=== PATIENT | male | born 1940 | race Caucasian/White ===

== ENCOUNTER → 2024-02-13 09:42 | Outpatient (REF) | payer OTHER, SELFPAY | LOC: DHVS 09:42 | PROVIDERS: ATTENDING PHYSICIAN Surgery Vascular Surgery; FAMILY PHYSICIAN Internal Medicine Geriatric Medicine | DX: I73.9 Peripheral vascular disease, unspecified (principal) | CPT/HCPCS: 93922; 93925 ==

== ENCOUNTER 2024-09-07 12:09 | Emergency (ER) | payer OTHER, SELFPAY ==
[2024-09-07 12:19] VITALS: BP 146/64
--- NOTE | 2024-09-07 15:07 | ED.GENMED ---
History of Present Illness
General
Chief Complaint: Back Pain
Source: patient
Exam Limitations: none
Time Seen by Provider: 09/07/24 15:04
Nursing documentation reviewed up to this point in time: agreed with
History of Present Illness
History of Present Illness:
83-year-old male with history of back pain, BPH, right hip surgery presents for back spasms. States 'spasmotic' low back pains that started 4 days ago. Went to bed 5 nights ago, fell asleep on his back (he never sleeps on his back, sleeps on his
side), woke with 'tremendous pain in my lower back' right side worse than left. Pain was worse next day with spasms with certain movements, jose a. twisting to right side. Spasms were so bad 'they went into my chest and my sternum popped.'
States he laid on the floor for 6 hours on Saturday due to spasms, unable to help him up.
Called PCP Dr. Saenz's office Sun and spoke with Dr. Jaramillo who called in Flexeril and they talked about a steroid taper but when pt picked up the rx, no steroid ordered. He couldn't get through to the office today
Pt denies saddle numbness or weakness in legs, he is urinating frequently since stopping his Flomax few months ago, no incontinence.
Past History
Past History
ED Past Medical History: Other (DVT on warfarin ); Negative Asthma
ED Past Surgical History: None
Social History
Personal:
Living: with family
Family History
Family History: Hypertension
Review of Systems
Review of Systems
Allergies reviewed?: Yes
All Other Systems: ROS reviewed and negative except as documented in HPI and ROS
Constitutional: Denies fever or chills
Respiratory: Denies trouble breathing
Cardiac: Denies chest pain
ABD/GI: Denies abdominal pain, nausea, vomiting or diarrhea
: Reports frequency; Denies dysuria, incontinence, difficulty voiding or urgency
Musculoskeletal: Reports back pain; Denies neck pain
Skin: Reports no symptoms
Neurological: Reports no symptoms
Phy Exam
Physical Exam
Physical Exam:
GENERAL: Mild distress due to low back pain. A&Ox3.
CONSTITUTIONAL: Afebrile.
EYES: clear, conjunctivae normal
ENMT: moist mucus membranes
RESPIRATORY: Regular respirations, nonlabored, lungs clear.
CARDIOVASCULAR: Regular rate and rhythm, no murmurs, no rubs.
GI: Soft, nontender, normal BS
MUSCULOSKELETAL: Tender right lower back soft tissues, no spinal bony tenderness, rest of back is nontender. Movement causes R lower back spasms Well perfused.
SKIN: Warm, dry, pink
PSYCH: Normal mood and affect. Well kept, interactive and appropriate
NEUROLOGIC: Awake, alert and oriented. No focal neurological deficits, strength equal throughout.
Course
Orders/Labs/Results
Orders:
Orders
09/07/24 15:37
Dexamethasone Sod Phosphate [Decadron] 10 mg IV NOW STA
diazePAM [Valium Injection] 2 mg IV NOW STA
09/07/24 15:43
Complete Blood Count/With Diff Urgent
Comprehensive Metabolic Panel Urgent
Creatine Phosphokinase Urgent
Comment: ADD ON
09/07/24 16:19
Add On- LAB Urgent
Tests Added?: CPK
09/07/24 16:29
Urinalysis Reflex To Culture Urgent
Date Specimen was Collected: 09/07/24
Time Specimen was Collected: 16:13
Urine Microscopic Reflex Cult Urgent
Urine Culture Urgent
PAUL Source: U
Specimen Description:
Date Specimen was Collected: 09/07/24
Time Specimen was Collected: 16:13
Abnormal Lab Results
09/07/24 09/07/24
15:43 16:29
RBC 3.77 L 10^6/uL
(4.70-6.10)
Hgb 11.3 L g/dL
(13.0-18.0)
Hct 32.9 L %
(39.0-52.0)
Absolute Neuts (auto) 7.3 H 10^3/uL
(1.4-6.5)
Absolute Monos (auto) 1.2 H 10^3/uL
(0.1-0.6)
Lymphocytes % 12.2 L %
(20.5-51.1)
Monocytes % 12.6 H %
(1.7-9.3)
Sodium 134 L mmol/L
(135-145)
Creatinine 0.6 L mg/dL
(0.7-1.3)
Glucose 112 H mg/dl
(70-99)
Urine Ketones 1+ A
(Negative)
Leukocyte Esterase Rfl 1+ A
(Negative)
09/07/24 15:43
09/07/24 15:43
Vital Signs
Initial and Last Documented VS:
Initial Vital Signs
Temp Pulse Resp BP Pulse Ox
98.1 F 73 16 146/64 97
09/07/24 12:19 09/07/24 12:19 09/07/24 12:19 09/07/24 12:19 09/07/24 12:19
Last Documented Vital Signs
Temp Pulse Resp BP Pulse Ox
98.1 F 73 16 146/64 97
09/07/24 12:19 09/07/24 12:19 09/07/24 12:19 09/07/24 12:19 09/07/24 12:19
MDM/Problems Addressed
Differential Diagnosis Includes:
Low back strain, sciatica
MDM/Problems Addressed:
83-year-old male with history of back pain, BPH, right hip surgery presents for back spasms. States 'spasmotic' low back pains that started 4 days ago. Went to bed 5 nights ago, fell asleep on his back (he never sleeps on his back, sleeps on his
side), woke with 'tremendous pain in my lower back' right side worse than left. Pain was worse next day with spasms with certain movements, jose a. twisting to right side. Spasms were so bad 'they went into my chest and my sternum popped.'
States he laid on the floor for 6 hours on Saturday due to spasms, unable to help him up.
Called PCP Dr. Saenz's office Sun and spoke with Dr. Jaramillo who called in Flexeril and they talked about a steroid taper but when pt picked up the rx, no steroid ordered. He couldn't get through to the office today
Pt denies saddle numbness or weakness in legs, he is urinating frequently since stopping his Flomax few months ago, no incontinence.
No infectious symptoms, not anticoagulated no recent trauma,
4:00 PM:
CBC with no clinically significant abnormality
CMP normal
4:40 p.m.
Sleeping soundly after Valium and Decadron
Plan: ambulate, rx for prednisone taper sent to his pharmacy
5:00 p.m.
Pt awake, OOB and ambulating slowly with mild assistance with improved but still there right lower back pain.
Left message on 's phone to picking tech patient, informed her he will need a walker. Suggested she get one at pharmacy.
Pt comfortable going home. Informed he needs walker.
He says can get him one.
*Critical Care Note
Total Time (30-74mins, 75-104mins- exclusive of procedures): Not Applicable
ED Attending Note
-
Portions of this chart may have been created with voice recognition software.� Occasional wrong word or��sound alike� substitutions may have occurred due to the inherent limitations of voice recognition software.
Discharge Plan
Departure
Patient Disposition: Home (Routine Discharge)
Date of Disposition: 09/07/24
Time of Disposition: 17:19
Patient with high blood pressure during this ER visit?: No
Condition: Fair
Discharge Problem:
Low back pain, Back muscle spasm
Instructions: Low Back Pain (DC)
Prescriptions:
New
prednisone 10 mg tablet
10 mg PO DIRECTED Qty: 20 0RF
Rx Instructions:
40 mg x 2 days, 30 mg x 2 days, 20 mg x 2 days, 10 mg x 2 days.
No Action
calcium carbonate [Calcium 500] 500 MG tablet
1,000 - 1,200 mg PO DAILY
vitamin E 400 UNIT capsule
400 - 800 unit PO DAILY
Fish Oil
1.5 gm PO BID
MAGNESIUM
500 - 700 mg PO DAILY
Coumadin
10 mg PO DAILY
Patient Comments:
Was ordered 10mg daily but Pt. had been taken 20mg daily since 09/29
Referrals:
Denton Saenz MD [Family Provider] - Call in 1-3 days for appt
NONE,* [Active] -
Activity Restrictions/Additional Instructions:
As we discussed, continue your Cyclobenzaprine muscle relaxant as prescribed
I sent a prescription to your pharmacy for Prednisone taper. Start it tomorrow as you were given a dose of steroid here today.
Call Dr. Saenz's office tomorrow and make a follow up appointment for Saturday.
Get a walker at the pharmacy tonight and use it until your back feels better.
Interventions
Interventions:
*Risk Screen - Suicide Last Done: 09/07/24 12:21
*Neglect/Abuse Screening Last Done: 09/07/24 12:21
*Nursing Disposition Last Done: 09/07/24 18:38
ED-Musculoskeletal Assessment Last Done: 09/07/24 15:59
Discharge Date and Time
Discharge Date/Time: 09/07/24 18:38
Print Language: VIETNAMESE
[2024-09-07 15:43] VITALS: BMI 20.6
[2024-09-07] MEDS: DECADRON 10 MG IV (15:44)
[2024-09-07] MEDS: VALIUM INJECTION 2 MG IV (15:44)
[2024-09-07 16:18] LABS: % Basophils 0.1 % (0-2); % Eosinophils 0.1 % (0-6); % Immature Granulocytes 0.4 % (0-0.5); % Lymphocytes 12.2 % (20.5-51.1); % Monocytes 12.6 % (1.7-9.3); % Neutrophils 74.6 % (42.2-75.2); Absolute Lymphocytes 1.2 10^3/uL (1.2-3.4); Absolute Monocytes 1.2 10^3/uL (0.1-0.6); Absolute Neutrophils 7.3 10^3/uL (1.4-6.5); Hematocrit 32.9 % (39.0-52.0); Hemoglobin 11.3 g/dL (13.0-18.0); Mean Corp Hgb Conc. 34.3 g/dL (33.0-37.0); Mean Corpuscular Volume 87.3 fL (80.0-94.0); Mean Platelet Volume 10.3 fL (7.4-10.4); Nucleated Red Blood Cells % 0 % (-); Platelet Count 253 10^3/uL (130-400); Red Blood Cell Count 3.77 10^6/uL (4.70-6.10); White Blood Cell Count 9.7 10^3/uL (4.8-10.8)
[2024-09-07 16:20] LABS: ALT (SGPT) 16 U/L (0-50); AST (SGOT) 23 U/L (17-59); Albumin 3.7 g/dl (3.5-5.0); Alkaline Phosphatase 63 U/L (38-126); Blood Urea Nitrogen 13 mg/dl (9-20); Calcium 8.9 mg/dl (8.4-10.2); Carbon Dioxide 25 mmol/L (22-30); Chloride 101 mmol/L (98-107); Estimated Creatinine Clearance 87 ml/min; Glucose 112 mg/dl (70-99); Potassium 4.2 mmol/L (3.5-5.1); Sodium 134 mmol/L (135-145); Total Bilirubin 0.6 mg/dl (0.2-1.3); Total Protein 6.5 g/dl (6.3-8.2); eGFR > 60.00
[2024-09-07 17:07] LABS: Creatine Phosphokinase 68 U/L (55-170)
[2024-09-07 17:16] LABS: Urine Albumin Negative (Neg - Trace); Urine Bilirubin Negative (Negative); Urine Character Clear (Clear); Urine Color Yellow; Urine Glucose Negative (Negative); Urine Ketone 1+ (Negative); Urine Leukocyte 1+ (Negative); Urine Nitrite Negative (Negative); Urine Occult Blood Negative (Negative); Urine Specific Gravity 1.005 (<1.030); Urine Urobilinogen Negative (Neg - 1+)
[2024-09-07 17:52] LABS: Urine Red Blood Cell 0-2 /HPF (0-2); Urine Squamous Cell 0-2 /LPF (Few)
== END 2024-09-07 18:38 | disposition home or self-care (01) ==
LOC: EMR 12:09
PROVIDERS: Registered Nurse; EMERGENCY PHYSICIAN Emergency Medicine; FAMILY PHYSICIAN Internal Medicine Geriatric Medicine
DX: M54.50 Low back pain, unspecified (principal); M62.830 Muscle spasm of back; N40.0 Benign prostatic hyperplasia without lower urinary tract symptoms; Z86.718 Personal history of other venous thrombosis and embolism; Z79.01 Long term (current) use of anticoagulants
CPT/HCPCS: 99284; 96374; 96375; 80053; 81003; 81015; 82550; 85025; 87086

== ENCOUNTER 2024-09-15 17:29 | Observation (INO) | payer OTHER, SELFPAY ==
[2024-09-15 11:15] VITALS: BP 134/68
--- NOTE | 2024-09-15 11:16 | ED.GENMED ---
History of Present Illness
General
Chief Complaint: Back Pain
Time Seen by Provider: 09/15/24 11:15
History of Present Illness
History of Present Illness:
TIME OF INITIAL ENCOUNTER: 11:30 AM
HPI: The patient has been having nontraumatic low back pain/upper buttock pain for the past 2 weeks or so. His doctor initially called in Flexeril however this did not help. When he saw him in person they switched him to Zanaflex and was going to
start a steroid but never did. He came to the hospital on 09/07/2024 and was given Valium and a Medrol Dosepak. He was feeling somewhat improved but the pain was persisting. The pain got worse today so he came in here by ambulance.
EXAM:
GENERAL: Well appearing but appears somewhat uncomfortable with any attempted change in position
HEENT: Moist oral mucosa
CARDIOVASCULAR: No murmurs, normal heart rate, regular rhythm, No chest wall tenderness
PULMONARY: No respiratory distress, breath sounds are clear and equal
ABDOMEN: Soft with no peritoneal signs, no tenderness
NEUROLOGIC: Excellent strength all extremities, no coordination deficits
BACK: There is midline L-spine tenderness along with other diffuse paraspinal tenderness in the lumbar region, there is some pain to palpation of the upper gluteus musculature
PSYCHIATRIC: Appropriate mental status, normal insight and judgement
EXTREMITIES: Nontender, no edema, moves all extremities equally
SKIN: No rash, no lesions
NUMBER AND COMPLEXITY OF PROBLEMS ADDRESSED AT THE ENCOUNTER
� Chronic conditions affecting care: BPH
� Acute Exacerbation and/or Progression of Chronic Illness: This is an acute problem
� Differential Diagnosis includes: Lumbar compression, spinal stenosis, musculoskeletal etiology, metastatic disease
AMOUNT AND/OR COMPLEXITY OF DATA TO BE REVIEWED AND ANALYZED
� I performed an independent evaluation of and my interpretation is:
EKG:
CT:
X-rays: X-ray showed degenerative changes with no acute fracture
Laboratory Studies:
Other:
� Review of other/old records: I reviewed records from 09/07/2024. At that time the patient CBC was unremarkable with exception of mild anemia. No imaging studies were obtained at that time.
� Clinical information was obtained by an independent historian: Spoke to
� Prescriptions/Medications Considered but not given:
� Further testing considered but not performed:
RISK OF COMPLICATIONS AND/OR MORBIDITY OR MORTALITY OF PATIENT MANAGEMENT
� Social determinants of health affecting care: Lives at home with
� Discussion with other providers: Physical therapy to evaluate at bedside
� Escalation of care including admission/observation vs risk of discharge considered: The patient appears uncomfortable with any attempted movement. Will try dose of Percocet. He has not had recent lumbar imaging�will obtain
x-ray. We also tried lidocaine patch.
ANY OTHER UPDATES:
1:50 PM: I spoke to the at bedside who tells me that she cannot care for him like this. The patient however states he does feel improved. PT evaluated patient and recommends rehab placement.
4 PM: I spoke to case management who states that they likely will not have any answer from [employer] today. However they did locate a bed. It does not appear that he will likely be able to be transferred to a rehab facility today. Therefore I have
asked Dr. Wylie to keep the patient in the hospital. He states that the Percocet has not really helped much. Will give IV Toradol and Dilaudid. Renal function from last week normal.
Past History
Past History
ED Past Medical History: Other (DVT on warfarin ); Negative Asthma
ED Past Surgical History: None
Social History
Personal:
Living: with family
Family History
Family History: Hypertension
Phy Exam
Physical Exam
Physical Exam:
See HPI
Course
Orders/Labs/Results
Orders:
Orders
09/15/24 11:29
CR Lumbar Spine Comp Min 4 Vw* Urgent
Comment:
Reason For Exam: pain
CR Pelvis - 1 Or 2 Views Urgent
Comment:
Reason For Exam: pain
09/15/24 11:30
Oxycodone/Acetaminophen [Percocet 5/325] 1 tablet PO NOW STA
09/15/24 11:42
Lidocaine [Lidocaine 4% Patch] 1 patch TOPICAL NOW STA
Apply Lidocaine patch(s) to:: low back
09/15/24 13:52
Physical Therapy Consult [Pt Eval And Treat] Urgent
Activity Level: Ambulate
09/15/24 14:22
Case Management Consult ONCE
Case Management Consult: Discharge Planning
09/15/24 16:02
Basic Metabolic Panel Urgent
Complete Blood Count/With Diff Urgent
HYDROmorphone [Dilaudid] 0.5 mg IV NOW STA
Ketorolac [Toradol] 15 mg IV NOW STA
Ondansetron Injectable [Zofran] 4 mg IV NOW STA
Vital Signs
Initial and Last Documented VS:
Initial Vital Signs
Temp Pulse Resp BP Pulse Ox
37.2 C 85 16 134/68 96
09/15/24 11:15 09/15/24 11:15 09/15/24 11:15 09/15/24 11:15 09/15/24 11:15
Last Documented Vital Signs
Temp Pulse Resp BP Pulse Ox
37.2 C 82 18 115/53 96
09/15/24 11:15 09/15/24 14:50 09/15/24 14:50 09/15/24 14:50 09/15/24 14:50
*Critical Care Note
Total Time (30-74mins, 75-104mins- exclusive of procedures): Not Applicable
ED Attending Note
-
Portions of this chart may have been created with voice recognition software.� Occasional wrong word or��sound alike� substitutions may have occurred due to the inherent limitations of voice recognition software.
Discharge Plan
Departure
Patient Disposition: Admit
Date of Disposition: 09/15/24
Time of Disposition: 15:10
Presentation/result/management discussed w/ accepting MD/DO: Hospitalist
Discharge Problem:
Low back pain
Prescriptions:
No Action
calcium carbonate [Calcium 500] 500 MG tablet
1,000 - 1,200 mg PO DAILY
vitamin E 400 UNIT capsule
400 - 800 unit PO DAILY
Fish Oil
1.5 gm PO BID
MAGNESIUM
500 - 700 mg PO DAILY
Coumadin
10 mg PO DAILY
Patient Comments:
Was ordered 10mg daily but Pt. had been taken 20mg daily since 09/29
prednisone 10 mg tablet
10 mg PO DIRECTED Qty: 20 0RF
Rx Instructions:
40 mg x 2 days, 30 mg x 2 days, 20 mg x 2 days, 10 mg x 2 days.
Referrals:
Denton Saenz MD [Family Provider] -
Interventions
Interventions:
*Risk Screen - Suicide Last Done: 09/15/24 11:15
*General Assessment Last Done: 09/15/24 11:15
*Neglect/Abuse Screening Last Done: 09/15/24 11:15
*ED- Fall Risk Assessment Last Done: 09/15/24 11:15
*ED COVID-19 Vaccine History Last Done: 09/15/24 11:15
ED-Musculoskeletal Assessment Last Done: 09/15/24 11:15
Discharge Date and Time
Print Language: SOMALI
[2024-09-15] MEDS: PERCOCET 5/325 1 TABLET PO (11:49)
[2024-09-15] MEDS: LIDOCAINE 4% PATCH 1 PATCH TOPICAL (11:49)
[2024-09-15 14:50] VITALS: BP 115/53
--- NOTE | 2024-09-15 15:20 | CM ---
Addendum entered by Mario Gilmore 09/15/24 16:02:
[facility] accepted patient
Auth initiated in [employer], pending review at this time. CM faxed clinicals to [phone]
Updated ER physician and spouse
Original Note:
CM consulted for d/c planning.
Patient seen bedside w/ spouse in the ED. Admitted for back pain. Recent ED visit on 09/07 for back pain.
Patient resides w/ spouse in a 2ST[facility]- 1 step to enter. Patient was prev independent w/ ambulating, however, per spouse, patient has been utilizing a RW for last couple of weeks. Denies SNF/HC hx.
Address, point of contact and insurance verified
PCP: Denton Saenz
Pharmacy: [facility]
Physical therapy assessed, rec skilled rehab, spouse and patient agreeable. Spouse stated that patient is unable to come home in this condition
Spouse prefers facilities in [place] but understands that search may need to expand for bed availability
Referrals placed in [facility] for review
Spoke w/ [facility] admissions, may have a bed today, will review referral and let CM know if patient can be accepted
Auth is required prior to d/c
Plan: SNF
[2024-09-15] MEDS: ZOFRAN 4 MG IV (16:20)
[2024-09-15] MEDS: TORADOL 15 MG IV (16:21)
[2024-09-15] MEDS: DILAUDID 0.5 MG IV (16:22)
[2024-09-15 16:34] LABS: % Basophils 0.2 % (0-2); % Immature Granulocytes 0.4 % (0-0.5); % Lymphocytes 12.6 % (20.5-51.1); % Neutrophils 75.8 % (42.2-75.2); Absolute Lymphocytes 1.2 10^3/uL (1.2-3.4); Absolute Monocytes 1.1 10^3/uL (0.1-0.6); Absolute Neutrophils 7.4 10^3/uL (1.4-6.5); Hematocrit 32.2 % (39.0-52.0); Hemoglobin 10.8 g/dL (13.0-18.0); Mean Corp Hgb Conc. 33.5 g/dL (33.0-37.0); Mean Corpuscular Hgb 29.7 pg (27.0-31.0); Mean Corpuscular Volume 88.5 fL (80.0-94.0); Mean Platelet Volume 9.6 fL (7.4-10.4); Nucleated Red Blood Cells % 0 % (-); Platelet Count 289 10^3/uL (130-400); Red Blood Cell Count 3.64 10^6/uL (4.70-6.10); Red Cell Dist. Width 13.3 % (11.5-14.5); White Blood Cell Count 9.7 10^3/uL (4.8-10.8)
[2024-09-15 16:48] LABS: Blood Urea Nitrogen 17 mg/dl (9-20); Calcium 8.9 mg/dl (8.4-10.2); Carbon Dioxide 29 mmol/L (22-30); Chloride 103 mmol/L (98-107); Estimated Creatinine Clearance 82 ml/min; Glucose 97 mg/dl (70-99); Potassium 3.9 mmol/L (3.5-5.1); Sodium 135 mmol/L (135-145); eGFR > 60.00
--- NOTE | 2024-09-15 17:09 | HPS.HSE ---
Family Physician
-
Family Physician: Denton Saenz
Chief Complaint
-
LBP
cannot cares for him as of now
History of Present Illness
HPI
83M lives with family HX DVT on warfarin pw Low back pain sen at ER:
- 2nd visit to ED
- pw nontraumatic low back pain/upper buttock pain for the past 2 weeks or so.
- PCP initially called in Flexeril however this did not help. When he saw him in person they switched him to Zanaflex and was going to start a steroid but never did.
- had ER visit 09/07/2024 and was given Valium and a Medrol Dosepak. He was feeling somewhat improved but the pain was persisting.
- The pain got worse today so he came in here by ambulance.
@ ER
IV Dilaudid 0.5mg
IV Toradol 15 mg
Percocet x1
Lidoderm patch
IV Zofram
Medical History
Past Medical History
Past Medical History: Reports Other (DVT on Warfarin )
Additional Past Medical History:
LBP
Past Surgical History: Reports None
Social History
Tobacco: Non-smoker
Alcohol: Occasional
Personal:
Living: With Family
Family History
Family History: Not pertinent
Allergies / Home Medications
Allergies reflects when Allergies were last updated in [employer].
Home Medications with original date entered in [employer]
Allergy/Medication List:
Allergies
Allergy/AdvReac Type Severity Reaction Status Date / Time
Cephalosporins Allergy Unknown Verified 10/04/09 08:18
penicillin G Allergy Unknown Verified 10/04/09 08:18
Penicillins Allergy BAD Verified 10/04/09 08:18
HEADACHE
CHOCOLATE Allergy COLD SORE Uncoded 10/04/09 08:18
OUTBREAK
IF HAVE
TOO MANY
DAYS IN A
ROW
EGGS Allergy BAD DREAMS Uncoded 10/04/09 08:18
SOY/MSG Allergy SLEEP Uncoded 10/04/09 08:18
DISTURBANCE,BAD
DREAMS
Home Medications
magnesium oxide 200 mg PO BID 09/07/09
prednisone 10 mg tablet 10 mg PO DIRECTED #20 tabs 09/07/24
cholecalciferol (vitamin D3) 50 mcg (2,000 unit) tablet (Vitamin D3) 50 mcg PO DAILY 09/15/24
tizanidine 2 mg capsule 2 mg PO Q8HPRN PRN spasms 09/15/24
Review of Systems
-
Constitutional: Reports No Symptoms
EENT: Reports No Symptoms
Respiratory: Reports No Symptoms
Cardiac: Reports No Symptoms
Abdomen/GI: Reports No Symptoms
: Reports No Symptoms
Musculoskeletal: Reports See HPI
Skin: Reports No Symptoms
Neurological: Reports No Symptoms
Endocrine: Reports No Symptoms
Hematologic/Lymphatic: Reports No Symptoms
Psych: Reports No Symptoms
Physical Exam
Vital Signs
Vital Signs
Temp Pulse Resp BP Pulse Ox
98.9 F 82 18 115/53 96
09/15/24 11:15 09/15/24 14:50 09/15/24 14:50 09/15/24 14:50 09/15/24 14:50
Physical Exam
General: Well Developed, Well Nourished and No Apparent Distress
HEENT: NormoCephalic, Moist mucous membranes and Atraumatic
Respiratory: Clear
Cardiac: S1/S2 and Regular Rhythm; No Murmur or Rub
GI: Soft, Non Tender, Non Distended and Normal Bowel Sounds; No Organomegaly
Rectal: Deferred by Provider
Musculoskeletal: No Clubbing, No Cyanosis and No Edema
Skin: No Rash
Neuro: Nonfocal/grossly intact
Laboratory Results
-
05/27/25 16:26
09/15/24 16:26
Data Reviewed
-
Diagnostic Radiology: Report Reviewed by me
Lab Data: Discussed with Physician
Impression/Plan
-
Vital Signs
Temp Pulse Resp BP Pulse Ox
98.9 F 82 18 115/53 96
09/15/24 11:15 09/15/24 14:50 09/15/24 14:50 09/15/24 14:50 09/15/24 14:50
Laboratory Tests
09/07/24 09/15/24
15:43 16:26
WBC 9.7 9.7
Hgb 11.3 L 10.8 L
Plt Count 253 289
Creatinine 0.7
eGFR > 60.00
Lx spine XR
No acute fracture or malalignment. Multilevel moderate to advanced degenerative changes as above.
XR Pelvis
No acute fracture or malalignment identified.
NO PRIOR hospitalist admission:
ASSESSMENT & PLAN
Intractable LBP with acute gait dysfunction
- feels he cannot be cared for safely at home.
- No signs of radiculopathy
- XR with no acute fracture or malalignment.
- cont. Medrol dose pack
- MS relaxant PRN
- Oxycodone PRN , IV Dilaudid PRN for break thru pain
- BW Regime
- PT/OT suggest SNF
HX DVT on warfarin
- check INR
- fall precaution
DVT Px: chr warfarin
Full code
Obs MS
[2024-09-15 18:38] VITALS: BP 119/63
[2024-09-15] MEDS: MEDROL 24 MG PO (19:56)
[2024-09-15] MEDS: SENOKOT 8.6 MG PO (19:56)
[2024-09-15 23:54] VITALS: BP 123/62
[2024-09-16 06:37] LABS: INR 1.13; PT 14.8 Sec (11.4-14.6)
[2024-09-16 06:45] LABS: Hematocrit 31.9 % (39.0-52.0); Hemoglobin 10.7 g/dL (13.0-18.0); Mean Corp Hgb Conc. 33.5 g/dL (33.0-37.0); Mean Corpuscular Hgb 29.5 pg (27.0-31.0); Mean Corpuscular Volume 87.9 fL (80.0-94.0); Mean Platelet Volume 10.1 fL (7.4-10.4); Platelet Count 285 10^3/uL (130-400); Red Blood Cell Count 3.63 10^6/uL (4.70-6.10); Red Cell Dist. Width 13.3 % (11.5-14.5); White Blood Cell Count 9.8 10^3/uL (4.8-10.8)
[2024-09-16 07:00] LABS: Blood Urea Nitrogen 19 mg/dl (9-20); Calcium 8.9 mg/dl (8.4-10.2); Carbon Dioxide 27 mmol/L (22-30); Chloride 104 mmol/L (98-107); Estimated Creatinine Clearance 72 ml/min; Glucose 88 mg/dl (70-99); Potassium 4.7 mmol/L (3.5-5.1); Sodium 136 mmol/L (135-145); eGFR > 60.00
--- NOTE | 2024-09-16 07:04 | W.PN.HOSP.TC ---
Today's Communication/Plan
-
pain control
PT/OT
discharge planning snf rehab
Assessment / Plan
Assessment / Plan
Physical Exam
General: Well Developed, Well Nourished and No Apparent Distress
HEENT: NormoCephalic, Moist mucous membranes and Atraumatic
Respiratory: Clear
Cardiac: S1/S2 and Regular Rhythm; No Murmur or Rub
GI: Soft, Non Tender, Non Distended and Normal Bowel Sounds; No Organomegaly
Musculoskeletal: No Clubbing, No Cyanosis and No Edema
Skin: No Rash
Neuro: AOx3 conversant coherent
83M HX DVT treated with warfarin several years ago, since completed anticoagulation treatment, pw acute intractable Low back pain w/ associate severe ambulatory dysfunction.
Lx spine XR
No acute fracture or malalignment. Multilevel moderate to advanced degenerative changes as above.
XR Pelvis
No acute fracture or malalignment identified.
Intractable LBP with acute gait dysfunction
- feels he cannot be cared for safely at home.
- No signs of radiculopathy
- XR with no acute fracture or malalignment.
- cont. Medrol dose pack
- MS relaxant PRN
- Oxycodone PRN , IV Dilaudid PRN for break thru pain
- BW Regime
- PT/OT appreciated SNF rehab
HX DVT completed treatment with warfarin several years ago
- Venous duplex appreciated chronic dvt RLE
- fall precaution
DVT Px: Lovenox
Full code
Obs MS
discussed with patient and his Nancy
I spent a total of 50 minutes with the patient or on the floor. More than 50% of this time involved counseling and coordination of care.
Anticipated Discharge: Within 24 hours
Subjective/Interval History
-
Date of Service: September 16, 2024
Reports improvement in pain with current pain regimen.
Objective Data
-
Labs:
Laboratory Results
09/16/24
05:53
WBC 9.8
Hgb 10.7 L
Hct 31.9 L
Plt Count 285
PT 14.8 H
INR 1.13
Sodium 136
Potassium 4.7
Chloride 104
Carbon Dioxide 27
BUN 19
Creatinine 0.8
Glucose 88
Calcium 8.9
Vital Signs:
Vital Signs
Temp Pulse Resp BP Pulse Ox
97.8 F 81 16 123/62 96
09/15/24 23:54 09/15/24 23:54 09/15/24 23:54 09/15/24 23:54 09/15/24 23:54
I&O
09/15/24 09/16/24 09/17/24
06:59 06:59 06:59
Intake Total 480 / 480
Output Total 775 / 775
Balance -295 / -295
[2024-09-16 07:30] VITALS: BP 121/54
[2024-09-16] MEDS: LOVENOX 70 MG SC (07:57)
[2024-09-16] MEDS: SENOKOT 8.6 MG PO ×2 (07:58→20:10)
[2024-09-16] MEDS: MAG-TAB SR 84 MG PO (07:58)
[2024-09-16] MEDS: VITAMIN D3 (cholecalciferol) 50 MCG PO (07:58)
--- NOTE | 2024-09-16 10:04 | CM ---
As per [employer] patient approved for [facility].Authorization # [id number] from 09/15/24 to 09/21/24 .Merlene Olivas aware of auth information.
notified of auth .
LM with Nancy.
Medical nec form completed.
Pt remains under observation.
[facility]
report [phone]
fax [phone]
PLAN To John Olivas when medically ready
[2024-09-16] MEDS: MEDROL 20 MG PO (10:13)
[2024-09-16] MEDS: ROXICODONE 5 MG PO ×3 (10:25→21:25)
[2024-09-16] MEDS: LIDOCAINE 4% PATCH 2 PATCH TOPICAL (12:23)
[2024-09-16] MEDS: BenGay-Like 1 APPLIC TOPICAL (12:23)
[2024-09-16 15:56] VITALS: BP 134/67
--- NOTE | 2024-09-16 16:11 | DOWNTIME ---
There was a [employer] Downtime on 09/16/2024 from 1230 to 09/16/2024 at 1550. Downtime documentation of patient's care, including medication administrations, has been reconciled in the electronic record per guidelines. Refer to the
patient's paper chart under the miscellaneous tab to see printed paper medication records and downtime forms.
--- NOTE | 2024-09-16 16:12 | PTCARENOTE ---
Pt AAO x3, PEREZ ; able to positon self in bed; c/o low back pain with activity- good effect with PO Roxicodone. VSS. On room air- pulse ox 98%, no SOB noted. Abd soft, rounded, christopher PO well. Voids small amts clear yellow urine in urinal. Resting
in bed at present. Will continue to monitor.
[2024-09-16] MEDS: BenGay-Like TOPICAL ×2 (17:22→21:24)
[2024-09-16] MEDS: NEURONTIN 100 MG PO (21:24)
[2024-09-16 23:57] VITALS: BP 134/76
[2024-09-17] MEDS: ROXICODONE 5 MG PO ×3 (04:35→13:55)
[2024-09-17] MEDS: NEURONTIN 100 MG PO ×2 (06:00→13:53)
[2024-09-17] MEDS: SENOKOT-S 1 TABLET PO (06:06)
[2024-09-17 07:08] VITALS: BP 119/56
--- NOTE | 2024-09-17 07:13 | W.PN.HOSP.TC ---
Today's Communication/Plan
-
discharge
Assessment / Plan
Assessment / Plan
Physical Exam
General: Well Developed, Well Nourished and No Apparent Distress
HEENT: NormoCephalic, Moist mucous membranes and Atraumatic
Respiratory: Clear
Cardiac: S1/S2 and Regular Rhythm; No Murmur or Rub
GI: Soft, Non Tender, Non Distended and Normal Bowel Sounds; No Organomegaly
Musculoskeletal: No Clubbing, No Cyanosis and No Edema
Skin: No Rash
Neuro: AOx3 conversant coherent
83M HX DVT treated with warfarin several years ago, since completed anticoagulation treatment, pw acute intractable Low back pain w/ associate severe ambulatory dysfunction.
Lx spine XR
No acute fracture or malalignment. Multilevel moderate to advanced degenerative changes as above.
XR Pelvis
No acute fracture or malalignment identified.
Intractable LBP with acute gait dysfunction
- feels he cannot be cared for safely at home.
- No signs of radiculopathy
- XR with no acute fracture or malalignment.
- cont. Medrol dose pack
- MS relaxant PRN
- Oxycodone PRN , IV Dilaudid PRN for break thru pain
- BW Regime
- PT/OT appreciated SNF rehab
HX DVT completed treatment with warfarin several years ago
- Venous duplex appreciated chronic dvt RLE, no need for therapeutic anticoagulation at this time
- fall precaution
DVT Px: Lovenox
Full code
Obs MS
Medically stable for discharge SNF rehab with outpatient follow up recommendations.
discussed with patient and his Nancy
I spent a total of 40 minutes with the patient or on the floor. More than 50% of this time involved counseling and coordination of care.
Anticipated Discharge: Today
Subjective/Interval History
-
Date of Service: September 17, 2024
Seen and examined at bedside in no acute distress. Reports overall feeling well. Pain well controlled with current regimen. Looking forward to rehab.
Objective Data
-
Vital Signs:
Vital Signs
Temp Pulse Resp BP Pulse Ox
98.2 F 82 16 134/76 96
09/16/24 23:57 09/16/24 23:57 09/16/24 23:57 09/16/24 23:57 09/16/24 23:57
I&O
09/16/24 09/17/24 09/18/24
06:59 06:59 06:59
Intake Total 480 / 480 1220 / 1220
Output Total 775 / 775 1999
Balance -295 / -295 -780 / -780
[2024-09-17] MEDS: BenGay-Like TOPICAL (08:40)
[2024-09-17] MEDS: LIDOCAINE 4% PATCH TOPICAL (08:42)
[2024-09-17] MEDS: SENOKOT 8.6 MG PO (08:43)
[2024-09-17] MEDS: VITAMIN D3 (cholecalciferol) 50 MCG PO (08:43)
[2024-09-17] MEDS: MAG-TAB SR 84 MG PO (08:44)
[2024-09-17] MEDS: MEDROL 16 MG PO (08:45)
--- NOTE | 2024-09-17 10:34 | CM ---
indicated pt ready for dc to SNF today.
As per [employer] patient approved for [facility].Authorization # [id number] from 09/15/24 to 09/21/24 .Merlene Olivas aware of auth information. Spoke with Nancy she agrees with dc to [facility] via ambulance.
Medical nec form completed.
Pt remains under observation.
[facility]
report [phone]
fax [phone]
PLAN To [facility]
[2024-09-17 11:25] VITALS: BP 127/62; BP 137/79; PULSE 75; O2SAT 96
--- NOTE | 2024-09-17 15:25 | W.DCSUMMARY ---
Discharge Summary
Discharge Data
Date of Admission: 09/15/24
Date of Discharge: 09/17/24
-
Pending Results: No
Discharge Plan
-
Patient Disposition: Shelter/SNF
Discharge Diagnosis/Procedures: Intractable lower back pain with associate ambulatory dysfunction
Condition: Fair
Diet: Regular
Activity: With assistance, As tolerated and With Walker
Driving Restrictions: Not until seen by your Dr
Bathing Restrictions: None
Activity Restrictions/Additional Instructions:
Follow up with primary care provider in 1 week of discharge. Follow up with orthopedic customer acquisition specialist in 2-4 weeks of discharge.
Steroid taper, gabapentin, lidocaine patches, and as needed oxycodone prescribed for back pain.
sennoside prescribed for opiate induced constipation prophylaxis.
Please take medications as prescribed/recommended and follow up with primary care provider and/or other healthcare provider involved in your care for refills and/or further adjustment to your medication regimen as necessary.
Referrals:
Zaire Bauman MD [Active, Orthopedics] - in two to four weeks
Denton Saenz MD [Family Provider, Internal Medicine] - in one week
Prescriptions:
New
lidocaine 4 % Adhesive Patch,Medicated
2 patch topical DAILY Qty: 14 0RF
methylprednisolone [Medrol] 4 mg tablet
4 mg PO DIRECTED Qty: 6 0RF
Rx Instructions:
12 mg day1, 8 mg day2, 4 mg day3, then stop
sennosides [Gracia-opal] 8.6 mg Tablet
8.6 mg PO BID Qty: 14 0RF
Rx Instructions:
hold if Diarrhea
gabapentin 100 mg Capsule
100 mg PO Q8H Qty: 21 0RF
oxycodone 5 mg Tablet
5 mg PO Q6HPRN PRN (Reason: moderate severe pain) Qty: 12 0RF
Continued
magnesium oxide 200 mg magnesium Tablet
200 mg PO BID
tizanidine 2 mg Capsule
2 mg PO Q8HPRN PRN (Reason: spasms)
cholecalciferol (vitamin D3) [Vitamin D3] 50 mcg (2,000 unit) Tablet
50 mcg PO DAILY
Discontinued
prednisone 10 mg tablet
10 mg PO DIRECTED Qty: 20 0RF
Rx Instructions:
start 09/07/24-40 mg x 2 days, 30 mg x 2 days, 20 mg x 2 days, 10 mg x 2 days.
Discharge Orders:
Discharge Patient (As Directed); Ordered 09/17/24
Ordered By: Amita Damon
Discharge Date and Time
Print Language: TONGAN
[2024-09-17 15:26] VITALS: BP 127/64
== END 2024-09-17 16:52 ==
LOC: 4 EAST ACU 17:29
PROVIDERS: ADMITTING PHYSICIAN Internal Medicine; ATTENDING PHYSICIAN Internal Medicine; EMERGENCY PHYSICIAN Emergency Medicine; FAMILY PHYSICIAN Internal Medicine Geriatric Medicine
DX: M54.9 Dorsalgia, unspecified (principal); R26.9 Unspecified abnormalities of gait and mobility; M47.816 Spondylosis without myelopathy or radiculopathy, lumbar region; I82.511 Chronic embolism and thrombosis of right femoral vein; I82.531 Chronic embolism and thrombosis of right popliteal vein; I82.551 Chronic embolism and thrombosis of right peroneal vein; Z79.01 Long term (current) use of anticoagulants; Z82.49 Family history of ischemic heart disease and other diseases of the circulatory system; Z88.1 Allergy status to other antibiotic agents; Z91.012 Allergy to eggs; Z91.02 Food additives allergy status; Z88.0 Allergy status to penicillin; Z91.018 Allergy to other foods
CPT/HCPCS: 72110; 72170; 80048; 85025; 85027; 85610; 93970; 96374; 96375; 97167; 97530; 99285; G0378

== ENCOUNTER → 2024-09-21 11:37 | Outpatient (REF) | payer OTHER, SELFPAY ==
[2024-09-21 12:02] LABS: % Basophils 0.3 % (0-2); % Eosinophils 0.1 % (0-6); % Immature Granulocytes 0.3 % (0-0.5); % Lymphocytes 12.8 % (20.5-51.1); % Monocytes 10.4 % (1.7-9.3); % Neutrophils 76.1 % (42.2-75.2); Absolute Lymphocytes 1.5 10^3/uL (1.2-3.4); Absolute Monocytes 1.2 10^3/uL (0.1-0.6); Absolute Neutrophils 8.9 10^3/uL (1.4-6.5); Hematocrit 32.8 % (39.0-52.0); Hemoglobin 10.8 g/dL (13.0-18.0); Mean Corp Hgb Conc. 32.9 g/dL (33.0-37.0); Mean Corpuscular Volume 88.2 fL (80.0-94.0); Mean Platelet Volume 10.7 fL (7.4-10.4); Nucleated Red Blood Cells % 0 % (-); Platelet Count 271 10^3/uL (130-400); Red Blood Cell Count 3.72 10^6/uL (4.70-6.10); Red Cell Dist. Width 13.6 % (11.5-14.5); White Blood Cell Count 11.7 10^3/uL (4.8-10.8)
[2024-09-21 12:51] LABS: Blood Urea Nitrogen 16 mg/dl (9-20); Calcium 8.6 mg/dl (8.4-10.2); Carbon Dioxide 27 mmol/L (22-30); Chloride 100 mmol/L (98-107); Glucose 106 mg/dl (70-99); Potassium 4.9 mmol/L (3.5-5.1); Sodium 134 mmol/L (135-145); eGFR > 60.00
== END ==
LOC: OLABP 11:37
PROVIDERS: ATTENDING PHYSICIAN Family Medicine
DX: M53.9 Dorsopathy, unspecified (principal); I82.501 Chronic embolism and thrombosis of unspecified deep veins of right lower extremity
CPT/HCPCS: 36415; 80048; 85025

== ENCOUNTER → 2024-09-24 21:00 | Outpatient (REF) | payer OTHER, SELFPAY ==
[2024-09-25 12:52] LABS: Urine Albumin Negative (Neg - Trace); Urine Bilirubin Negative (Negative); Urine Character Clear (Clear); Urine Color Yellow; Urine Glucose Negative (Negative); Urine Ketone Negative (Negative); Urine Leukocyte Negative (Negative); Urine Nitrite Negative (Negative); Urine Occult Blood 4+ (Negative); Urine Specific Gravity 1.005 (<1.030); Urine Urobilinogen Negative (Neg - 1+)
[2024-09-25 14:01] LABS: Urine Mucus Few
[2024-09-25 14:02] LABS: Urine Bacteria Few (Negative)
== END ==
LOC: OLABP 21:00
PROVIDERS: ATTENDING PHYSICIAN Family Medicine
DX: N39.9 Disorder of urinary system, unspecified (principal); M53.9 Dorsopathy, unspecified; I82.501 Chronic embolism and thrombosis of unspecified deep veins of right lower extremity
CPT/HCPCS: 81003; 81015; 87086

== ENCOUNTER → 2024-09-25 11:42 | Outpatient (REF) | payer OTHER, SELFPAY ==
[2024-09-25 12:29] LABS: % Basophils 0.2 % (0-2); % Eosinophils 0.1 % (0-6); % Immature Granulocytes 0.3 % (0-0.5); % Lymphocytes 7.5 % (20.5-51.1); % Monocytes 9.1 % (1.7-9.3); % Neutrophils 82.8 % (42.2-75.2); Absolute Lymphocytes 0.8 10^3/uL (1.2-3.4); Absolute Monocytes 0.9 10^3/uL (0.1-0.6); Absolute Neutrophils 8.6 10^3/uL (1.4-6.5); Hematocrit 27.9 % (39.0-52.0); Hemoglobin 9.5 g/dL (13.0-18.0); Mean Corp Hgb Conc. 34.1 g/dL (33.0-37.0); Mean Corpuscular Hgb 29.1 pg (27.0-31.0); Mean Corpuscular Volume 85.6 fL (80.0-94.0); Mean Platelet Volume 10.9 fL (7.4-10.4); Nucleated Red Blood Cells % 0.2 % (-); Platelet Count 211 10^3/uL (130-400); Red Blood Cell Count 3.26 10^6/uL (4.70-6.10); Red Cell Dist. Width 13.5 % (11.5-14.5); White Blood Cell Count 10.4 10^3/uL (4.8-10.8)
[2024-09-25 13:18] LABS: Blood Urea Nitrogen 24 mg/dl (9-20); Calcium 8.8 mg/dl (8.4-10.2); Carbon Dioxide 27 mmol/L (22-30); Chloride 92 mmol/L (98-107); Glucose 109 mg/dl (70-99); Potassium 5.4 mmol/L (3.5-5.1); Sodium 125 mmol/L (135-145); eGFR 45.62
== END ==
LOC: OLABP 11:42
PROVIDERS: ATTENDING PHYSICIAN Family Medicine
DX: M53.9 Dorsopathy, unspecified (principal); I82.501 Chronic embolism and thrombosis of unspecified deep veins of right lower extremity
CPT/HCPCS: 36415; 80048; 85025

== ENCOUNTER → 2024-09-28 11:03 | Outpatient (REF) | payer OTHER, SELFPAY ==
[2024-09-28 11:37] LABS: Blood Urea Nitrogen 12 mg/dl (9-20); Calcium 8.6 mg/dl (8.4-10.2); Carbon Dioxide 30 mmol/L (22-30); Chloride 100 mmol/L (98-107); Glucose 97 mg/dl (70-99); Potassium 4.9 mmol/L (3.5-5.1); Sodium 130 mmol/L (135-145); eGFR > 60.00
== END ==
LOC: OLABP 11:03
PROVIDERS: ATTENDING PHYSICIAN Family Medicine
DX: M53.9 Dorsopathy, unspecified (principal); I82.501 Chronic embolism and thrombosis of unspecified deep veins of right lower extremity
CPT/HCPCS: 36415; 80048

== ENCOUNTER → 2024-09-29 09:43 | Outpatient (REF) | payer OTHER, SELFPAY ==
[2024-09-29 11:21] LABS: Blood Urea Nitrogen 9 mg/dl (9-20); Calcium 8.9 mg/dl (8.4-10.2); Carbon Dioxide 29 mmol/L (22-30); Chloride 98 mmol/L (98-107); Glucose 107 mg/dl (70-99); Magnesium 1.9 mg/dl (1.6-2.3); Potassium 4.8 mmol/L (3.5-5.1); Sodium 130 mmol/L (135-145); eGFR > 60.00
[2024-09-29 12:07] LABS: Vitamin B12 > 1000 pg/ml (239-931)
== END ==
LOC: OLABP 09:43
PROVIDERS: ATTENDING PHYSICIAN Family Medicine
DX: M53.9 Dorsopathy, unspecified (principal); I82.501 Chronic embolism and thrombosis of unspecified deep veins of right lower extremity; N32.81 Overactive bladder; E44.0 Moderate protein-calorie malnutrition; K59.00 Constipation, unspecified; M62.59 Muscle wasting and atrophy, not elsewhere classified, multiple sites; Z73.9 Problem related to life management difficulty, unspecified; R34 Anuria and oliguria; R26.2 Difficulty in walking, not elsewhere classified; Z79.899 Other long term (current) drug therapy
CPT/HCPCS: 36415; 80048; 82607; 83735

== ENCOUNTER → 2024-10-01 11:31 | Outpatient (REF) | payer OTHER, SELFPAY ==
[2024-10-01 13:33] LABS: % Basophils 0.2 % (0-2); % Eosinophils 0.1 % (0-6); % Immature Granulocytes 0.5 % (0-0.5); % Lymphocytes 6.8 % (20.5-51.1); % Monocytes 9.7 % (1.7-9.3); % Neutrophils 82.7 % (42.2-75.2); Absolute Immature Granulocytes 0.1 10^3/uL (0-0.05); Absolute Lymphocytes 0.9 10^3/uL (1.2-3.4); Absolute Monocytes 1.3 10^3/uL (0.1-0.6); Absolute Neutrophils 10.6 10^3/uL (1.4-6.5); Hematocrit 30.7 % (39.0-52.0); Hemoglobin 10.4 g/dL (13.0-18.0); Mean Corp Hgb Conc. 33.9 g/dL (33.0-37.0); Mean Corpuscular Hgb 28.8 pg (27.0-31.0); Mean Platelet Volume 10.2 fL (7.4-10.4); Nucleated Red Blood Cells % 0 % (-); Platelet Count 333 10^3/uL (130-400); Red Blood Cell Count 3.61 10^6/uL (4.70-6.10); Red Cell Dist. Width 13.8 % (11.5-14.5); White Blood Cell Count 12.8 10^3/uL (4.8-10.8)
== END ==
LOC: OLABP 11:31
PROVIDERS: ATTENDING PHYSICIAN Family Medicine
DX: M53.9 Dorsopathy, unspecified (principal); I82.501 Chronic embolism and thrombosis of unspecified deep veins of right lower extremity; N32.81 Overactive bladder; E44.0 Moderate protein-calorie malnutrition; K59.00 Constipation, unspecified; M62.59 Muscle wasting and atrophy, not elsewhere classified, multiple sites; Z73.9 Problem related to life management difficulty, unspecified; R34 Anuria and oliguria; R26.2 Difficulty in walking, not elsewhere classified
CPT/HCPCS: 36415; 85025

== ENCOUNTER → 2024-10-02 11:52 | Outpatient (REF) | payer OTHER, SELFPAY ==
[2024-10-02 13:15] LABS: Blood Urea Nitrogen 11 mg/dl (9-20); Calcium 8.6 mg/dl (8.4-10.2); Carbon Dioxide 29 mmol/L (22-30); Chloride 96 mmol/L (98-107); Glucose 99 mg/dl (70-99); Potassium 4.6 mmol/L (3.5-5.1); Sodium 126 mmol/L (135-145); eGFR > 60.00
== END ==
LOC: OLABP 11:52
PROVIDERS: ATTENDING PHYSICIAN Family Medicine
DX: M53.9 Dorsopathy, unspecified (principal); I82.501 Chronic embolism and thrombosis of unspecified deep veins of right lower extremity; N32.81 Overactive bladder; E44.0 Moderate protein-calorie malnutrition; K59.00 Constipation, unspecified; M62.59 Muscle wasting and atrophy, not elsewhere classified, multiple sites; Z73.9 Problem related to life management difficulty, unspecified; R34 Anuria and oliguria; R26.2 Difficulty in walking, not elsewhere classified
CPT/HCPCS: 36415; 80048

== ENCOUNTER → 2024-10-10 07:06 | Outpatient (REF) | payer OTHER, SELFPAY | LOC: MRI 07:06 | PROVIDERS: ATTENDING PHYSICIAN Physician Assistant Surgical; FAMILY PHYSICIAN Internal Medicine Geriatric Medicine | DX: M54.16 Radiculopathy, lumbar region (principal); M54.50 Low back pain, unspecified; M47.816 Spondylosis without myelopathy or radiculopathy, lumbar region | CPT/HCPCS: 72148 ==

== ENCOUNTER 2024-10-12 18:33 | Inpatient (IN) | payer OTHER, SELFPAY ==
[2024-10-12] VITALS (7 sets, daily range): BP systolic 93–125; BP diastolic 48–96; BMI 18.1; BMI 17.9
[2024-10-12 12:15] LABS: Hematocrit 27.8 % (39.0-52.0); Hemoglobin 9.3 g/dL (13.0-18.0); Mean Corp Hgb Conc. 33.5 g/dL (33.0-37.0); Mean Corpuscular Volume 83.0 fL (80.0-94.0); Nucleated Red Blood Cells % 0 % (-); Platelet Count 298 10^3/uL (130-400); Red Cell Dist. Width 14.5 % (11.5-14.5)
[2024-10-12 12:33] LABS: ALT (SGPT) 22 U/L (0-50); AST (SGOT) 23 U/L (17-59); Albumin 2.7 g/dl (3.5-5.0); Alkaline Phosphatase 77 U/L (38-126); Blood Urea Nitrogen 17 mg/dl (9-20); Calcium 8.8 mg/dl (8.4-10.2); Carbon Dioxide 29 mmol/L (22-30); Chloride 100 mmol/L (98-107); Glucose 102 mg/dl (70-99); Potassium 4.2 mmol/L (3.5-5.1); Sodium 131 mmol/L (135-145); Total Protein 5.5 g/dl (6.3-8.2); eGFR > 60.00
--- NOTE | 2024-10-12 17:29 | ED.GENMED ---
History of Present Illness
General
Chief Complaint: Back Pain
Source: patient
Exam Limitations: none
Time Seen by Provider: 10/12/24 16:08
Nursing documentation reviewed up to this point in time: agreed with
History of Present Illness
History of Present Illness:
Patient presents to ED secondary to worsening right lower back pain over the past 1 month. Patient had an outpatient MRI spine which revealed possible discitis versus osteomyelitis. Patient denies fever or chills. Denies nausea or vomiting.
Denies weakness. Denies urinary or bowel incontinence. Denies direct trauma. Denies previous history of similar symptoms.
Past History
Past History
ED Past Medical History: Other (DVT on warfarin ); Negative Asthma
ED Past Surgical History: None
Social History
Personal:
Living: with family
Family History
Family History: Hypertension
Review of Systems
Review of Systems
Allergies reviewed?: Yes
All Other Systems: ROS reviewed and negative except as documented in HPI and ROS
Constitutional: Reports no symptoms; Denies fever
ABD/GI: Reports no symptoms; Denies abdominal pain, vomiting or diarrhea
: Reports no symptoms; Denies incontinence
Musculoskeletal: Reports back pain
Skin: Reports no symptoms
Neurological: Reports no symptoms; Denies weakness or numbness
Phy Exam
Physical Exam
Physical Exam:
Physical Exam
General: mild distress, not acutely ill. afebrile
Head: nc/at. eomi
Neck: supple. no meningeal signs.
Abdomen: normal bowel sounds. not tender.
Back: no midline tenderness/deformity
Neuro: alert and oriented x 3. no focal neurological deficits
Skin: no rash
Psychiatric: well kept. interactive and cooperative
Extremities: no edema. no calf tenderness.
Course
Orders/Labs/Results
Orders:
Orders
10/12/24 12:05
C-Reactive Protein Urgent
Comment: ADD ON
Complete Blood Count/With Diff Urgent
Comprehensive Metabolic Panel Urgent
Erythrocyte Sed Rate Urgent
Comment: ADD ON
Lactic Acid Q4H
Comment: ON ICE, CANCEL 2ND ORDER IF FIRST LACTIC ACID LEVEL <2
Blood Culture Q20M
PAUL Source: Blood/Venous
Specimen Description:
Comment: Urgent from separate sites. If patient screens positive for possible sepsis
10/12/24 16:18
Blood Culture Q20M
PAUL Source: Blood/Venous
Specimen Description:
Comment: Urgent from separate sites. If patient screens positive for possible sepsis
10/12/24 17:29
Add On- LAB Urgent
Tests Added?: ESR, CRP
Ketorolac [Toradol] 15 mg IV NOW STA
10/12/24 18:03
Morphine Sulfate 2 mg IV NOW STA
10/12/24 18:09
Admit/Transfer Patient As Directed
Co-Sign Provider:
Level of Care: Inpatient admission
Assign to:: Medical/Surgical
Physician / Group: Breanna Cherry
Diagnosis: Discitis
Reason for Hospitalization: Discitis
Expected length of stay greater than two midnights?: Yes
ELOS- Estimated Length of Stay in days: 2
I certify the patient meets the requirements for IP care: Yes
PRN Pain Medication Management As Directed
May give lesser potent ordered pain med per pt: Yes
preference::
Protocol:: Medication orders for pain may be administered in a
manner that supports deferring to patient preference
when the pt is:
- Requesting an ordered lesser potent pain medication.
Least to most potent pain medications are defined
as: acetaminophen < NSAID < tramadol < opioids
(morphine, oxycodone, hydromorphone).
- Requesting a lesser dose of the same medication IF
ORDERED.
- Requesting a less intrusive route of administration
if both routes are prescribed by the provider (PO <
IV).
10/12/24 18:11
Code Status As Directed
Resuscitation Status: Full Code
Abnormal Lab Results
10/12/24
12:05
RBC 3.35 L 10^6/uL
(4.70-6.10)
Hgb 9.3 L g/dL
(13.0-18.0)
Hct 27.8 L %
(39.0-52.0)
Abs Immat Gran (auto) 0.1 H 10^3/uL
(0-0.05)
Absolute Neuts (auto) 7.2 H 10^3/uL
(1.4-6.5)
Absolute Lymphs (auto) 1.1 L 10^3/uL
(1.2-3.4)
Absolute Monos (auto) 0.9 H 10^3/uL
(0.1-0.6)
Neutrophils % 78.0 H %
(42.2-75.2)
Lymphocytes % 11.4 L %
(20.5-51.1)
Monocytes % 9.8 H %
(1.7-9.3)
ESR 74 H mm/hour
(0-20)
Sodium 131 L mmol/L
(135-145)
Glucose 102 H mg/dl
(70-99)
C-Reactive Protein 143.60 H mg/L
(0.0-10.00)
Total Protein 5.5 L g/dl
(6.3-8.2)
Albumin 2.7 L g/dl
(3.5-5.0)
10/12/24 12:05
10/12/24 12:05
Vital Signs
Initial and Last Documented VS:
Initial Vital Signs
Temp Pulse Resp Pulse Ox
98.1 F 63 16 96
10/12/24 11:57 10/12/24 11:57 10/12/24 11:57 10/12/24 11:57
Last Documented Vital Signs
Temp Pulse Resp BP Pulse Ox
98.1 F 84 15 123/96 97
10/12/24 11:57 10/12/24 18:45 10/12/24 18:45 10/12/24 18:00 10/12/24 18:45
MDM/Problems Addressed
MDM/Problems Addressed:
MRI report reviewed. Discussed with on-call ID physician, , who recommends biopsy of spine prior to initiating antibiotics.
Blood culture pending.
*Pulse Oximetry
SaO2: 98
Oxygen Mode of Delivery: Room air
Patient hypoxic: no
*Critical Care Note
Total Time (30-74mins, 75-104mins- exclusive of procedures): Not Applicable
ED Attending Note
-
Portions of this chart may have been created with voice recognition software.� Occasional wrong word or��sound alike� substitutions may have occurred due to the inherent limitations of voice recognition software.
Discharge Plan
Departure
Patient Disposition: Admit
Date of Disposition: 10/12/24
Time of Disposition: 17:34
Admit to: Med/Surg
Presentation/result/management discussed w/ accepting MD/DO: Hospitalist
Discharge Problem:
Discitis
Interventions
Interventions:
*Risk Screen - Suicide Last Done: 10/12/24 16:21
*General Assessment Last Done: 10/12/24 16:21
*Neglect/Abuse Screening Last Done: 10/12/24 16:21
*ED COVID-19 Vaccine History Last Done: 10/12/24 16:21
ED-Musculoskeletal Assessment Last Done: 10/12/24 16:20
--- NOTE | 2024-10-12 17:35 | HPS.HSE ---
Family Physician
-
Family Physician: Denton Saenz
Chief Complaint
-
abnormal out patient MRI
History of Present Illness
Patient is a 83-year-old male with past medical history significant for intractable lower back pain with acute gait dysfunction who presented to [facility] ED for evaluation after abnormal out patient MRI. Patient seen in hospital approximately 1 month
ago for similar symptoms. Was sent to rehab and patient reports pain has gone from intermittent to more persistent. He states he went home from rehab around the or and has continued with discomfort and now using wheelchair nearly all the
time related to discomfort in trying to ambulate. he reports pain is mainly in lower right back and currently is a 7 out of 10. Patient denies any recent illness, fever, chills, cough, shortness of breath, chest pain, nausea, vomiting, constipation,
diarrhea or urinary symptoms.
Medical History
Past Medical History
Past Medical History: Reports Other
Additional Past Medical History:
Intractable lower back pain with acute gait dysfunction
Hx DVT
Past Surgical History: Reports None
Social History
Tobacco: Non-smoker
Alcohol: Occasional
Personal:
Living: With Family
Family History
Family History: Not pertinent
Allergies / Home Medications
Allergies reflects when Allergies were last updated in [facility].
Home Medications with original date entered in [facility]
Allergy/Medication List:
Allergies
Allergy/AdvReac Type Severity Reaction Status Date / Time
Cephalosporins Allergy Unknown Verified 10/04/09 08:18
chocolate Allergy COLD SORE Verified 10/12/24 18:08
OUTBREAK
IF HAVE
TOO MANY
DAYS IN A
ROW
egg Allergy BAD Verified 10/12/24 18:08
DREAMS-CAN
HAVE THE
FLU SHOT
monosodium glutamate Allergy SLEEP Verified 10/12/24 18:08
DISTURBANCE,BAD
DREAMS
penicillin G Allergy Unknown Verified 10/04/09 08:18
Penicillins Allergy BAD Verified 10/04/09 08:18
HEADACHE
soy Allergy SLEEP Verified 10/12/24 18:08
DISTURBANCE,BAD
DREAMS
Home Medications
magnesium oxide 200 mg PO BID Supplement 09/07/09
cholecalciferol (vitamin D3) 50 mcg (2,000 unit) tablet (Vitamin D3) 50 mcg PO DAILY Supplement 09/15/24
tizanidine 2 mg capsule 2 mg PO Q8HPRN PRN spasms 09/15/24
gabapentin 100 mg capsule 100 mg PO Q8H #21 caps 09/17/24
lidocaine 4 % topical patch 2 patch topical DAILY #14 ea 09/17/24
methylprednisolone 4 mg tablet (Medrol) 4 mg PO DIRECTED #6 tabs 09/17/24
oxycodone 5 mg tablet 5 mg PO Q6HPRN PRN moderate severe pain #12 tabs 09/17/24
sennosides 8.6 mg tablet (Gracia-opal) 8.6 mg PO BID #14 tabs 09/17/24
Review of Systems
-
History Source: Patient
Musculoskeletal: Reports Other (lower right back pain )
Physical Exam
Vital Signs
Vital Signs
Temp Pulse Resp BP Pulse Ox
98.1 F 84 12 125/70 98
10/12/24 11:57 10/12/24 16:15 10/12/24 16:15 10/12/24 15:57 10/12/24 17:30
Physical Exam
General: Well Developed, Well Nourished and No Apparent Distress
HEENT: NormoCephalic, Moist mucous membranes and Atraumatic
Respiratory: Clear
Cardiac: S1/S2 and Regular Rhythm; No Murmur or Rub
GI: Soft, Non Tender, Non Distended and Normal Bowel Sounds; No Organomegaly
Rectal: Deferred by Provider
Genito-urinary: Deferred by me
Musculoskeletal: No Clubbing, No Cyanosis and No Edema
Skin: No Rash
Neuro: Awake, Alert, AO x 3 and Nonfocal/grossly intact
Psych: Calm and Intact Judgment/Insight
Laboratory Results
-
10/12/24 12:05
10/12/24 12:05
Laboratory Results
Lactic Acid Cancelled 10/12/24 16:00
Total Bilirubin 0.7 mg/dl (0.2-1.3) 10/12/24 12:05
AST 23 U/L (17-59) 10/12/24 12:05
ALT 22 U/L (0-50) 10/12/24 12:05
Alkaline Phosphatase 77 U/L (38-126) 10/12/24 12:05
Data Reviewed
-
MRI: Report Reviewed by me (Lumbar: Abnormal marrow signal in L3 and L4 vertebral bodies. Bright inversion recovery signal within intervening L3/4 disc. Edema in the paraspinal soft tissues bilaterally at L3/4. Findings worrisome for infection
(discitis/osteomyelitis). Please correlate with clinical findings. Repeat scan with )
Lab Data: Labs Reviewed by me (Na+ 131)
Impression/Plan
-
IMPRESSION/PLAN:
#Intractable lower back pain with acute gait dysfunction
Lumbar Spine MRI (10/10/2024): Abnormal marrow signal in L3 and L4 vertebral bodies. Bright inversion recovery signal within intervening L3/4 disc. Edema in the paraspinal soft tissues bilaterally at L3/4. Findings worrisome
for infection (discitis/osteomyelitis). Please correlate with clinical findings. Repeat scan with IV gadolinium may be helpful for further evaluation.
Degenerative findings at L3/4 result in moderate spinal canal stenosis, severe right foraminal stenosis, moderate left foraminal stenosis
Degenerative findings at L4/5 result in moderate spinal canal stenosis
No focal disc protrusion at any level
Horseshoe kidney. 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 This has a mildly thickened wall posteriorly. This could represent a benign complicated cyst or
a cystic malignancy. Correlation with renal ultrasound recommended
- Admit to med/surg
- Consult ID
- Consult IR for biopsy
- NPO at midnight
- pain regimen
#hyponatremia
Na+ 131
- monitor BMP
Code status: full code
DVT prophylaxis: SCDs
[2024-10-12] MEDS: TORADOL 15 MG IV (17:59)
--- NOTE | 2024-10-12 18:35 | W.PN.UPDATE ---
Update Note
Progress Note Update
83-year-old male with past medical history significant for intractable lower back pain with acute gait dysfunction who presented to ED for evaluation after abnormal outpatient MRI.
Patient was seen in the hospital approximately 1 month ago for similar symptoms. He was sent to rehab and patient reported pain has gone from intermittent to more persistent.
He states he went home from rehab with continued discomfort and now needing to use a wheelchair nearly all the time.
Patient denies any recent illness, fever, chills, cough, shortness of breath, chest pain, nausea, vomiting, constipation, diarrhea or urinary symptoms.
MRI Lumbar spine:
Abnormal marrow signal in L3 and L4 vertebral bodies. Bright inversion recovery signal within intervening L3/4 disc. Edema in the paraspinal soft tissues bilaterally at L3/4. Findings worrisome for infection (discitis/osteomyelitis). Please
correlate with clinical findings. Repeat scan with IV gadolinium may be helpful for further evaluation.
Degenerative findings at L3/4 result in moderate spinal canal stenosis, severe right foraminal stenosis, moderate left foraminal stenosis
Degenerative findings at L4/5 result in moderate spinal canal stenosis
No focal disc protrusion at any level
Horseshoe kidney. 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 This has a mildly thickened wall posteriorly. This could represent a benign complicated cyst or a cystic malignancy. Correlation with renal
ultrasound recommended
A/P:
# Intractable lower back pain with acute gait dysfunction, due to L3/L4 discitis/osteomyelitis
Consult ID
Consult IR for biopsy prior to initiating abx, NPO at midnight
Spine Dr Bauman was contacted by ED on admission, but no surgical need per Dr Bauman
pain control with IV morphine, add bowel regimen while on opiate
# hyponatremia
monitor BMP
# Distant h/o DVT, completed AC course
Code status: full code
DVT prophylaxis: SCDs
[2024-10-12] MEDS: MORPHINE SULFATE 2 MG IV (19:01)
--- NOTE | 2024-10-12 19:04 | PHANOTE ---
10/12/2024, pt. is taking 200 mg of Gabapentin Q8H per spouse and pt.; could not confirm with another source as ecw and pharmacy records do not include this med.; pt. got this med[facility] from [facility] per spouse.
[2024-10-12 19:56] LABS: C-Reactive Protein 143.60 mg/L (0.0-10.00)
[2024-10-12] MEDS: SENOKOT-S 1 TABLET PO (21:10)
[2024-10-12] MEDS: ROXICODONE 5 MG PO (21:10)
[2024-10-12] MEDS: NSS 250 IV (23:18)
[2024-10-13 02:00] VITALS: BP 99/50
[2024-10-13 05:42] VITALS: BP 117/48
[2024-10-13] MEDS: ROXICODONE 5 MG PO ×2 (05:43→19:54)
--- NOTE | 2024-10-13 05:59 | PTCARENOTE ---
Pt did not want to turn in the bed overnight but was agreeable to turn on his side at around 06:00. Educated pt on the importance of Q2 turns to promote wound healing. Upon placing pillow under his side, pt promptly scooted off it. Pt re-educated
about the goal of offloading pressure from his sacrum. Pt has a sacral wound with a foam dressing in place. WC consulted.
[2024-10-13 07:03] LABS: Hematocrit 26.0 % (39.0-52.0); Hemoglobin 8.7 g/dL (13.0-18.0); Mean Corp Hgb Conc. 33.5 g/dL (33.0-37.0); Mean Corpuscular Volume 82.3 fL (80.0-94.0); Platelet Count 280 10^3/uL (130-400); Red Cell Dist. Width 14.5 % (11.5-14.5)
[2024-10-13 07:57] LABS: Blood Urea Nitrogen 19 mg/dl (9-20); Calcium 8.9 mg/dl (8.4-10.2); Carbon Dioxide 28 mmol/L (22-30); Chloride 100 mmol/L (98-107); Estimated Creatinine Clearance 65 ml/min; Glucose 80 mg/dl (70-99); Potassium 4.2 mmol/L (3.5-5.1); Sodium 132 mmol/L (135-145); eGFR > 60.00
[2024-10-13 08:01] VITALS: BP 92/50
--- NOTE | 2024-10-13 09:21 | VNURNOTE ---
Chart reviewed. Patient is current with [facility] nursing, PT, OT. Will continue to follow hospital course and DC plans.
[2024-10-13] MEDS: MORPHINE SULFATE 2 MG IV ×2 (09:26→14:25)
[2024-10-13] MEDS: SENOKOT-S PO ×2 (09:29→19:55)
[2024-10-13] MEDS: MIRALAX PO (09:29)
--- NOTE | 2024-10-13 09:49 | W.PN.HOSP.TC ---
Today's Communication/Plan
-
see A/P
Assessment / Plan
Assessment / Plan
HPI: 83-year-old male with past medical history significant for intractable lower back pain with acute gait dysfunction who presented to ED for evaluation after abnormal outpatient MRI.
Patient was seen in the hospital approximately 1 month ago for similar symptoms. He was sent to rehab and patient reported pain has gone from intermittent to more persistent.
He states he went home from rehab with continued discomfort and now needing to use a wheelchair nearly all the time.
Patient denies any recent illness, fever, chills, cough, shortness of breath, chest pain, nausea, vomiting, constipation, diarrhea or urinary symptoms.
MRI Lumbar spine:
Abnormal marrow signal in L3 and L4 vertebral bodies. Bright inversion recovery signal within intervening L3/4 disc. Edema in the paraspinal soft tissues bilaterally at L3/4. Findings worrisome for infection (discitis/osteomyelitis). Please
correlate with clinical findings. Repeat scan with IV gadolinium may be helpful for further evaluation.
Degenerative findings at L3/4 result in moderate spinal canal stenosis, severe right foraminal stenosis, moderate left foraminal stenosis
Degenerative findings at L4/5 result in moderate spinal canal stenosis
No focal disc protrusion at any level
Horseshoe kidney. 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 This has a mildly thickened wall posteriorly. This could represent a benign complicated cyst or a cystic malignancy. Correlation with renal
ultrasound recommended
A/P:
# Intractable lower back pain with acute gait dysfunction, due to L3/L4 discitis/osteomyelitis
ID on board
Consult IR for discitis biopsy prior to initiating abx
Spine Dr Bauman was contacted by ED on admission, indicated no surgical need
pain control with IV morphine, added bowel regimen while on opiate
# bacteremia, infectious vs contaminant
Follow admission blood cultures S/S, check repeat blood cultures x2 today 10/13
Abx per ID
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
Per , flaherty was placed on 10/02/2024 due to urinary retention
recc outpt Uro follow up
# hyponatremia
Mild, sodium level 132 today
monitor BMP
# Distant h/o DVT, completed AC course
Code status: full code
DVT prophylaxis: SCDs
DW RN
DW at bedside
total time 51 min
Anticipated Discharge: > 48 hours
Subjective/Interval History
-
Date of Service: October 13, 2024
Objective Data
-
Labs:
Laboratory Results
10/13/24
06:02
WBC 9.1
Hgb 8.7 L
Hct 26.0 L
Plt Count 280
Sodium 132 L
Potassium 4.2
Chloride 100
Carbon Dioxide 28
BUN 19
Creatinine 0.7
Glucose 80
Calcium 8.9
Vital Signs:
Vital Signs
Temp Pulse Resp BP Pulse Ox
36.8 C 69 18 92/50 97
10/13/24 08:01 10/13/24 08:01 10/13/24 08:01 10/13/24 08:01 10/13/24 08:01
I&O
10/12/24 10/13/24 10/14/24
06:59 06:59 06:59
Intake Total 730 / 730
Output Total 425 / 425
Balance 305 / 305
Review of Systems
-
History Source: Patient
All other systems: Reviewed and negative
Physical Exam
-
General: Well Developed, No Apparent Distress, Comfortable, Conversant and Appears Chronically Ill; Negative Respiratory Distress
HEENT: Normocephalic, Atraumatic, Nose Appears Normal and Ears Appear Normal; Negative Oxygen
Respiratory: Clear to Auscultation and Non Labored Respirations; Negative Accessory Resp Muscle Use
Cardiac: Regular Rhythm and S1/S2
GI: Soft, Nontender, Nondistended and Normal Bowel Sounds
Genito-urinary: Flaherty
Skin: Warm and Dry
Neuro: Awake, Alert and Oriented
Psych: Calm and Intact Judgement/Insight
Data Reviewed
-
MRI: Report Reviewed by me
Labs: Labs Reviewed by me
[2024-10-13 10:05] VITALS: BP 112/48
--- NOTE | 2024-10-13 10:37 | CON.ID ---
Consultation
-
Date/Time Consultation Requested: October 12, 20242037
Date/Time Consultation Performed: October 13, 2024 1040
Requesting Provider: Dr. Demetrice Cherry
Performing Provider: Dr. Aisha Martines
Reason for Consultation: Discitis on MRI
Chief Complaint / Past History
Chief Complaint
Severe back pain
History of Present Illness
History obtained from the patient as well as from his at bedside. He is an 83-year-old male with history of BPH, DVT who was sent to the hospital October 12 due to discitis seen in MRI. His back pain started September 01, 2024 when he woke up with
severe back pain/spasms. He presented to the ER September 07 and was discharged on steroid. He returned to the hospital September 15 for severe back pain and ambulatory dysfunction. Lumbar spine x-ray no acute fracture, positive DJD. He was treated with
Medrol taper and muscle relaxant. He was then discharged to SNF rehab. While at rehab he was in urinary retention requiring Flaherty placement. He failed a voiding trial. Patient without significant improvement at rehab. He was discharged to home
mid September and was referred to [facility]. October 10 MRI without contrast showed L3/L4 discitis with paraspinal soft tissue edema. Patient continues to have significant back pain and now wheelchair-bound. He denies fevers or chills. No
history of surgery to the spine. Denies trauma. He had dental work done prior to September 01.. He states he had several procedures called LANAPP laser beam therapy under the gum to treat dental roots. He had 2 sessions treating the whole mouth. He
was prescribed clindamycin for 10 days for the dental procedure.
Past History
Additional Past Medical History:
DVT
BPH
Urinary retention with flahetry since 10/14
Right THR
Allergy History:
Cephalosporins Allergy (Verified 10/04/09 08:18)
Unknown
chocolate Allergy (Verified 10/12/24 18:08)
COLD SORE OUTBREAK IF HAVE TOO MANY DAYS IN A ROW
egg Allergy (Verified 10/12/24 18:08)
BAD DREAMS-CAN HAVE THE FLU SHOT
monosodium glutamate Allergy (Verified 10/12/24 18:08)
SLEEP DISTURBANCE,BAD DREAMS
penicillin G Allergy (Verified 10/04/09 08:18)
Unknown
Penicillins Allergy (Verified 10/04/09 08:18)
BAD HEADACHE
soy Allergy (Verified 10/12/24 18:08)
SLEEP DISTURBANCE,BAD DREAMS
Medications Reviewed: Yes
Current Antibiotics:
None
Social History
Tobacco: Non-Smoker
Alcohol: None
Drug: None
Personal:
Family History
Family History: Not Pertinent
Review of Systems
Review of Systems
General: Change in Appetite; Negative Fever or Chills
HEENT: Negative Sinus Problems or Headache
Cardiovascular: Negative Chest Pain or Edema
Respiratory: Negative Dyspnea
Gasteroenterology: Negative Nausea, Vomiting or Diarrhea
Genital / Urological: Negative Dysuria
Endocrine: Weakness
Neurological: Negative Dizziness
All systems: All other systems were reviewed and were negative
Vital Signs
Temp Pulse Resp BP Pulse Ox
98.3 F 69 18 112/48 97
10/13/24 08:01 10/13/24 08:01 10/13/24 08:01 10/13/24 10:05 10/13/24 08:01
Physical Exam
Physical Exam
Constitutional: Acutely Ill and Cachetic
Eyes: Sclera Anicteric
Cardiovascular: Regular Rate and S1/S2
Pulmonary: Clear
Gastrointestinal: Soft, Tender, Non Distended and Normal Bowel Sounds
Extremities: Negative Edema
Musculoskeletal: Spinal Tenderness (lumbar)
Neurological: AO x 3
Lab / Diagnostic Study Results
10/13/24 06:02
10/13/24 06:02
Abs Immat Gran (auto) 0.1 10^3/uL (0-0.05) H 10/12/24 12:05
Absolute Neuts (auto) 7.2 10^3/uL (1.4-6.5) H 10/12/24 12:05
Absolute Lymphs (auto) 1.1 10^3/uL (1.2-3.4) L 10/12/24 12:05
Absolute Monos (auto) 0.9 10^3/uL (0.1-0.6) H 10/12/24 12:05
Absolute Basos (auto) 0.0 10^3/uL (0-0.2) 10/12/24 12:05
Immature Gran % 0.5 % (0-0.5) 10/12/24 12:05
Neutrophils % 78.0 % (42.2-75.2) H 10/12/24 12:05
Lymphocytes % 11.4 % (20.5-51.1) L 10/12/24 12:05
Monocytes % 9.8 % (1.7-9.3) H 10/12/24 12:05
Eosinophils % 0.1 % (0-6) 10/12/24 12:05
Basophils % 0.2 % (0-2) 10/12/24 12:05
ESR 74 mm/hour (0-20) H 10/12/24 12:05
Lactic Acid Cancelled 10/12/24 16:00
C-Reactive Protein 143.60 mg/L (0.0-10.00) H 10/12/24 12:05
Microbiology Results
Micro:
10/12/24 12:05 Blood Culture - Preliminary
Blood/Venous Staphylococcus species
Streptococcus species
Gram Stain - Preliminary
10/13/24 09:24 Blood Culture - Pending
Blood/Venous
10/13/24 09:08 Blood Culture - Pending
Blood/Venous
10/12/24 16:18 Blood Culture - Pending
Blood/Venous
10/10/24 MRI Lumbar wo contrast: Abnormal marrow signal in L3 and L4 vertebral bodies. Bright inversion recovery signal within intervening L3/4 disc. Edema in the paraspinal soft tissues bilaterally at L3/4. Findings worrisome for infection
(discitis/osteomyelitis). Please correlate with clinical findings. Repeat scan with IV gadolinium may be helpful for further evaluation.
Assessment / Plan
# Acute intractable back pain
# L3/L4 discitis with paraspinal edema (MRI)
# Elevated ESR/CRP
# Urinary retention with flaherty
- ER bcx 1 of 2 Bcx's Staph species and Strep species
- Need multiple positive blood cx's (off abx) to establish infectious discitis diagnosis
- Agree with repeat blood cx's x 2 today
- Hold abx for now.
- If subsequent bcx's neg, need IR biopsy.
--- NOTE | 2024-10-13 12:08 | WOUNDNOTE ---
[facility] RN note: Patient admitted with Discitis.
See H&P for complete history.
PMH: DVT, R hip repair, back pain discitis vs osteo, gout, skin cancer-basal cell.
Wound Location and type/assessment: Patient admitted with: DTI on Sacrum, dark maroon with slit like opening in center, base red, scant drainage. Heels are boggy but intact and blanchable. Nancy at bedside reports he has become increasingly
weaker, poor appetite and sits in wheelchair or bed, unable to ambulate due to back pain.
Appetite: NPO, encouraged protein in diet when able to eat, patient is Vegan.
Pressure redistribution devices in place: On Accumax, called bed tech Jarek for [facility] care air bed. Nurse Amy aware and will switch out bed when patient sent to IR. Pressure ulcer prevention measures reviewed with patient and . Made aware
that due to comorbidities, poor nutrition and weakness, wound can become worse, both state they understand. Air cushion on pillow placed under calves to offload heels.
Plan: Silicone foam applied to sacrum and foams to heels. Will confirm orders with hospitalist and updated nurse.
Updated care plan and will follow as needed.
Note to case management of equipment requested for discharge: Air mattress and VN if home.
Recommend follow up at wound care center upon discharge.
[2024-10-13 14:14] VITALS: BMI 17.9
[2024-10-13 15:57] VITALS: BP 112/49
--- NOTE | 2024-10-13 16:40 | CM ---
Alert awake oriented patient who lives with his Nancy who lives in a 2 story home with 2 step to enter and 13steps to bed and bathroom. He is independent in driving and in all activities of daily living.He was offered VN he is unsure. Requested
Pt OT order.
[facility] hx / [facility] history
Pharmacy [facility]
PCP DR Saenz
PLAN PT OT needed for dc planning
[2024-10-13 23:31] VITALS: BP 122/56
[2024-10-14] MEDS: ROXICODONE 5 MG PO (05:53)
--- NOTE | 2024-10-14 06:10 | PTCARENOTE ---
Pt confused throughout the night-AAOx1 (self) wants to come. Pt unable to sleep. Pt also called 911 multiple times- unable to reorient.
[2024-10-14 07:00] VITALS: BP 108/54
[2024-10-14 07:38] LABS: Hematocrit 27.9 % (39.0-52.0); Hemoglobin 9.3 g/dL (13.0-18.0); Mean Corp Hgb Conc. 33.3 g/dL (33.0-37.0); Mean Corpuscular Volume 82.1 fL (80.0-94.0); Nucleated Red Blood Cells % 0 % (-); Platelet Count 319 10^3/uL (130-400); Red Cell Dist. Width 14.5 % (11.5-14.5)
[2024-10-14 08:16] LABS: Blood Urea Nitrogen 20 mg/dl (9-20); Calcium 8.6 mg/dl (8.4-10.2); Carbon Dioxide 28 mmol/L (22-30); Chloride 103 mmol/L (98-107); Estimated Creatinine Clearance 75 ml/min; Glucose 112 mg/dl (70-99); Potassium 4.1 mmol/L (3.5-5.1); Sodium 135 mmol/L (135-145); eGFR > 60.00
[2024-10-14 08:32] LABS: C-Reactive Protein 133.90 mg/L (0.0-10.00)
[2024-10-14] MEDS: TYLENOL PO (09:24)
[2024-10-14] MEDS: MIRALAX 17 GRAMS PO (09:25)
[2024-10-14] MEDS: SENOKOT-S PO (09:25)
--- NOTE | 2024-10-14 10:00 | W.PN.HOSP.TC ---
Today's Communication/Plan
-
see A/P
Assessment / Plan
Assessment / Plan
HPI: 83-year-old male with past medical history significant for intractable lower back pain with acute gait dysfunction who presented to ED for evaluation after abnormal outpatient MRI.
Patient was seen in the hospital approximately 1 month ago for similar symptoms. He was sent to rehab and patient reported pain has gone from intermittent to more persistent.
He states he went home from rehab with continued discomfort and now needing to use a wheelchair nearly all the time.
Patient denies any recent illness, fever, chills, cough, shortness of breath, chest pain, nausea, vomiting, constipation, diarrhea or urinary symptoms.
MRI Lumbar spine:
Abnormal marrow signal in L3 and L4 vertebral bodies. Bright inversion recovery signal within intervening L3/4 disc. Edema in the paraspinal soft tissues bilaterally at L3/4. Findings worrisome for infection (discitis/osteomyelitis). Please
correlate with clinical findings. Repeat scan with IV gadolinium may be helpful for further evaluation.
Degenerative findings at L3/4 result in moderate spinal canal stenosis, severe right foraminal stenosis, moderate left foraminal stenosis
Degenerative findings at L4/5 result in moderate spinal canal stenosis
No focal disc protrusion at any level
Horseshoe kidney. 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 This has a mildly thickened wall posteriorly. This could represent a benign complicated cyst or a cystic malignancy. Correlation with renal
ultrasound recommended
A/P:
# sepsis POA 2/2 L3/L4 discitis/osteomyelitis with bacteremia
# Intractable lower back pain with acute gait dysfunction, due to L3/L4 discitis/osteomyelitis
Blood cultures growing Staph and Strep, follow S/S
Follow blood cultures until clearance
Started Ceftriaxone
Per ID, no need for IR discitis biopsy anymore with several positive blood cultures
Of note, spine Dr Bauman was contacted by ED on admission, indicated no surgical need
pain control with PO oxycodone, added bowel regimen while on opiate
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
Per , flaherty was placed on 10/02/2024 due to urinary retention
recc outpt Uro follow up
# Hyponatremia, resolved
# Distant h/o DVT, completed AC course
Code status: full code
DVT prophylaxis: SCDs
DW ID
DW at bedside
total time 51 min
Anticipated Discharge: > 48 hours
Subjective/Interval History
-
Date of Service: October 14, 2024
Objective Data
-
Labs:
Laboratory Results
10/14/24
06:13
WBC 10.0
Hgb 9.3 L
Hct 27.9 L
Plt Count 319
Sodium 135
Potassium 4.1
Chloride 103
Carbon Dioxide 28
BUN 20
Creatinine 0.6 L
Glucose 112 H
Calcium 8.6
Vital Signs:
Vital Signs
Temp Pulse Resp BP Pulse Ox
36.8 C 83 18 108/54 98
10/14/24 07:00 10/14/24 07:00 10/14/24 07:00 10/14/24 07:00 10/14/24 07:00
I&O
10/13/24 10/14/24 10/15/24
06:59 06:59 06:59
Intake Total 730 / 730
Output Total 425 / 425 1100 / 1100
Balance 305 / 305 -1100 / -1100
Review of Systems
-
History Source: Patient
All other systems: Reviewed and negative
Physical Exam
-
General: Well Developed, No Apparent Distress, Comfortable, Conversant and Appears Chronically Ill; Negative Respiratory Distress
HEENT: Normocephalic, Atraumatic, Nose Appears Normal and Ears Appear Normal; Negative Oxygen
Respiratory: Clear to Auscultation and Non Labored Respirations; Negative Accessory Resp Muscle Use
Cardiac: Regular Rhythm and S1/S2
GI: Soft, Nontender, Nondistended and Normal Bowel Sounds
Genito-urinary: Flaherty
Skin: Warm and Dry
Neuro: Awake, Alert and Oriented
Psych: Calm and Intact Judgement/Insight
Data Reviewed
-
MRI: Report Reviewed by me
Labs: Labs Reviewed by me
--- NOTE | 2024-10-14 10:28 | W.PN.ID1 ---
Date of Service
Date of Service: October 14, 2024
Today's Communication
See below
Assessment / Plan
# Acute L3/L4 discitis with paraspinal edema (MRI)
# Streptococcal bacteremia, multiple sets of blood cx's
# Elevated ESR/CRP
# Urinary retention with flaherty
- Multiple blood cx's (off abx) + strep species.
1 bottle + Staph species, probable contaminant
- Cancel IR biopsy.
- Start ceftriaxone 2g IV q24 pending final cx data.
- Ordered TTE
- Follow blood cx's until clear.
- Trend ESR/CRP
# Suspect pill esophagitis
- Consult Speech.
Chief Complaint
-: Bacteremia and Other (Discitis)
Subjective / Review of Systems
c/o back pain.
Also spitting up phlegm with blood streak.
Per , pt has difficulty swallowing pills if not in upright position; this is not a new problem.
Vital Signs / Physical Exam
Vital Signs
Vital Signs
Temp Pulse Resp BP Pulse Ox
98.3 F 83 18 108/54 98
10/14/24 07:00 10/14/24 07:00 10/14/24 07:00 10/14/24 07:00 10/14/24 07:00
Physical Exam
Constitutional: Acutely Ill and Cachetic
Cardiovascular: Regular Rate and S1/S2
Pulmonary: Clear
Gastrointestinal: Soft, Non Tender, Non Distended and Normal Bowel Sounds
Extremities: Negative Edema
Musculoskeletal: Spinal Tenderness
Neurological: AO x 3
Objective Data
Lab Data
Lab Results
10/14/24 06:13
10/14/24 06:13
ESR 74 mm/hour (0-20) H 10/12/24 12:05
Estimated Creat Clear 75 ml/min 10/14/24 06:13
Lactic Acid Cancelled 10/12/24 16:00
Total Bilirubin 0.7 mg/dl (0.2-1.3) 10/12/24 12:05
AST 23 U/L (17-59) 10/12/24 12:05
ALT 22 U/L (0-50) 10/12/24 12:05
Alkaline Phosphatase 77 U/L (38-126) 10/12/24 12:05
C-Reactive Protein 133.90 mg/L (0.0-10.00) H 10/14/24 06:13
Most recent labs reviewed.
Micro Results:
10/12/24 16:18 Blood Culture - Preliminary
Blood/Venous Streptococcus species
Gram Stain - Preliminary
10/12/24 12:05 Blood Culture - Preliminary
Blood/Venous Staphylococcus species
Streptococcus species
Gram Stain - Final
10/13/24 09:08 Blood Culture - Preliminary
Blood/Venous Positive culture in progress
Gram Stain - Preliminary
10/13/24 09:24 Blood Culture - Preliminary
Blood/Venous Positive culture in progress
Gram Stain - Preliminary
10/10/24 MRI Lumbar wo contrast: Abnormal marrow signal in L3 and L4 vertebral bodies. Bright inversion recovery signal within intervening L3/4 disc. Edema in the paraspinal soft tissues bilaterally at L3/4. Findings worrisome for infection
(discitis/osteomyelitis). Please correlate with clinical findings. Repeat scan with IV gadolinium may be helpful for further evaluation.
Care Review
Plan reviewed with: Physician (Dr. Cherry)
[2024-10-14] MEDS: STERILE WATER FOR INJECTION 20 ML IV (11:09)
[2024-10-14] MEDS: ROCEPHIN 2000 MG IV (11:09)
--- NOTE | 2024-10-14 12:46 | PTOTSP ---
Speech Therapy Evaluation:
Pt with no predisposing or precipitating risk factors of dysphagia. Oropharyngeal swallow appeared functional at bedside. Pt reported globus sensation with pills, which is alleviated with applesauce, or solid/liquid wash. Suspect difficulty related
to positional limitations with significant back pain. Risk of aspiration related pulmonary complications elevated given pt acutely wheelchair bound with back pain, however WBC WNL, pt afebrile, on room air, and has no hx of WINDOWS VMWARE ENGINEER services, swallow
dysfunction, or pneumonia.
Recommend:
1. Cont. regular solids and thin liquids
2. Medications whole versus crushed in puree with dry swallows or liquid chaser
3. Upright as possible for all oral intake
4. W[employer]OWS [employer] ENGINEER to s/o - please consult if concerned for aspiration or worsening in respiratory status/chest imaging
[2024-10-14 14:27] VITALS: BP 111/58; PULSE 86
[2024-10-14 15:57] VITALS: BP 121/55
--- NOTE | 2024-10-14 16:56 | CM ---
Requested order for PT OT .
PT saw pt and recommended SNF . Needs OT eval .
Speech eval done .
Will reviewed evals with couple and form dc planning.
PLAN Possible SNF after auth pt pt agrees
[2024-10-14] MEDS: TYLENOL 650 MG PO ×2 (17:48→22:14)
[2024-10-14] MEDS: SENOKOT-S 1 TABLET PO (20:14)
[2024-10-14 23:32] VITALS: BP 102/55
[2024-10-15 06:50] LABS: Hematocrit 29.1 % (39.0-52.0); Hemoglobin 9.5 g/dL (13.0-18.0); Mean Corp Hgb Conc. 32.6 g/dL (33.0-37.0); Mean Corpuscular Volume 82.7 fL (80.0-94.0); Nucleated Red Blood Cells % 0 % (-); Platelet Count 325 10^3/uL (130-400); Red Cell Dist. Width 14.6 % (11.5-14.5)
[2024-10-15 07:00] VITALS: BP 129/64
[2024-10-15 07:12] LABS: Blood Urea Nitrogen 17 mg/dl (9-20); Calcium 8.9 mg/dl (8.4-10.2); Carbon Dioxide 30 mmol/L (22-30); Chloride 105 mmol/L (98-107); Estimated Creatinine Clearance 75 ml/min; Glucose 108 mg/dl (70-99); Potassium 4.3 mmol/L (3.5-5.1); Sodium 136 mmol/L (135-145); eGFR > 60.00
[2024-10-15 07:31] LABS: C-Reactive Protein 107.80 mg/L (0.0-10.00)
--- NOTE | 2024-10-15 09:22 | PN.CDI ---
CDI
- -
CDI:
Physician Documentation Request
Admit Date: 10/12/24 18:33
Dear Doctor Dilip,
Patient admitted for sepsis
10/13 Sales And Events Coordinator Assessment: '128 lbs 6.4 oz BMI 17.9 underweight range, pts weight previous hospital visit listed as 147 lbs 09/07, reflective of a 19 lb (13%) weight loss in 1 month significant.
During visit RD able to visulize temporal wasting, protrusion of clavical, quad and calf muscle wasting, orbital area sunken in.
With weight loss of > 5% in 1 month and observed muscle and fat wasting pt meets AND/ASPEN criteria for severe protein calorie malnutrition of chronic illness.'
Based on the above information and your assessment, which of the following most accurately represents the patient's nutritional status?
Severe protein calorie malnutrition
Other
[employer] Criteria (ACP Hospitalist 2017)
2 or more criteria must be present for either
non severe or severe malnutrition
Note that the criteria differs related to the
presence of an acute or chronic illness
Acute Illness Chronic Illness
Energy Intake Non Severe: <75% for >7 days Non Severe: <75% for >1 month
Severe: <50% for >5 days Severe: <75% for >1 month
Weight Loss Non Severe: 1-2% over 1 week Non Severe: 5% over 1 month
5% over 1 month 7.5% over 3 months
7.5% over 3 months 10% over 6 months
1 year N/A 20% over 1 year
Severe: >2% over 1 week Severe: >5% over 1 month
>5% over 1 month >7.5% over 3 months
>7.5% over 3 months >10% over 6 months
1 year N/A >20% over 1 year
Body Fat Non Severe: Mild Decrease Non Severe: Mild Loss
Severe: Moderate Decrease Severe: Severe Loss
Muscle Mass Non Severe: Mild Decrease Non Severe: Mild Loss
Severe: Moderate Decrease Severe: Severe Loss
Fluid Accumulation Non Severe: Mild Accumulation Non Severe: Mild Accumulation
Severe: Moderate to severe Severe: Moderate to severe
accumulation accumulation
Reduced Cargo Service Supervisor Strength Non Severe: N/A Non Severe: N/A
Severe: Measurably reduced Severe: Measurably reduced
Additional criteria that can be used to Determine if Mild or Moderate Malnutrition (Merck Manual 2018)
Mild Moderate Severe
Albumin gm/dl <3.0 gm/dl <2.5 gm/dl <2.0 gm/dl
Pre Albumin mg/dl <15 gm/dl <10 mg/dl <5.0 mg/dl
BMI <18.5 <17 <16
Use of terms such as suspected, likely, concern for, or probable (associated with a specific diagnosis that is being evaluated, monitored, or treated as if it exists) are acceptable and can be coded in the inpatient setting, when documented at the
time of discharge.
Thank you,
Perri Ward RN, BSN
CDI Specialist
Available via [place] text
Please use your independent medical judgment in providing your response.
--- NOTE | 2024-10-15 09:28 | PN.CDI ---
CDI
- -
CDI:
Physician Documentation Request
Admit Date: 10/12/24 18:33
Dear Doctor Dilip,
10/14 Hospitalist PN: 'sepsis POA 2/ L3/L4 discitis/osteomyelitis with bacteremia
# Intractable lower back pain with acute gait dysfunction, due to L3/L4 discitis/osteomyelitis'
The purpose of this query is not to question medical judgement, but to ensure the accuracy of the conditions reported for your patient.
There is either a lack of clinical support for this condition in the current medical record, or there is a lack of recognized standard criteria to support the condition.
Sepsis
- Systemic manifestations of infection, with 2 or more SIRS criteria which include:
- Fever >100.9 degrees F or hypothermia < 96.8 degrees F
- Leukocytosis - WBC > 12,000 or leukopenia - WBC < 4,000 or > 10% bands
- Tachycardia > 90 beats per minute
- Tachypnea - RR > 20 breaths per minute or PaCO2 , 32mmHg
Source: Merck Manual 2013
The request is for one of the following:
- Additional documentation to support the condition. Indicate if this is in lieu of what may be considered standard criteria, and/or support why the standard criteria may not be present for this patient.
- A more appropriate diagnosis, reflecting the patient's condition
- Sepsis remains a known or suspected condition for this patient and is further supported by (include additional documentation in the medical record)
- Sepsis has been ruled out and a more appropriate diagnosis for this patient's condition is .
- Other (please specify)
Use of terms such as suspected, likely, concern for, or probable (associated with a specific diagnosis that is being evaluated, monitored, or treated as if it exists) are acceptable and can be coded in the inpatient setting, when documented at the
time of discharge.
Thank you,
Perri Ward RN, BSN
CDI Specialist
Available via [place] text
Please use your independent medical judgment in providing your response.
[2024-10-15 09:31] VITALS: BP 111/55; PULSE 76; O2SAT 97
[2024-10-15] MEDS: STERILE WATER FOR INJECTION 20 ML IV (09:54)
[2024-10-15] MEDS: ROCEPHIN 2000 MG IV (09:54)
[2024-10-15] MEDS: SENOKOT-S 1 TABLET PO ×2 (09:54→20:27)
[2024-10-15] MEDS: MIRALAX 17 GRAMS PO (09:54)
--- NOTE | 2024-10-15 10:43 | W.PN.ID1 ---
Date of Service
Date of Service: October 15, 2024
Today's Communication
Continue ceftriaxone.
Assessment / Plan
# Acute L3/L4 discitis with paraspinal edema (MRI)
# Complicated Streptococcal species bacteremia, multiple sets of blood cx's
# Elevated ESR/CRP
# Urinary retention with flaherty
-TTE no gross vege
- Multiple blood cx's + strep species.
1 bottle + Staph species, probable contaminant
- Continue to repeat blood cx's until clearance of bacteremia.
- Continue ceftriaxone 2g IV q24 (d2)
- Trend ESR/CRP weekly
# pill esophagitis
- Speech following
Chief Complaint
-: Bacteremia and Other (Discitis)
Subjective / Review of Systems
Feels slightly better.
Vital Signs / Physical Exam
Vital Signs
Vital Signs
Temp Pulse Resp BP Pulse Ox
97.2 F 81 18 129/64 97
10/15/24 07:00 10/15/24 07:00 10/15/24 07:00 10/15/24 07:00 10/15/24 07:00
Physical Exam
Constitutional: No Acute Distress and Cachetic
Cardiovascular: Regular Rate and S1/S2
Pulmonary: Clear
Gastrointestinal: Soft, Non Tender, Non Distended and Normal Bowel Sounds
Extremities: Negative Edema
Musculoskeletal: Spinal Tenderness
Neurological: AO x 3
Objective Data
Lab Data
Lab Results
10/15/24 06:09
10/15/24 06:09
ESR 74 mm/hour (0-20) H 10/12/24 12:05
Estimated Creat Clear 75 ml/min 10/15/24 06:09
Lactic Acid Cancelled 10/12/24 16:00
Total Bilirubin 0.7 mg/dl (0.2-1.3) 10/12/24 12:05
AST 23 U/L (17-59) 10/12/24 12:05
ALT 22 U/L (0-50) 10/12/24 12:05
Alkaline Phosphatase 77 U/L (38-126) 10/12/24 12:05
C-Reactive Protein 107.80 mg/L (0.0-10.00) H 10/15/24 06:09
Most recent labs reviewed.
Micro Results:
10/14/24 10:48 Blood Culture - Preliminary
Blood/Venous Positive culture in progress
Gram Stain - Preliminary
10/15/24 06:58 Blood Culture - Pending
Blood/Venous
10/15/24 06:09 Blood Culture - Pending
Blood/Venous
10/13/24 09:08 Blood Culture - Preliminary
Blood/Venous Positive culture in progress
Gram Stain - Preliminary
10/13/24 09:24 Blood Culture - Preliminary
Blood/Venous Positive culture in progress
Gram Stain - Preliminary
10/14/24 11:25 Blood Culture - Pending
Blood/Venous
10/12/24 16:18 Blood Culture - Preliminary
Blood/Venous Streptococcus species
Gram Stain - Preliminary
10/12/24 12:05 Blood Culture - Preliminary
Blood/Venous Staphylococcus species
Streptococcus species
Gram Stain - Final
10/10/24 MRI Lumbar wo contrast: Abnormal marrow signal in L3 and L4 vertebral bodies. Bright inversion recovery signal within intervening L3/4 disc. Edema in the paraspinal soft tissues bilaterally at L3/4. Findings worrisome for infection
(discitis/osteomyelitis). Please correlate with clinical findings. Repeat scan with IV gadolinium may be helpful for further evaluation.
[2024-10-15] MEDS: ULTRAM 25 MG PO ×2 (11:15→17:15)
--- NOTE | 2024-10-15 11:49 | W.PN.HOSP.TC ---
Addendum entered and electronically signed by Breanna Cherry MD 10/15/24 12:39:
# sepsis POA 2/2 L3/L4 discitis/osteomyelitis with bacteremia
# Severe protein calorie malnutrition
Original Note:
Today's Communication/Plan
-
see A/P
Assessment / Plan
Assessment / Plan
HPI: 83-year-old male with past medical history significant for intractable lower back pain with acute gait dysfunction who presented to ED for evaluation after abnormal outpatient MRI.
Patient was seen in the hospital approximately 1 month ago for similar symptoms. He was sent to rehab and patient reported pain has gone from intermittent to more persistent.
He states he went home from rehab with continued discomfort and now needing to use a wheelchair nearly all the time.
Patient denies any recent illness, fever, chills, cough, shortness of breath, chest pain, nausea, vomiting, constipation, diarrhea or urinary symptoms.
MRI Lumbar spine:
Abnormal marrow signal in L3 and L4 vertebral bodies. Bright inversion recovery signal within intervening L3/4 disc. Edema in the paraspinal soft tissues bilaterally at L3/4. Findings worrisome for infection (discitis/osteomyelitis). Please
correlate with clinical findings. Repeat scan with IV gadolinium may be helpful for further evaluation.
Degenerative findings at L3/4 result in moderate spinal canal stenosis, severe right foraminal stenosis, moderate left foraminal stenosis
Degenerative findings at L4/5 result in moderate spinal canal stenosis
No focal disc protrusion at any level
Horseshoe kidney. 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 This has a mildly thickened wall posteriorly. This could represent a benign complicated cyst or a cystic malignancy. Correlation with renal
ultrasound recommended
A/P:
# sepsis POA 2/2 L3/L4 discitis/osteomyelitis with bacteremia
# Intractable lower back pain with acute gait dysfunction, due to L3/L4 discitis/osteomyelitis
Blood cultures growing Staph and Strep, follow S/S
Follow blood cultures until clearance
Started Ceftriaxone
Per ID, no need for IR discitis biopsy anymore with several positive blood cultures
Of note, spine Dr Bauman was contacted by ED on admission, indicated no surgical need
pain control with Tylenol ATC and PRN, change oxycodone to tramadol PRN as pt refused oxycodone, cont bowel regimen ATC while on opiate
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
Per , flaherty was placed on 10/02/2024 due to urinary retention
recc outpt Uro follow up
# Hyponatremia, resolved
# Distant h/o DVT, completed AC course
Code status: full code
DVT prophylaxis: SCDs
DW at bedside
Anticipated Discharge: > 48 hours
Subjective/Interval History
-
Date of Service: October 15, 2024
Objective Data
-
Labs:
Laboratory Results
10/15/24
06:09
WBC 7.5
Hgb 9.5 L
Hct 29.1 L
Plt Count 325
Sodium 136
Potassium 4.3
Chloride 105
Carbon Dioxide 30
BUN 17
Creatinine 0.6 L
Glucose 108 H
Calcium 8.9
Vital Signs:
Vital Signs
Temp Pulse Resp BP Pulse Ox
36.2 C 81 18 129/64 96
10/15/24 07:00 10/15/24 07:00 10/15/24 07:00 10/15/24 07:00 10/15/24 08:50
I&O
10/14/24 10/15/24 10/16/24
06:59 06:59 06:59
Output Total 1100 / 1100 1150 / 1150
Balance -1100 / -1100 -1150 / -1150
Review of Systems
-
History Source: Patient
Musculoskeletal: Reports Other (back pain)
Physical Exam
-
General: Well Developed, No Apparent Distress, Comfortable, Conversant and Appears Chronically Ill; Negative Respiratory Distress
HEENT: Normocephalic, Atraumatic, Nose Appears Normal and Ears Appear Normal; Negative Oxygen
Respiratory: Clear to Auscultation and Non Labored Respirations; Negative Accessory Resp Muscle Use
Cardiac: Regular Rhythm and S1/S2
GI: Soft, Nontender, Nondistended and Normal Bowel Sounds
Genito-urinary: Flaherty
Skin: Warm and Dry
Neuro: Awake, Alert and Oriented
Psych: Calm and Intact Judgement/Insight
Data Reviewed
-
MRI: Report Reviewed by me
Labs: Labs Reviewed by me
[2024-10-15] MEDS: TYLENOL PO (11:55)
[2024-10-15 15:32] VITALS: BP 122/56
[2024-10-15 17:12] VITALS: BP 107/58; BP 133/63; PULSE 83; O2SAT 97
[2024-10-15] MEDS: TYLENOL 500 MG PO (17:12)
[2024-10-15] MEDS: TYLENOL 650 MG PO (20:26)
[2024-10-15 23:16] VITALS: BP 119/62
[2024-10-16] MEDS: TYLENOL 650 MG PO ×2 (02:32→09:35)
[2024-10-16] MEDS: TYLENOL PO ×2 (04:57→11:24)
[2024-10-16] MEDS: TYLENOL 500 MG PO ×3 (06:19→23:27)
[2024-10-16 07:15] LABS: Hematocrit 28.7 % (39.0-52.0); Hemoglobin 9.4 g/dL (13.0-18.0); Mean Corp Hgb Conc. 32.8 g/dL (33.0-37.0); Mean Corpuscular Volume 82.9 fL (80.0-94.0); Nucleated Red Blood Cells % 0 % (-); Platelet Count 333 10^3/uL (130-400); Red Cell Dist. Width 14.7 % (11.5-14.5)
[2024-10-16 07:43] LABS: Blood Urea Nitrogen 18 mg/dl (9-20); Calcium 8.6 mg/dl (8.4-10.2); Carbon Dioxide 25 mmol/L (22-30); Chloride 106 mmol/L (98-107); Estimated Creatinine Clearance 75 ml/min; Glucose 95 mg/dl (70-99); Magnesium 2.1 mg/dl (1.6-2.3); Potassium 4.4 mmol/L (3.5-5.1); Sodium 135 mmol/L (135-145); eGFR > 60.00
[2024-10-16 07:45] LABS: C-Reactive Protein 75.10 mg/L (0.0-10.00)
[2024-10-16] MEDS: SENOKOT-S 1 TABLET PO ×2 (08:16→20:25)
[2024-10-16] MEDS: MIRALAX 17 GRAMS PO (08:16)
[2024-10-16 08:18] VITALS: BP 113/52
[2024-10-16] MEDS: ROCEPHIN 2000 MG IV (09:35)
[2024-10-16] MEDS: STERILE WATER FOR INJECTION 20 ML IV (09:35)
[2024-10-16] MEDS: VISBIOME 2 CAP PO (10:28)
--- NOTE | 2024-10-16 10:40 | W.PN.ID1 ---
Date of Service
Date of Service: October 16, 2024
Today's Communication
- Continue ceftriaxone 2g IV q24 pending identification of Strep species.
Assessment / Plan
# Acute L3/L4 discitis with paraspinal edema
# Complicated Streptococcal species bacteremia, multiple sets of blood cx's
# Elevated ESR/CRP
# Urinary retention with flaherty
-TTE no gross vege
- Multiple blood cx's + strep species.
1 bottle + Staph species, probable contaminant
- Continue to repeat blood cx's until clearance of bacteremia.
- Continue ceftriaxone 2g IV q24 pending identification of Strep species.
Anticipate 8 weeks of IV abx
- Trend ESR/CRP weekly
# pill esophagitis
- Speech following
# Additional Past Medical History:
DVT
BPH
Urinary retention with flaherty since 09/2024
Right THR
Chief Complaint
-: Bacteremia and Other (Discitis)
Subjective / Review of Systems
Appetite improving.
Vital Signs / Physical Exam
Vital Signs
Vital Signs
Temp Pulse Resp BP Pulse Ox
97.4 F 67 18 113/52 98
10/16/24 08:18 10/16/24 08:18 10/16/24 08:18 10/16/24 08:18 10/16/24 08:18
Physical Exam
Constitutional: No Acute Distress and Comfortable
Cardiovascular: Regular Rate and S1/S2
Pulmonary: Clear
Gastrointestinal: Soft, Non Tender and Non Distended
Extremities: Negative Edema
Neurological: AO x 3 and Other (Moves BLE)
Objective Data
Lab Data
Lab Results
10/16/24 06:20
10/16/24 06:20
ESR 74 mm/hour (0-20) H 10/12/24 12:05
Estimated Creat Clear 75 ml/min 10/16/24 06:20
Lactic Acid Cancelled 10/12/24 16:00
Total Bilirubin 0.7 mg/dl (0.2-1.3) 10/12/24 12:05
AST 23 U/L (17-59) 10/12/24 12:05
ALT 22 U/L (0-50) 10/12/24 12:05
Alkaline Phosphatase 77 U/L (38-126) 10/12/24 12:05
C-Reactive Protein 75.10 mg/L (0.0-10.00) H 10/16/24 06:20
Most recent labs reviewed.
Micro Results:
10/13/24 09:08 Blood Culture - Preliminary
Blood/Venous Streptococcus species
Gram Stain - Final
10/13/24 09:24 Blood Culture - Preliminary
Blood/Venous Streptococcus species
Gram Stain - Final
10/14/24 10:48 Blood Culture - Preliminary
Blood/Venous Streptococcus species
Gram Stain - Final
10/16/24 07:29 Blood Culture - Pending
Blood/Venous
10/15/24 06:58 Blood Culture - Preliminary
Blood/Venous No Growth in 24 hours- Final report to follow
10/16/24 06:20 Blood Culture - Pending
Blood/Venous
10/15/24 06:09 Blood Culture - Preliminary
Blood/Venous No Growth in 24 hours- Final report to follow
10/12/24 12:05 Blood Culture - Preliminary
Blood/Venous Staphylococcus species
Streptococcus species
Gram Stain - Final
10/12/24 16:18 Blood Culture - Preliminary
Blood/Venous Streptococcus species
Gram Stain - Preliminary
10/14/24 11:25 Blood Culture - Preliminary
Blood/Venous No Growth in 24 hours- Final report to follow
10/10/24 MRI Lumbar wo contrast: Abnormal marrow signal in L3 and L4 vertebral bodies. Bright inversion recovery signal within intervening L3/4 disc. Edema in the paraspinal soft tissues bilaterally at L3/4. Findings worrisome for infection
(discitis/osteomyelitis). Please correlate with clinical findings. Repeat scan with IV gadolinium may be helpful for further evaluation.
--- NOTE | 2024-10-16 10:55 | W.PN.HOSP.TC ---
Addendum entered and electronically signed by Breanna Cherry MD 10/16/24 14:04:
# Pressure injury stage Present on admission Right Sacrum Stage 3
Original Note:
Today's Communication/Plan
-
see AP
Assessment / Plan
Assessment / Plan
HPI: 83-year-old male with past medical history significant for intractable lower back pain with acute gait dysfunction who presented to ED for evaluation after abnormal outpatient MRI.
Patient was seen in the hospital approximately 1 month ago for similar symptoms. He was sent to rehab and patient reported pain has gone from intermittent to more persistent.
He states he went home from rehab with continued discomfort and now needing to use a wheelchair nearly all the time.
Patient denies any recent illness, fever, chills, cough, shortness of breath, chest pain, nausea, vomiting, constipation, diarrhea or urinary symptoms.
MRI Lumbar spine:
Abnormal marrow signal in L3 and L4 vertebral bodies. Bright inversion recovery signal within intervening L3/4 disc. Edema in the paraspinal soft tissues bilaterally at L3/4. Findings worrisome for infection (discitis/osteomyelitis). Please
correlate with clinical findings. Repeat scan with IV gadolinium may be helpful for further evaluation.
Degenerative findings at L3/4 result in moderate spinal canal stenosis, severe right foraminal stenosis, moderate left foraminal stenosis
Degenerative findings at L4/5 result in moderate spinal canal stenosis
No focal disc protrusion at any level
Horseshoe kidney. 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 This has a mildly thickened wall posteriorly. This could represent a benign complicated cyst or a cystic malignancy. Correlation with renal
ultrasound recommended
A/P:
# sepsis POA 2/2 L3/L4 discitis/osteomyelitis with bacteremia
# Intractable lower back pain with acute gait dysfunction, due to L3/L4 discitis/osteomyelitis
Blood cultures growing Staph and Strep, follow S/S
Follow blood cultures until clearance, so far culture from 10/14 appears to be clearing
Cont Ceftriaxone
Per ID, no need for IR discitis biopsy anymore with several positive blood cultures
Of note, spine Dr Bauman was contacted by ED on admission, indicated no surgical need
pain control with Tylenol ATC and PRN, changed oxycodone to tramadol PRN as pt refused oxycodone, cont bowel regimen ATC while on opiate
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
Per , flaherty was placed on 10/02/2024 due to urinary retention
recc outpt Uro follow up
# Hyponatremia, resolved
# Distant h/o DVT, completed AC course
Code status: full code
DVT prophylaxis: Lovenox SQ
PT OT recc SNF , CM to facilitate
DW at bedside
Anticipated Discharge: > 48 hours
Subjective/Interval History
-
Date of Service: October 16, 2024
Objective Data
-
Labs:
Laboratory Results
10/16/24
06:20
WBC 7.5
Hgb 9.4 L
Hct 28.7 L
Plt Count 333
Sodium 135
Potassium 4.4
Chloride 106
Carbon Dioxide 25
BUN 18
Creatinine 0.6 L
Glucose 95
Calcium 8.6
Vital Signs:
Vital Signs
Temp Pulse Resp BP Pulse Ox
36.3 C 67 18 113/52 98
10/16/24 08:18 10/16/24 08:18 10/16/24 08:18 10/16/24 08:18 10/16/24 08:18
I&O
10/15/24 10/16/24 10/17/24
06:59 06:59 06:59
Intake Total 240 / 240
Output Total 1150 / 1150 950 / 950
Balance -1150 / -1150 -710 / -710
Review of Systems
-
History Source: Patient
Musculoskeletal: Reports Other (back pain has improved )
Physical Exam
-
General: Well Developed, No Apparent Distress, Comfortable, Conversant and Appears Chronically Ill; Negative Respiratory Distress
HEENT: Normocephalic, Atraumatic, Nose Appears Normal and Ears Appear Normal; Negative Oxygen
Respiratory: Clear to Auscultation and Non Labored Respirations; Negative Accessory Resp Muscle Use
Cardiac: Regular Rhythm and S1/S2
GI: Soft, Nontender, Nondistended and Normal Bowel Sounds
Genito-urinary: Flaherty
Skin: Warm and Dry
Neuro: Awake, Alert and Oriented
Psych: Calm and Intact Judgement/Insight
Data Reviewed
-
MRI: Report Reviewed by me
Labs: Labs Reviewed by me
--- NOTE | 2024-10-16 13:37 | CM ---
Pt recommended SNF.
Speech eval done .
Spoke with pt and at bedside. Reviewed PT . Pt agreed with SNF.
PAC data given to . Referral 0placed to [facility] as requested.
Will need [employer] auth after SNF located.
PLAN Locate SNF obtain auth
--- NOTE | 2024-10-16 13:50 | PN.CDI ---
CDI
- -
CDI:
Physician Documentation Request
Admit Date: 10/12/24 18:33
Dear Doctor Dilip,
Patient admitted for sepsis.
Clinical panel nursing documentation wound care
10/14/24
20:00
Drainage type [Present on admission Right Sacrum] Serosanguineous
Pressure injury appearance [Present on admission Right Sacrum] Dark red/maroon
Pressure injury stage [Present on admission Right Sacrum] Stage 3
Surrounding Skin - [Present on admission Right Sacrum] Local erythema
Ecchymotic
Treatment provided [Present on admission Right Sacrum] Cleansed with
saline
Silicone border
foam
Physician documentation of the type and location of wounds is required for compliant documentation. Based on the above clinical findings and your assessment, please provide the following in your progress note:
1. Location of the ulcer/wound, including laterality.
2. Type (etiology) of ulcer/wound:
- Diabetic ulcer
- Arterial (ischemic) ulcer
- Traumatic wound
- Venous stasis ulcer
- Pressure (decubitus) ulcer
- Non-healing surgical wound
- Other
- Unable to determine
3. For a non-pressure ulcer, please indicate the depth/severity:
- Limited to the breakdown of skin
- With fat layer exposed
- With necrosis of muscle
- With necrosis of bone
- Other
- Unable to determine
4. If a pressure ulcer, please also include the stage* of the ulcer:
- Stage 1 - Skin intact, non-blanchable redness
- Stage 2 - Partial thickness loss of dermis, includes intact or open blister
- Stage 3 - Full thickness tissue not including bone, tendon or muscle
- Stage 4 - Full thickness tissue loss, including exposed bone, tendon or muscle
- Unstageable - Full thickness loss in which the base of the ulcer is covered by slough (yellow, feliciano, moore, green or brown) and/or eschar (feliciano, brown or black) in the wound bed.
- Unable to determine
Use of terms such as suspected, likely, concern for, or probable (associated with a specific diagnosis that is being evaluated, monitored, or treated as if it exists) are acceptable and can be coded in the inpatient setting, when documented at the
time of discharge.
Thank you,
Perri Ward RN, BSN
CDI Specialist
Available via [facility] text
Please use your independent medical judgment in providing your response.
*Source: National Pressure Ulcer Advisory Panel (NPUAP)
[2024-10-16 15:36] VITALS: BP 104/55
[2024-10-16 16:32] VITALS: BP 119/54; BP 127/66; PULSE 77; O2SAT 98
[2024-10-16] MEDS: LOVENOX 40 MG SC (17:02)
[2024-10-16] MEDS: ULTRAM 25 MG PO (20:25)
[2024-10-16] MEDS: MELATONIN 5 MG PO (23:27)
[2024-10-16 23:39] VITALS: BP 123/61
[2024-10-17 05:16] LABS: Hematocrit 26.5 % (39.0-52.0); Hemoglobin 8.8 g/dL (13.0-18.0); Mean Corp Hgb Conc. 33.2 g/dL (33.0-37.0); Mean Corpuscular Volume 82.3 fL (80.0-94.0); Nucleated Red Blood Cells % 0 % (-); Platelet Count 316 10^3/uL (130-400); Red Cell Dist. Width 14.6 % (11.5-14.5)
[2024-10-17 05:43] LABS: Blood Urea Nitrogen 21 mg/dl (9-20); Calcium 8.3 mg/dl (8.4-10.2); Carbon Dioxide 28 mmol/L (22-30); Chloride 105 mmol/L (98-107); Estimated Creatinine Clearance 75 ml/min; Glucose 104 mg/dl (70-99); Potassium 3.9 mmol/L (3.5-5.1); Sodium 137 mmol/L (135-145); eGFR > 60.00
[2024-10-17 05:44] LABS: C-Reactive Protein 56.20 mg/L (0.0-10.00)
[2024-10-17 07:30] VITALS: BP 118/55
[2024-10-17] MEDS: MIRALAX 17 GRAMS PO (09:07)
[2024-10-17] MEDS: SENOKOT-S 1 TABLET PO ×2 (09:08→20:20)
[2024-10-17] MEDS: TYLENOL 500 MG PO ×4 (09:08→23:55)
[2024-10-17] MEDS: VISBIOME 2 CAP PO (09:08)
[2024-10-17] MEDS: STERILE WATER FOR INJECTION 20 ML IV (10:50)
[2024-10-17] MEDS: ROCEPHIN 2000 MG IV (10:51)
--- NOTE | 2024-10-17 14:12 | W.PN.HOSP.TC ---
Today's Communication/Plan
-
Continue current plan
Assessment / Plan
Assessment / Plan
HPI:
83-year-old male with past medical history significant for intractable lower back pain with acute gait dysfunction who presented to ED for evaluation after abnormal outpatient MRI.
Patient was seen in the hospital approximately 1 month ago for similar symptoms. He was sent to rehab and patient reported pain has gone from intermittent to more persistent.
He states he went home from rehab with continued discomfort and now needing to use a wheelchair nearly all the time.
Patient denies any recent illness, fever, chills, cough, shortness of breath, chest pain, nausea, vomiting, constipation, diarrhea or urinary symptoms.
MRI Lumbar spine:
Abnormal marrow signal in L3 and L4 vertebral bodies. Bright inversion recovery signal within intervening L3/4 disc.
Edema in the paraspinal soft tissues bilaterally at L3/4. Findings worrisome for infection (discitis/osteomyelitis).
(Please correlate with clinical findings. Repeat scan with IV gadolinium may be helpful for further evaluation.)
Degenerative findings at L3/4 result in moderate spinal canal stenosis, severe right foraminal stenosis, moderate left foraminal stenosis
Degenerative findings at L4/5 result in moderate spinal canal stenosis
No focal disc protrusion at any level
Horseshoe kidney. 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
This has a mildly thickened wall posteriorly. This could represent a benign complicated cyst or a cystic malignancy. (Correlation with renal ultrasound recommended)
A/P:
1. sepsis POA 2/2 L3/L4 discitis/osteomyelitis with bacteremia resulting in Intractable lower back pain with acute gait dysfunction, due to L3/L4 discitis/osteomyelitis
Blood cultures growing Staph and Strep, follow S/S
Follow blood cultures until clearance, so far culture from 10/14 appears to be clearing
Cont Ceftriaxone
Per ID:
no need for IR discitis biopsy anymore with several positive blood cultures
Of note, spine Dr Bauman was contacted by ED on admission, indicated no surgical need
pain control with Tylenol ATC and PRN, changed oxycodone to tramadol PRN as pt refused oxycodone, cont bowel regimen ATC while on opiate
2. 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
Per , flaherty was placed on 10/02/2024 due to urinary retention
recc outpt Uro follow up
3. Hyponatremia, resolved
4. Distant h/o DVT, completed AC course
Code status: full code
DVT prophylaxis: Lovenox SQ
PT OT recc SNF , CM to facilitate
DW at bedside
Anticipated Discharge: > 48 hours
Subjective/Interval History
-
Date of Service: October 17, 2024
No new complaints
Objective Data
-
Labs:
Laboratory Results
10/17/24
04:42
WBC 10.0
Hgb 8.8 L
Hct 26.5 L
Plt Count 316
Sodium 137
Potassium 3.9
Chloride 105
Carbon Dioxide 28
BUN 21 H
Creatinine 0.6 L
Glucose 104 H
Calcium 8.3 L
Vital Signs:
Vital Signs
Temp Pulse Resp BP Pulse Ox
98.2 F 79 18 118/55 97
10/17/24 07:30 10/17/24 07:30 10/17/24 07:30 10/17/24 07:30 10/17/24 11:24
I&O
10/16/24 10/17/24 10/18/24
06:59 06:59 06:59
Intake Total 240 / 240 480 / 480
Output Total 950 / 950 1200 / 1200
Balance -710 / -710 -720 / -720
Review of Systems
-
History Source: Patient
All other systems: Reviewed and negative
Physical Exam
-
General: Well Developed, No Apparent Distress and Cachectic
HEENT: Normocephalic, Atraumatic, Moist Mucous Membranes, Nose Appears Normal and Ears Appear Normal
Respiratory: Clear to Auscultation
Cardiac: Regular Rhythm and S1/S2
GI: Soft, Nontender and Nondistended
Musculoskeletal: No Clubbing, No Cyanosis and No Edema
Skin: Warm and Dry
Neuro: Awake, Alert, Oriented and AO x 3
Psych: Calm
Data Reviewed
-
Labs: Labs Reviewed by me
[2024-10-17 15:25] VITALS: BP 121/60
[2024-10-17] MEDS: LOVENOX 40 MG SC (17:10)
[2024-10-17] MEDS: MELATONIN 5 MG PO (21:13)
[2024-10-17 23:20] VITALS: BP 124/66
[2024-10-18] MEDS: ULTRAM 25 MG PO (04:12)
[2024-10-18 05:20] LABS: Hematocrit 26.6 % (39.0-52.0); Hemoglobin 8.7 g/dL (13.0-18.0); Mean Corp Hgb Conc. 32.7 g/dL (33.0-37.0); Mean Corpuscular Volume 82.1 fL (80.0-94.0); Nucleated Red Blood Cells % 0 % (-); Platelet Count 310 10^3/uL (130-400); Red Cell Dist. Width 14.7 % (11.5-14.5)
[2024-10-18 05:49] LABS: Blood Urea Nitrogen 19 mg/dl (9-20); Calcium 8.4 mg/dl (8.4-10.2); Carbon Dioxide 27 mmol/L (22-30); Chloride 107 mmol/L (98-107); Estimated Creatinine Clearance 75 ml/min; Glucose 97 mg/dl (70-99); Potassium 4.2 mmol/L (3.5-5.1); Sodium 138 mmol/L (135-145); eGFR > 60.00
[2024-10-18 05:55] LABS: C-Reactive Protein 46.90 mg/L (0.0-10.00)
[2024-10-18] MEDS: TYLENOL 500 MG PO ×3 (06:11→23:54)
[2024-10-18] MEDS: VISBIOME 2 CAP PO (07:27)
[2024-10-18] MEDS: SENOKOT-S 1 TABLET PO ×2 (07:28→21:24)
[2024-10-18] MEDS: MIRALAX 17 GRAMS PO (07:28)
[2024-10-18 07:35] VITALS: BP 123/57
[2024-10-18] MEDS: ROCEPHIN 2000 MG IV (10:59)
[2024-10-18] MEDS: STERILE WATER FOR INJECTION 20 ML IV (10:59)
[2024-10-18] MEDS: FLUSH (NSS) 1 FLUSH IV (10:59)
--- NOTE | 2024-10-18 11:22 | W.PN.ID1 ---
Date of Service
Date of Service: October 18, 2024
Today's Communication
Continue current course of antibiotics.
Assessment / Plan
# Acute L3/L4 discitis with paraspinal edema
# Complicated Streptococcal species bacteremia, multiple sets of blood cx's
# Elevated ESR/CRP
# Urinary retention with flaherty
- TTE no gross vege
- Multiple blood cx's + strep species.
1 bottle + Staph species, probable contaminant
- Continue to repeat blood cx's until clearance of bacteremia.
- Continue ceftriaxone 2g IV q24 pending identification of Strep species.
Anticipate 8 weeks of IV abx
- Trend ESR/CRP weekly
# pill esophagitis
- Speech following
# Additional Past Medical History:
DVT
BPH
Urinary retention with flaherty since 09/2024
Right THR
Chief Complaint
-: Bacteremia and Other (Discitis)
Subjective / Review of Systems
Review of Systems: No Fever and No Chills
Vital Signs / Physical Exam
Vital Signs
Vital Signs
Temp Pulse Resp BP Pulse Ox
97.6 F 73 16 123/57 98
10/18/24 07:35 10/18/24 07:35 10/18/24 07:35 10/18/24 07:35 10/18/24 08:40
Physical Exam
Constitutional: No Acute Distress and Comfortable
Cardiovascular: Regular Rate and S1/S2
Pulmonary: Clear
Gastrointestinal: Soft, Non Tender and Non Distended
Extremities: Negative Edema
Neurological: AO x 3 and Other (Moves BLE)
Objective Data
Lab Data
Lab Results
10/18/24 04:44
10/18/24 04:44
ESR 74 mm/hour (0-20) H 10/12/24 12:05
Estimated Creat Clear 75 ml/min 10/18/24 04:44
Lactic Acid Cancelled 10/12/24 16:00
Total Bilirubin 0.7 mg/dl (0.2-1.3) 10/12/24 12:05
AST 23 U/L (17-59) 10/12/24 12:05
ALT 22 U/L (0-50) 10/12/24 12:05
Alkaline Phosphatase 77 U/L (38-126) 10/12/24 12:05
C-Reactive Protein 46.90 mg/L (0.0-10.00) H 10/18/24 04:44
Most recent labs reviewed.
Micro Results:
10/16/24 07:29 Blood Culture - Preliminary
Blood/Venous No Growth in 48 hours- Final report to follow
10/15/24 06:58 Blood Culture - Preliminary
Blood/Venous No Growth in 72 hours- Final report to follow
10/16/24 06:20 Blood Culture - Preliminary
Blood/Venous No Growth in 48 hours- Final report to follow
10/15/24 06:09 Blood Culture - Preliminary
Blood/Venous No Growth in 72 hours- Final report to follow
10/14/24 11:25 Blood Culture - Preliminary
Blood/Venous No Growth in 72 hours- Final report to follow
10/14/24 10:48 Blood Culture - Final
Blood/Venous Streptococcus species
Gram Stain - Final
10/13/24 09:24 Blood Culture - Final
Blood/Venous Streptococcus species
Gram Stain - Final
10/13/24 09:08 Blood Culture - Final
Blood/Venous Streptococcus species
Gram Stain - Final
10/12/24 16:18 Blood Culture - Final
Blood/Venous Streptococcus species
Gram Stain - Final
10/12/24 12:05 Blood Culture - Final
Blood/Venous Streptococcus species
Gram Stain - Final
Imaging:
10/10/24 MRI Lumbar wo contrast: Abnormal marrow signal in L3 and L4 vertebral bodies. Bright inversion recovery signal within intervening L3/4 disc. Edema in the paraspinal soft tissues bilaterally at L3/4. Findings worrisome for infection
(discitis/osteomyelitis). Please correlate with clinical findings. Repeat scan with IV gadolinium may be helpful for further evaluation.
[2024-10-18] MEDS: TYLENOL PO (12:28)
--- NOTE | 2024-10-18 12:45 | W.PN.HOSP.TC ---
Today's Communication/Plan
-
Continue current plan. Encourage him to sit up while in bed, and ambulate with help.
Assessment / Plan
Assessment / Plan
HPI:
83-year-old male with past medical history significant for intractable lower back pain with acute gait dysfunction who presented to ED for evaluation after abnormal outpatient MRI.
Patient was seen in the hospital approximately 1 month ago for similar symptoms. He was sent to rehab and patient reported pain has gone from intermittent to more persistent.
He states he went home from rehab with continued discomfort and now needing to use a wheelchair nearly all the time.
Patient denies any recent illness, fever, chills, cough, shortness of breath, chest pain, nausea, vomiting, constipation, diarrhea or urinary symptoms.
MRI Lumbar spine:
Abnormal marrow signal in L3 and L4 vertebral bodies. Bright inversion recovery signal within intervening L3/4 disc.
Edema in the paraspinal soft tissues bilaterally at L3/4. Findings worrisome for infection (discitis/osteomyelitis).
(Please correlate with clinical findings. Repeat scan with IV gadolinium may be helpful for further evaluation.)
Degenerative findings at L3/4 result in moderate spinal canal stenosis, severe right foraminal stenosis, moderate left foraminal stenosis
Degenerative findings at L4/5 result in moderate spinal canal stenosis
No focal disc protrusion at any level
Horseshoe kidney. 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
This has a mildly thickened wall posteriorly. This could represent a benign complicated cyst or a cystic malignancy. (Correlation with renal ultrasound recommended)
A/P:
1. sepsis POA 2/2 L3/L4 discitis/osteomyelitis with bacteremia resulting in Intractable lower back pain with acute gait dysfunction, due to L3/L4 discitis/osteomyelitis
Blood cultures growing Staph and Strep, follow S/S
Follow blood cultures until clearance, so far culture from 10/14 appears to be clearing
Cont Ceftriaxone
Per ID:
no need for IR discitis biopsy anymore with several positive blood cultures
Of note, spine Dr Bauman was contacted by ED on admission, indicated no surgical need
Plan today 10/18 is to continue current antibiotics
He will need many weeks of IV antibiotics
pain control with Tylenol ATC and PRN, changed oxycodone to tramadol PRN as pt refused oxycodone, cont bowel regimen ATC while on opiate
2. 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
Per , flaherty was placed on 10/02/2024 due to urinary retention
recc outpt Uro follow up
3. Hyponatremia, resolved
4. Distant h/o DVT, completed AC course
Code status: full code
DVT prophylaxis: Lovenox SQ
PT OT recc SNF , CM to facilitate
Anticipated Discharge: > 48 hours
Subjective/Interval History
-
Date of Service: October 18, 2024
No new problems
Objective Data
-
Labs:
Laboratory Results
10/18/24
04:44
WBC 8.3
Hgb 8.7 L
Hct 26.6 L
Plt Count 310
Sodium 138
Potassium 4.2
Chloride 107
Carbon Dioxide 27
BUN 19
Creatinine 0.6 L
Glucose 97
Calcium 8.4
Vital Signs:
Vital Signs
Temp Pulse Resp BP Pulse Ox
97.6 F 73 16 123/57 98
10/18/24 07:35 10/18/24 07:35 10/18/24 07:35 10/18/24 07:35 10/18/24 11:45
I&O
10/17/24 10/18/24 10/19/24
06:59 06:59 06:59
Intake Total 480 / 480 780 / 780
Output Total 1200 / 1200 1475 / 1475
Balance -720 / -720 -695 / -695
Review of Systems
-
History Source: Patient
All other systems: Reviewed and negative
Physical Exam
-
General: Well Developed, No Apparent Distress and Comfortable
HEENT: Normocephalic, [place] Conjunctivae, Nose Appears Normal and Ears Appear Normal
Respiratory: Clear to Auscultation
Cardiac: Regular Rhythm and S1/S2
GI: Soft, Nontender and Nondistended
Musculoskeletal: No Clubbing, No Cyanosis and No Edema
Skin: Warm and Dry
Neuro: Awake, Alert and Oriented
Psych: Calm
Data Reviewed
-
Labs: Labs Reviewed by me
[2024-10-18 15:25] VITALS: BP 118/57
[2024-10-18] MEDS: LOVENOX 40 MG SC (17:35)
[2024-10-18] MEDS: MELATONIN 5 MG PO (21:24)
[2024-10-18 23:12] VITALS: BP 125/55
[2024-10-19] MEDS: TYLENOL 500 MG PO ×3 (06:25→17:11)
[2024-10-19 07:01] LABS: Hematocrit 27.6 % (39.0-52.0); Hemoglobin 9.0 g/dL (13.0-18.0); Mean Corp Hgb Conc. 32.6 g/dL (33.0-37.0); Mean Corpuscular Volume 82.9 fL (80.0-94.0); Nucleated Red Blood Cells % 0 % (-); Platelet Count 323 10^3/uL (130-400); Red Cell Dist. Width 14.9 % (11.5-14.5)
[2024-10-19 07:20] VITALS: BP 121/39
[2024-10-19 07:30] LABS: Blood Urea Nitrogen 16 mg/dl (9-20); Calcium 9.1 mg/dl (8.4-10.2); Carbon Dioxide 26 mmol/L (22-30); Chloride 108 mmol/L (98-107); Estimated Creatinine Clearance 75 ml/min; Glucose 93 mg/dl (70-99); Potassium 4.3 mmol/L (3.5-5.1); Sodium 138 mmol/L (135-145); eGFR > 60.00
[2024-10-19 07:35] LABS: C-Reactive Protein 37.10 mg/L (0.0-10.00)
[2024-10-19] MEDS: VISBIOME 2 CAP PO (08:54)
[2024-10-19] MEDS: SENOKOT-S 1 TABLET PO ×2 (08:54→20:02)
[2024-10-19] MEDS: MIRALAX 17 GRAMS PO (08:55)
[2024-10-19] MEDS: STERILE WATER FOR INJECTION 20 ML IV (10:07)
[2024-10-19] MEDS: ROCEPHIN 2000 MG IV (10:08)
--- NOTE | 2024-10-19 10:17 | CM ---
PT recommended SNF.
As per [facility] accept after auth.LM with [facility] if they could accept.
Will need [employer] auth after SNF located.
Patient will need IV antibiotics at SNF also.
PLAN Locate SNF obtain auth
--- NOTE | 2024-10-19 13:09 | W.PN.HOSP.TC ---
Today's Communication/Plan
-
Monitor vital signs see plan
Continue with antibiotics per infectious disease, final regimen per infectious disease
SNF on discharge
Assessment / Plan
Assessment / Plan
HPI:
83-year-old male with past medical history significant for intractable lower back pain with acute gait dysfunction who presented to ED for evaluation after abnormal outpatient MRI.
Patient was seen in the hospital approximately 1 month ago for similar symptoms. He was sent to rehab and patient reported pain has gone from intermittent to more persistent.
He states he went home from rehab with continued discomfort and now needing to use a wheelchair nearly all the time.
Patient denies any recent illness, fever, chills, cough, shortness of breath, chest pain, nausea, vomiting, constipation, diarrhea or urinary symptoms.
MRI Lumbar spine:
Abnormal marrow signal in L3 and L4 vertebral bodies. Bright inversion recovery signal within intervening L3/4 disc.
Edema in the paraspinal soft tissues bilaterally at L3/4. Findings worrisome for infection (discitis/osteomyelitis).
(Please correlate with clinical findings. Repeat scan with IV gadolinium may be helpful for further evaluation.)
Degenerative findings at L3/4 result in moderate spinal canal stenosis, severe right foraminal stenosis, moderate left foraminal stenosis
Degenerative findings at L4/5 result in moderate spinal canal stenosis
No focal disc protrusion at any level
Horseshoe kidney. 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
This has a mildly thickened wall posteriorly. This could represent a benign complicated cyst or a cystic malignancy. (Correlation with renal ultrasound recommended)
A/P:
sepsis POA 2/2 L3/L4 discitis/osteomyelitis with bacteremia resulting in Intractable lower back pain with acute gait dysfunction, due to L3/L4 discitis/osteomyelitis
Blood cultures growing Staph and Strep, follow S/S
Follow blood cultures until clearance, blood culture 10/16 so far negative
Cont Ceftriaxone per ID
Per ID:
no need for IR discitis biopsy anymore with several positive blood cultures
Of note, spine Dr Bauman was contacted by ED on admission, indicated no surgical need
Plan today 10/18 is to continue current antibiotics
He will need many weeks of IV antibiotics
pain control with Tylenol ATC and PRN, changed oxycodone to tramadol PRN as pt refused oxycodone, cont bowel regimen ATC while on opiate
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
Per , flaherty was placed on 10/02/2024 due to urinary retention
recc outpt Uro follow up
Suspect anemia of chronic disease
Monitor
Hyponatremia, resolved
Distant h/o DVT, completed AC course
Code status: full code
DVT prophylaxis: Lovenox SQ
General: Well Developed, No Apparent Distress and Comfortable
HEENT: Normocephalic, [place] Conjunctivae, Nose Appears Normal and Ears Appear Normal
Respiratory: Clear to Auscultation
Cardiac: Regular Rhythm and S1/S2
GI: Soft, Nontender and Nondistended
Musculoskeletal: No Edema
Neuro: Awake, Alert and Oriented
Psych: Calm
Anticipated Discharge: Within 24 hours
Subjective/Interval History
-
Date of Service: October 19, 2024
Denies pain
Objective Data
-
Labs:
Laboratory Results
10/19/24
06:16
WBC 8.7
Hgb 9.0 L
Hct 27.6 L
Plt Count 323
Sodium 138
Potassium 4.3
Chloride 108 H
Carbon Dioxide 26
BUN 16
Creatinine 0.5 L
Glucose 93
Calcium 9.1
Vital Signs:
Vital Signs
Temp Pulse Resp BP Pulse Ox
98.0 F 76 16 121/39 95
10/19/24 07:20 10/19/24 07:20 10/19/24 07:20 10/19/24 07:20 10/19/24 11:00
I&O
10/18/24 10/19/24 10/20/24
06:59 06:59 06:59
Intake Total 780 / 780 720 / 720
Output Total 1475 / 1475 1550 / 1550
Balance -695 / -695 -830 / -830
--- NOTE | 2024-10-19 13:32 | W.PN.ID1 ---
Date of Service
Date of Service: October 19, 2024
Today's Communication
Place PICC
Assessment / Plan
# Acute L3/L4 discitis with paraspinal edema
# Complicated Streptococcal species bacteremia, multiple sets of blood cx's
# Elevated ESR/CRP
# Urinary retention with flaherty
- TTE no gross vege
- Multiple blood cx's + strep species. -> sent out for identification
1 bottle + Staph species, probable contaminant
- Blood cx's cleared from 10/15/24.
- Continue ceftriaxone 2g IV q24 x 8 weeks through 12/10/24.
- Trend ESR/CRP weekly
- Infusion sheet submitted to case managers
- Ordered PICC.
# Additional Past Medical History:
DVT
BPH
Urinary retention with flaherty since 09/2024
Right THR
Chief Complaint
-: Bacteremia and Other (Discitis)
Subjective / Review of Systems
Continues to feel improved.
Vital Signs / Physical Exam
Vital Signs
Vital Signs
Temp Pulse Resp BP Pulse Ox
98.0 F 76 16 121/39 95
10/19/24 07:20 10/19/24 07:20 10/19/24 07:20 10/19/24 07:20 10/19/24 11:00
Physical Exam
Constitutional: No Acute Distress and Comfortable
Cardiovascular: Regular Rate and S1/S2
Pulmonary: Clear
Gastrointestinal: Soft, Non Tender, Non Distended and Normal Bowel Sounds
Neurological: AO x 3
Objective Data
Lab Data
Lab Results
10/19/24 06:16
10/19/24 06:16
ESR 74 mm/hour (0-20) H 10/12/24 12:05
Estimated Creat Clear 75 ml/min 10/19/24 06:16
Lactic Acid Cancelled 10/12/24 16:00
Total Bilirubin 0.7 mg/dl (0.2-1.3) 10/12/24 12:05
AST 23 U/L (17-59) 10/12/24 12:05
ALT 22 U/L (0-50) 10/12/24 12:05
Alkaline Phosphatase 77 U/L (38-126) 10/12/24 12:05
C-Reactive Protein 37.10 mg/L (0.0-10.00) H 10/19/24 06:16
Most recent labs reviewed.
Micro Results:
10/14/24 11:25 Blood Culture - Final
Blood/Venous No Growth - Final Report
10/16/24 07:29 Blood Culture - Preliminary
Blood/Venous No Growth in 72 hours- Final report to follow
10/15/24 06:58 Blood Culture - Preliminary
Blood/Venous No Growth in 4 days- Final report to follow
10/16/24 06:20 Blood Culture - Preliminary
Blood/Venous No Growth in 72 hours- Final report to follow
10/15/24 06:09 Blood Culture - Preliminary
Blood/Venous No Growth in 4 days- Final report to follow
10/14/24 10:48 Blood Culture - Final
Blood/Venous Streptococcus species
Gram Stain - Final
10/13/24 09:24 Blood Culture - Final
Blood/Venous Streptococcus species
Gram Stain - Final
10/13/24 09:08 Blood Culture - Final
Blood/Venous Streptococcus species
Gram Stain - Final
10/12/24 16:18 Blood Culture - Final
Blood/Venous Streptococcus species
Gram Stain - Final
10/12/24 12:05 Blood Culture - Final
Blood/Venous Streptococcus species
Gram Stain - Final
Imaging:
10/10/24 MRI Lumbar wo contrast: Abnormal marrow signal in L3 and L4 vertebral bodies. Bright inversion recovery signal within intervening L3/4 disc. Edema in the paraspinal soft tissues bilaterally at L3/4. Findings worrisome for infection
(discitis/osteomyelitis). Please correlate with clinical findings. Repeat scan with IV gadolinium may be helpful for further evaluation.
[2024-10-19 15:50] VITALS: BP 107/53
[2024-10-19] MEDS: LOVENOX 40 MG SC (17:10)
[2024-10-19] MEDS: ULTRAM 25 MG PO (20:02)
[2024-10-19] MEDS: MELATONIN PO (22:43)
[2024-10-19 23:44] VITALS: BP 129/65
[2024-10-19] MEDS: TYLENOL PO (23:45)
[2024-10-20 06:13] LABS: Hematocrit 25.9 % (39.0-52.0); Hemoglobin 8.6 g/dL (13.0-18.0); Mean Corp Hgb Conc. 33.2 g/dL (33.0-37.0); Mean Corpuscular Volume 82.7 fL (80.0-94.0); Nucleated Red Blood Cells % 0 % (-); Platelet Count 303 10^3/uL (130-400); Red Cell Dist. Width 15.2 % (11.5-14.5)
[2024-10-20] MEDS: TYLENOL 650 MG PO (06:24)
[2024-10-20 06:54] LABS: Blood Urea Nitrogen 17 mg/dl (9-20); Calcium 8.4 mg/dl (8.4-10.2); Carbon Dioxide 24 mmol/L (22-30); Chloride 109 mmol/L (98-107); Estimated Creatinine Clearance 75 ml/min; Glucose 89 mg/dl (70-99); Potassium 4.1 mmol/L (3.5-5.1); Sodium 137 mmol/L (135-145); eGFR > 60.00
[2024-10-20] MEDS: TYLENOL PO ×2 (07:15→23:53)
[2024-10-20 07:25] VITALS: BP 114/54
[2024-10-20] MEDS: VISBIOME 2 CAP PO (09:09)
[2024-10-20] MEDS: SENOKOT-S 1 TABLET PO ×2 (09:09→20:20)
[2024-10-20] MEDS: MIRALAX 17 GRAMS PO (09:09)
--- NOTE | 2024-10-20 10:02 | CM ---
Pt will need Ceftriaxone 2 gm IV every 24 hours till 12/10/24 .
Update sent to SNf referral if they can accept with IV antibiotic need.
Will need Auth after SNF located.
PLAN To SNF after located / auth
--- NOTE | 2024-10-20 10:21 | W.PN.HOSP.TC ---
Today's Communication/Plan
-
monitor vitals
see plan
cw ABX per ID
DC pending placement; CM aware
pain control
Assessment / Plan
Assessment / Plan
HPI:
83-year-old male with past medical history significant for intractable lower back pain with acute gait dysfunction who presented to ED for evaluation after abnormal outpatient MRI.
Patient was seen in the hospital approximately 1 month ago for similar symptoms. He was sent to rehab and patient reported pain has gone from intermittent to more persistent.
He states he went home from rehab with continued discomfort and now needing to use a wheelchair nearly all the time.
Patient denies any recent illness, fever, chills, cough, shortness of breath, chest pain, nausea, vomiting, constipation, diarrhea or urinary symptoms.
MRI Lumbar spine:
Abnormal marrow signal in L3 and L4 vertebral bodies. Bright inversion recovery signal within intervening L3/4 disc.
Edema in the paraspinal soft tissues bilaterally at L3/4. Findings worrisome for infection (discitis/osteomyelitis).
(Please correlate with clinical findings. Repeat scan with IV gadolinium may be helpful for further evaluation.)
Degenerative findings at L3/4 result in moderate spinal canal stenosis, severe right foraminal stenosis, moderate left foraminal stenosis
Degenerative findings at L4/5 result in moderate spinal canal stenosis
No focal disc protrusion at any level
Horseshoe kidney. 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
This has a mildly thickened wall posteriorly. This could represent a benign complicated cyst or a cystic malignancy. (Correlation with renal ultrasound recommended)
A/P:
sepsis POA 2/2 L3/L4 discitis/osteomyelitis with bacteremia resulting in Intractable lower back pain with acute gait dysfunction, due to L3/L4 discitis/osteomyelitis
Blood cultures growing Staph and Strep, follow S/S
Follow blood cultures until clearance, blood culture 10/16 so far negative
Cont Ceftriaxone per ID
Per ID:
no need for IR discitis biopsy anymore with several positive blood cultures
Of note, spine Dr Bauman was contacted by ED on admission, indicated no surgical need
cw CFTX per ID; Continue ceftriaxone 2g IV q24 x 8 weeks through 12/10/24.
PICC line placed
pain control with Tylenol ATC and PRN, changed oxycodone to tramadol PRN as pt refused oxycodone, cont bowel regimen ATC while on opiate
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
Per , flaherty was placed on 10/02/2024 due to urinary retention
recc outpt Uro follow up
Suspect anemia of chronic disease
Monitor
Hyponatremia, resolved
Distant h/o DVT, completed AC course
Code status: full code
DVT prophylaxis: Lovenox SQ
General: Well Developed, No Apparent Distress and Comfortable
HEENT: Normocephalic, [place] Conjunctivae, Nose Appears Normal and Ears Appear Normal
Respiratory: Clear to Auscultation
Cardiac: Regular Rhythm and S1/S2
GI: Soft, Nontender and Nondistended
Musculoskeletal: No Edema
Neuro: Awake, Alert and Oriented
Psych: Calm
Anticipated Discharge: Today
Subjective/Interval History
-
Date of Service: October 20, 2024
has some pain at times
Objective Data
-
Labs:
Laboratory Results
10/20/24
06:03
WBC 9.1
Hgb 8.6 L
Hct 25.9 L
Plt Count 303
Sodium 137
Potassium 4.1
Chloride 109 H
Carbon Dioxide 24
BUN 17
Creatinine 0.5 L
Glucose 89
Calcium 8.4
Vital Signs:
Vital Signs
Temp Pulse Resp BP Pulse Ox
97.6 F 72 16 114/54 97
10/20/24 07:25 10/20/24 07:25 10/20/24 07:25 10/20/24 07:25 10/20/24 07:25
I&O
10/19/24 10/20/24 10/21/24
06:59 06:59 06:59
Intake Total 720 / 720 900 / 900
Output Total 1550 / 1550 975 / 975
Balance -830 / -830 -75 / -75
[2024-10-20] MEDS: ROCEPHIN 2000 MG IV (10:24)
[2024-10-20] MEDS: STERILE WATER FOR INJECTION 20 ML IV (10:24)
[2024-10-20 11:32] VITALS: BP 121/60; PULSE 80; O2SAT 97
[2024-10-20 11:35] VITALS: BP 121/60; PULSE 79; O2SAT 97
[2024-10-20] MEDS: TYLENOL 500 MG PO ×2 (12:30→18:23)
--- NOTE | 2024-10-20 14:04 | W.PN.ID1 ---
Date of Service
Date of Service: October 20, 2024
Today's Communication
Continue ceftriaxone.
Assessment / Plan
# Acute L3/L4 discitis with paraspinal edema
# Complicated Streptococcal species bacteremia, multiple sets of blood cx's
# Elevated ESR/CRP
# Urinary retention with flaherty
- TTE no gross vege
- Multiple blood cx's + strep species. -> sent out for identification
- Blood cx's cleared from 10/15/24.
- Continue ceftriaxone 2g IV q24 x 8 weeks through 12/10/24.
- Trend ESR/CRP weekly
- Infusion sheet submitted to case manager specialist
- PICC in place.
# Additional Past Medical History:
DVT
BPH
Urinary retention with flaherty since 09/2024
Right THR
Chief Complaint
-: Bacteremia and Other (Discitis)
Subjective / Review of Systems
Back pain improves with Tylenol.
Vital Signs / Physical Exam
Vital Signs
Vital Signs
Temp Pulse Resp BP Pulse Ox
97.6 F 72 16 114/54 97
10/20/24 07:25 10/20/24 07:25 10/20/24 07:25 10/20/24 07:25 10/20/24 08:00
Physical Exam
Constitutional: No Acute Distress
Cardiovascular: Regular Rate and S1/S2
Pulmonary: Clear
Gastrointestinal: Soft, Non Tender, Non Distended and Normal Bowel Sounds
Neurological: AO x 3
Objective Data
Lab Data
Lab Results
10/20/24 06:03
10/20/24 06:03
ESR 74 mm/hour (0-20) H 10/12/24 12:05
Estimated Creat Clear 75 ml/min 10/20/24 06:03
Lactic Acid Cancelled 10/12/24 16:00
Total Bilirubin 0.7 mg/dl (0.2-1.3) 10/12/24 12:05
AST 23 U/L (17-59) 10/12/24 12:05
ALT 22 U/L (0-50) 10/12/24 12:05
Alkaline Phosphatase 77 U/L (38-126) 10/12/24 12:05
C-Reactive Protein 37.10 mg/L (0.0-10.00) H 10/19/24 06:16
Most recent labs reviewed.
Micro Results:
10/16/24 07:29 Blood Culture - Preliminary
Blood/Venous No Growth in 4 days- Final report to follow
10/15/24 06:58 Blood Culture - Final
Blood/Venous No Growth - Final Report
10/16/24 06:20 Blood Culture - Preliminary
Blood/Venous No Growth in 4 days- Final report to follow
10/15/24 06:09 Blood Culture - Final
Blood/Venous No Growth - Final Report
10/14/24 11:25 Blood Culture - Final
Blood/Venous No Growth - Final Report
10/14/24 10:48 Blood Culture - Final
Blood/Venous Streptococcus species
Gram Stain - Final
10/13/24 09:24 Blood Culture - Final
Blood/Venous Streptococcus species
Gram Stain - Final
10/13/24 09:08 Blood Culture - Final
Blood/Venous Streptococcus species
Gram Stain - Final
10/12/24 16:18 Blood Culture - Final
Blood/Venous Streptococcus species
Gram Stain - Final
10/12/24 12:05 Blood Culture - Final
Blood/Venous Streptococcus species
Gram Stain - Final
Imaging:
10/10/24 MRI Lumbar wo contrast: Abnormal marrow signal in L3 and L4 vertebral bodies. Bright inversion recovery signal within intervening L3/4 disc. Edema in the paraspinal soft tissues bilaterally at L3/4. Findings worrisome for infection
(discitis/osteomyelitis). Please correlate with clinical findings. Repeat scan with IV gadolinium may be helpful for further evaluation.
[2024-10-20 15:30] VITALS: BP 112/56
[2024-10-20] MEDS: LOVENOX 40 MG SC (18:23)
[2024-10-20] MEDS: MELATONIN 5 MG PO (20:20)
[2024-10-21] VITALS: BP 124/61
[2024-10-21 04:23] LABS: Hematocrit 24.6 % (39.0-52.0); Hemoglobin 8.2 g/dL (13.0-18.0); Mean Corp Hgb Conc. 33.3 g/dL (33.0-37.0); Mean Corpuscular Volume 83.7 fL (80.0-94.0); Nucleated Red Blood Cells % 0 % (-); Platelet Count 277 10^3/uL (130-400); Red Cell Dist. Width 15.9 % (11.5-14.5)
[2024-10-21 04:43] LABS: Blood Urea Nitrogen 17 mg/dl (9-20); Calcium 8.5 mg/dl (8.4-10.2); Carbon Dioxide 25 mmol/L (22-30); Chloride 107 mmol/L (98-107); Estimated Creatinine Clearance 75 ml/min; Glucose 100 mg/dl (70-99); Potassium 4.1 mmol/L (3.5-5.1); Sodium 136 mmol/L (135-145); eGFR > 60.00
[2024-10-21] MEDS: TYLENOL PO (05:15)
[2024-10-21] MEDS: TYLENOL 500 MG PO ×2 (06:08→11:34)
[2024-10-21 07:33] VITALS: BP 111/58
[2024-10-21] MEDS: SENOKOT-S 1 TABLET PO (09:40)
[2024-10-21] MEDS: MIRALAX 17 GRAMS PO (09:40)
[2024-10-21] MEDS: VISBIOME 2 CAP PO (09:40)
--- NOTE | 2024-10-21 10:02 | CM ---
indicated pt ready for SNF.
Pt will need Ceftriaxone 2 gm IV every 24 hours till 12/10/24 .Pt will need todays abx before dc.RN notified
Obtained Avail[facility] Certificate number [id number] from 10/21/24 to 10/27/24 for [facility] . [facility] notified.
IV abx script Picc and CXR faxed to [facility].
Medical nec form completed.
[facility]
report [phone]
fax [phone]
PLAN To [facility] via ambulance
[2024-10-21] MEDS: STERILE WATER FOR INJECTION 20 ML IV (10:40)
[2024-10-21] MEDS: ROCEPHIN 2000 MG IV (10:40)
--- NOTE | 2024-10-21 11:28 | W.PN.HOSP.TC ---
Today's Communication/Plan
-
Monitor vital signs
see plan
Discharge to SNF on IV antibiotics
Time of discharge 38 minutes
Assessment / Plan
Assessment / Plan
HPI:
83-year-old male with past medical history significant for intractable lower back pain with acute gait dysfunction who presented to ED for evaluation after abnormal outpatient MRI.
Patient was seen in the hospital approximately 1 month ago for similar symptoms. He was sent to rehab and patient reported pain has gone from intermittent to more persistent.
He states he went home from rehab with continued discomfort and now needing to use a wheelchair nearly all the time.
Patient denies any recent illness, fever, chills, cough, shortness of breath, chest pain, nausea, vomiting, constipation, diarrhea or urinary symptoms.
MRI Lumbar spine:
Abnormal marrow signal in L3 and L4 vertebral bodies. Bright inversion recovery signal within intervening L3/4 disc.
Edema in the paraspinal soft tissues bilaterally at L3/4. Findings worrisome for infection (discitis/osteomyelitis).
(Please correlate with clinical findings. Repeat scan with IV gadolinium may be helpful for further evaluation.)
Degenerative findings at L3/4 result in moderate spinal canal stenosis, severe right foraminal stenosis, moderate left foraminal stenosis
Degenerative findings at L4/5 result in moderate spinal canal stenosis
No focal disc protrusion at any level
Horseshoe kidney. 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
This has a mildly thickened wall posteriorly. This could represent a benign complicated cyst or a cystic malignancy. (Correlation with renal ultrasound recommended)
A/P:
sepsis POA 2/2 L3/L4 discitis/osteomyelitis with bacteremia resulting in Intractable lower back pain with acute gait dysfunction, due to L3/L4 discitis/osteomyelitis
Blood cultures growing Staph and Strep, follow S/S
Follow blood cultures until clearance, blood culture 10/16 so far negative
Cont Ceftriaxone per ID
Per ID:
no need for IR discitis biopsy anymore with several positive blood cultures
Of note, spine Dr Bauman was contacted by ED on admission, indicated no surgical need
cw CFTX per ID; Continue ceftriaxone 2g IV q24 x 8 weeks through 12/10/24.
PICC line placed
pain control with Tylenol ATC and PRN, changed oxycodone to tramadol PRN as pt refused oxycodone, cont bowel regimen ATC while on opiate
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
Per , flaherty was placed on 10/02/2024 due to urinary retention
recc outpt Uro follow up
Suspect anemia of chronic disease
Monitor
Hyponatremia, resolved
Distant h/o DVT, completed AC course
Code status: full code
DVT prophylaxis: Lovenox SQ
General: Well Developed, No Apparent Distress and Comfortable
HEENT: Normocephalic, [place] Conjunctivae, Nose Appears Normal and Ears Appear Normal
Respiratory: Clear to Auscultation
Cardiac: Regular Rhythm and S1/S2
GI: Soft, Nontender and Nondistended
Musculoskeletal: No Edema
Neuro: Awake, Alert and Oriented
Psych: Calm
Anticipated Discharge: Today
Subjective/Interval History
-
Date of Service: October 21, 2024
Denies nausea
Objective Data
-
Labs:
Laboratory Results
10/21/24
04:05
WBC 9.0
Hgb 8.2 L
Hct 24.6 L
Plt Count 277
Sodium 136
Potassium 4.1
Chloride 107
Carbon Dioxide 25
BUN 17
Creatinine 0.5 L
Glucose 100 H
Calcium 8.5
Vital Signs:
Vital Signs
Temp Pulse Resp BP Pulse Ox
98.5 F 75 16 111/58 97
10/21/24 07:33 10/21/24 07:33 10/21/24 07:33 10/21/24 07:33 10/21/24 07:33
I&O
10/20/24 10/21/24 10/22/24
06:59 06:59 06:59
Intake Total 900 / 900 960 / 960 240 / 240
Output Total 975 / 975 1050 / 1050
Balance -75 / -75 -90 / -90 240 / 240
--- NOTE | 2024-10-21 11:31 | W.DCSUMMARY ---
Discharge Summary
Discharge Data
Date of Admission: 10/12/24
Date of Discharge: 10/21/24
-
Pending Results: No
Hospital Course
83-year-old male with past medical history of DVT, anemia of chronic disease, chronic urinary retention with Soler catheter came to the hospital with sepsis secondary to discitis/osteomyelitis with bacteremia. Patient was seen by infectious disease
throughout hospitalization and was started on antibiotics. Spine physician Dr. Bauman was also contacted on admission where he indicated no surgical need. Over time patient's symptoms continue to improve and his subsequent blood culture were
negative. Per infectious disease recommendation patient was put on ceftriaxone to be continued for 8 weeks through 12/10/2024. Per PT OT recommendation patient was recommended SNF. Once his symptoms continue to improve, he was then discharged to
rehab with instructions to follow-up with all his physicians outpatient.
Discharge Plan
-
Patient Disposition: [facility]/SNF
Discharge Diagnosis/Procedures: sepsis POA 2/2 L3/L4 discitis/osteomyelitis with bacteremia
Chronic urinary retention with Soler catheter
Anemia of chronic disease
History of DVT
Condition: Fair
Diet: As tolerated
Activity: With assistance and As tolerated
Driving Restrictions: Not until seen by your Dr
Blood Work: Trend ESR/CRP weekly
Others Tests: lumbar spine MRI outpatient after treatment
Activity Restrictions/Additional Instructions:
Continue ceftriaxone 2g IV q24 x 8 weeks through 12/10/24.
CBC/diff, CMP, ESR, CRP weekly
Wound Care Instructions
Sacrum: clean with soap and water, silicone foam change q other day, can assess daily for any changes.
Air mattress with turning schedule
offloading cushion for chair-Roho recommended
can take air cushion upon discharge
increase protein in diet
Follow up at wound care center call for an appointment.
Continue ceftriaxone 2g IV q24 x 8 weeks through 12/10/24.
Trend ESR/CRP weekly
Referrals:
Bauman,Zaire W., MD [Active, Orthopedics]
Denton Saenz MD [Family Provider, Internal Medicine] - in less than 1 week
Aisha Martines MD [Active, Infectious Diseases]
Prescriptions:
New
ceftriaxone 2 gram Recon Soln
2,000 mg IV Q24H Qty: 0 0RF
acetaminophen [Tylenol Extra Strength] 500 mg Tablet
500 mg PO Q6H Qty: 0 0RF
Lactobac/Bifidobac [Visbiome]
2 cap PO DAILY Qty: 0 0RF
tramadol 50 mg Tablet
25 mg PO Q6HPRN PRN (Reason: mod to severe pain) Qty: 6 0RF
Continued
meloxicam 15 mg Tablet
15 mg PO QPM
Vitamin C 1,000 mg Tablet Extended Release
1,000 mg PO DAILY
Vitamin C 1,000 mg Tablet Extended Release
1,000 mg PO QPMPRN PRN (Reason: vitamin)
docusate sodium 50 mg Capsule
50 mg PO BID
gabapentin 100 mg Capsule
200 mg PO Q8H
magnesium glycinate 100 mg Tablet
200 mg PO BID
cholecalciferol (vitamin D3) 125 mcg (5,000 unit) Tablet
250 mcg PO DAILY
cholecalciferol (vitamin D3) 125 mcg (5,000 unit) Tablet
125 mcg PO QPM
Miralax
1 tsp PO DAILY
Discontinued
tramadol 50 mg Tablet
50 mg PO BIDPRN PRN (Reason: mild pain)
Patient Comments:
10/12/2024, filled on 09/29/2024 for 30 tablets for 15-day supply per PDMP.
oxycodone 5 mg Tablet
5 mg PO Q4H PRN (Reason: moderate-severe pain)
Patient Comments:
10/12/2024, filled on 09/29/2024 for 60 tablets for 10-day supply per PDMP.
Discharge Orders:
Discharge Patient (As Directed); Ordered 10/21/24
Ordered By: Maximilian Haro
Discharge Date and Time
Discharge Date/Time: 10/21/24 16:07
Print Language: SAMI
--- NOTE | 2024-10-21 13:30 | W.PN.ID1 ---
Date of Service
Date of Service: October 21, 2024
Today's Communication
Continue ceftriaxone.
Assessment / Plan
# Acute L3/L4 discitis with paraspinal edema
# Complicated Streptococcal species bacteremia, multiple sets of blood cx's
# Elevated ESR/CRP
# Urinary retention with flaherty
- TTE no gross vege
- Multiple blood cx's + streptococcus species. -> sent out for identification
- Blood cx's cleared from 10/15/24.
- Continue ceftriaxone 2g IV q24 x 8 weeks through 12/10/24.
- Trend ESR/CRP weekly
- Infusion sheet submitted to pillowcase turner
- PICC in place.
- For SNF rehab placment
- Follow-up with me in 3-4 weeks.
# Additional Past Medical History:
DVT
BPH
Urinary retention with flaherty since 09/2024
Right THR
Chief Complaint
-: Bacteremia and Other (Discitis)
Subjective / Review of Systems
No new complaints.
Vital Signs / Physical Exam
Vital Signs
Vital Signs
Temp Pulse Resp BP Pulse Ox
98.5 F 75 16 111/58 97
10/21/24 07:33 10/21/24 07:33 10/21/24 07:33 10/21/24 07:33 10/21/24 07:33
Physical Exam
Constitutional: No Acute Distress
Cardiovascular: Regular Rate and S1/S2
Pulmonary: Clear
Gastrointestinal: Soft, Non Tender, Non Distended and Normal Bowel Sounds
Neurological: AO x 3
Objective Data
Lab Data
Lab Results
10/21/24 04:05
10/21/24 04:05
ESR 74 mm/hour (0-20) H 10/12/24 12:05
Estimated Creat Clear 75 ml/min 10/21/24 04:05
Lactic Acid Cancelled 10/12/24 16:00
Total Bilirubin 0.7 mg/dl (0.2-1.3) 10/12/24 12:05
AST 23 U/L (17-59) 10/12/24 12:05
ALT 22 U/L (0-50) 10/12/24 12:05
Alkaline Phosphatase 77 U/L (38-126) 10/12/24 12:05
C-Reactive Protein 37.10 mg/L (0.0-10.00) H 10/19/24 06:16
Most recent labs reviewed.
Micro Results:
10/16/24 07:29 Blood Culture - Final
Blood/Venous No Growth - Final Report
10/16/24 06:20 Blood Culture - Final
Blood/Venous No Growth - Final Report
10/15/24 06:58 Blood Culture - Final
Blood/Venous No Growth - Final Report
10/15/24 06:09 Blood Culture - Final
Blood/Venous No Growth - Final Report
10/14/24 11:25 Blood Culture - Final
Blood/Venous No Growth - Final Report
10/14/24 10:48 Blood Culture - Final
Blood/Venous Streptococcus species
Gram Stain - Final
10/13/24 09:24 Blood Culture - Final
Blood/Venous Streptococcus species
Gram Stain - Final
10/13/24 09:08 Blood Culture - Final
Blood/Venous Streptococcus species
Gram Stain - Final
10/12/24 16:18 Blood Culture - Final
Blood/Venous Streptococcus species
Gram Stain - Final
10/12/24 12:05 Blood Culture - Final
Blood/Venous Streptococcus species
Gram Stain - Final
Imaging:
10/10/24 MRI Lumbar wo contrast: Abnormal marrow signal in L3 and L4 vertebral bodies. Bright inversion recovery signal within intervening L3/4 disc. Edema in the paraspinal soft tissues bilaterally at L3/4. Findings worrisome for infection
(discitis/osteomyelitis). Please correlate with clinical findings. Repeat scan with IV gadolinium may be helpful for further evaluation.
[2024-10-21 15:07] VITALS: BP 121/55
== END 2024-10-21 16:07 | DRG 871 ==
LOC: 4 EAST ACU 18:33
PROVIDERS: Nurse Practitioner Family; Radiology Diagnostic Radiology; Student in an Organized Health Care Education/Training Program; ADMITTING PHYSICIAN Internal Medicine; ATTENDING PHYSICIAN Internal Medicine; CONSULT PHYSICIAN Internal Medicine Infectious Disease; EMERGENCY PHYSICIAN Emergency Medicine; FAMILY PHYSICIAN Internal Medicine Geriatric Medicine
PROC: 02HV33Z Insertion of Infusion Device into Superior Vena Cava, Percutaneous Approach (ICD-10-PCS; 2024-10-19)
DX: A40.8 Other streptococcal sepsis (principal); E43 Unspecified severe protein-calorie malnutrition; L89.153 Pressure ulcer of sacral region, stage 3; E87.1 Hypo-osmolality and hyponatremia; M46.26 Osteomyelitis of vertebra, lumbar region; Z68.1 Body mass index [BMI] 19.9 or less, adult; M46.46 Discitis, unspecified, lumbar region; M48.061 Spinal stenosis, lumbar region without neurogenic claudication; R26.9 Unspecified abnormalities of gait and mobility; N28.1 Cyst of kidney, acquired; K20.80 Other esophagitis without bleeding; D63.8 Anemia in other chronic diseases classified elsewhere; N40.1 Benign prostatic hyperplasia with lower urinary tract symptoms; R33.8 Other retention of urine; Z96.641 Presence of right artificial hip joint; Q63.1 Lobulated, fused and horseshoe kidney; Z82.49 Family history of ischemic heart disease and other diseases of the circulatory system; Z88.0 Allergy status to penicillin; Z88.8 Allergy status to other drugs, medicaments and biological substances; Z88.1 Allergy status to other antibiotic agents; Z91.012 Allergy to eggs; Z91.02 Food additives allergy status; Z86.718 Personal history of other venous thrombosis and embolism; Z99.3 Dependence on wheelchair
CPT/HCPCS: 71045; 80048; 80053; 83605; 83735; 85025; 85027; 85652; 86140; 87040; 87077; 87154; 87205; 92610; 93306; 96374; 97110; 97116; 97163; 97167; 97530; 97535; 99284; Q9950

== ENCOUNTER → 2024-10-26 10:24 | Outpatient (REF) | payer OTHER, SELFPAY ==
[2024-10-26 10:59] LABS: Hematocrit 23.2 % (39.0-52.0); Hemoglobin 7.4 g/dL (13.0-18.0); Mean Corp Hgb Conc. 31.9 g/dL (33.0-37.0); Mean Corpuscular Volume 84.4 fL (80.0-94.0); Nucleated Red Blood Cells % 0 % (-); Platelet Count 228 10^3/uL (130-400); Red Cell Dist. Width 17.0 % (11.5-14.5)
[2024-10-26 11:26] LABS: C-Reactive Protein 48.50 mg/L (0.0-10.00)
[2024-10-26 11:30] LABS: ALT (SGPT) 15 U/L (0-50); AST (SGOT) 22 U/L (17-59); Albumin 2.5 g/dl (3.5-5.0); Alkaline Phosphatase 58 U/L (38-126); Blood Urea Nitrogen 19 mg/dl (9-20); Calcium 8.5 mg/dl (8.4-10.2); Carbon Dioxide 26 mmol/L (22-30); Chloride 110 mmol/L (98-107); Glucose 86 mg/dl (70-99); Potassium 4.3 mmol/L (3.5-5.1); Sodium 136 mmol/L (135-145)
[2024-10-26 11:40] LABS: Total Protein 5.0 g/dl (6.3-8.2); eGFR > 60.00
== END ==
LOC: OLABWHC 10:24
PROVIDERS: ATTENDING PHYSICIAN Family Medicine
DX: R78.81 Bacteremia (principal); L89.153 Pressure ulcer of sacral region, stage 3; M46.46 Discitis, unspecified, lumbar region; E46 Unspecified protein-calorie malnutrition
CPT/HCPCS: 36415; 80053; 85025; 85652; 86140

== ENCOUNTER → 2024-10-28 12:32 | Outpatient (REF) | payer OTHER, SELFPAY ==
[2024-10-28 12:59] LABS: Hematocrit 23.3 % (39.0-52.0); Hemoglobin 7.4 g/dL (13.0-18.0); Iron 30 ug/dl (49-181); Mean Corp Hgb Conc. 31.8 g/dL (33.0-37.0); Mean Corpuscular Volume 85.7 fL (80.0-94.0); Platelet Count 242 10^3/uL (130-400); Red Cell Dist. Width 17.2 % (11.5-14.5)
[2024-10-28 13:08] LABS: Total Iron Binding Capacity 184 ug/dl (261-462)
[2024-10-28 13:32] LABS: Ferritin 244.0 ng/ml (17.9-464.0)
== END ==
LOC: OLABWHC 12:32
PROVIDERS: ATTENDING PHYSICIAN Family Medicine
DX: M46.46 Discitis, unspecified, lumbar region (principal); R78.81 Bacteremia; E46 Unspecified protein-calorie malnutrition
CPT/HCPCS: 36415; 82728; 83540; 83550; 85027

== ENCOUNTER 2024-10-30 12:38 | Inpatient (IN) | payer OTHER, SELFPAY ==
[2024-10-30] VITALS (27 sets, daily range): BP systolic 85–106; BP diastolic 53–75; PULSE 2–112; BMI 20.4
[2024-10-30 08:17] LABS: Hematocrit 26.1 % (39.0-52.0); Hemoglobin 8.5 g/dL (13.0-18.0); Mean Corp Hgb Conc. 32.6 g/dL (33.0-37.0); Mean Corpuscular Volume 83.7 fL (80.0-94.0); Nucleated Red Blood Cells % 0 % (-); Platelet Count 273 10^3/uL (130-400); Red Cell Dist. Width 17.5 % (11.5-14.5)
[2024-10-30 08:28] LABS: Urine Character Clear (Clear)
--- NOTE | 2024-10-30 08:31 | ED.GENMED ---
History of Present Illness
<Esvin Ag PA-C - Last Filed: 10/30/24 12:04>
General
Chief Complaint: Chest Pain
Source: patient and records
Time Seen by Provider: 10/30/24 08:07
History of Present Illness
History of Present Illness:
83-year-old male with past medical history of recent osteomyelitis/discitis, stage III sacral wound, recently discharged from this facility to [facility] presenting back to the emergency department for reported
left-sided chest pain which began this morning and continued back pain and 'buttock pain from wound'. Patient reports no medication was given prior to arrival. EMS reports that patient was on 16 L nasal cannula, O2 turned off upon arrival here and
patient was satting in the mid 90s on room air and remains on room air at time of my exam. He denies any current shortness of breath, pain does not seem to be reproducible with deep inspiration or palpation/movement. Patient endorses a subjective
fever but states he is overall not sure if he actually did have a temperature or not. Patient has a PICC line to the left upper extremity. He has no other concerns at this time.
Past History
<Esvin Ag PA-C - Last Filed: 10/30/24 12:04>
Past History
ED Past Medical History: GERD, Other (DVT on warfarin ) and Other (Discitis); Negative Asthma
ED Past Surgical History: None
Social History
Tobacco: Non-smoker
Alcohol: None
Drug: None
Personal:
Living: with family
Family History
Family History: Hypertension
Review of Systems
<Esvin Ag PA-C - Last Filed: 10/30/24 12:04>
Review of Systems
All Other Systems: ROS reviewed and negative except as documented in HPI and ROS
Phy Exam
<Esvin Ag PA-C - Last Filed: 10/30/24 12:04>
Physical Exam
Physical Exam:
GENERAL: Alert , ill-appearing but nontoxic, appears older than stated age, somewhat pale in appearance
HEAD: Normocephalic atraumatic
EYE: Clear conjunctiva
NECK: Supple
ENT: o/p clr, mmm.
CARDIAC: Tachycardic rate, normal rhythm, systolic murmur (patient notes that this is chronic for him).
LUNGS: Clear breath sounds bilaterally, no acute respiratory distress, no wheezes/rales/rhonchi
ABDOMEN: Soft, without focal tenderness, no r/g, no cvat
NEUROLOGICAL: Alert and oriented, no focal neuro deficits
SKIN: Warm and dry, stage II-III sacral wound with surrounding erythema
MUSCULOSKELETAL: No edema, well perfused.
PSYCH: Normal and appropriate interaction.
Scores
<Esvin Ag PA-C - Last Filed: 10/30/24 12:04>
Heart Failure Risk
Heart Failure Risk Score: Not Applicable
Heart Score for Chest Pain Patients
STEMI patient?: Not applicable
Withdrawal Assessment of Alcohol
Withdrawal Assessment Completed?: Not applicable
Course
<Esvin Ag PA-C - Last Filed: 10/30/24 12:04>
Orders/Labs/Results
Orders:
Orders
10/30/24 07:55
Electrocardiogram (*1) Urgent
Reason for Study: Chest Pain
EKG- Treatment ONCE
CR Chest - 2 Views Urgent
Comment:
Reason For Exam: picc confirm/ cp
10/30/24 08:00
Complete Blood Count/With Diff Urgent
Comprehensive Metabolic Panel Urgent
Troponin I Urgent
10/30/24 08:01
Urinalysis Reflex To Culture Urgent
Date Specimen was Collected: 10/30/24
Time Specimen was Collected: 07:56
Urine Microscopic Reflex Cult Urgent
Urine Culture Urgent
PAUL Source: U
Specimen Description:
Date Specimen was Collected: 10/30/24
Time Specimen was Collected: 07:56
10/30/24 08:30
0.9% Sodium Chloride 1000 ml [Nss] 1,000 ml IV BOLUS
Tramadol HCl [Ultram] 50 mg PO NOW STA
10/30/24 08:39
CT Chest PE Study Urgent
Comment:
Reason For Exam: tachy, chest pain, recent hospitalization
10/30/24 08:54
Morphine Sulfate 2 mg IV NOW STA
10/30/24 09:02
Lactic Acid Q4H
Comment: CANCEL 2nd LACTIC ACID IF 1st LACTIC ACID IS LESS THAN 2
Blood Culture Q30M
PAUL Source: Blood/Venous
Specimen Description:
10/30/24 09:03
Blood Culture Q30M
PAUL Source: Blood/Venous
Specimen Description:
10/30/24 10:00
Electrocardiogram (*1) Urgent
Reason for Study: Chest Pain
EKG- Treatment ONCE
10/30/24 10:15
INFECTIOUS DISEASE CONSULT Routine
Consulting Provider: Aisha Martines
Was physician already notified: Yes
10/30/24 10:17
CARDIOLOGY CONSULT Routine
Consulting Provider: Tomi Barahona
Was physician already notified: Yes
10/30/24 11:29
Admit/Transfer Patient As Directed
Co-Sign Provider:
Level of Care: Inpatient admission
Assign to:: IMU- Intermediate Care
Physician / Group: Dilip/hospitalist
Diagnosis: L chest pain, HAP
Reason for Hospitalization: L chest pain, HAP
Expected length of stay greater than two midnights?: Yes
ELOS- Estimated Length of Stay in days: 4
I certify the patient meets the requirements for IP care: Yes
PRN Pain Medication Management As Directed
May give lesser potent ordered pain med per pt: Yes
preference::
Protocol:: Medication orders for pain may be administered in a
manner that supports deferring to patient preference
when the pt is:
- Requesting an ordered lesser potent pain medication.
Least to most potent pain medications are defined
as: acetaminophen < NSAID < tramadol < opioids
(morphine, oxycodone, hydromorphone).
- Requesting a lesser dose of the same medication IF
ORDERED.
- Requesting a less intrusive route of administration
if both routes are prescribed by the provider (PO <
IV).
10/30/24 11:31
Code Status As Directed
Resuscitation Status: Full Code
10/30/24 11:35
COVID-19 Antigen Routine
Source: Nasal Swab
Troponin I Urgent
Influenza A+B Rapid Molecular Routine
PAUL Source: Nasal Swab
Specimen Description:
10/30/24 11:55
CefTRIAXone [Rocephin] 2,000 mg .ROUTE .STK-MED ONE
10/30/24 11:57
Sterile Water [Sterile Water For Injection] 20 ml .ROUTE .STK-MED
10/30/24 12:00
CefTRIAXone [Rocephin] 2,000 mg IV Q24H
10/30/24 12:30
Lactic Acid Q4H
Comment: CANCEL 2nd LACTIC ACID IF 1st LACTIC ACID IS LESS THAN 2
Abnormal Lab Results
10/30/24 10/30/24 10/30/24
08:00 08:01 09:02
WBC 16.7 H 10^3/uL
(4.8-10.8)
RBC 3.12 L 10^6/uL
(4.70-6.10)
Hgb 8.5 L g/dL
(13.0-18.0)
Hct 26.1 L %
(39.0-52.0)
MCHC 32.6 L g/dL
(33.0-37.0)
RDW 17.5 H %
(11.5-14.5)
Abs Immat Gran (auto) 0.1 H 10^3/uL
(0-0.05)
Absolute Neuts (auto) 13.7 H 10^3/uL
(1.4-6.5)
Absolute Monos (auto) 1.3 H 10^3/uL
(0.1-0.6)
Immature Gran % 0.7 H %
(0-0.5)
Neutrophils % 82.3 H %
(42.2-75.2)
Lymphocytes % 8.3 L %
(20.5-51.1)
Chloride 108 H mmol/L
(98-107)
Creatinine 0.5 L mg/dL
(0.7-1.3)
Glucose 149 H mg/dl
(70-99)
Lactic Acid 2.7 H mmol/L
(0.7-2.0)
Calcium 8.3 L mg/dl
(8.4-10.2)
Troponin I 0.321 H* ng/ml
Total Protein 5.9 L g/dl
(6.3-8.2)
Albumin 3.1 L g/dl
(3.5-5.0)
Ur Occult Blood Reflex 3+ A
(Negative)
Leukocyte Esterase Rfl 3+ A
(Negative)
Urine RBC 7-10 A /HPF
(0-2)
Urine WBC (Reflex) 11-15 A /HPF
(0-5)
Urine Bacteria (Reflex) Moderate A
(Negative)
Urine Albumin (Reflex) 3+ A
(Neg - Trace)
10/30/24 08:00
10/30/24 08:00
Vital Signs
Initial and Last Documented VS:
Initial Vital Signs
Temp Pulse Resp BP Pulse Ox
99 F 105 16 106/65 95
10/30/24 07:50 10/30/24 07:50 10/30/24 07:50 10/30/24 07:50 10/30/24 07:50
Last Documented Vital Signs
Temp Pulse Resp BP Pulse Ox
99 F 101 22 92/54 92
10/30/24 07:50 10/30/24 09:02 10/30/24 09:02 10/30/24 09:00 10/30/24 09:02
<Sergio Mata, DO - Last Filed: 10/30/24 09:00>
Orders/Labs/Results
Orders:
Orders
10/30/24 07:55
Electrocardiogram (*1) Urgent
Reason for Study: Chest Pain
EKG- Treatment ONCE
CR Chest - 2 Views Urgent
Comment:
Reason For Exam: picc confirm/ cp
10/30/24 08:00
Complete Blood Count/With Diff Urgent
Comprehensive Metabolic Panel Urgent
Troponin I Urgent
10/30/24 08:01
Urinalysis Reflex To Culture Urgent
Date Specimen was Collected: 10/30/24
Time Specimen was Collected: 07:56
Urine Microscopic Reflex Cult Urgent
Urine Culture Urgent
PAUL Source: U
Specimen Description:
Date Specimen was Collected: 10/30/24
Time Specimen was Collected: 07:56
10/30/24 08:30
0.9% Sodium Chloride 1000 ml [Nss] 1,000 ml IV BOLUS
Tramadol HCl [Ultram] 50 mg PO NOW STA
10/30/24 08:39
CT Chest PE Study Urgent
Comment:
Reason For Exam: tachy, chest pain, recent hospitalization
10/30/24 08:54
Morphine Sulfate 2 mg IV NOW STA
10/30/24 09:02
Lactic Acid Q4H
Comment: CANCEL 2nd LACTIC ACID IF 1st LACTIC ACID IS LESS THAN 2
Blood Culture Q30M
PAUL Source: Blood/Venous
Specimen Description:
10/30/24 09:03
Blood Culture Q30M
PAUL Source: Blood/Venous
Specimen Description:
10/30/24 10:00
Electrocardiogram (*1) Urgent
Reason for Study: Chest Pain
EKG- Treatment ONCE
10/30/24 10:15
INFECTIOUS DISEASE CONSULT Routine
Consulting Provider: Aisha Martines
Was physician already notified: Yes
10/30/24 10:17
CARDIOLOGY CONSULT Routine
Consulting Provider: Tomi Barahona
Was physician already notified: Yes
10/30/24 11:29
Admit/Transfer Patient As Directed
Co-Sign Provider:
Level of Care: Inpatient admission
Assign to:: IMU- Intermediate Care
Physician / Group: Dilip/hospitalist
Diagnosis: L chest pain, HAP
Reason for Hospitalization: L chest pain, HAP
Expected length of stay greater than two midnights?: Yes
ELOS- Estimated Length of Stay in days: 4
I certify the patient meets the requirements for IP care: Yes
PRN Pain Medication Management As Directed
May give lesser potent ordered pain med per pt: Yes
preference::
Protocol:: Medication orders for pain may be administered in a
manner that supports deferring to patient preference
when the pt is:
- Requesting an ordered lesser potent pain medication.
Least to most potent pain medications are defined
as: acetaminophen < NSAID < tramadol < opioids
(morphine, oxycodone, hydromorphone).
- Requesting a lesser dose of the same medication IF
ORDERED.
- Requesting a less intrusive route of administration
if both routes are prescribed by the provider (PO <
IV).
10/30/24 11:31
Code Status As Directed
Resuscitation Status: Full Code
10/30/24 11:35
COVID-19 Antigen Routine
Source: Nasal Swab
Troponin I Urgent
Influenza A+B Rapid Molecular Routine
PAUL Source: Nasal Swab
Specimen Description:
10/30/24 11:55
CefTRIAXone [Rocephin] 2,000 mg .ROUTE .STK-MED ONE
10/30/24 11:57
Sterile Water [Sterile Water For Injection] 20 ml .ROUTE .STK-MED
10/30/24 12:00
CefTRIAXone [Rocephin] 2,000 mg IV Q24H
10/30/24 12:30
Lactic Acid Q4H
Comment: CANCEL 2nd LACTIC ACID IF 1st LACTIC ACID IS LESS THAN 2
Abnormal Lab Results
10/30/24 10/30/24 10/30/24
08:00 08:01 09:02
WBC 16.7 H 10^3/uL
(4.8-10.8)
RBC 3.12 L 10^6/uL
(4.70-6.10)
Hgb 8.5 L g/dL
(13.0-18.0)
Hct 26.1 L %
(39.0-52.0)
MCHC 32.6 L g/dL
(33.0-37.0)
RDW 17.5 H %
(11.5-14.5)
Abs Immat Gran (auto) 0.1 H 10^3/uL
(0-0.05)
Absolute Neuts (auto) 13.7 H 10^3/uL
(1.4-6.5)
Absolute Monos (auto) 1.3 H 10^3/uL
(0.1-0.6)
Immature Gran % 0.7 H %
(0-0.5)
Neutrophils % 82.3 H %
(42.2-75.2)
Lymphocytes % 8.3 L %
(20.5-51.1)
Chloride 108 H mmol/L
(98-107)
Creatinine 0.5 L mg/dL
(0.7-1.3)
Glucose 149 H mg/dl
(70-99)
Lactic Acid 2.7 H mmol/L
(0.7-2.0)
Calcium 8.3 L mg/dl
(8.4-10.2)
Troponin I 0.321 H* ng/ml
Total Protein 5.9 L g/dl
(6.3-8.2)
Albumin 3.1 L g/dl
(3.5-5.0)
Ur Occult Blood Reflex 3+ A
(Negative)
Leukocyte Esterase Rfl 3+ A
(Negative)
Urine RBC 7-10 A /HPF
(0-2)
Urine WBC (Reflex) 11-15 A /HPF
(0-5)
Urine Bacteria (Reflex) Moderate A
(Negative)
Urine Albumin (Reflex) 3+ A
(Neg - Trace)
10/30/24 08:00
10/30/24 08:00
Vital Signs
Initial and Last Documented VS:
Initial Vital Signs
Temp Pulse Resp BP Pulse Ox
99 F 105 16 106/65 95
10/30/24 07:50 10/30/24 07:50 10/30/24 07:50 10/30/24 07:50 10/30/24 07:50
Last Documented Vital Signs
Temp Pulse Resp BP Pulse Ox
99 F 101 22 92/54 92
10/30/24 07:50 10/30/24 09:02 10/30/24 09:02 10/30/24 09:00 10/30/24 09:02
<Esvin Ag PA-C - Last Filed: 10/30/24 12:04>
MDM/Problems Addressed
Differential Diagnosis Includes:
Pneumonia
PE
ACS
Pneumothorax
Pericarditis/myocarditis
Musculoskeletal etiology
Endocarditis
Anemia
Acute kidney injury
Electrolyte imbalance
MDM/Problems Addressed:
83-year-old male presenting to the ER for reported left-sided chest pain that began earlier this morning, EMS reported hypoxia however no evidence of this here. Patient is mildly tachycardic, borderline hypotensive and ill-appearing. Sepsis workup
initiated. Will treat pain with tramadol which is what patient was discharged home with, has yet to receive this today. Unclear if symptoms are more acute on chronic or if patient has new complication causing his presentation today. Disposition
pending
Chronic conditions affecting care: Other (Discitis)
<Esvin Ag PA-C - Last Filed: 10/30/24 12:04>
*Radiology
Radiology exam reviewed: radiology read reviewed
*Pulse Oximetry
SaO2: 95
Oxygen Mode of Delivery: Room air
Patient hypoxic: no
*EKG
Heart Rate: 105
Rate: tachycardiac
Rhythm: sinus
Ischemia: no ischemia
*Cello Teacher Interpretation
Rate: tachycardiac
Heart Rate: 104
Rhythm: sinus
*Critical Care Note
Total Time (30-74mins, 75-104mins- exclusive of procedures): Not Applicable
Data Reviewed
Review of Other/Old Records Reveals: Labs, Records and Discharge Summary
<Esvin Ag PA-C - Last Filed: 10/30/24 12:04>
Patient Management
Discussion with other providers: Hospitalist and Data Management Analyst
Escalation/DeEscalation of care consider admission/obs:
CT negative for pulmonary embolism. There are findings that are compatible with bilateral pleural effusions and concerns for pneumonia. There is also noted sternal body fracture which is unclear as to how this occurred as there was no reported
trauma. This could be the cause of patient's reported pain from earlier today. We repeated an EKG given his abnormal troponin which was unchanged and no signs of acute ischemia. Repeat troponin ordered to trend. Heparin deferred to inpatient
team. Hospitalist team accepts for continued evaluation and treatment.
ED Attending Note
<Esvin Ag PA-C - Last Filed: 10/30/24 12:04>
-
Portions of this chart may have been created with voice recognition software.� Occasional wrong word or��sound alike� substitutions may have occurred due to the inherent limitations of voice recognition software.
<Sergio Mata DO - Last Filed: 10/30/24 09:00>
ED Attending Note
Patient seen and examined by attending physician: Yes
I performed the substantive portion of visit, reviewed & personally made and approve the management plan that is documented in note by myself or FELIPE.: Yes
Discharge Plan
Departure
Patient Disposition: Admit
Date of Disposition: 10/30/24
Time of Disposition: 10:02
Presentation/result/management discussed w/ accepting MD/DO: Hospitalist
Discharge Problem:
Chest pain, Pneumonia, Elevated troponin, Sternal fracture
Prescriptions:
No Action
docusate sodium 50 mg Capsule
100 mg PO BID
gabapentin 100 mg Capsule
200 mg PO Q8H
magnesium glycinate 100 mg Tablet
200 mg PO BID
cholecalciferol (vitamin D3) 125 mcg (5,000 unit) Tablet
250 mcg PO DAILY
cholecalciferol (vitamin D3) 125 mcg (5,000 unit) Tablet
125 mcg PO QPM
ceftriaxone 2 gram Recon Soln
2,000 mg IV Q24H Qty: 0 0RF
Rx Instructions:
give until; 12/12/24
ascorbic acid (vitamin C) [Vitamin C] 1,000 mg Tablet
1,000 mg PO DAILY
acetaminophen [Tylenol] 325 mg Tablet
650 mg PO Q6HPRN PRN (Reason: mild pain)
polyethylene glycol 3350 [Miralax] 17 gram Powder In Packet
17 g PO DAILYPRN PRN (Reason: constipation)
melatonin 3 mg Tablet
3 mg PO HS
tramadol 50 mg Tablet
50 mg PO DAILY
magnesium hydroxide [Milk of Magnesia] 400 mg/5 mL Suspension
2,400 mg PO HSPRN PRN (Reason: if no bm by 2nd)
bisacodyl [Dulcolax (bisacodyl)] 10 mg Suppository
10 mg MI DAILYPRN PRN (Reason: if no bm by 3rd day)
pantoprazole [Protonix] 40 mg Tablet,Delayed Release (Dr/Ec)
40 mg PO BID
Fleet Enema 19-7 gram/118 mL Enema
118 ml MI DAILYPRN PRN (Reason: if no bm by 4th day)
Visbiome 112.5 billion cell Capsule
1 cap PO DAILY
ferrous sulfate 324 mg (65 mg iron) Tablet,Delayed Release (Dr/Ec)
324 mg PO Q48H
tramadol 25 mg Tablet
25 mg PO Q8HPRN PRN (Reason: moderate pains)
acetaminophen [Tylenol Extra Strength] 500 mg tablet
500 mg PO Q8H
Referrals:
Mike Encarnacion MD [Family Provider, Family Practice]
Interventions
Interventions:
*Risk Screen - Suicide Last Done: 10/30/24 07:50
*General Assessment Last Done: 10/30/24 07:50
*Neglect/Abuse Screening Last Done: 10/30/24 07:50
*ED- Fall Risk Assessment Last Done: 10/30/24 08:31
*ED COVID-19 Vaccine History Last Done: 10/30/24 08:31
ED- Cardiac Assessment Last Done: 10/30/24 08:32
Discharge Date and Time
Print Language: AUSTRIAN
[2024-10-30 08:32] LABS: ALT (SGPT) 19 U/L (0-50); AST (SGOT) 27 U/L (17-59); Albumin 3.1 g/dl (3.5-5.0); Alkaline Phosphatase 75 U/L (38-126); Blood Urea Nitrogen 17 mg/dl (9-20); Calcium 8.3 mg/dl (8.4-10.2); Carbon Dioxide 22 mmol/L (22-30); Chloride 108 mmol/L (98-107); Estimated Creatinine Clearance 86 ml/min; Glucose 149 mg/dl (70-99); Potassium 4.2 mmol/L (3.5-5.1); Sodium 135 mmol/L (135-145); Total Protein 5.9 g/dl (6.3-8.2); eGFR > 60.00
[2024-10-30 08:41] LABS: Urine Squamous Cell 0-2 /LPF (Few)
[2024-10-30 08:46] LABS: Troponin I 0.321 ng/ml
[2024-10-30] MEDS: ULTRAM 50 MG PO (08:48)
[2024-10-30] MEDS: NSS 1000 IV (08:49)
[2024-10-30] MEDS: MORPHINE SULFATE 2 MG IV (09:06)
--- NOTE | 2024-10-30 10:14 | HPS.HSE ---
Addendum entered and electronically signed by Breanna Cherry MD 10/30/24 12:47:
Troponin increased from 0.321 to 6.970.
Discussed finding with belt knife feeder, start heparin drip, started aspirin
Plan is for conservative management in setting of recent discitis/bacteremia
Check repeat 2D echo
Original Note:
Family Physician
-
Family Physician: Mike Encarnacion MD
Chief Complaint
-
L sided chest pain
History of Present Illness
HPI: 83-year-old male with past medical history of recent osteomyelitis/discitis on IV ceftriaxone, stage III sacral wound, recently discharged from to [facility]; presented back to the emergency department
for reported acute on chronic left-sided chest pain which began in the morning and continued back pain and 'buttock pain from wound'.
EMS reported that patient was on 16 L nasal cannula. Currently on 6L NC in ED.
He denies to shortness of breath. Patient also endorsed to subjective fever. Patient has RUE PICC line from which he was receiving ceftriaxone.
Medical History
Past Medical History
Past Medical History: Reports Other
Additional Past Medical History:
recent discitis
Intractable lower back pain with acute gait dysfunction
Hx DVT
Past Surgical History: Reports None
Social History
Tobacco: Non-smoker
Alcohol: Occasional
Personal:
Living: Other (from [facility] this time )
Family History
Family History: Not pertinent
Allergies / Home Medications
Allergies reflects when Allergies were last updated in [employer].
Home Medications with original date entered in [employer]
Allergy/Medication List:
Allergies
Allergy/AdvReac Type Severity Reaction Status Date / Time
Cephalosporins Allergy Unknown Verified 10/30/24 07:54
chocolate Allergy COLD SORE Verified 10/30/24 07:54
OUTBREAK
IF HAVE
TOO MANY
DAYS IN A
ROW
egg Allergy BAD Verified 10/30/24 07:54
DREAMS-CAN
HAVE THE
FLU SHOT
monosodium glutamate Allergy SLEEP Verified 10/30/24 07:54
DISTURBANCE,BAD
DREAMS
penicillin G Allergy Unknown Verified 10/30/24 07:54
Penicillins Allergy BAD Verified 10/30/24 07:54
HEADACHE
soy Allergy SLEEP Verified 10/30/24 07:54
DISTURBANCE,BAD
DREAMS
Home Medications
cholecalciferol (vitamin D3) 125 mcg (5,000 unit) tablet 125 mcg PO QPM Supplement 10/12/24
cholecalciferol (vitamin D3) 125 mcg (5,000 unit) tablet 250 mcg PO DAILY Supplement 10/12/24
docusate sodium 50 mg capsule 100 mg PO BID Constipation 10/12/24
gabapentin 100 mg capsule 200 mg PO Q8H Neurological Condition 10/12/24
magnesium glycinate 100 mg (as glycinate) tablet 200 mg PO BID Supplement 10/12/24
ceftriaxone 2 gram solution for injection 2,000 mg IV Q24H #0 ea 10/20/24
Lactobac no.2-Bifidobac no.1-S. thermo 112.5 billion cell capsule (Visbiome) 1 cap PO DAILY 10/30/24
acetaminophen 325 mg tablet (Tylenol) 650 mg PO Q6HPRN PRN mild pain 10/30/24
acetaminophen 500 mg tablet (Tylenol Extra Strength) 500 mg PO Q8H 10/30/24
ascorbic acid (vitamin C) 1,000 mg tablet (Vitamin C) 1,000 mg PO DAILY 10/30/24
bisacodyl 10 mg rectal suppository (Dulcolax (bisacodyl)) 10 mg PA DAILYPRN PRN if no bm by 3rd day 10/30/24
ferrous sulfate 324 mg (65 mg iron) tablet,delayed release 324 mg PO Q48H 10/30/24
magnesium hydroxide 400 mg/5 mL oral suspension (Milk of Magnesia) 2,400 mg PO HSPRN PRN if no bm by 2nd 10/30/24
melatonin 3 mg tablet 3 mg PO HS 10/30/24
pantoprazole 40 mg tablet,delayed release (Protonix) 40 mg PO BID 10/30/24
polyethylene glycol 3350 17 gram oral powder packet (Miralax) 17 g PO DAILYPRN PRN constipation 10/30/24
sodium phosphates 19 gram-7 gram/118 mL enema (Fleet Enema) 118 ml PA DAILYPRN PRN if no bm by 4th day 10/30/24
tramadol 25 mg tablet 25 mg PO Q8HPRN PRN moderate pains 10/30/24
tramadol 50 mg tablet 50 mg PO DAILY 10/30/24
Review of Systems
-
Cardiac: Reports See HPI and Chest Pain (L sided)
Physical Exam
Vital Signs
Vital Signs
Temp Pulse Resp BP Pulse Ox
37.2 C 101 22 92/54 92
10/30/24 07:50 10/30/24 09:02 10/30/24 09:02 10/30/24 09:00 10/30/24 09:02
Physical Exam
General: Well Developed, Well Nourished, Respiratory Distress, Appears Chronically Ill and Other (lethargic)
HEENT: NormoCephalic, Moist mucous membranes, Atraumatic and Oxygen (6L NC)
Respiratory: Clear
Cardiac: S1/S2 and Regular Rhythm; No Murmur or Rub
GI: Soft, Non Tender, Non Distended and Normal Bowel Sounds; No Organomegaly
Rectal: Deferred by Provider
Genito-urinary: Deferred by me and Flaherty
Musculoskeletal: No Clubbing, No Cyanosis and No Edema
Skin: No Rash
Neuro: Awake and Alert
Psych: Calm and Intact Judgment/Insight (somewhat )
Laboratory Results
-
10/30/24 08:00
10/30/24 08:00
Laboratory Results
Lactic Acid 2.7 mmol/L (0.7-2.0) H 10/30/24 09:02
Total Bilirubin 0.6 mg/dl (0.2-1.3) 10/30/24 08:00
AST 27 U/L (17-59) 10/30/24 08:00
ALT 19 U/L (0-50) 10/30/24 08:00
Alkaline Phosphatase 75 U/L (38-126) 10/30/24 08:00
Troponin I 0.321 ng/ml H* 10/30/24 08:00
Data Reviewed
-
Lab Data: Labs Reviewed by me
Impression/Plan
-
HPI: 83-year-old male with past medical history of recent osteomyelitis/discitis on IV ceftriaxone, stage III sacral wound, recently discharged from to [facility]; presented back to the emergency department
for reported acute on chronic left-sided chest pain which began in the morning and continued back pain and 'buttock pain from wound'.
EMS reported that patient was on 16 L nasal cannula. Currently on 6L NC in ED.
He denies to shortness of breath. Patient also endorsed to subjective fever. Patient has RUE PICC line from which he was receiving ceftriaxone.
CT PE:
Examination is negative for pulmonary embolism.
Small to moderate bilateral pleural effusions.
Patchy parenchymal opacity mainly within both upper lobes, suspicious for pneumonia. Pulmonary edema would be a differential consideration.
Band-shaped opacity within the inferior lingula, compatible with discoid atelectasis.
Note is made of a slightly impacted fracture involving the superior sternal body. This appears to be acute to subacute.
Calcification of the thoracic aorta with no evidence for thoracic aortic aneurysm.
A/P:
# Acute on Chronic L sided chest pain, cardiac vs pulm
# Elevated troponin unclear NSTEMI vs non-SC elevation
EKG noted PVC
Cont to trend troponin
Recent echo 10/14 was unrevealing: EF 55-60%. Moderate to severe mitral regurgitation. Compared to previous echo 05/02/2023, the previous study noted mitral prolapse and moderate eccentric MR
Card CS
# Possible Sepsis POA 2/[address], consider HAP in rehab setting
# BL effusion on CT chest
# Hypotension
CT chest noted possible BL upper lobe pneumonia
Pt already on ceftriaxone [employer] for discitis, cont ceftriaxone
Add doxycycline
Check MRSA screen, Check COVID/Flu
Follow blood cultures
IVF with NSS for BP support, monitor in IMU
ID CS, considering YEE in setting of recent discitis
# Acute hypoxic resp failure
PE ruled out
Was on 16L NC [employer], now on 6L NC in ED, cont O2 support and wean as tolerated. Noted pt not on home O2
# Incidental finding of slightly impacted fracture involving the superior sternal body. This appears to be acute to subacute.
Monitor
# Recent L3/L4 discitis/osteomyelitis with Strep bacteremia
# Intractable lower back pain with gait dysfunction due to above
Continue ceftriaxone 2g IV q24 x 8 weeks through 12/10/24 per ID via LUE Picc
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
Per , flaherty was placed on 10/02/2024 due to urinary retention
Exchange flaherty this admission
Outpt Uro follow up
# Suspect anemia of chronic disease
# Distant h/o DVT, completed AC course
Code status: full code
DVT prophylaxis: Lovenox SQ
--- NOTE | 2024-10-30 10:56 | CON.CAR ---
Addendum entered and electronically signed by Tomi Barahona MD 10/30/24 15:45:
Patient seen and examined in collaboration with [employer]; agree with below.
- 83-year-old male with moderate to severe mitral regurgitation, dyslipidemia, and PAD recently hospitalized for discitis; presenting with chest pain.
- The patient's initial troponin was 0.3-1, now 6.97; findings appear to be consistent with an NSTEMI.
- Patient should be started on a heparin drip.
- Urgent echocardiogram revealed new CHF (EF 30-35%) with new regional wall motion abnormalities in the septal, apical, and basal inferior regions; severe MR and TR are also now noted.
- Discontinue IV fluids.
- Case discussed with Interventional Cardiology who will evaluate case and determine timing in terms of possible cardiac catheterization.
- drop forger helper.
- Will follow.
Original Note:
Consultation
Consultation Request
Date/Time Consultation Requested: 10/30/24 1017
Date/Time Consultation Performed: 10/30/24 1055
Requesting Provider: Dr. Cherry
Performing Provider: Merlene HOOK for Dr. Barahona
Reason for Consultation: abnormal troponin
Medical History
-
Chief Complaint: chest discomfort
History of Present Illness:
83 y/o male with mitral regurgitation (suspected rheumatic, moderate to severe on recent echo), dyslipidemia, anemia, mild PAD (Dr. Good), PVC's, mild . He was recently hospitalized for discitis and treated with antibiotics. He was discharged to
SNF. He is back for left-sided CP. He tells me that he has had right-sided chest discomfort for weeks, but he felt it in the left side earlier this AM and it has been present ever since. Feels like a pressure. Denies worse to inspiration, palpation,
positioning, or exertion. However, when I had him turn to the right to auscultate his breath sounds, he developed this pain. He has had some SOB and cough as well. Overall, his EKG is stable from OP EKG 2022 (though faster in setting of acute
illness). Troponin is 0.321, second one is pending. He is requiring O2 by [place]. BP is on low end in 90's systolically. There is concern for PNA. He has been given morphine and tramadol, as well as fluids. He is lethargic, but answering questions and
following commands on my assessment and is in no acute distress, but does have mildly increased WOB. There is evidence for sternal fracture- he denies any injury. Reports subjective fever/chills.
Past Medical History
Past Medical History: Hypercholesterolemia, Valvular Disease and Other (as above)
Social History
Tobacco: Former Smoker (quit 60 years ago)
Family History
Family History: Reviewed & Not Pertinent
Allergies / Home Medications
Allergy/AdvReac Type Severity Reaction Status Date / Time
Cephalosporins Allergy Unknown Verified 10/30/24 07:54
chocolate Allergy COLD SORE Verified 10/30/24 07:54
OUTBREAK
IF HAVE
TOO MANY
DAYS IN A
ROW
egg Allergy BAD Verified 10/30/24 07:54
DREAMS-CAN
HAVE THE
FLU SHOT
monosodium glutamate Allergy SLEEP Verified 10/30/24 07:54
DISTURBANCE,BAD
DREAMS
penicillin G Allergy Unknown Verified 10/30/24 07:54
Penicillins Allergy BAD Verified 10/30/24 07:54
HEADACHE
soy Allergy SLEEP Verified 10/30/24 07:54
DISTURBANCE,BAD
DREAMS
�Medication �Instructions �Recorded �Confirmed �Type
cholecalciferol (vitamin D3) 125 125 mcg PO QPM Supplement 10/12/24 10/30/24 History
mcg (5,000 unit) tablet
cholecalciferol (vitamin D3) 125 250 mcg PO DAILY Supplement 10/12/24 10/30/24 History
mcg (5,000 unit) tablet
docusate sodium 50 mg capsule 100 mg PO BID Constipation 10/12/24 10/30/24 History
gabapentin 100 mg capsule 200 mg PO Q8H Neurological 10/12/24 10/30/24 History
Condition
magnesium glycinate 100 mg (as 200 mg PO BID Supplement 10/12/24 10/30/24 History
glycinate) tablet
ceftriaxone 2 gram solution for 2,000 mg IV Q24H #0 ea 10/20/24 10/30/24 Rx
injection
Lactobac no.2-Bifidobac no.1-S. 1 cap PO DAILY 10/30/24 10/30/24 History
thermo 112.5 billion cell capsule
(Visbiome)
acetaminophen 325 mg tablet 650 mg PO Q6HPRN PRN mild pain 10/30/24 10/30/24 History
(Tylenol)
acetaminophen 500 mg tablet 500 mg PO Q8H 10/30/24 10/30/24 History
(Tylenol Extra Strength)
ascorbic acid (vitamin C) 1,000 mg 1,000 mg PO DAILY 10/30/24 10/30/24 History
tablet (Vitamin C)
bisacodyl 10 mg rectal suppository 10 mg [place] DAILYPRN PRN if no bm by 10/30/24 10/30/24 History
(Dulcolax (bisacodyl)) 3rd day
ferrous sulfate 324 mg (65 mg 324 mg PO Q48H 10/30/24 10/30/24 History
iron) tablet,delayed release
magnesium hydroxide 400 mg/5 mL 2,400 mg PO HSPRN PRN if no bm by 10/30/24 10/30/24 History
oral suspension (Milk of Magnesia) 2nd
melatonin 3 mg tablet 3 mg PO HS 10/30/24 10/30/24 History
pantoprazole 40 mg tablet,delayed 40 mg PO BID 10/30/24 10/30/24 History
release (Protonix)
polyethylene glycol 3350 17 gram 17 g PO DAILYPRN PRN constipation 10/30/24 10/30/24 History
oral powder packet (Miralax)
sodium phosphates 19 gram-7 118 ml [place] DAILYPRN PRN if no bm by 10/30/24 10/30/24 History
gram/118 mL enema (Fleet Enema) 4th day
tramadol 25 mg tablet 25 mg PO Q8HPRN PRN moderate pains 10/30/24 10/30/24 History
tramadol 50 mg tablet 50 mg PO DAILY 10/30/24 10/30/24 History
Review of Systems
-
History Source: Patient
All other systems: Negative unless noted
Constitutional: Fever and Chills
Respiratory: Cough and Trouble Breathing
Cardiac: Chest Pain
Physical Exam
Vital Signs
Temp Pulse Resp BP Pulse Ox
99 F 101 22 92/54 92
10/30/24 07:50 10/30/24 09:02 10/30/24 09:02 10/30/24 09:00 10/30/24 09:02
Lab Results
10/30/24 08:00
10/30/24 08:00
Troponin I 0.321 ng/ml H* 10/30/24 08:00
Physical Exam
General: Well Developed, Well Nourished and No Apparent Distress
HEENT: Normocephalic and Anicteric
Respiratory: Other (coarse lung sounds, on O2 by NC)
Cardiac: Regular Rhythm and Murmur (II/ systolic )
Musculoskeletal: No Edema
Skin: Warm and Dry
Neuro: AO x 3 (lethargic)
Psych: Calm
Impression / Plan
-
Suspected PNA/Sepsis:
-condition is threat to life
-also with recent bacteremia/discitis- blood CX pending
-IV abx ordered and ID consulted
-requiring O2 by NC
Chest discomfort:
-I suspect non-cardiac with sternal fracture and PNA, but check another troponin. Description as noted in HPI.
-EKG without any ischemic change from OP EKG 2022- will upload
Abnormal troponin:
-suspect acute, non-ischemic myocardial injury in setting of acute infectious illness (also anemia, hypoxia)
-troponin 0.321, next is pending. EKG as noted.
Mitral regurgitation:
-moderate to severe on monitor recent echo
-monitor volume
-currently requiring IVF for sepsis
Anemia:
-chronic, monitor
Data:
Chest CT: Examination is negative for pulmonary embolism. Small to moderate bilateral pleural effusions. Patchy parenchymal opacity mainly within both upper lobes, suspicious for pneumonia. Pulmonary edema would be a differential consideration.
Band-shaped opacity within the inferior lingula, compatible with discoid atelectasis. Note is made of a slightly impacted fracture involving the superior sternal body. This appears to be acute to subacute. Calcification of the thoracic aorta with no
evidence for thoracic aortic aneurysm.
Data Reviewed
-
EKG: Tracing Personally Visualized and interpreted (SR at 99 BPM, PVC's, evidence for septal infarct- but unchanged from OP EKG 2022- to be uploaded to chart)
Radiology: Report Reviewed by me (CXR: Small bilateral pleural effusions. Diffusely increased interstitial markings with ring shaped opacities. Findings would be suggestive of diffuse bronchitis and predominantly interstitial pneumonitis.
Differential consideration of pulmonary edema, felt to be less likely.)
CT Scan: Report Reviewed by me (as noted)
Medical Tests (Nuc Med, Echo etc): Report Reviewed by me (Echo 10/14/24: Normal left ventricular systolic function. Left ventricular ejection fraction is 55-60%. Moderate to severe mitral regurgitation. Aortic sclerosis and suspected mild aortic
stenosis)
Labs: Labs Reviewed by me
--- NOTE | 2024-10-30 11:09 | CM ---
CM reviewed chart and attempted to meet with pt in ED but he was sleeping.
Pt currently resides at [facility], receiving IV Ceftriaxone for osteomyelitis/discitis since dc / from , plan was for ABX through 12/10/24.
Prior to that lived with his in 2 story home, 2 VIKI, 2nd floor BR/BA
Pt was independent in ADLs, personal care and ambulation prior to last admit, still driving.
Has LUE PICC.
PCP: Mike Encarnacion ([place])
Home Pharmacy: [facility]
CM will continue to follow for discharge planning needs.
[2024-10-30] MEDS: ROCEPHIN 2000 MG IV (11:56)
[2024-10-30 12:11] LABS: COVID-19 Antigen Negative (Negative)
[2024-10-30] MEDS: ZOFRAN 4 MG IV (12:24)
[2024-10-30 12:25] LABS: Troponin I 6.970 ng/ml
[2024-10-30 12:55] LABS: Hematocrit 26.7 % (39.0-52.0); Hemoglobin 8.7 g/dL (13.0-18.0); Mean Corp Hgb Conc. 32.6 g/dL (33.0-37.0); Mean Corpuscular Volume 83.2 fL (80.0-94.0); Platelet Count 257 10^3/uL (130-400); Red Cell Dist. Width 17.8 % (11.5-14.5)
[2024-10-30 13:07] LABS: APTT 37.5 Sec (23.4-35.0)
--- NOTE | 2024-10-30 13:34 | CON.ID ---
Consultation
-
Date/Time Consultation Requested: October 30, 2024 1000
Date/Time Consultation Performed: October 30, 2024 1335
Requesting Provider: Dr. Demetrice Cherry
Performing Provider: Dr. Aisha Martines
Reason for Consultation: CHF, discitis on antibiotic
Chief Complaint / Past History
Chief Complaint
Chest pain
History of Present Illness
83-year-old male with history of BPH, DVT well known to me from recent hospitalization with Streptococcus sanguinous bacteremia, L3/L4 discitis currently receiving ceftriaxone at rehab who was sent to the ER today due to left-sided chest pain. In
ED white count 16.7, troponin 6.9. . Chest x-ray showed small bilateral pleural effusions, diffuse increased interstitial markings. Chest CT�no PE, bilateral small pleural effusions, patchy opacities, predominantly upper lobes. According to his
at bedside, patient was doing well at rehab participating in activities. However 2 days ago he developed acute worsening of his low back pain and he was not able to sleep. Yesterday patient complaining of lower mid sternal pain but he did not
want to tell [facility] staff as he did not want to come back to the hospital. This morning patient was found grabbing his left chest and he was complaining of pain. He was therefore sent to the ER immediately. Patient denies cough or
shortness of breath. No fever. Positive weakness. He feels very fatigued. He also has a chronic stage III sacral wound which according to his is getting smaller.
Past History
Additional Past Medical History:
DVT
BPH
Urinary retention with flaherty since 10/14
Right THR
Allergy History:
Cephalosporins Allergy (Verified 10/30/24 07:54)
Unknown
chocolate Allergy (Verified 10/30/24 07:54)
COLD SORE OUTBREAK IF HAVE TOO MANY DAYS IN A ROW
egg Allergy (Verified 10/30/24 07:54)
BAD DREAMS-CAN HAVE THE FLU SHOT
monosodium glutamate Allergy (Verified 10/30/24 07:54)
SLEEP DISTURBANCE,BAD DREAMS
penicillin G Allergy (Verified 10/30/24 07:54)
Unknown
Penicillins Allergy (Verified 10/30/24 07:54)
BAD HEADACHE
soy Allergy (Verified 10/30/24 07:54)
SLEEP DISTURBANCE,BAD DREAMS
Medications Reviewed: Yes
Current Antibiotics:
None
Social History
Tobacco: Non-Smoker
Alcohol: None
Drug: None
Personal:
Family History
Family History: Not Pertinent
Review of Systems
Review of Systems
General: Change in Appetite; Negative Fever or Chills
HEENT: Negative Sinus Problems, Headache or Pharyngitis
Cardiovascular: Chest Pain; Negative Edema
Respiratory: Negative Dyspnea, Cough or Sputum Production
Gasteroenterology: Negative Nausea, Vomiting or Diarrhea
Genital / Urological: Negative Dysuria or Flank Pain
Endocrine: Weakness
All systems: All other systems were reviewed and were negative
Vital Signs
Temp Pulse Resp BP Pulse Ox
99 F 101 22 92/54 92
10/30/24 07:50 10/30/24 09:02 10/30/24 09:02 10/30/24 09:00 10/30/24 09:02
Physical Exam
Physical Exam
Constitutional: Acutely Ill
Eyes: No Conjunctival Hemorrhage and Sclera Anicteric
Cardiovascular: Regular Rate and S1/S2
Pulmonary: Rales (bases)
Gastrointestinal: Soft, Non Tender, Non Distended and Normal Bowel Sounds
Genito-Urinary: Negative CVA Tenderness
Extremities: Negative Edema
Neurological: Other (Lethargic)
Lines: PICC (Right upper extremity without erythema)
Lab / Diagnostic Study Results
10/30/24 12:50
10/30/24 08:00
Abs Immat Gran (auto) 0.1 10^3/uL (0-0.05) H 10/30/24 08:00
Absolute Neuts (auto) 13.7 10^3/uL (1.4-6.5) H 10/30/24 08:00
Absolute Lymphs (auto) 1.4 10^3/uL (1.2-3.4) 10/30/24 08:00
Absolute Monos (auto) 1.3 10^3/uL (0.1-0.6) H 10/30/24 08:00
Absolute Basos (auto) 0.1 10^3/uL (0-0.2) 10/30/24 08:00
Immature Gran % 0.7 % (0-0.5) H 10/30/24 08:00
Neutrophils % 82.3 % (42.2-75.2) H 10/30/24 08:00
Lymphocytes % 8.3 % (20.5-51.1) L 10/30/24 08:00
Monocytes % 7.6 % (1.7-9.3) 10/30/24 08:00
Eosinophils % 0.8 % (0-6) 10/30/24 08:00
Basophils % 0.3 % (0-2) 10/30/24 08:00
Lactic Acid 2.5 mmol/L (0.7-2.0) H 10/30/24 12:08
Ur Squamous Epith Cells 0-2 /LPF (Few) 10/30/24 08:01
Microbiology Results
Micro:
10/30/24 11:35 Influenza Types A & B (LAURA) - Final
Nasal Swab Negative for Influenza A & B, NAAT
Negative results must be combined with clinical observations
and patient history.
Nucleic Acid Amplification test (NAAT)performed on the
[employer] platform.
10/30/24 09:02 Blood Culture - Pending
Blood/Venous
10/30/24 09:03 Blood Culture - Pending
Blood/Venous
10/30/24 08:01 Urine Culture - Pending
Urine
10/30/[address] examination is negative for pulmonary embolism. Small to moderate bilateral pleural effusions. Patchy parenchymal opacity mainly within both upper lobes, suspicious for pneumonia. Pulmonary edema would be a differential
consideration.
Assessment / Plan
# Acute chest pain, troponin 6.9
# Suspect CHF
# Leukocytosis
# Recent Strep sanguinis bacteremia with L3/L4 discitis, currently on ceftriaxone 2g IV q24 x 8 weeks through 12/10/24.
- Blood cx's pending
- Cardiology on board.
- Consider YEE to evaluate for infective endocarditis given recent high grade Strep sanguinis bacteremia
- Continue ceftriaxone.
- Trend WBC
- Follow clinically
Care Review
Plan reviewed with: Physician (Dr. Cherry)
[2024-10-30] MEDS: ASPIRIN 325 MG PO (14:15)
[2024-10-30] MEDS: HEPARIN 4000 UNITS IV (14:23)
[2024-10-30] MEDS: HEPARIN 25000 UNITS/250 ML IV ×2 (14:23→20:51)
--- NOTE | 2024-10-30 15:20 | W.PN.UPDATE ---
Addendum entered and electronically signed by Breanna Cherry MD 10/30/24 15:25:
Also, per RN, pt has an advanced directive on chart from 10/26/24 that states he is DNR with limited interventions.
Code status changed to DNR DNI.
Original Note:
Update Note
Progress Note Update
Informed by yard worker that patient's echo today shows new reduced EF at 30-35% and Septal and basal inferior hypokinesis/akinesis. Severe mitral regurgitation.
ocean lifeguard to come see patient.
No IV fluid per yard worker
Total time more than 75 minutes
[2024-10-30 16:51] LABS: B.E. -3.0 mmol/L; HCO3 20.2 mmol/L (21-28); O2 Saturation % 98.1 % (94-98); PCO2 29 mmHg (35-48); PO2 78 mmHg (83-108)
[2024-10-30 16:53] LABS: Hematocrit 27.3 % (39.0-52.0); Hemoglobin 8.8 g/dL (13.0-18.0); Mean Corp Hgb Conc. 32.2 g/dL (33.0-37.0); Mean Corpuscular Volume 83.7 fL (80.0-94.0); Nucleated Red Blood Cells % 0 % (-); Platelet Count 307 10^3/uL (130-400); Red Cell Dist. Width 17.9 % (11.5-14.5)
--- NOTE | 2024-10-30 16:59 | ITS.CL.PN ---
Dolly Driver - Procedure Note
Procedure
Procedure Note:
CARDIAC CATHETERIZATION REPORT
Date of Procedure: 10/30/2024
Referring: Dr. Tomi Barahona MD
Indication: NSTEMI, cardiogenic shock
PROCEDURE(S)
1. right heart catheterization
2. left heart catheterization
3. coronary angiography
ACCESS
1. 6F right radial artery (closure: radial band)
2. 5F right antecubital vein (closure: manual hemostasis)
CATHETERS
1. 5F [place]
2. 6F JR4
3. 6F JL4
HEMODYNAMIC DATA
LV 102 over (EDP 27) mmHg
AO 91/50 (mean 74) mmHg
RA 16 mmHg
RV 47/8 (EDP 14) mmHg
PA 45/20 (mean 34) mmHg
PCWP 24 mmHg
SaO2 96.1%
SvO2 42.2%
Hb 8.6 g/dL
CO/CI 3.65/1.98 L/min/m2
SVR 1270 dsc*-5
PVR 2.7 Wood units
CORONARY ANGIOGRAPHY
Dominance: right
LM: Large vessel with 30-40% distal vessel tapering
LAD: Large vessel giving rise to three moderate caliber diagonal branches and wrapping around the apex. There is diffuse mild disease throughout the proximal to mid vessel. Between D1 and D2 there is a small, focal, atheromatous appearing plaque
that is eccentrically seen in PISANO projections. This does not appear to be flow limiting.
LCx: Moderate caliber vessel giving rise to a single large OM branch. There is a smooth 40% proximal stenosis and otherwise mild disease.
RCA: Large vessel giving rise to a large RPDA and moderate caliber RPL branch. There is diffuse moderate calcific disease throughout and subtotal occlusion of the RPL with [id number] collaterals.
RADIATION: dose 381 mGy; DAP 28.1 Gy*cm2; fluoroscopy time 3.6 min
CONCLUSIONS
1. Moderately elevated biventricular filling pressures, moderate post-capillary pulmonary hypertension, and low cardiac index.
2. No aortic stenosis
3. Coronary artery disease as described without a flow limiting lesion to explain the patients new cardiomyopathy and ongoing chest pain. 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
4. Given presence of possible atheromatous LAD plaque would treat medically for NSTEMI with 48 hours heparin and DAPT as tolerated for up to 12 months.
Copy to: Dr. Ced Ramirez MD, PhD (sweeper operator highways); Dr. Mike Encarnacion MD (PCP)
Signed: Patrick Thomson MD, PhD
[2024-10-30 17:02] LABS: APTT 77.2 Sec (23.4-35.0)
[2024-10-30 17:07] LABS: Albumin 3.1 g/dl (3.5-5.0); Carbon Dioxide 23 mmol/L (22-30); Estimated Creatinine Clearance 86 ml/min; Glucose 143 mg/dl (70-99); Total Protein 6.2 g/dl (6.3-8.2); eGFR > 60.00
[2024-10-30 17:22] LABS: ALT (SGPT) 37 U/L (0-50); AST (SGOT) 130 U/L (17-59); Alkaline Phosphatase 76 U/L (38-126); Blood Urea Nitrogen 18 mg/dl (9-20); Calcium 7.6 mg/dl (8.4-10.2); Chloride 109 mmol/L (98-107); Magnesium 1.8 mg/dl (1.6-2.3); Potassium 4.5 mmol/L (3.5-5.1); Sodium 136 mmol/L (135-145)
[2024-10-30 18:00] LABS: Troponin I 20.500 ng/ml
[2024-10-30] MEDS: PLAVIX 600 MG PO (18:36)
[2024-10-30 18:44] LABS: Troponin I 38.900 ng/ml
--- NOTE | 2024-10-30 19:12 | CON.INTV ---
Consultation
Consultation Request
Date/Time Consultation Requested: 10/30
Date/Time Consultation Performed: 10/30
Reason for Consultation: critical care
Medical History
-
History of Present Illness:
history obtained from the patient and also reviewing records. Patient is an 83-year-old male with history of osteomyelitis, discitis, shelter home resident, brought the dose on hospital for left-sided chest pain. Patient apparently
required oxygen therapy, but upon arrival was normal on 6 on room air. Temperature 99, pulse 105, breathing at 16, blood pressure 106/65, 95%. Borderline hypertension noted. Patient was pancultured. CT negative negative for pulmonary embolism.
Bone fractures were noted from unclear reasons. Troponin abnormal. Patient was seen by cardiology. Non-ST elevation SC diagnosed, heparin drip started. Echocardiogram revealed EF 30% which was new with severe MR and TR. Patient underwent
catheterization which revealed elevated biventricular filling pressures and decreased cardiac index. Coronary disease unremarkable. Patient admitted to ICU for management of SC with borderline hypotension, cardiomyopathy. We are asked out from
critical care standpoint
Presently, patient is without shortness of breath
.
PMH: hypertension, hyperlipidemia, history of valvular disease with known moderate to severe mitral regurgitation, history of peripheral arterial disease, aortic stenosis. History of discitis with back pain, Bacteremia, DVT, BPH, urinary retention
with chronic Soler catheter
Past Medical History
Past Medical History: None ( see above)
Past Surgical History: None ( see above)
Social History
Tobacco: Former Smoker ( quit around 1969)
Alcohol: None
Drug: None
Personal:
Living: With Family ( currently in shelter facility)
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
Family History
Family History: Other ( family history unremarkable for lung disease, blood clots)
Allergies / Home Medications
Allergies
Allergy/AdvReac Type Severity Reaction Status Date / Time
chocolate AdvReac Cold sore Verified 10/30/24 17:52
outbreak
egg AdvReac Bad dreams Verified 10/30/24 17:52
monosodium glutamate AdvReac Bad dreams Verified 10/30/24 17:52
Penicillins AdvReac Headche Verified 10/30/24 17:52
soy AdvReac Bad dreams Verified 10/30/24 17:52
Home Medications
�Medication �Instructions �Recorded �Confirmed �Last Taken �Type
cholecalciferol (vitamin D3) 125 125 mcg PO QPM Supplement 10/12/24 10/30/24 10/29/24 History
mcg (5,000 unit) tablet
cholecalciferol (vitamin D3) 125 250 mcg PO DAILY Supplement 10/12/24 10/30/24 10/29/24 History
mcg (5,000 unit) tablet
docusate sodium 50 mg capsule 100 mg PO BID Constipation 10/12/24 10/30/24 10/29/24 History
gabapentin 100 mg capsule 200 mg PO Q8H Neurological 10/12/24 10/30/24 10/30/24 History
Condition
magnesium glycinate 100 mg (as 200 mg PO BID Supplement 10/12/24 10/30/24 10/29/24 History
glycinate) tablet
ceftriaxone 2 gram solution for 2,000 mg IV Q24H #0 ea 10/20/24 10/30/24 10/29/24 Rx
injection
Lactobac no.2-Bifidobac no.1-S. 1 cap PO DAILY 10/30/24 10/30/24 10/29/24 History
thermo 112.5 billion cell capsule
(Visbiome)
acetaminophen 325 mg tablet 650 mg PO Q6HPRN PRN mild pain 10/30/24 10/30/24 10/25/24 History
(Tylenol)
acetaminophen 500 mg tablet 500 mg PO Q8H 10/30/24 10/30/24 10/30/24 History
(Tylenol Extra Strength)
ascorbic acid (vitamin C) 1,000 mg 1,000 mg PO DAILY 10/30/24 10/30/24 10/29/24 History
tablet (Vitamin C)
bisacodyl 10 mg rectal suppository 10 mg NH DAILYPRN PRN if no bm by 10/30/24 10/30/24 Unknown History
(Dulcolax (bisacodyl)) 3rd day
ferrous sulfate 324 mg (65 mg 324 mg PO Q48H 10/30/24 10/30/24 10/28/24 History
iron) tablet,delayed release
magnesium hydroxide 400 mg/5 mL 2,400 mg PO HSPRN PRN if no bm by 10/30/24 10/30/24 Unknown History
oral suspension (Milk of Magnesia) 2nd
melatonin 3 mg tablet 3 mg PO HS 10/30/24 10/30/24 10/29/24 History
pantoprazole 40 mg tablet,delayed 40 mg PO BID 10/30/24 10/30/24 10/29/24 History
release (Protonix)
polyethylene glycol 3350 17 gram 17 g PO DAILYPRN PRN constipation 10/30/24 10/30/24 Unknown History
oral powder packet (Miralax)
sodium phosphates 19 gram-7 118 ml NH DAILYPRN PRN if no bm by 10/30/24 10/30/24 Unknown History
gram/118 mL enema (Fleet Enema) 4th day
tramadol 25 mg tablet 25 mg PO Q8HPRN PRN moderate pains 10/30/24 10/30/24 10/30/24 History
tramadol 50 mg tablet 50 mg PO DAILY 10/30/24 10/30/24 10/29/24 History
Review of Systems
-
All other systems: Negative unless noted
Vitals / Labs / Diagnostic Testing
Vital Signs
Temp Pulse Resp BP Pulse Ox
97.9 F 99 22 94/62 95
10/30/24 17:49 10/30/24 17:45 10/30/24 17:45 10/30/24 17:45 10/30/24 17:45
Lab Data
10/30/24 16:30
10/30/24 16:30
Laboratory Results
10/30/24 10/30/24
12:50 16:30
APTT 37.5 H 77.2 H
pH 7.45
pCO2 29 L
pO2 78 L
HCO3 20.2 L
O2 Delivery Level
Microbiology
10/30/24 11:35 Nasal Swab Influenza Types A & B (LAURA) - Final
Negative for Influenza A & B, NAAT
Negative results must be combined with clinical observations
and patient history.
Nucleic Acid Amplification test (NAAT)performed on the
[employer] platform.
Diagnostic Testing:
Physical Exam
-
HEENT: Normocephalic, Anicteric and Other ( cachectic, dry mucosa)
Cardiovascular: S1/S2, Regular Rhythm, Murmur ( 2/6 systolic murmur), Rub (n), Peripheral Edema (n) and Calf Tenderness (n)
Respiratory: Wheeze (n), Rales (n), Rhonchi (n) and Non-Labored Respirations
GI: Soft, Non Distended and Non Tender
Neurology: Awake, Alert, Oriented and No Motor Deficits ( move his extremities, generally fatigued)
Skin: Other ( mild pallor)
General: Comfortable
Assessment
-
83-year-old male with history of hypertension, hyperlipidemia, recent discitis, back pain, presents with chest pain thought to be hypotensive, with sternal fracture, elevated troponin, status post NSTEMI. Status post catheterization with
biventricular elevated filling pressures, borderline blood pressure, transferred to ICU for further management. Briefly required BiPAP but upon arrival to ICU not on BiPAP
Cardiomyopathy, EF 30%
Elevated filling pressures per catheterization
PCWP 24, mPAP 34, no coronary disease
Nonspecific left-sided chest discomfort
Suspected heart failure, interstitial findings per chest x-ray
Acute hypoxic respiratory insufficiency required oxygen per EMS
95% on room air upon arrival
Chronic stage III sacral wound
Severe mitral regurgitation
Conditions present prior to admission
History of anemia
Recent streptococcal bacteremia
Lumbar discitis/osteomyelitis, discharge 10/21/24, on ceftriaxone
History of DVT
BPH
Urinary retention with Soler catheter
Interval total hip replacement
Cachexia
DNR
Plan/recommendations
At this time, patient appears to be comfortable. He is on nasal cannula, saturation 90%, does complain of chest discomfort and mild shortness of breath but denies nausea, abdominal pain
Per records, patient was on BiPAP in the [facility] but upon arrival to the ICU, on nasal cannula
CT chest with bilateral patchy infiltrates, reticular thickening, pleural effusions, fluid in the fissure
Suspect secondary to heart failure
Echocardiogram EF 30%, a pressure 55
Catheterization confirms elevated filling pressures with mean pulmonary artery pressure 34, wedge pressure of 24
There is evidence of progressive mitral regurgitation, now severe
Of note, weight has increased 8 kg since prior admission based on documented weights
ABG reviewed, adequate oxygenation/ventilation
Troponin elevated to 39
Moving forward
Acute hypoxic wrestlers inefficiency likely secondary to underlying heart failure, cardiomyopathy
No evidence of significant coronary disease per catheterization
Presently appears to be comfortable off BiPAP
Continue with oxygen therapy, can transition to high flow if needed
Heparin therapy was started per cardiology, continue per cardiology although catheterization results noted
Remains on doxycycline, ceftriaxone
Doubt infectious pneumonia. Suspect CT findings consistent with heart failure
Anemia noted, appears to be at baseline
Reviewed with critical care nursing, primary service
TCCT 35 min
--- NOTE | 2024-10-30 19:31 | PTCARENOTE ---
PT received s/p R&LHC. AAOx3, bust drowsy. ANIAK. NSR/ST on tele, HRs 90s-100s. Received pt on NRB sating 99%. Weaned to 6L nasal cannula, SpO2 92% on 6L. Lung sounds coarse/rhonchi throughout. Pt with occasional GENERATION MANAGER dry cough. R radial TR band
received with 8cc of air remaining. Site CDI. Neurovascular checks WDL. R brachial dressing CDI. 18Fr flaherty removed and exchanged. New 18Fr flaherty placed at bedside. Initial output evie urine with slight blood tinge. Pt tolerated. Stage 3 sacral
wound noted. Wound care consult placed. Trop drawn and resulted at 38.9 at 1811, Pt continues to endorse L sided CP. EKG obtained. 600mg PO Plavix given per order. Will continue to trend q6h trops. Plan to restart Heparin gtt after removal of TR
band. MRSA swab pending. Pt resting in bed at this time, call [place] in reach. Report given to maintenance technician 3rd shift RN.
[2024-10-30] MEDS: PROTONIX 40 MG PO (20:37)
[2024-10-30] MEDS: VIBRAMYCIN 260 MG IV (20:37)
[2024-10-30] MEDS: ULTRAM 25 MG PO (21:57)
--- NOTE | 2024-10-30 23:21 | PTCARENOTE ---
Pt aox3, c/o pain in sacrum, pt does have preexisting stage 3 in that area. TR band removed, heparin gtt restarted. NSR/ST on monitor. Pt required increas in oxygen, he is currently on 10L mid flow with oxygen sats at 94%.
[2024-10-31] VITALS (57 sets, daily range): BP systolic 73–114; BP diastolic 47–95; BMI 19.3
[2024-10-31] MEDS: NEURONTIN 200 MG PO ×3 (00:15→16:20)
[2024-10-31 01:09] LABS: Troponin I 41.700 ng/ml
[2024-10-31 03:31] LABS: Hematocrit 28.0 % (39.0-52.0); Hemoglobin 9.0 g/dL (13.0-18.0); Mean Corp Hgb Conc. 32.1 g/dL (33.0-37.0); Mean Corpuscular Volume 82.6 fL (80.0-94.0); Nucleated Red Blood Cells % 0 % (-); Platelet Count 314 10^3/uL (130-400); Red Cell Dist. Width 17.7 % (11.5-14.5)
[2024-10-31 03:48] LABS: APTT 55.4 Sec (23.4-35.0)
[2024-10-31 03:58] LABS: Blood Urea Nitrogen 24 mg/dl (9-20); Calcium 8.4 mg/dl (8.4-10.2); Carbon Dioxide 19 mmol/L (22-30); Chloride 109 mmol/L (98-107); Estimated Creatinine Clearance 74 ml/min; Glucose 137 mg/dl (70-99); Magnesium 1.9 mg/dl (1.6-2.3); Potassium 5.2 mmol/L (3.5-5.1); Sodium 134 mmol/L (135-145); eGFR > 60.00
[2024-10-31] MEDS: LEVOPHED 250 IV ×2 (05:17→05:26)
--- NOTE | 2024-10-31 06:25 | PTCARENOTE ---
Pt requiring more oxygen, placed on HI Flow, SBP 80's, levo started, pt started to go in and out of AFIB and Sinus Tach, EKG obtained. Levophed changed to [place] and 1 gram of mag ordered. Pt is not in distress.
[2024-10-31 06:28] LABS: Troponin I 42.800 ng/ml
[2024-10-31] MEDS: MAGNESIUM SULFATE 102 GRAMS IV (06:32)
[2024-10-31] MEDS: NEO-SYNEPHRINE 250 IV ×2 (06:40→17:46)
--- NOTE | 2024-10-31 06:48 | W.PN.INTV ---
Today's Communication / Plan
Recommendations
Wean pressors as able
Remains on heparin therapy, cardiology following
Doubt infectious pneumonitis, presently on antibiotics
Pain control
Address CODE STATUS
Assessment
-
83-year-old male with history of hypertension, hyperlipidemia, recent discitis, back pain, presents with chest pain thought to be hypotensive, with sternal fracture, elevated troponin, status post NSTEMI. Status post catheterization with
biventricular elevated filling pressures, borderline blood pressure, transferred to ICU for further management. Briefly required BiPAP but upon arrival to ICU not on BiPAP
Cardiomyopathy, EF 30%
Elevated filling pressures per catheterization
PCWP 24, mPAP 34, no coronary disease
Nonspecific left-sided chest discomfort
Suspected heart failure, interstitial findings per chest x-ray
Acute hypoxic respiratory insufficiency required oxygen per EMS
95% on room air upon arrival
Chronic stage III sacral wound
Severe mitral regurgitation
Hypotension, requiring pressors
Conditions present prior to admission
History of anemia
Recent streptococcal bacteremia
Lumbar discitis/osteomyelitis, discharge 10/21/24, on ceftriaxone
History of DVT
BPH
Urinary retention with Soler catheter
Interval total hip replacement
Cachexia
DNR
Plan/recommendations
At this time, patient appears to be comfortable, but remains critically ill.
He is on mid flow oxygen
He did not require BiPAP overnight
CT chest with bilateral patchy infiltrates, reticular thickening, pleural effusions, fluid in the fissure
Suspect secondary to heart failure
Echocardiogram EF 30%, a pressure 55, moderate to severe mitral regurgitation
Catheterization confirms elevated filling pressures with mean pulmonary artery pressure 34, wedge pressure of 24
Of note, weight has increased 8 kg since prior admission based on documented weights
ABG reviewed, adequate oxygenation/ventilation
Troponin elevated to 43
Cardiology following
Difficult to provide fluid given cardiomyopathy
Moving forward
Acute hypoxic respiratory insufficiency likely secondary to heart failure, cardiomyopathy
No evidence of significant coronary disease per catheterization
Continue with oxygen therapy, can transition to high flow if needed
No indication for BiPAP at this time, patient primary complaint is chest pain yesterday now resolved, now with back pain, lower sacral pain
IV morphine per primary service
Heparin therapy was started per cardiology, continue per cardiology
Troponin continues to rise
Remains on doxycycline, ceftriaxone
Doubt infectious pneumonia. Suspect CT findings consistent with heart failure
Anemia noted, appears to be at baseline
May be prudent to address CODE STATUS given age and comorbidities
Presently full code
Reviewed with critical care nursing, primary service
TCCT 31 min
Subjective Dataa
Subjective Data
Date of Service:
Date of Service: October 31, 2024
Subjective:
Patient remains critically ill, required pressors overnight. He remains on mid flow oxygen. Patient denies shortness of breath, chest pain. Primary complaint is lower back pain, sacral wound pain. Lying flat
Objective Data
Data Reviewed
Vital Signs / I&O / Oxygen:
Vital Signs
Temp Pulse Resp BP Pulse Ox
97.8 F 96 26 84/55 93
10/31/24 03:29 10/31/24 04:41 10/31/24 04:41 10/31/24 04:41 10/31/24 04:41
Intake and Output
10/29/24 10/30/24 10/31/24
06:59 06:59 06:59
Intake Total 358.5 / 358.5
Output Total 255 / 255
Balance 103.5 / 103.5
SaO2 93
Nasal Cannula flow liters per 50
minute
Physical Exam
General: Comfortable
HEENT: Normocephalic, Anicteric and Other (Dry mucosa)
Cardiovascular: S1-S2, Regular Rhythm, Murmur (n), Rub (n) and Peripheral Edema (n)
Respiratory: Wheeze (n), Crackles (n), Rhonchi (n) and Non-Labored Respirations
GI: Soft, Non Distended and Non Tender
Neurology: Awake, Alert, Oriented and No Motor Deficits (Generally weak)
Skin: Good Color and Other (Pallorous)
Labs/Micro/Reports
Lab Data
10/31/24 03:19
Laboratory Results
10/30/24 10/30/24 10/31/24
12:50 16:30 03:19
APTT 37.5 H 77.2 H 55.4 H
pH 7.45
pCO2 29 L
pO2 78 L
HCO3 20.2 L
O2 Delivery Level
Microbiology
10/30/24 11:35 Nasal Swab Influenza Types A & B (LAURA) - Final
Negative for Influenza A & B, NAAT
Negative results must be combined with clinical observations
and patient history.
Nucleic Acid Amplification test (NAAT)performed on the
[employer] platform.
[2024-10-31] MEDS: LOW STRENGTH ASPIRIN 81 MG PO (07:44)
[2024-10-31] MEDS: VISBIOME 1 CAP PO (07:44)
[2024-10-31] MEDS: PLAVIX 75 MG PO (07:44)
[2024-10-31] MEDS: PROTONIX 40 MG PO ×2 (07:44→20:17)
--- NOTE | 2024-10-31 07:45 | PTCARENOTE ---
Rec'd pt at 0700. Pt AAOx2, reoriented to time. [place], restless in bed. Pt c/o chronic back pain. Monitor fluctuating between Afib 110's and SR/ST 90-110's. Heparin gtts infusing at 1000units/hr. SBP 70-90's, [place] gtts titrated to keep MAP >65. Lungs
dim/sct coarse, pox 98% on HFNC 50L/80%. +[place]. +BS, abd soft/nt. Soler draining evie urine. at bedside.
[2024-10-31] MEDS: VIBRAMYCIN 260 MG IV (07:50)
--- NOTE | 2024-10-31 09:09 | W.PN.HOSP.TC ---
Today's Communication/Plan
-
pain continues, urinary output decreased, BP lower and tachycardia continues.
Assessment / Plan
Assessment / Plan
83-year-old male with past medical history of recent osteomyelitis/discitis on IV ceftriaxone, stage III sacral wound, recently discharged from to [facility]; presented back to the emergency department for
reported acute on chronic left-sided chest pain which began in the morning and continued back pain and 'buttock pain from wound'. EMS reported that patient was on 16 L nasal cannula. Currently on 6L NC in ED. He denied shortness of breath. Patient
also endorsed to subjective fever. Patient has RUE PICC line from which he was receiving ceftriaxone.
CT PE:
Examination is negative for pulmonary embolism.
Small to moderate bilateral pleural effusions.
Patchy parenchymal opacity mainly within both upper lobes, suspicious for pneumonia. Pulmonary edema would be a differential consideration.
Band-shaped opacity within the inferior lingula, compatible with discoid atelectasis.
Note is made of a slightly impacted fracture involving the superior sternal body. This appears to be acute to subacute.
Calcification of the thoracic aorta with no evidence for thoracic aortic aneurysm.
A/P:
1. Acute on Chronic L sided chest pain, cardiac vs pulm [pain continues this AM]
Complicated by Elevated troponin unclear NSTEMI vs non-HI elevation [trop this am increased to 43]
EKG noted PVC
Cont to trend troponin until it peaks
Recent echo 10/14 was unrevealing:
EF 55-60%. Moderate to severe mitral regurgitation.
Compared to previous echo 05/02/2023, the previous study noted mitral prolapse and moderate eccentric MR
Nicho Joseph appreciated
Cath shows:
1. Moderately elevated biventricular filling pressures, moderate post-capillary pulmonary hypertension, and low cardiac index.
2. No aortic stenosis
3. Coronary artery disease as described without a flow limiting lesion to explain the patients new cardiomyopathy and ongoing chest pain.
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
4. Given presence of possible atheromatous LAD plaque would treat medically for NSTEMI with 48 hours heparin and DAPT as tolerated for up to 12 months.
Added low dose IV morphine to help with chest pain
2. Possible Sepsis POA 2/[address], consider HAP in rehab setting
Complicated by BL effusion on CT chest
Complicated by Hypotension
Complicaed by a CT chest noted possible BL upper lobe pneumonia
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
Added doxycycline
Check MRSA screen,
COVID/Flu negative
Follow blood cultures
Pending
IVF with NSS for BP support, monitor in ICU
ID CS requested, considering YEE in setting of recent discitis
Added 500 cc fluid bolus and will follow for effect, closely follow urinary output
Did not add fluids per sepsis protocol given cardiac issues, will go slower
On pressors
3. Acute hypoxic resp failure
PE ruled out
Was on 16L NC CASH APPLICATIONS MANAGER, now on 6L NC in ED,
cont O2 support and wean as tolerated. Note that pt not on home O2
4. Incidental finding of slightly impacted fracture involving the superior sternal body.
This appears to be acute to subacute.
Pain control as needed and Monitor
5. Recent L3/L4 discitis/osteomyelitis with Strep bacteremia
Complicated by Intractable lower back pain with gait dysfunction due to above
Continue ceftriaxone 2g IV q24 x 8 weeks through 12/10/24 per ID via LUE Picc
6. 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
Per , flaherty was placed on 10/02/2024 due to urinary retention
Exchange flaherty this admission
Outpt Uro follow up
7. H/H 9.0/28.0, Suspect anemia of chronic disease
Follow trend
8. Distant h/o DVT, completed AC course
Use dvt prophy
Code status: full code
DVT prophylaxis: Lovenox SQ (change to heparin if renal function worsens)
Anticipated Discharge: > 48 hours
Subjective/Interval History
-
Date of Service: October 31, 2024
Blood pressure lower (76/59) -> on pressors, heart rate 112, chest pain continues.
Objective Data
-
Labs:
Laboratory Results
10/31/24 10/31/24 10/31/24
03:19 10:00 12:00
WBC 14.1 H
Hgb 9.0 L
Hct 28.0 L
Plt Count 314
APTT 55.4 H Pending
Sodium 134 L Pending
Potassium 5.2 H Pending
Chloride 109 H Pending
Carbon Dioxide 19 L Pending
BUN 24 H Pending
Creatinine 0.7 Pending
Glucose 137 H Pending
Calcium 8.4 Pending
Vital Signs:
Vital Signs
Temp Pulse Resp BP Pulse Ox
97.8 F 113 21 80/55 96
10/31/24 07:05 10/31/24 08:30 10/31/24 08:30 10/31/24 08:30 10/31/24 08:30
I&O
10/30/24 10/31/24 11/01/24
06:59 06:59 06:59
Intake Total 358.5 / 358.5
Output Total 255 / 255
Balance 103.5 / 103.5
Review of Systems
-
Unable to obtain full review of systems at this time due to: Acuity
History Source: Patient
All other systems: Reviewed and negative
Cardiac: Reports Chest Pain
Musculoskeletal: Reports Other (pain on buttocks)
Physical Exam
-
General: Appears in Distress, Pain and Appears Chronically Ill
HEENT: Nose Appears Normal and Ears Appear Normal
Respiratory: Clear to Auscultation
Cardiac: Regular Rhythm and S1/S2
GI: Soft, Nontender and Nondistended
Musculoskeletal: No Clubbing, No Cyanosis and No Edema
Skin: Warm and Dry
Neuro: Awake and Alert
Psych: Calm
Data Reviewed
-
Labs: Labs Reviewed by me
[2024-10-31] MEDS: NSS 500 IV (09:34)
[2024-10-31] MEDS: MORPHINE SULFATE 1 MG IV ×3 (09:37→20:17)
--- NOTE | 2024-10-31 09:37 | W.PN.ID1 ---
Date of Service
Date of Service: October 31, 2024
Today's Communication
Continue ceftriaxone.
Assessment / Plan
# Acute cardiomyopathy EF 30-35%
# CHF
# Cardiogenic shock on pressors
# Leukocytosis -reactive
# Recent Strep sanguinis bacteremia with L3/L4 discitis, currently on ceftriaxone 2g IV q24 x 8 weeks through 12/10/24.
- Blood cx's neg to date
- Cardiac cath: no significant CAD to explain trop 69.
Likely stress-induced cardiomyopathy
- Consider YEE to evaluate for infective endocarditis given recent high grade Strep sanguinis bacteremia
- Continue ceftriaxone for discitis.
-DC doxycyline.
- Trend WBC
- Follow clinically
Chief Complaint
-: Other (CHF)
Subjective / Review of Systems
+ SOB, + pleuritic chest pain
Sacral wound painfult
Vital Signs / Physical Exam
Vital Signs
Vital Signs
Temp Pulse Resp BP Pulse Ox
97.8 F 113 21 80/55 96
10/31/24 07:05 10/31/24 08:30 10/31/24 08:30 10/31/24 08:30 10/31/24 08:30
Physical Exam
Constitutional: Acutely Ill
Eyes: No Conjunctival Hemorrhage and Sclera Anicteric
Cardiovascular: S1/S2 and Other (tachycardic)
Pulmonary: Rales
Gastrointestinal: Soft, Non Tender, Non Distended and Normal Bowel Sounds
Extremities: Negative Edema
Neurological: AO x 3
Objective Data
Lab Data
Lab Results
10/31/24 03:19
APTT 55.4 Sec (23.4-35.0) H 10/31/24 03:19
Estimated Creat Clear 74 ml/min 10/31/24 03:19
Lactic Acid 1.6 mmol/L (0.7-2.0) 10/30/24 16:30
Total Bilirubin 0.4 mg/dl (0.2-1.3) 10/30/24 16:30
AST 130 U/L (17-59) H 10/30/24 16:30
ALT 37 U/L (0-50) 10/30/24 16:30
Alkaline Phosphatase 76 U/L (38-126) 10/30/24 16:30
Most recent labs reviewed.
Micro Results:
10/30/24 09:02 Blood Culture - Preliminary
Blood/Venous No Growth in 24 hours- Final report to follow
10/30/24 09:03 Blood Culture - Preliminary
Blood/Venous No Growth in 24 hours- Final report to follow
10/30/24 18:11 Legionella Urinary Antigen - Final
Urine Negative for Legionella pneumophila Serogroup 1 antigen.
A negative result does not rule out the possiblity of
Legionella infection due to other serogroups or species of
Legionella. Clinical correlation is recommended.
Streptococcus pneumoniae Antigen (M - Final
Negative for Streptococcus pneumoniae antigen.
A negative result does not exclude infection with
Streptococcus pneumoniae. Clinical correlation is
recommended.
10/30/24 20:17 Respiratory Culture - Pending
Sputum Gram Stain - Pending
10/30/24 18:11 MRSA Screen - Pending
Nose
10/30/24 11:35 Influenza Types A & B (ALURA) - Final
Nasal Swab Negative for Influenza A & B, NAAT
Negative results must be combined with clinical observations
and patient history.
Nucleic Acid Amplification test (NAAT)performed on the
[employer] platform.
10/30/24 08:01 Urine Culture - Pending
Urine
10/30/[address] examination is negative for pulmonary embolism. Small to moderate bilateral pleural effusions. Patchy parenchymal opacity mainly within both upper lobes, suspicious for pneumonia. Pulmonary edema would be a differential
consideration.
--- NOTE | 2024-10-31 09:43 | PTOTSP ---
Speech Therapy Evaluation:
Pt with acute on chronic risk factors of dysphagia including cardiac history, current pneumonia (questionable HAP), and acute hypoxic respiratory failure, requiring HHFNC. Pt without s/sx of aspiration with minced and moist solids and thin liquids,
however pt remains at high risk for aspiration and related pulmonary complications in the setting of compromised respiratory system with increased O2 requirements (50L,70%).
Recommend:
1. Diet downgrade to IDDSI 4 (puree) and thin liquids
2. Medications as tolerated
3. LOW THRESHOLD NPO - if any worsening in respiratory status, d/c oral diet, make NPO, and contact ST
4. Strict aspiration precautions
5. FLEET SALES MANAGER to closely follow to monitor tolerance of diet, assess candidacy for diet upgrades, and determine if pt would benefit from instrumental assessment
--- NOTE | 2024-10-31 10:27 | PTCARENOTE ---
Rhythm labile. Pt going into junctional rhythm 40-50's briefly, then will return to Afib 110's or SR 90's. Dr. River notified, rhythm strips sent to MD. No new orders. NSS bolus completed. SBP 80's with MAP >65. Colton at 60mcg/min. Labs drawn and sent.
[2024-10-31 10:35] LABS: APTT 93.2 Sec (23.4-35.0)
--- NOTE | 2024-10-31 10:41 | W.PN.CD ---
Today's Communication / Plan
-
Watch volume, data suggests he will need diuresis
35 min spent caring for patient today
Impression / Plan
-
Suspected PNA/Sepsis
Hypotension
- Levo moving to [place]
New Cardiomyopathy with heart failure
- Suspected to be from a non-ischemic process
- possible atheromatous LAD plaque => treating for potential NSTEMI with 48 hours heparin and DAPT as tolerated for up to 12 months.
EP issues
-? AFIb on tele => for ekg
- Short Junctional
- Watch for sick sinus
Non-ischemic quality CP
Abnormal troponin:
-suspect acute, non-ischemic myocardial injury in setting of acute infectious illness (also anemia, hypoxia)
-troponin 0.321 => 6.97 => 20.5 => 38.9 => 41.7 => 42.8
Mitral regurgitation, progressive mod/severe => severe
Anemia, chronic, monitor
Subjective:
Tenuous.
Data:
Chest CT: Examination is negative for pulmonary embolism. Small to moderate bilateral pleural effusions. Patchy parenchymal opacity mainly within both upper lobes, suspicious for pneumonia. Pulmonary edema would be a differential consideration.
Band-shaped opacity within the inferior lingula, compatible with discoid atelectasis. Note is made of a slightly impacted fracture involving the superior sternal body. This appears to be acute to subacute. Calcification of the thoracic aorta with no
evidence for thoracic aortic aneurysm.
Cath 10/30/2024:
CONCLUSIONS
1. Moderately elevated biventricular filling pressures, moderate post-capillary pulmonary hypertension, and low cardiac index. (RA 16, PA 45/20, PCWP 24)
2. No aortic stenosis
3. Coronary artery disease as described without a flow limiting lesion to explain the patients new cardiomyopathy and ongoing chest pain. 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
4. Given presence of possible atheromatous LAD plaque would treat medically for NSTEMI with 48 hours heparin and DAPT as tolerated for up to 12 months.
Echo 10/30/2024:
CONCLUSIONS
-LV ejection fraction is 30-35%, by visual assessment. Septal and basal
inferior hypokinesis/akinesis. Apical dyskinesis.
-Normal right ventricular size and function.
-Moderately dilated left atrium.
-Severe mitral regurgitation.
-Severe tricuspid regurgitation. Estimated pulmonary artery pressure of 50-55
mmHg.
-The IVC is dilated and does not collapse.
Compared to previous echo on 10/14/2024, patient now has severe CHF with
regional wall motion abnormalities as specified (previous LVEF was 55-60% with
normal regional wall motion). Severe tricuspid regurgitation is now noted
(previously mild) with an increase in PASP (previously 25 to 30 mmHg). Slightly
progressive mitral regurgitation is noted (previously moderate to severe).
Physical Exam
Vital Signs/Labs
Vital Signs
Temp Pulse Resp BP Pulse Ox
97.8 F 101 33 81/61 96
10/31/24 07:05 10/31/24 10:30 10/31/24 10:30 10/31/24 10:30 10/31/24 10:30
10/30/24 10/31/24 11/01/24
06:59 06:59 06:59
Actual Weight 62.8 kg
10/31/24 03:19
APTT 93.2 Sec (23.4-35.0) H 10/31/24 10:10
Magnesium 1.9 mg/dl (1.6-2.3) 10/31/24 03:19
LAB Results
10/30/24 10/30/24 10/30/24
08:00 11:35 16:30
Troponin I 0.321 H* 6.970 H* D 20.500 H* D
10/30/24 10/31/24 10/31/24
18:11 00:14 05:44
Troponin I 38.900 H* D 41.700 H* 42.800 H*
Physical Exam
Constitutional: No acute distress
Cardiovascular: Rhythm & rate is regular
Respiratory: Rhonchi Present
GI: Soft and Distention absent
Neuro/Psych: Alert
Data Reviewed
-
Date of Service: October 31, 2024
[2024-10-31 10:54] LABS: Blood Urea Nitrogen 27 mg/dl (9-20); Calcium 8.3 mg/dl (8.4-10.2); Carbon Dioxide 17 mmol/L (22-30); Chloride 107 mmol/L (98-107); Estimated Creatinine Clearance 54 ml/min; Glucose 134 mg/dl (70-99); Potassium 5.0 mmol/L (3.5-5.1); Sodium 135 mmol/L (135-145); eGFR > 60.00
[2024-10-31 11:02] LABS: Troponin I 38.300 ng/ml
[2024-10-31] MEDS: STERILE WATER FOR INJECTION 20 ML IV (11:43)
[2024-10-31] MEDS: ROCEPHIN 2000 MG IV (11:44)
--- NOTE | 2024-10-31 13:46 | PTCARENOTE ---
Rhythm more stabilized this afternoon, remains SR 80's. SBP 90-100's on 80mcg/min Colton.
[2024-10-31 16:56] LABS: APTT 76.7 Sec (23.4-35.0)
--- NOTE | 2024-10-31 20:56 | PTCARENOTE ---
Pt is Aox2, forgetful at times, NSR on monitor, c/o sternal pain with palpating his chest, otherwise CP free. Remains on Phenylephrine and Heparin gtt. Hiflow 50L/80% to keep sats >90%. Morphine given for back pain 11/29. Q2hr turns with pillow.
[2024-10-31] MEDS: HEPARIN 25000 UNITS/250 ML IV (22:09)
--- NOTE | 2024-10-31 23:45 | PTCARENOTE ---
Patient assessment unchanged. q2 hour turns.
[2024-11-01] VITALS (27 sets, daily range): BP systolic 84–106; BP diastolic 53–72; BMI 20.3
[2024-11-01] MEDS: NEURONTIN 200 MG PO ×4 (00:40→23:59)
[2024-11-01] MEDS: MORPHINE SULFATE 1 MG IV ×3 (01:54→20:54)
[2024-11-01] MEDS: NEO-SYNEPHRINE 250 IV ×2 (03:50→14:17)
[2024-11-01 03:59] LABS: Hematocrit 26.5 % (39.0-52.0); Hemoglobin 8.7 g/dL (13.0-18.0); Mean Corp Hgb Conc. 32.8 g/dL (33.0-37.0); Mean Corpuscular Volume 82.3 fL (80.0-94.0); Nucleated Red Blood Cells % 0 % (-); Platelet Count 353 10^3/uL (130-400); Red Cell Dist. Width 17.4 % (11.5-14.5)
[2024-11-01 04:16] LABS: APTT 78.7 Sec (23.4-35.0)
[2024-11-01 04:23] LABS: ALT (SGPT) 347 U/L (0-50); AST (SGOT) 471 U/L (17-59); Albumin 2.8 g/dl (3.5-5.0); Alkaline Phosphatase 75 U/L (38-126); Blood Urea Nitrogen 36 mg/dl (9-20); Calcium 8.2 mg/dl (8.4-10.2); Carbon Dioxide 17 mmol/L (22-30); Chloride 109 mmol/L (98-107); Estimated Creatinine Clearance 54 ml/min; Glucose 112 mg/dl (70-99); Magnesium 2.4 mg/dl (1.6-2.3); Potassium 5.2 mmol/L (3.5-5.1); Sodium 133 mmol/L (135-145); Total Protein 5.5 g/dl (6.3-8.2); eGFR > 60.00
--- NOTE | 2024-11-01 06:58 | W.PN.INTV ---
Today's Communication / Plan
Recommendations
Remains on high flow oxygen, wean as able
Wean pressors as able
Chest x-ray in a.m.
remains on heparin drip per cardiology
Difficult situation, therapeutic options are limited
DNR status noted
Assessment
-
83-year-old male with history of hypertension, hyperlipidemia, recent discitis, back pain, presents with chest pain thought to be hypotensive, with sternal fracture, elevated troponin, status post NSTEMI. Status post catheterization with
biventricular elevated filling pressures, borderline blood pressure, transferred to ICU for further management. Briefly required BiPAP but upon arrival to ICU not on BiPAP
Cardiomyopathy, EF 30%
Elevated filling pressures per catheterization
PCWP 24, mPAP 34, no coronary disease
Nonspecific left-sided chest discomfort
Suspected heart failure, interstitial findings per chest x-ray
Acute hypoxic respiratory insufficiency required oxygen per EMS
95% on room air upon arrival
Requiring high flow oxygen
Chronic stage III sacral wound
Severe mitral regurgitation
Hypotension, requiring pressors
Conditions present prior to admission
History of anemia
Recent streptococcal bacteremia
Lumbar discitis/osteomyelitis, discharge 10/21/24, on ceftriaxone
History of DVT
BPH
Urinary retention with Soler catheter
Interval total hip replacement
Cachexia
DNR
Plan/recommendations
At this time, patient appears to be comfortable, but remains critically ill.
He is now on high flow oxygen, but appears comfortable, denies shortness of breath
CT angiogram negative for pulm embolism
Bilateral patchy infiltrates, reticular thickening, pleural effusions, fluid in the fissure
Suspect secondary to heart failure
Echocardiogram EF 30%, a pressure 55, moderate to severe mitral regurgitation
Catheterization confirms elevated filling pressures with mean pulmonary artery pressure 34, wedge pressure of 24
Of note, weight has increased 8 kg since prior admission based on documented weights
Per discussion with cardiology, there is a lesion that may be concerning however, intervention is not an option per discussion with Dr. River 10/31
Troponin remains elevated at 38
Primary complaint is lower back discomfort
Moving forward
Acute hypoxic respiratory insufficiency likely secondary to heart failure, cardiomyopathy
No evidence of significant coronary disease per catheterization, however there may have been an isolated lesion per discussion with cardiology which is not intervenable
Wean oxygen as able
No indication for BiPAP at this time, patient primary complaint is chest pain yesterday now resolved, now with back pain, lower sacral pain
IV morphine per primary service, back pain
Fortunately, patient is without significant complaints from a pulmonary standpoint except back pain
Chest pain is noted, improving. CT angiogram negative for pulm embolism
Troponin 38
Patient remains on heparin therapy per cardiology
IV fluids gentle per primary service. Follow closely given EF of 30%
Remains on doxycycline, ceftriaxone, now ceftriaxone alone
Doubt infectious pneumonia. Suspect CT findings consistent with heart failure
This will be deferred to primary service
Anemia noted, appears to be at baseline
Patient CODE STATUS DNR
Reviewed with critical care nursing, primary service
TCCT 31 min
Subjective Dataa
Subjective Data
Date of Service:
Date of Service: November 01, 2024
Subjective:
Unfortunately, patient remains critically ill, requiring Colton-Synephrine. Also remains on heparin therapy. Patient continues to have chest discomfort but he states it has subsided/improving but has been continuous since last few days. Denies
nausea. Also complaining of lower back pain which is a chronic problem. Remains on high flow oxygen
Objective Data
Data Reviewed
Vital Signs / I&O / Oxygen:
Vital Signs
Temp Pulse Resp BP Pulse Ox
98 F 88 30 105/59 94
11/01/24 03:24 11/01/24 05:15 11/01/24 05:15 11/01/24 05:00 11/01/24 05:15
Intake and Output
10/30/24 10/31/24 11/01/24
06:59 06:59 06:59
Intake Total 358.5 / 374.5 1528 / 1528
Output Total 255 / 255 650 / 650
Balance 103.5 / 119.5 878 / 878
SaO2 94
Nasal Cannula flow liters per 50
minute
Physical Exam
General: Comfortable (But trying to move because of back pain)
HEENT: Normocephalic, Anicteric and Other (Dry mucosa)
Cardiovascular: S1-S2, Regular Rhythm, Murmur (n), Rub (n) and Peripheral Edema (n)
Respiratory: Wheeze (n), Crackles (n), Rhonchi (n) and Non-Labored Respirations
GI: Soft, Non Distended and Non Tender
Neurology: Awake, Alert, Oriented and No Motor Deficits (Generally weak)
Skin: Good Color and Other (Pallorous)
Labs/Micro/Reports
Lab Data
11/01/24 03:46
11/01/24 03:46
Laboratory Results
10/31/24 10/31/24 11/01/24
10:10 16:29 03:46
APTT 93.2 H 76.7 H 78.7 H
Microbiology
10/30/24 08:01 Urine Urine Culture - Final
NO GROWTH
10/30/24 20:17 Sputum Respiratory Culture - Final
10/30/24 20:17 Sputum Gram Stain - Final
10/30/24 09:02 Blood/Venous Blood Culture - Preliminary
No Growth in 24 hours- Final report to follow
10/30/24 09:03 Blood/Venous Blood Culture - Preliminary
No Growth in 24 hours- Final report to follow
10/30/24 18:11 Urine Legionella Urinary Antigen - Final
Negative for Legionella pneumophila Serogroup 1 antigen.
A negative result does not rule out the possiblity of
Legionella infection due to other serogroups or species of
Legionella. Clinical correlation is recommended.
10/30/24 18:11 Urine Streptococcus pneumoniae Antigen (M - Final
Negative for Streptococcus pneumoniae antigen.
A negative result does not exclude infection with
Streptococcus pneumoniae. Clinical correlation is
recommended.
10/30/24 11:35 Nasal Swab Influenza Types A & B (LAURA) - Final
Negative for Influenza A & B, NAAT
Negative results must be combined with clinical observations
and patient history.
Nucleic Acid Amplification test (NAAT)performed on the
[employer] platform.
[2024-11-01] MEDS: PLAVIX 75 MG PO (07:32)
[2024-11-01] MEDS: LOW STRENGTH ASPIRIN 81 MG PO (07:32)
[2024-11-01] MEDS: VISBIOME 1 CAP PO (07:32)
[2024-11-01] MEDS: PROTONIX 40 MG PO ×2 (07:32→19:36)
--- NOTE | 2024-11-01 08:30 | W.PN.ID1 ---
Date of Service
Date of Service: November 01, 2024
Today's Communication
Continue ceftriaxone.
Assessment / Plan
# Acute cardiomyopathy EF 30-35%
# Cardiogenic shock on pressors
# Leukocytosis -reactive
# Recent Strep sanguinis bacteremia with L3/L4 discitis, currently on ceftriaxone 2g IV q24 x 8 weeks through 12/10/24.
- Blood cx's neg to date
- Cardiac cath: no significant CAD to explain trop 69.
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
- Consider YEE to evaluate for infective endocarditis given recent high grade Strep sanguinis bacteremia
- Continue ceftriaxone for discitis.
- Trend WBC/vitals
- Follow clinically
Chief Complaint
-: Other (CHF)
Subjective / Review of Systems
Continues with left chest pain, back pain, sacral wound pain
Vital Signs / Physical Exam
Vital Signs
Vital Signs
Temp Pulse Resp BP Pulse Ox
99.3 F 88 30 105/59 95
11/01/24 08:13 11/01/24 05:15 11/01/24 05:15 11/01/24 05:00 11/01/24 07:53
Physical Exam
Constitutional: Acutely Ill
Eyes: No Conjunctival Hemorrhage and Sclera Anicteric
Cardiovascular: Regular Rate and S1/S2
Pulmonary: Rales
Gastrointestinal: Soft, Non Tender and Non Distended
Extremities: Negative Edema
Neurological: AO x 3 and Other (can move LE )
Objective Data
Lab Data
Lab Results
11/01/24 03:46
11/01/24 03:46
APTT 78.7 Sec (23.4-35.0) H 11/01/24 03:46
Estimated Creat Clear 54 ml/min 11/01/24 03:46
Lactic Acid 1.6 mmol/L (0.7-2.0) 10/30/24 16:30
Total Bilirubin 0.6 mg/dl (0.2-1.3) 11/01/24 03:46
AST 471 U/L (17-59) H 11/01/24 03:46
ALT 347 U/L (0-50) H 11/01/24 03:46
Alkaline Phosphatase 75 U/L (38-126) 11/01/24 03:46
Most recent labs reviewed.
Micro Results:
10/30/24 08:01 Urine Culture - Final
Urine NO GROWTH
10/30/24 20:17 Respiratory Culture - Final
Sputum Gram Stain - Final
10/30/24 09:02 Blood Culture - Preliminary
Blood/Venous No Growth in 24 hours- Final report to follow
10/30/24 09:03 Blood Culture - Preliminary
Blood/Venous No Growth in 24 hours- Final report to follow
10/30/24 18:11 Legionella Urinary Antigen - Final
Urine Negative for Legionella pneumophila Serogroup 1 antigen.
A negative result does not rule out the possiblity of
Legionella infection due to other serogroups or species of
Legionella. Clinical correlation is recommended.
Streptococcus pneumoniae Antigen (M - Final
Negative for Streptococcus pneumoniae antigen.
A negative result does not exclude infection with
Streptococcus pneumoniae. Clinical correlation is
recommended.
10/30/24 18:11 MRSA Screen - Pending
Nose
10/30/24 11:35 Influenza Types A & B (LAURA) - Final
Nasal Swab Negative for Influenza A & B, NAAT
Negative results must be combined with clinical observations
and patient history.
Nucleic Acid Amplification test (NAAT)performed on the
[employer] platform.
10/30/[address] examination is negative for pulmonary embolism. Small to moderate bilateral pleural effusions. Patchy parenchymal opacity mainly within both upper lobes, suspicious for pneumonia. Pulmonary edema would be a differential
consideration.
[2024-11-01] MEDS: NSS 500 IV (08:45)
--- NOTE | 2024-11-01 08:45 | W.PN.HOSP.TC ---
Today's Communication/Plan
-
continue gentle fluid support. Troponins appear to have peaked.
Assessment / Plan
Assessment / Plan
83-year-old male with past medical history of recent osteomyelitis/discitis on IV ceftriaxone, stage III sacral wound, recently discharged from to [facility]; presented back to the emergency department for
reported acute on chronic left-sided chest pain which began in the morning and continued back pain and 'buttock pain from wound'. EMS reported that patient was on 16 L nasal cannula. Currently on high flow. He denied active shortness of breath
this am. Patient has RUE PICC line from which he was receiving ceftriaxone.
CT PE:
Examination is negative for pulmonary embolism.
Small to moderate bilateral pleural effusions.
Patchy parenchymal opacity mainly within both upper lobes, suspicious for pneumonia. Pulmonary edema would be a differential consideration.
Band-shaped opacity within the inferior lingula, compatible with discoid atelectasis.
Note is made of a slightly impacted fracture involving the superior sternal body. This appears to be acute to subacute.
Calcification of the thoracic aorta with no evidence for thoracic aortic aneurysm.
A/P:
1. Acute on Chronic L sided chest pain, cardiac vs pulm [pain continues this AM, but morphine helping]
Complicated by Elevated troponin unclear NSTEMI vs non-OK elevation [trop this am decreased from 43 to 38, appears to have peaked]
EKG noted PVC
Recent echo 10/14 was unrevealing:
EF 55-60%. Moderate to severe mitral regurgitation.
Compared to previous echo 05/02/2023, the previous study noted mitral prolapse and moderate eccentric MR
Card Consult appreciated
Cath showed:
1. Moderately elevated biventricular filling pressures, moderate post-capillary pulmonary hypertension, and low cardiac index.
2. No aortic stenosis
3. Coronary artery disease as described without a flow limiting lesion to explain the patients new cardiomyopathy and ongoing chest pain.
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
4. Given presence of possible atheromatous LAD plaque would treat medically for NSTEMI with 48 hours heparin and DAPT as tolerated for up to 12 months.
Continue low dose IV morphine to help with chest pain
Continue IV heparin
2. Possible Sepsis POA 2/[address], consider HAP in rehab setting
Complicated by BL effusion on CT chest
Complicated by Hypotension
Complicaed by a CT chest noted possible BL upper lobe pneumonia
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
Added doxycycline
Check MRSA screen,
COVID/Flu negative
Follow blood cultures
Pending today 11/01
IVF with NSS for BP support, monitor in ICU
ID CS requested, considering YEE in setting of recent discitis
Added another 500 cc fluid bolus and will follow for effect, closely follow urinary output
Did not add fluids per sepsis protocol given cardiac issues, will go slower given risk for CHF
On pressors, but this is slowly being weaned off
ID plan today:
- Blood cx's neg to date
- Cardiac cath: no significant CAD to explain trop 69.
- Likely stress-induced cardiomyopathy, per Cardiology
- Consider YEE to evaluate for infective endocarditis given recent high grade Strep sanguinis bacteremia
[If possible, best to do this when he is no longer requiring pressors]
- Continue ceftriaxone for discitis.
- Trend WBC/vitals
- Follow clinically
3. Acute hypoxic resp failure
PE ruled out
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
cont O2 support and wean as tolerated. Note that pt not on home O2
4. Incidental finding of slightly impacted fracture involving the superior sternal body.
This appears to be acute to subacute.
Pain control as needed and Monitor
5. Recent L3/L4 discitis/osteomyelitis with Strep bacteremia
Complicated by Intractable lower back pain with gait dysfunction due to above
Continue ceftriaxone 2g IV q24 x 8 weeks through 12/10/24 per ID via LUE Picc
6. 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
Per , flaherty was placed on 10/02/2024 due to urinary retention
Exchanged flaherty this admission
Outpt Uro follow up
7. H/H 9.0/28.0, Suspect anemia of chronic disease - this is worsening, today 8.7/26.5
Follow trend
No indication for transfusion today
Given cardiac complexity, may need transfusion at higher blood levels
8. Distant h/o DVT, completed AC course
Use dvt prophy
Code status: full code
DVT prophylaxis: Lovenox SQ (change to heparin if renal function worsens)
Anticipated Discharge: > 48 hours
Subjective/Interval History
-
Date of Service: November 01, 2024
Continues to have poor urinary output and low BP. Thorax pain continues.
Objective Data
-
Labs:
Laboratory Results
11/01/24
03:46
WBC 15.2 H
Hgb 8.7 L
Hct 26.5 L
Plt Count 353
APTT 78.7 H
Sodium 133 L
Potassium 5.2 H
Chloride 109 H
Carbon Dioxide 17 L
BUN 36 H
Creatinine 0.9
Glucose 112 H
Calcium 8.2 L
Total Bilirubin 0.6
AST 471 H
ALT 347 H
Alkaline Phosphatase 75
Vital Signs:
Vital Signs
Temp Pulse Resp BP Pulse Ox
99.3 F 88 30 105/59 95
11/01/24 08:13 11/01/24 05:15 11/01/24 05:15 11/01/24 05:00 11/01/24 07:53
I&O
10/31/24 11/01/24 11/02/24
06:59 06:59 06:59
Intake Total 358.5 / 374.5 1528 / 1528
Output Total 255 / 255 650 / 650
Balance 103.5 / 119.5 878 / 878
Review of Systems
-
History Source: Patient
Cardiac: Reports Chest Pain
Physical Exam
-
General: Well Developed, Well Nourished, No Apparent Distress and Comfortable
HEENT: Nose Appears Normal and Ears Appear Normal
Respiratory: Crackles (at base)
Cardiac: Regular Rhythm and S1/S2
GI: Soft, Nontender and Nondistended
Musculoskeletal: No Clubbing and No Cyanosis
Skin: Warm and Dry
Neuro: Awake, Alert and Oriented
Psych: Calm
Data Reviewed
-
Labs: Labs Reviewed by me
--- NOTE | 2024-11-01 09:30 | PTCARENOTE ---
Rec'd pt at 0700. Pt AAOx2, forgetful. Follows commands, PEREZ. Monitor SR 80's. SBP 90-100's, Colton gtts infusing at 80mcg/min to keep MAP >65. Lungs dim, pox 93% on HFNC 50L/50%. +BS, abd soft/nt. Soler draining evie urine. 500ml bolus given d/t low
UO overnight. NSS then started at 50mls/hr. at bedside, updated.
[2024-11-01] MEDS: NSS 1000 IV (09:51)
[2024-11-01] MEDS: ROCEPHIN 2000 MG IV (11:12)
[2024-11-01] MEDS: STERILE WATER FOR INJECTION 20 ML IV (11:12)
--- NOTE | 2024-11-01 11:59 | W.PN.CD ---
Today's Communication / Plan
-
Stop IV heparin tonight
Start DVT prevention Lovenox tomorrow evening
Continue DAPT for up to 1 year
Watch tele for AFib
Watch volume, data suggests he will need diuresis
I reviewed with patient and his how his cardiomyopathy is adding to him being critically ill and that we did not feel that PCI would benefit him and that we will monitor him and reassess
35 min spent caring for patient today
Impression / Plan
-
Suspected PNA/Sepsis
Hypotension => janice/levophed
New Cardiomyopathy with heart failure
- Suspected to be from a non-ischemic process
- possible atheromatous LAD plaque => treating for potential NSTEMI with 48 hours heparin and DAPT as tolerated for up to 12 months.
- STOP IV heparin tonight, continue DAPT
- Anticipate need for diuresis
Tele:
- No VT
- PACs
- Watch for AFib/bradys
Non-ischemic quality CP
Abnormal troponin:
-suspect acute, non-ischemic myocardial injury in setting of acute infectious illness (also anemia, hypoxia)
-troponin peaked at 42.8 on 10/31/2024
Mitral regurgitation, progressive mod/severe => severe
Anemia, chronic, monitor
Subjective:
Still on high flow O2
Data:
Chest CT: Examination is negative for pulmonary embolism. Small to moderate bilateral pleural effusions. Patchy parenchymal opacity mainly within both upper lobes, suspicious for pneumonia. Pulmonary edema would be a differential consideration.
Band-shaped opacity within the inferior lingula, compatible with discoid atelectasis. Note is made of a slightly impacted fracture involving the superior sternal body. This appears to be acute to subacute. Calcification of the thoracic aorta with no
evidence for thoracic aortic aneurysm.
Cath 10/30/2024:
CONCLUSIONS
1. Moderately elevated biventricular filling pressures, moderate post-capillary pulmonary hypertension, and low cardiac index. (RA 16, PA 45/20, PCWP 24)
2. No aortic stenosis
3. Coronary artery disease as described without a flow limiting lesion to explain the patients new cardiomyopathy and ongoing chest pain. 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
4. Given presence of possible atheromatous LAD plaque would treat medically for NSTEMI with 48 hours heparin and DAPT as tolerated for up to 12 months.
Echo 10/30/2024:
CONCLUSIONS
-LV ejection fraction is 30-35%, by visual assessment. Septal and basal
inferior hypokinesis/akinesis. Apical dyskinesis.
-Normal right ventricular size and function.
-Moderately dilated left atrium.
-Severe mitral regurgitation.
-Severe tricuspid regurgitation. Estimated pulmonary artery pressure of 50-55
mmHg.
-The IVC is dilated and does not collapse.
Compared to previous echo on 10/14/2024, patient now has severe CHF with
regional wall motion abnormalities as specified (previous LVEF was 55-60% with
normal regional wall motion). Severe tricuspid regurgitation is now noted
(previously mild) with an increase in PASP (previously 25 to 30 mmHg). Slightly
progressive mitral regurgitation is noted (previously moderate to severe).
Physical Exam
Vital Signs/Labs
Vital Signs
Temp Pulse Resp BP Pulse Ox
99.3 F 88 26 104/56 92
11/01/24 08:13 11/01/24 10:01 11/01/24 10:01 11/01/24 10:01 11/01/24 10:44
10/31/24 11/01/24 11/02/24
06:59 06:59 06:59
Actual Weight 62.8 kg 65.9 kg
11/01/24 03:46
11/01/24 03:46
APTT 78.7 Sec (23.4-35.0) H 11/01/24 03:46
Magnesium 2.4 mg/dl (1.6-2.3) H 11/01/24 03:46
LAB Results
07/11/25 07/11/25 07/11/25
08:00 11:35 16:30
Troponin I 0.321 H* 6.970 H* D 20.500 H* D
10/30/24 10/31/24 10/31/24
18:11 00:14 05:44
Troponin I 38.900 H* D 41.700 H* 42.800 H*
10/31/24
10:10
Troponin I 38.300 H*
Physical Exam
Constitutional: Comfortable
Cardiovascular: Rhythm & rate is regular and Pedal edema is absent
Respiratory: Respiratory effort normal and Rhonchi Present
GI: Soft and Distention absent
Neuro/Psych: AO x 3
Data Reviewed
-
Date of Service: November 01, 2024
--- NOTE | 2024-11-01 15:40 | PTCARENOTE ---
Pt resting comfortably throughout afternoon. PRN Morphine for pain with +relief.
--- NOTE | 2024-11-01 20:00 | PTCARENOTE ---
Rec'd pt resting in bed, forgetful, oriented to person & place, cooperative, afib, to keep MAP > 65- see flow sheet for janice titrations, presently at 80 shaun, hep gtt at 1000 units, weak pulses, skin warm/dry, O2 via hi flow 55 liters/ 60%, sat 96,
lungs decr, + GLOVER, + orthopnea, hypo bowel sounds, no bm, abd soft, no n/v, christopher h20, flaherty draining evie urine
[2024-11-01] MEDS: HEPARIN 25000 UNITS/250 ML IV (21:00)
--- NOTE | 2024-11-01 21:00 | PTCARENOTE ---
morphine 1mg iv given for chronic back pain
--- NOTE | 2024-11-01 21:24 | VATNOTE ---
Called to check white lumen of picc line. Extremely difficult to flush, no blood return. DERMATOLOGIST AND DERMATOPATHOLOGIST to request CathFlo order from ICU [employer].
[2024-11-01] MEDS: CATHFLO/ACTIVASE 2 MG INTRACATH (21:43)
--- NOTE | 2024-11-01 22:00 | PTCARENOTE ---
hi v flow changed to 50 liters/ 60% o2 by resp therapist, unable to flush port of PICC- VAT team here to give cath flow
--- NOTE | 2024-11-01 22:45 | VATNOTE ---
White lumen of PICC now flushes and has a blood return s/p CathFlo. PCN updated.
[2024-11-02] VITALS (54 sets, daily range): BP systolic 72–104; BP diastolic 49–75; PULSE 2–138; BMI 20.5
--- NOTE | 2024-11-02 00:19 | PTCARENOTE ---
sys reviewed, changes noted, CHG bath done, linens changed
[2024-11-02] MEDS: NEO-SYNEPHRINE 250 IV ×2 (01:12→20:54)
[2024-11-02] MEDS: MORPHINE SULFATE 1 MG IV ×3 (03:26→23:21)
--- NOTE | 2024-11-02 03:30 | PTCARENOTE ---
sys reviewed, changes noted, morphine 1mg iv given for back pain
[2024-11-02 03:48] LABS: Hematocrit 25.2 % (39.0-52.0); Hemoglobin 8.2 g/dL (13.0-18.0); Mean Corp Hgb Conc. 32.5 g/dL (33.0-37.0); Mean Corpuscular Volume 82.4 fL (80.0-94.0); Nucleated Red Blood Cells % 0.2 % (-); Platelet Count 341 10^3/uL (130-400); Red Cell Dist. Width 17.8 % (11.5-14.5)
[2024-11-02 03:59] LABS: APTT 70.9 Sec (23.4-35.0)
[2024-11-02] MEDS: NSS 1000 IV (04:06)
[2024-11-02 04:31] LABS: Blood Urea Nitrogen 48 mg/dl (9-20); Calcium 7.9 mg/dl (8.4-10.2); Carbon Dioxide 18 mmol/L (22-30); Chloride 111 mmol/L (98-107); Estimated Creatinine Clearance 47 ml/min; Glucose 112 mg/dl (70-99); Potassium 4.8 mmol/L (3.5-5.1); Sodium 134 mmol/L (135-145); eGFR > 60.00
--- NOTE | 2024-11-02 05:00 | PTCARENOTE ---
sat 87- hi flow incr to 55 liters/ 75% o2 by resp therapist; sat incr to 91
--- NOTE | 2024-11-02 08:05 | W.PN.INTV ---
Today's Communication / Plan
Recommendations
- Switch high flow nasal cannula to BiPAP in view of increased work of breathing
- Discontinue IV fluids, initiate diuresis Lasix 40 mg IV stat
- Start dobutamine infusion, try to wean off phenylephrine to avoid increasing afterload and use Levophed as needed to keep MAP 65 or above
- N.p.o. in view of increased work of breathing
- Chest x-ray and ABG in a.m.
- Check lactate, LFTs
- EKG
Assessment
-
83-year-old male with history of hypertension, hyperlipidemia, recent discitis, back pain, presents with chest pain thought to be hypotensive, with sternal fracture, elevated troponin, status post NSTEMI. Status post catheterization with
biventricular elevated filling pressures, borderline blood pressure, transferred to ICU for further management. Briefly required BiPAP but upon arrival to ICU not on BiPAP
Conditions present prior to admission
History of anemia
Recent streptococcal bacteremia
Lumbar discitis/osteomyelitis, discharge 10/21/24, on ceftriaxone
History of DVT
BPH
Urinary retention with Soler catheter
Interval total hip replacement
Cachexia
DNR
11/02 overview: Patient noted to be on high flow nasal cannula at 50 L, 70%, increased work of breathing, bilateral rhonchi, using accessory muscles. Switched to BiPAP 12 x 5 with significant improvement. Noted to be in A-fib in the low 100s.
Currently on heparin infusion. Patient had Colton-Synephrine infusing at 40.
Assessment and plan:
#1. Cardiogenic shock, with LVEF 30-35%.
- Elevated filling pressures per cardiac catheterization, pulmonary capillary wedge pressure of 24 with elevated mean pulmonary artery pressure.
- Currently patient has been on Colton-Synephrine. Will avoid agents that increase afterload in view of decreased EF. Resume Levophed and also start dobutamine in the setting of cardiogenic shock and wean off phenylephrine
- Cardiology service on case, discussed with multi disciplined language analyst.
- Liver function test worsening, lactate noted to be elevated at 2.9
- Titrate pressors as needed to keep MAP 65 mm or above.
- DC IV fluids
#2. Acute heart failure with reduced ejection fraction, severe mitral regurgitation
- Patient volume overloaded with pulmonary edema on exam. Also concern for underlying severe mitral regurgitation related upper lobe predominant pulmonary edema.
- Lasix 40 mg IV stat, will initiate dobutamine infusion after discussion with cardiology service. Continue pressor support as needed
- Depending upon response to this dose of Lasix and patient's overall hemodynamics through the day, will attempt additional Lasix later in the day
#3. Acute hypoxic respiratory failure with worsening Pulmonary Edema
- Suspect worsening hypoxic respiratory failure is primarily related to pulmonary edema. Concomitant pneumonia cannot be ruled out
- Procalcitonin noted to be elevated at 1.42, ceftriaxone switched to cefepime per ID service.
- Follow-up chest x-ray in a.m.
- High flow switched to BiPAP.
- N.p.o.
#3a. Atrial fibrillation with rapid ventricular rate.
- EKG suggestive of A-fib.
- Heart rate sustaining around low 100, monitor for now
- Currently on heparin infusion
#4. Pulmonary hypertension, Group II
- Right heart cath, 10/2024, mean pulmonary artery pressure 34, PA pressure 44 x 20. Pulmonary capillary wedge pressure of 24. PVR of 2.7. Cardiac index at 1.98 L.
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
- Initiate diuresis with Lasix, add inotropic support with dobutamine. BiPAP initiated. Continue supplemental O2 to keep saturation above 90%
#5. Atypical chest pain with NSTEMI, type II.
- Currently on heparin drip and medically managed.
- Cardiology service on case
#6. History of discitis with bacteremia, currently on ceftriaxone scheduled through 12/10/2024.
- ID service on case, ceftriaxone switched to cefepime to broaden coverage with concern for concomitant pneumonia
#7. Chronic stage III sacral wounds
- Wound care
#8. Elevated AST and ALT.
- Suspect elevated transaminases in the setting of cardiogenic shock
- Continue to monitor
#9. Lactic acidosis.
- Again suspect related to underlying cardiogenic shock. Initiate dobutamine, check serial lactic acid level.
DVT prophylaxis, currently on heparin infusion.
GI prophylaxis with IV pantoprazole.
Updated patient's spouse at bedside.
Critical Care time 62 mins -- The patient is admitted for acute critical illness for the treatment of vital organ failure and/or prevention of further life-threatening conditions. Total care includes time spent in review of history, physical exam,
medications, hemodynamic/ventilator parameters, laboratory data, imaging and discussion with house staff, pharmacy, respiratory therapy, waiter/waitress tourist class, and nursing.
Patient CODE STATUS DNR
Data:
ECHo 10/2024: -LV ejection fraction is 30-35%, by visual assessment. Septal and basal
inferior hypokinesis/akinesis. Apical dyskinesis.
-Normal right ventricular size and function.
-Moderately dilated left atrium.
-Severe mitral regurgitation.
-Severe tricuspid regurgitation. Estimated pulmonary artery pressure of 50-55
mmHg.
-The IVC is dilated and does not collapse.
RHC & LHC 10/2024: 1. Moderately elevated biventricular filling pressures, moderate post-capillary pulmonary hypertension, and low cardiac index.
2. No aortic stenosis
3. Coronary artery disease as described without a flow limiting lesion to explain the patients new cardiomyopathy and ongoing chest pain. 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
4. Given presence of possible atheromatous LAD plaque would treat medically for NSTEMI with 48 hours heparin and DAPT as tolerated for up to 12 months.
Subjective Dataa
Subjective Data
Date of Service:
Date of Service: November 02, 2024
Subjective:
Patient noted to have increased work of breathing, appears more short of breath on high flow nasal cannula. Subsequently was switched to BiPAP and on reevaluation he looked more comfortable.
Review of Systems
Genitourinary: Other (All 14 systems reviewed and negative except as stated above in the history of present illness.)
Objective Data
Data Reviewed
Vital Signs / I&O / Oxygen:
Vital Signs
Temp Pulse Resp BP Pulse Ox
98.1 F 99 24 98/60 94
11/02/24 03:27 11/02/24 06:00 11/02/24 06:00 11/02/24 06:00 11/02/24 07:22
Intake and Output
11/01/24 11/02/24 11/03/24
06:59 06:59 06:59
Intake Total 1528 / 1562 2722 / 2722
Output Total 650 / 650 525 / 525
Balance 878 / 912 2197 / 2197
SaO2 94
Nasal Cannula flow liters per 50
minute
Physical Exam
General: Respiratory Distress
HEENT: Normocephalic and Anicteric
Cardiovascular: S1-S2, Regular Rhythm, Murmur (n), Rub (n) and Peripheral Edema (n)
Respiratory: Wheeze (n), Crackles (Bilateral, diffuse), Rhonchi (Bilateral rhonchi) and Accessory Resp Muscle Use
GI: Soft, Non Distended and Non Tender
Neurology: Awake, Alert, Oriented and No Motor Deficits (Generally weak)
Skin: Good Color
Labs/Micro/Reports
Lab Data
11/02/24 03:34
11/02/24 03:34
Laboratory Results
11/02/24
03:34
APTT 70.9 H
Microbiology
10/30/24 18:11 Nose MRSA Screen - Final
No Methicillin Resistant Staphylococcus aureus isolated.
10/30/24 09:02 Blood/Venous Blood Culture - Preliminary
No Growth in 48 hours- Final report to follow
10/30/24 09:03 Blood/Venous Blood Culture - Preliminary
No Growth in 48 hours- Final report to follow
10/30/24 08:01 Urine Urine Culture - Final
NO GROWTH
10/30/24 20:17 Sputum Respiratory Culture - Final
10/30/24 20:17 Sputum Gram Stain - Final
10/30/24 18:11 Urine Legionella Urinary Antigen - Final
Negative for Legionella pneumophila Serogroup 1 antigen.
A negative result does not rule out the possiblity of
Legionella infection due to other serogroups or species of
Legionella. Clinical correlation is recommended.
10/30/24 18:11 Urine Streptococcus pneumoniae Antigen (M - Final
Negative for Streptococcus pneumoniae antigen.
A negative result does not exclude infection with
Streptococcus pneumoniae. Clinical correlation is
recommended.
10/30/24 11:35 Nasal Swab Influenza Types A & B (LAURA) - Final
Negative for Influenza A & B, NAAT
Negative results must be combined with clinical observations
and patient history.
Nucleic Acid Amplification test (NAAT)performed on the
[employer] platform.
[2024-11-02] MEDS: NEURONTIN 200 MG PO ×3 (08:16→23:31)
[2024-11-02] MEDS: PLAVIX 75 MG PO (08:16)
[2024-11-02] MEDS: LOW STRENGTH ASPIRIN 81 MG PO (08:16)
[2024-11-02] MEDS: VISBIOME 1 CAP PO (08:16)
--- NOTE | 2024-11-02 08:40 | VNURNOTE ---
Chart reviewed. ENROBER, pt was in SNF at [facility]. Prior to SNF, pt had [facility]. [facility] liaison will continue to follow for DC dispo.
[2024-11-02] MEDS: LASIX 40 MG IV ×2 (08:42→17:19)
[2024-11-02] MEDS: LEVOPHED 250 IV (08:43)
[2024-11-02] MEDS: PROTONIX PO (09:00)
--- NOTE | 2024-11-02 09:15 | PTCARENOTE ---
Rec'd pt at 0745 awake resting in bed asking for water. Alert and oriented overall but does tire and is sl forgetful. C/o of 7/10 sacral discomfort. Speech is clear. PEREZ but is weak. Is NAVAJO. Skin is pale wm and dry. Foam dressing intact on sacrum.
Respirs - Rec'd pt on High flow 55L/75% with sats of 94-95%. Respirs are shallow-initally non-labored but with exertion does get tachypnic. BS intially were diminished posteriorly and ant coarse with some exp wheezing. Pt did drink water and took
his am meds with applesauce and after became more audibly congested/gurgling with inability to clear his throat. Cough is weak and most. Despite some increased dyspnea-Sats remained 95-96% Dr. Bailey in and based on AM CXRay and now audible
congestion Lasix 40 mg IV ordered and given at 0845. Morphine 1 mg IV given for dyspnea and sacral discomfort. Pt transitioned to Bipap 12/5 +6then 10L with sats of 98%. Monitor AFib with rates of 100-115. Denies chest pain. VS as documented. Rec'd
pt on IV Colton at 60 mcg to keep MAP >[address] Bailey and cardiology decision made to change from IV Colton to Levophed and at 0845 Levophed hung at 2 mcg and currently at 0915 Colton decreased to 40 mcg. Pt also on IV Heparin at 1100 units/hr. Both
infusing via R arm DL Picc. Also discussion of adding IV Dobutamine. + pulses. Tr LE edema. Abd is soft with sl hypoactive BS. Denies nausea. Will change pt to NPO. Soler intact for yellow/evie urine. Capped int intact LAC. All IV meds infusing via
R arm DL picc-site wnl. Turned and repositioned. Skin and mouth care given. Call montenegro in reach. Pts at the bedside.
[2024-11-02] MEDS: DOBUTREX 500 MG 250 IV (10:10)
--- NOTE | 2024-11-02 10:30 | PTCARENOTE ---
Pt mostly restful. VS as documented. Weaning IV Colton as BP permits. Levophed currently at 2 mcg. Dobutamine ordered and hung at 5 mcg per md order 10 ml/hr via R arm DL picc at 1000 VS as documented. Bp currently 93/65 MAP 76. Will continue to
titrate meds as BP and HR permit. HR currently 105 Afib. Pt dozing. Labs sent as ordered. Diuresed 300 mls so far post Lasix. Call montenegro in reach. at the bedside. ECG done as ordered.
[2024-11-02 10:57] LABS: APTT 65.5 Sec (23.4-35.0)
[2024-11-02 11:04] LABS: Troponin I 9.970 ng/ml
[2024-11-02 11:11] LABS: ALT (SGPT) 577 U/L (0-50); AST (SGOT) 533 U/L (17-59); Albumin 3.0 g/dl (3.5-5.0); Alkaline Phosphatase 90 U/L (38-126); Total Protein 5.9 g/dl (6.3-8.2)
--- NOTE | 2024-11-02 11:20 | PTCARENOTE ---
Pt mostly restful. VS as documented. Weaning IV Colton as BP permits. Levophed currently at 2 mcg. Dobutamine ordered and currently hung at 5 mcg per md order 10 ml/hr via R arm DL picc. VS as documented. Bp currently 93/65 MAP 76. Will continue to
titrate meds as BP and HR permit. HR currently 105 Afib. Pt dozing. Labs sent as ordered. Diuresed 300 mls so far post Lasix. Call monten[place]ro in reach. at the bedside. ECG done as ordered.
[2024-11-02 11:23] LABS: Procalcitonin 1.42 ng/ml (0.0-0.25)
--- NOTE | 2024-11-02 11:30 | PTCARENOTE ---
Additional assessment- IV Heparin increased to 1200 units/hr per protocol PTT 65.5
--- NOTE | 2024-11-02 11:30 | PTCARENOTE ---
Dr. Bailey updated on labs. IV Colton turned off at 1130- MAP 68- HR anywhere from 115-140- bursts up to 135-145 but doesn't stay sustained. Dozing. Will keep Bipap on per Dr. Bailey. O2 decreased to 4L on the Bipap with sats of 97%.
--- NOTE | 2024-11-02 11:41 | W.PN.ID1 ---
Date of Service
Date of Service: November 02, 2024
Today's Communication
Broaden ceftriaxone to cefepime.
Assessment / Plan
# Acute cardiomyopathy EF 30-35%
# Cardiogenic shock on pressors, dobutamine
# Acute hypoxemic resp failure
# Suspect aspiration pneumonia
# Leukocytosis -stable
# Recent Strep sanguinis bacteremia with L3/L4 discitis, currently on IV abx (was ceftriaxone) x 8 weeks through 12/10/24.
- Blood cx's neg to date
- Cardiac cath: no significant CAD to explain trop 69.
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
- Consider YEE to evaluate for infective endocarditis given recent high grade Strep sanguinis bacteremia
- Broaden ceftriaxone to cefepime 1g IV q6h to cover both PNA and discitis
- Trend WBC/vitals
- Prognosis guarded
Chief Complaint
-: Other (CHF)
Subjective / Review of Systems
On Bipap. Per , pt decompensated after drinking fluids then started coughing.
Vital Signs / Physical Exam
Vital Signs
Vital Signs
Temp Pulse Resp BP Pulse Ox
98.2 F 122 21 83/54 94
11/02/24 11:05 11/02/24 11:15 11/02/24 11:15 11/02/24 11:15 11/02/24 11:15
Physical Exam
Constitutional: Acutely Ill
Cardiovascular: S1/S2 and Other (Tachycardic)
Pulmonary: Rales (bilaterally)
Gastrointestinal: Soft, Non Tender and Non Distended
Genito-Urinary: Soler and Clear Urine
Extremities: Negative Edema
Objective Data
Lab Data
Lab Results
11/02/24 03:34
11/02/24 03:34
APTT 65.5 Sec (23.4-35.0) H 11/02/24 10:31
Estimated Creat Clear 47 ml/min 11/02/24 03:34
Lactic Acid 2.9 mmol/L (0.7-2.0) H 11/02/24 10:30
Total Bilirubin 0.8 mg/dl (0.2-1.3) 11/02/24 10:30
AST 533 U/L (17-59) H* 11/02/24 10:30
ALT 577 U/L (0-50) H* 11/02/24 10:30
Alkaline Phosphatase 90 U/L (38-126) 11/02/24 10:30
Most recent labs reviewed.
Micro Results:
10/30/24 09:02 Blood Culture - Preliminary
Blood/Venous No Growth in 72 hours- Final report to follow
10/30/24 09:03 Blood Culture - Preliminary
Blood/Venous No Growth in 72 hours- Final report to follow
10/30/24 18:11 MRSA Screen - Final
Nose No Methicillin Resistant Staphylococcus aureus isolated.
10/30/24 08:01 Urine Culture - Final
Urine NO GROWTH
10/30/24 20:17 Respiratory Culture - Final
Sputum Gram Stain - Final
10/30/24 18:11 Legionella Urinary Antigen - Final
Urine Negative for Legionella pneumophila Serogroup 1 antigen.
A negative result does not rule out the possiblity of
Legionella infection due to other serogroups or species of
Legionella. Clinical correlation is recommended.
Streptococcus pneumoniae Antigen (M - Final
Negative for Streptococcus pneumoniae antigen.
A negative result does not exclude infection with
Streptococcus pneumoniae. Clinical correlation is
recommended.
10/30/24 11:35 Influenza Types A & B (LAURA) - Final
Nasal Swab Negative for Influenza A & B, NAAT
Negative results must be combined with clinical observations
and patient history.
Nucleic Acid Amplification test (NAAT)performed on the
[employer] platform.
11/02/24 CXR: MARKED PROGRESSION OF WIDESPREAD BILATERAL PARENCHYMAL OPACITIES, most likely differential diagnostic possibilities would be acute pulmonary edema or pneumonia.
10/30/[address] examination is negative for pulmonary embolism. Small to moderate bilateral pleural effusions. Patchy parenchymal opacity mainly within both upper lobes, suspicious for pneumonia. Pulmonary edema would be a differential
consideration.
--- NOTE | 2024-11-02 12:11 | WOUNDNOTE ---
SACRUM WITH FLASH
--- NOTE | 2024-11-02 12:37 | WOUNDNOTE ---
[facility] RN note: Patient admitted with Pneumonia, sternal fracture and elevated troponin.
See H&P for complete history.
PMH: DVT, R hip repair, back pain discitis vs osteo, gout, skin cancer-basal cell, sacral DTI.
Wound Location and type/assessment: Patient last seen on 10/13/24 for DTI on Sacrum. Now appears unstageable and larger, feliciano layer of eschar and slough on edges, suspect stage 3 vs deeper. Heels are boggy but intact and blanchable. Nancy at
bedside reports he has poor appetite still and sits in wheelchair or bed, unable to ambulate due to back pain. Nurse Radha assisted with turning.
Appetite: NPO, encouraged protein in diet when able to eat.
Pressure redistribution devices in place: On Air mattress, recommend keep on air mattress during stay. Pillow under calves. Air chair cushion when sitting. Pressure ulcer prevention measures reviewed with patient and . Made aware that due to
comorbidities, poor nutrition and weakness, wound can open and appear deep, state they understand.
Plan: Adaptic and Silicone foam applied to sacrum, will order santyl to start tomorrow. Applied foams to heels. Will confirm orders with hospitalist, recommend MRI to rule out osteo when patient more stable and updated nurse Garcia. Updated care
plan and will follow as needed.
Note to case management of equipment requested for discharge: Air mattress and VN if home.
Recommend follow up at wound care center upon discharge.
[2024-11-02] MEDS: NSS (PRESERVATIVE FREE) 10 ML IV (12:54)
[2024-11-02] MEDS: PROTONIX IV 40 MG IV (12:54)
[2024-11-02] MEDS: STERILE WATER FOR INJECTION 10 ML IV ×3 (12:55→23:32)
[2024-11-02] MEDS: FLUSH (NSS) 3 FLUSH IV (12:55)
[2024-11-02] MEDS: MAXIPIME 1000 MG IV ×3 (12:55→23:31)
--- NOTE | 2024-11-02 13:18 | W.PN.HOSP.TC ---
Today's Communication/Plan
-
switch to cefepime
wean off phenylephrine; switch to dobutamine and norepi - monitor for SVT/rates
Trial NIV to assist in acute HFref, IV diuresis
Wean off NIV as tolerated
Assessment / Plan
Assessment / Plan
83-year-old male with past medical history of recent osteomyelitis/discitis on IV ceftriaxone, stage III sacral wound, recently discharged from to [facility]; presented back to the emergency department for
reported acute on chronic left-sided chest pain which began in the morning and continued back pain and 'buttock pain from wound'. EMS reported that patient was on 16 L nasal cannula. Currently on high flow. He denied active shortness of breath
this am. Patient has RUE PICC line from which he was receiving ceftriaxone.
CT PE:
Examination is negative for pulmonary embolism.
Small to moderate bilateral pleural effusions.
Patchy parenchymal opacity mainly within both upper lobes, suspicious for pneumonia. Pulmonary edema would be a differential consideration.
Band-shaped opacity within the inferior lingula, compatible with discoid atelectasis.
Note is made of a slightly impacted fracture involving the superior sternal body. This appears to be acute to subacute.
Calcification of the thoracic aorta with no evidence for thoracic aortic aneurysm.
A/P:
##Acute Hypoxic Respiratory Failure
-2/2 to Acute HFrEF +/- Aspiration Pneumonia
-abx
-lasix
-monitor and wean o2 as tolerated
-goal o2 >92%
#Cardiogenic Shock
#Acute HFreF
-Weaning off phenylephrine, switch to dobutamine and norepinephrine
-IV lasix, hopeful to take off NIV soon
-Stop fluids
-Monitor with pressors and diuresis
-EF 30-35%
-F/u lactate
-Maintain MAP >65
#Transaminitis
� Most likely secondary to hypoperfusion, shock
� Continue to monitor
#Sepsis
# Suspect aspiration pneumonia
# Leukocytosis -stable
# Recent Strep sanguinis bacteremia with L3/L4 discitis, currently on IV abx (was ceftriaxone) x 8 weeks through 12/10/24.
-can consider YEE to evaluate for infective endocarditis given recent high grade Strep sanguinis bacteremia
-Can consider MR Spine once stable to eval for Osteo
-broaden to cefepime 1mg IV q6h to cover PNA and discitis
#Non Ischemic Chest pain
#Elevated Troponin
-most likely non ischemic myocardial injury in setting of acute state
- possible atheromatous LAD plaque => treating for potential NSTEMI with 48 hours heparin and DAPT as tolerated for up to 12 months.
- STOP IV heparin, continue DAPT
#Mitral regurgitation, progressive mod/severe => severe
#Anemia, chronic, monitor
#Afib
-Hep ggt
-rate controlled
# Recent L3/L4 discitis/osteomyelitis with Strep bacteremia
-Complicated by Intractable lower back pain with gait dysfunction due to above
-cefepime - abx for 8 weeks total
-may need MRI once stable
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
Per , flaherty was placed on 10/02/2024 due to urinary retention
Exchanged flaherty this admission
Outpt Uro follow up
#Sacral ulcer, Stage III
-wound care
-Can consider MRI once stable - already on abx
# Distant h/o DVT, completed AC course
hep ggt
Code status: full code
DVT prophylaxis: Hep ggt
Total time spent on today's encounter was 51 minutes which included time spent in counseling the patient/family regarding diagnosis and treatment plan as listed above, goals of care, and symptom management. Case was discussed with nursing staff,
specialists, and care coordinators/case management. All labs and imaging personally reviewed by me. Remainder the time spent in detailed review of previous records, lab data, imaging, and other medical provider documentation.
Anticipated Discharge: > 48 hours
Subjective/Interval History
-
Date of Service: November 02, 2024
possible worsening sob, gargling this am
Objective Data
-
Labs:
Laboratory Results
11/02/24 11/02/24 11/02/24
03:34 10:30 10:31
WBC 14.1 H
Hgb 8.2 L
Hct 25.2 L
Plt Count 341
APTT 70.9 H 65.5 H
Sodium 134 L
Potassium 4.8
Chloride 111 H
Carbon Dioxide 18 L
BUN 48 H
Creatinine 1.1
Glucose 112 H
Calcium 7.9 L
Total Bilirubin 0.8
AST 533 H*
ALT 577 H*
Alkaline Phosphatase 90
11/02/24
17:30
WBC
Hgb
Hct
Plt Count
APTT Pending
Sodium
Potassium
Chloride
Carbon Dioxide
BUN
Creatinine
Glucose
Calcium
Total Bilirubin
AST
ALT
Alkaline Phosphatase
Vital Signs:
Vital Signs
Temp Pulse Resp BP Pulse Ox
98.2 F 119 20 87/55 97
11/02/24 11:05 11/02/24 11:45 11/02/24 11:45 11/02/24 11:45 11/02/24 11:45
I&O
11/01/24 11/02/24 11/03/24
06:59 06:59 06:59
Intake Total 1528 / 1562 2722 / 2801 604.3 / 604.3
Output Total 650 / 650 525 / 525 550 / 550
Balance 878 / 912 2197 / 2276 54.3 / 54.3
Review of Systems
-
History Source: Patient
All other systems: Not reviewed unless documented
Physical Exam
-
General: Well Developed, Well Nourished, No Apparent Distress and Comfortable
HEENT: Nose Appears Normal and Ears Appear Normal
Respiratory: Crackles (at base)
Cardiac: Regular Rhythm and S1/S2
GI: Soft, Nontender and Nondistended
Musculoskeletal: No Clubbing and No Cyanosis
Skin: Warm and Dry
Neuro: Awake, Alert and Oriented
Psych: Calm
Data Reviewed
-
Diagnostic Radiology: Report Reviewed by me
CT Scan: Report Reviewed by me
Labs: Labs Reviewed by me
--- NOTE | 2024-11-02 13:30 | PTCARENOTE ---
Had been dozing most of the morning- awake currently. Dr. Bailey in to see pt. Ok given to take him off of bipap and currently placed on midflow 15L with sats of 100%. States he feels good with bipap off. BS are decreased posteriorly. Respirs are
shallow but non-labored. No further gurgling/congestion noted. VS as documented. Remains off of IV [place]. Turned and repositioned. Skin and mouth care given. States he just wants to rest. Call [place] in reach.
--- NOTE | 2024-11-02 14:43 | W.PN.CD ---
Today's Communication / Plan
-
CHF treatment with IV diuresis, dobutamine, norepi
cont. dapt
Impression / Plan
-
Mr. Jensen is an 83 year old man with past medical history of moderate-severe mitral regurgitation, dyslipidemia, and PAD recently hospitalized for discitis and bacteremia, transferred back to the hospital from rehab due to chest pain on 10/30. Chest
pain had typical and atypical features. CTPE was performed with no PE but pulmonary infiltrates c/f pneumonia vs. CHF. Troponin was elevated and echo showed new regional wall motion abnormalities concerning for stress CM vs. LAD territory ischemia
and progressive MR and TR. Catheterization was performed 10/30 and demonstrated a GLASS MECHANIC of the RPL and non-obstructive disease in the LAD. Over the weekend chest pain improved and was largely pleuritic, troponin peaked at ~40, and hypoxia improved. He
was treated for pneumonia with antibiotics.
Today he is significantly more hypoxic with progressive MSOF (lactate, Cr, LFTs). Troponin is downtrending appropriately to 9 and ECG does not show new ischemic changes.
I have reviewed his case with the ICU team at bedside.
Shock - possible mixed cardiogenic and septic
Evidence of significant pulmonary edema
- diuresis
- dobutamine and norepi to support MAP goal > 65 with careful monitoring of heart rate, ectopy
- cont. BiPAP
- abx per ICU team
- monitor for improvement in hypoxia and end organ function
- could there possibly be a component of ischemic MR? his RPL stenosis looks more consistent with a GLASS MECHANIC than acutely infarcted lesion, but if ongoing hypoxic respiratory despite medical CHF management, would be reasonable to check repeat limited TTE
to assess MR, if no other explanation for MR, revascularization of RPL branch could be considered but would be high given his clinic status and of uncertain benefit
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
HFrEF
- no GDMT currently in setting of shock, dobutamine
- diuresis
CAD
- likely GLASS MECHANIC of RPL and non-obstructive plaque in mid-LAD
- though favor that his presentation is a non-ischemic process, cont. DAPT if no bleeding issues given possible component of ACS, narrow to SAPT if still has AC requirement after 1 week
Troponin elevation
- peaked 42 and downtrending
- suspect Type II NSTEMI vs. non-ischemic myocardial injury > Type I NSTEMI
Afib
- monitor rates with dobutmaine/norepi
-heparin gtt, eventual NOAC
Anemia, chronic, monitor
Subjective:
worsening hypoxia, transitioned to BiPAP
Data:
CXR 11/02: progressive pulmonary edema with RUL predominance
Chest CT: Examination is negative for pulmonary embolism. Small to moderate bilateral pleural effusions. Patchy parenchymal opacity mainly within both upper lobes, suspicious for pneumonia. Pulmonary edema would be a differential consideration.
Band-shaped opacity within the inferior lingula, compatible with discoid atelectasis. Note is made of a slightly impacted fracture involving the superior sternal body. This appears to be acute to subacute. Calcification of the thoracic aorta with no
evidence for thoracic aortic aneurysm.
Cath 10/30/2024:
CONCLUSIONS
1. Moderately elevated biventricular filling pressures, moderate post-capillary pulmonary hypertension, and low cardiac index. (RA 16, PA 45/20, PCWP 24)
2. No aortic stenosis
3. Coronary artery disease as described without a flow limiting lesion to explain the patients new cardiomyopathy and ongoing chest pain. 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
4. Given presence of possible atheromatous LAD plaque would treat medically for NSTEMI with 48 hours heparin and DAPT as tolerated for up to 12 months.
Echo 10/30/2024:
CONCLUSIONS
-LV ejection fraction is 30-35%, by visual assessment. Septal and basal
inferior hypokinesis/akinesis. Apical dyskinesis.
-Normal right ventricular size and function.
-Moderately dilated left atrium.
-Severe mitral regurgitation.
-Severe tricuspid regurgitation. Estimated pulmonary artery pressure of 50-55
mmHg.
-The IVC is dilated and does not collapse.
Compared to previous echo on 10/14/2024, patient now has severe CHF with
regional wall motion abnormalities as specified (previous LVEF was 55-60% with
normal regional wall motion). Severe tricuspid regurgitation is now noted
(previously mild) with an increase in PASP (previously 25 to 30 mmHg). Slightly
progressive mitral regurgitation is noted (previously moderate to severe).
Physical Exam
Vital Signs/Labs
Vital Signs
Temp Pulse Resp BP Pulse Ox
36.8 C 119 20 87/55 97
11/02/24 11:05 11/02/24 11:45 11/02/24 11:45 11/02/24 11:45 11/02/24 11:45
11/01/24 11/02/24 11/03/24
06:59 06:59 06:59
Actual Weight 65.9 kg 66.5 kg
11/02/24 03:34
11/02/24 03:34
APTT 65.5 Sec (23.4-35.0) H 11/02/24 10:31
Magnesium 2.4 mg/dl (1.6-2.3) H 11/01/24 03:46
LAB Results
10/30/24 10/30/24 10/31/24
16:30 18:11 00:14
Troponin I 20.500 H* D 38.900 H* D 41.700 H*
10/31/24 10/31/24 11/02/24
05:44 10:10 10:30
Troponin I 42.800 H* 38.300 H* 9.970 H*
Physical Exam
Constitutional: Other (somnolent)
Cardiovascular: Rhythm/rate is irregular
Respiratory: Other (BiPAP)
Data Reviewed
-
Date of Service: November 02, 2024
Medical Decision Making: Reviewed Test Results
EKG: Tracing Personally Visualized and interpreted and Report Reviewed by me
Echo: Tracing Personally Visualized and interpreted and Report Reviewed by me
X-Ray/CT/US/MRI/NUC/PET: Image Personally Visualized and interpreted, Report Reviewed by me, Discussed with Physician, Discussed with Nurse, Discussed with Patient and Discussed with Family
Labs: Labs Reviewed by me
--- NOTE | 2024-11-02 15:03 | PTCARENOTE ---
Dozing- Midflow decreased to 10L with sats of 100%.
--- NOTE | 2024-11-02 15:07 | CM ---
IV/Cefepime, IV/Lasix now on BIPAP, NPO due to work of breathing, prognosis guarded. Discharge POC: Possibly return to [facility] for resumption of snf services. Will await therapy evaluation.
[2024-11-02] MEDS: FLUSH (NSS) 1 FLUSH IV ×2 (17:20→17:40)
--- NOTE | 2024-11-02 17:30 | PTCARENOTE ---
Resting. Dozing when left undisturbed- Labs sent as ordered. Lasix 40 mg IV given at 1720. No other changes in assessment. Took his 1600 [place] in applesauce- but does get a little gurgly after swallowing and a weak cough. Took 2 small sips of
water. No other food or drink given. Speech to see pt again tomorrow. Call [place] in reach.
[2024-11-02 17:41] LABS: Venous Blood Gas B.E. -7.4 mmol/L (-4 to +4); Venous Blood Gas O2 Sat % 92.0 %
[2024-11-02 18:17] LABS: APTT 75.8 Sec (23.4-35.0)
[2024-11-02] MEDS: HEPARIN 25000 UNITS/250 ML IV (19:10)
--- NOTE | 2024-11-02 20:00 | PTCARENOTE ---
Rec'd pt asleep, easily awakens easily, thought it was daytime, reoriented, [place] afib, levo at 4 shaun- to titrate keeping MAP> 65, hep at 1200 units, dobutrex at 5 shaun, weak distal pulses,, + LE edema, skin warm/dry, O2 via midflow- 6 liters, lungs
decr, coarse, sat 94, hypo bowel sounds, no bm, abd soft, christopher sips h2- does cough w/ intake, flaherty draining yellow urine
--- NOTE | 2024-11-02 21:03 | PTCARENOTE ---
Mercedes Mullins NP aware of afib 130-140's, Levo dc'd, janice hung at 20mic-to keep MAP > 65
[2024-11-02] MEDS: CORDARONE 103 MG IV (22:24)
--- NOTE | 2024-11-02 22:28 | PTCARENOTE ---
Afib cont up to 140's, amiodarone 150mg bolus hung followed by gtt at 1mg
[2024-11-02] MEDS: CORDARONE 518 MG IV (22:35)
[2024-11-02 23:44] LABS: APTT 58.0 Sec (23.4-35.0)
[2024-11-03] VITALS (65 sets, daily range): BP systolic 73–114; BP diastolic 48–70; PULSE 2–92; O2SAT 96; BMI 20.4
--- NOTE | 2024-11-03 | PTCARENOTE ---
sys reviewed, morphine 1mg iv given for back pain at 2330, changed to bipap 12/5 w/ 4 liters o2 by resp therapist for the night, sconverted to sinus w/ pacs'
--- NOTE | 2024-11-03 01:15 | PTCARENOTE ---
to wean janice off and restart levo to keep map > 65 per order
[2024-11-03] MEDS: LEVOPHED 250 IV (01:24)
[2024-11-03 03:22] LABS: Hematocrit 23.4 % (39.0-52.0); Hemoglobin 7.8 g/dL (13.0-18.0); Mean Corp Hgb Conc. 33.3 g/dL (33.0-37.0); Mean Corpuscular Volume 81.0 fL (80.0-94.0); Platelet Count 314 10^3/uL (130-400); Red Cell Dist. Width 17.7 % (11.5-14.5)
[2024-11-03 03:51] LABS: ALT (SGPT) 365 U/L (0-50); AST (SGOT) 173 U/L (17-59); Albumin 2.5 g/dl (3.5-5.0); Alkaline Phosphatase 62 U/L (38-126); Blood Urea Nitrogen 53 mg/dl (9-20); Calcium 7.5 mg/dl (8.4-10.2); Carbon Dioxide 20 mmol/L (22-30); Chloride 109 mmol/L (98-107); Estimated Creatinine Clearance 47 ml/min; Glucose 131 mg/dl (70-99); Magnesium 2.4 mg/dl (1.6-2.3); Potassium 4.2 mmol/L (3.5-5.1); Sodium 133 mmol/L (135-145); Total Protein 5.0 g/dl (6.3-8.2); eGFR > 60.00
[2024-11-03 04:00] LABS: Nucleated Red Blood Cells % 0.2 % (-)
[2024-11-03 04:16] LABS: B.E. -6.1 mmol/L; HCO3 17.5 mmol/L (21-28); O2 Saturation % 99.9 % (94-98); PCO2 27 mmHg (35-48); PO2 172 mmHg (83-108)
--- NOTE | 2024-11-03 04:35 | PTCARENOTE ---
sys reviewed, comf, amiodarone decr to 0.5 mg per protocal, remains in SR w/ occas PAC's
[2024-11-03] MEDS: MAXIPIME 1000 MG IV ×3 (05:22→18:10)
[2024-11-03] MEDS: STERILE WATER FOR INJECTION 10 ML IV ×3 (05:22→18:10)
[2024-11-03 05:55] LABS: INR 1.17; PT 15.2 Sec (11.4-14.6)
[2024-11-03 05:56] LABS: APTT 83.6 Sec (23.4-35.0)
[2024-11-03] MEDS: LASIX 40 MG IV ×2 (07:31→15:40)
--- NOTE | 2024-11-03 08:25 | W.PN.CD ---
Today's Communication / Plan
-
Lasix 40 IV BID
Add PO Amio, stop IV amio when current bag finishes
Stop Plavix
Stop heparin
Start Eliquis and continue ASA
Increase activity
Hope Levo can be weaned off
Continue dobutamine
Later add GDMT for HFrEF, not yet
38 min of critical care provided by me in ICU today
Impression / Plan
-
Mr. Jensen is an 83 year old man with past medical history of moderate-severe mitral regurgitation, dyslipidemia, and PAD recently hospitalized for discitis and bacteremia, transferred back to the hospital from rehab due to chest pain on 10/30. Chest
pain had typical and atypical features. CTPE was performed with no PE but pulmonary infiltrates c/f pneumonia vs. CHF. Troponin was elevated and echo showed new regional wall motion abnormalities concerning for stress CM vs. LAD territory ischemia
and progressive MR and TR. Catheterization was performed 10/30 and demonstrated a PRECISION JIG GRINDER of the RPL and non-obstructive disease in the LAD. Over the weekend chest pain improved and was largely pleuritic, troponin peaked at ~40, and hypoxia improved. He
was treated for pneumonia with antibiotics.
Acute HFrEF with new cardiomyopathy
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
- not ready to add GDMT => shock, Levophed and dobutamine
- Diuresis => Lasix 40 IV BID
Suspected PNA/Sepsis/Shock
- On ATBs
- possible mixed cardiogenic and septic
- off janice, Levo 3, dobutamine
CAD:
- likely PRECISION JIG GRINDER of RPL and non-obstructive plaque in mid-LAD
- Dr. Thomson suspects that his presentation is a non-ischemic process
- Given the AFib and anemia I feel that at age 83 it is best to move to just ASA + Eliquis at this time, can revisit if needed
AFib, paroxysmal
- Was sustained with RVR yesterday, IV AMIO => Sinus at 0005 hrs on 11/03/2024
- Move to PO AMIO 400 BID for now and 200 daily at discharge
- Stop IV heparin, begin Eliquis
- Might choose to stop Amio in 3-6 months but might chose terminal superintendent amio
Abnormal troponin:
- suspect acute, non-ischemic myocardial injury in setting of acute infectious illness (also anemia, hypoxia)
- but we cannot rule out type II RI. We do not think this is a NSTEMI
- troponin peaked at 42.8 on 10/31/2024
Mitral regurgitation, progressive => mod/severe => severe
Anemia, chronic, monitor
Subjective:
Oxygenation has improved. Off Bipap, weight is not down yet. CXR not improve. Weight not down yet
Data:
CXR : progressive pulmonary edema with RUL predominance
Chest CT: Examination is negative for pulmonary embolism. Small to moderate bilateral pleural effusions. Patchy parenchymal opacity mainly within both upper lobes, suspicious for pneumonia. Pulmonary edema would be a differential consideration.
Band-shaped opacity within the inferior lingula, compatible with discoid atelectasis. Note is made of a slightly impacted fracture involving the superior sternal body. This appears to be acute to subacute. Calcification of the thoracic aorta with no
evidence for thoracic aortic aneurysm.
Cath 10/30/2024:
1. Moderately elevated biventricular filling pressures, moderate post-capillary pulmonary hypertension, and low cardiac index (RA 16, PA 45/20, PCWP 24)
2. No aortic stenosis
3. CAD without a flow limiting lesion: 30-40% LM, mLAD with focal, eccentric atheromatous plaque, 40% OM, subtotal occlusion RPL
Echo 10/30/2024: LV ejection fraction is 30-35%, Septal and basal inferior hypokinesis/akinesis. Apical dyskinesis. Severe MR/TR. PASP 50-55
Compared to previous echo on 10/14/2024
LVEF fallen tygz11-44% with normal regional wall motion. TR increased from mild to severe. PASP has increased from 25 to 30 mmHg). Slight increased in MR mod/severe => severe.
Physical Exam
Vital Signs/Labs
Vital Signs
Temp Pulse Resp BP Pulse Ox
97.8 F 86 15 106/64 99
11/03/24 08:00 11/03/24 06:30 11/03/24 06:30 11/03/24 06:30 11/03/24 06:30
11/02/24 11/03/24 11/04/24
06:59 06:59 06:59
Actual Weight 66.5 kg 66.2 kg
11/03/24 03:11
11/03/24 03:11
PT 15.2 Sec (11.4-14.6) H 11/03/24 05:38
INR 1.17 11/03/24 05:38
APTT 83.6 Sec (23.4-35.0) H 11/03/24 05:38
Magnesium 2.4 mg/dl (1.6-2.3) H 11/03/24 03:11
LAB Results
10/31/24 11/02/24
10:10 10:30
Troponin I 38.300 H* 9.970 H*
Physical Exam
Constitutional: No acute distress
Cardiovascular: Rhythm & rate is regular, Pedal edema present (tr edema) and Systolic murmur present
Respiratory: Respiratory effort normal and Rhonchi Present
GI: Soft and Distention absent
Neuro/Psych: AO x 3
Data Reviewed
-
Date of Service: November 03, 2024
[2024-11-03] MEDS: LOW STRENGTH ASPIRIN 81 MG PO (08:42)
[2024-11-03] MEDS: PROTONIX IV 40 MG IV (08:42)
[2024-11-03] MEDS: NEURONTIN 200 MG PO ×2 (08:42→16:53)
[2024-11-03] MEDS: NSS (PRESERVATIVE FREE) 10 ML IV (08:42)
[2024-11-03] MEDS: SANTYL OINTMENT 1 APPLIC TOPICAL (08:43)
[2024-11-03] MEDS: ELIQUIS 5 MG PO ×2 (08:43→20:38)
[2024-11-03] MEDS: VISBIOME 1 CAP PO (08:43)
[2024-11-03] MEDS: PACERONE 400 MG PO ×2 (08:44→20:38)
[2024-11-03] MEDS: TYLENOL 650 MG PO ×2 (08:44→20:43)
[2024-11-03] MEDS: PLAVIX PO (09:26)
[2024-11-03] MEDS: DOBUTREX 500 MG 250 IV (10:57)
--- NOTE | 2024-11-03 11:02 | W.PN.ID1 ---
Date of Service
Date of Service: November 03, 2024
Today's Communication
Continue cefepime.
Assessment / Plan
# Recent Strep sanguinis bacteremia with L3/L4 discitis, currently on IV abx (was ceftriaxone) x 8 weeks through 12/10/24.
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
# Cardiogenic shock on pressors, dobutamine
# Acute hypoxemic resp failure, improve
# Suspect aspiration pneumonia
# Leukocytosis -improved
# New onset afib, now in sinus
# Unstageable sacral decubitus, present on admission
- Blood cx's neg to date
- Cardiac cath: no significant CAD to explain trop 69.
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
- Continue cefepime 1g IV q6h (d2) to cover both PNA and discitis
- Trend WBC/vitals
Chief Complaint
-: Other (CHF)
Subjective / Review of Systems
Pt more comfortable. He slept well last night.
Vital Signs / Physical Exam
Vital Signs
Vital Signs
Temp Pulse Resp BP Pulse Ox
97.8 F 82 21 97/48 92
11/03/24 08:00 11/03/24 09:45 11/03/24 09:45 11/03/24 09:45 11/03/24 09:45
Physical Exam
Constitutional: Acutely Ill
Cardiovascular: Regular Rate and S1/S2
Pulmonary: Rales
Gastrointestinal: Soft, Non Tender and Non Distended
Genito-Urinary: Soler and Clear Urine
Extremities: Negative Edema
Wound: Other (Reviewed wound photos: large sacral wound with eschar, yellow fibrinous slough)
Neurological: AO x 3
Objective Data
Lab Data
Lab Results
11/03/24 03:11
11/03/24 03:11
PT 15.2 Sec (11.4-14.6) H 11/03/24 05:38
INR 1.17 11/03/24 05:38
APTT Cancelled 11/03/24 12:00
Estimated Creat Clear 47 ml/min 11/03/24 03:11
Lactic Acid 1.8 mmol/L (0.7-2.0) 11/02/24 17:33
Total Bilirubin 0.7 mg/dl (0.2-1.3) 11/03/24 03:11
AST 173 U/L (17-59) H 11/03/24 03:11
ALT 365 U/L (0-50) H 11/03/24 03:11
Alkaline Phosphatase 62 U/L (38-126) 11/03/24 03:11
Most recent labs reviewed.
Micro Results:
10/30/24 09:03 Blood Culture - Preliminary
Blood/Venous No Growth in 4 days- Final report to follow
10/30/24 09:02 Blood Culture - Preliminary
Blood/Venous No Growth in 4 days- Final report to follow
10/30/24 18:11 MRSA Screen - Final
Nose No Methicillin Resistant Staphylococcus aureus isolated.
10/30/24 08:01 Urine Culture - Final
Urine NO GROWTH
10/30/24 20:17 Respiratory Culture - Final
Sputum Gram Stain - Final
10/30/24 18:11 Legionella Urinary Antigen - Final
Urine Negative for Legionella pneumophila Serogroup 1 antigen.
A negative result does not rule out the possiblity of
Legionella infection due to other serogroups or species of
Legionella. Clinical correlation is recommended.
Streptococcus pneumoniae Antigen (M - Final
Negative for Streptococcus pneumoniae antigen.
A negative result does not exclude infection with
Streptococcus pneumoniae. Clinical correlation is
recommended.
10/30/24 11:35 Influenza Types A & B ([facility]A) - Final
Nasal Swab Negative for Influenza A & B, NAAT
Negative results must be combined with clinical observations
and patient history.
Nucleic Acid Amplification test (NAAT)performed on the
[employer] platform.
11/02/24 CXR: MARKED PROGRESSION OF WIDESPREAD BILATERAL PARENCHYMAL OPACITIES, most likely differential diagnostic possibilities would be acute pulmonary edema or pneumonia.
10/30/[address] examination is negative for pulmonary embolism. Small to moderate bilateral pleural effusions. Patchy parenchymal opacity mainly within both upper lobes, suspicious for pneumonia. Pulmonary edema would be a differential
consideration.
[2024-11-03] MEDS: LIDOCAINE 4% PATCH 1 PATCH TOPICAL (11:11)
--- NOTE | 2024-11-03 11:12 | PTCARENOTE ---
After completing wound care, pt assisted oob to chair with mod assist of 2 using a rolling walker. No change bp or hr with sitting/standing. Pt did c/o some dizziness but improved once up in chair. Weaning levo as able. See work list.
--- NOTE | 2024-11-03 11:27 | W.PN.INTV ---
Today's Communication / Plan
Recommendations
- Mid flow during daytime, BiPAP as needed as well as nightly
- Chest x-ray in a.m.
- PT/OT
- CBC, CMP in a.m.
Assessment
-
83-year-old male with history of hypertension, hyperlipidemia, recent discitis, back pain, presents with chest pain thought to be hypotensive, with sternal fracture, elevated troponin, status post NSTEMI. Status post catheterization with
biventricular elevated filling pressures, borderline blood pressure, transferred to ICU for further management. Briefly required BiPAP but upon arrival to ICU not on BiPAP
Conditions present prior to admission
History of anemia
Recent streptococcal bacteremia
Lumbar discitis/osteomyelitis, discharge 10/21/24, on ceftriaxone
History of DVT
BPH
Urinary retention with Soler catheter
Interval total hip replacement
Cachexia
DNR
11/03 overview: Patient was on BiPAP at nighttime and this morning transition to mid flow at about 4 L. MAP 66, saturating 93%, current infusions amiodarone. Fluid balance -947 mL with 2.26 L urine output over last 24 hours. Overall appears more
comfortable. Off Col[place]-Synephrine, currently dobutamine at 5 and Levophed at 3 infusing.
Assessment and plan:
#1. Cardiogenic shock, with LVEF 30-35%.
- Elevated filling pressures per cardiac catheterization, pulmonary capillary wedge pressure of 24 with elevated mean pulmonary artery pressure.
- Continue dobutamine at 5, Levophed currently infusing at 3, wean as tolerated to keep MAP above 65.
- Cardiology service on case
- Liver function test showing improving AST/ALT, lactate level improved
- Titrate pressors as needed to keep MAP 65 mm or above.
- Off IV fluids
- Lasix 40 mg IV twice a day
#2. Acute heart failure with reduced ejection fraction, severe mitral regurgitation
- Patient volume overloaded with pulmonary edema on exam. Also concern for underlying severe mitral regurgitation related upper lobe predominant pulmonary edema.
- Started on dobutamine infusion on 11/02, continue pressor support as needed to keep MAP above 65. Lasix 40 mg IV twice daily
- Fluid balance over last 24 hours, -947 mL, made 2.26 L urine.
#3. Acute hypoxic respiratory failure with worsening Pulmonary Edema
- Responding to dobutamine with Lasix. Follow-up chest x-ray today showing improved aeration, oxygen requirement declining
- Procalcitonin noted to be elevated at 1.42, ceftriaxone switched to cefepime per ID service.
- Follow-up chest x-ray in a.m.
- Off high flow now, currently on mid flow, continue nightly BiPAP
#3a. Atrial fibrillation with rapid ventricular rate.
- EKG suggestive of A-fib.
- Patient was started on amiodarone infusion overnight, plan to switch to oral dosing after current bag finishes
- Heparin drip transition to Eliquis per cardiology service
#4. Pulmonary hypertension, Group II
- Right heart cath, 10/2024, mean pulmonary artery pressure 34, PA pressure 44 x 20. Pulmonary capillary wedge pressure of 24. PVR of 2.7. Cardiac index at 1.98 L.
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
- Initiated diuresis with Lasix, added inotropic support with dobutamine. BiPAP nightly. Continue supplemental O2 to keep saturation above 90%
#5. Atypical chest pain with NSTEMI, type II.
- Medically managed, heparin drip transition to Eliquis
- Cardiology service on case
#6. History of discitis with bacteremia, currently on ceftriaxone scheduled through 12/10/2024.
- ID service on case, ceftriaxone switched to cefepime to broaden coverage with concern for concomitant pneumonia
#7. Chronic stage III sacral wounds
- Wound care
#8. Elevated AST and ALT.
- Suspect elevated transaminases in the setting of cardiogenic shock, improving on follow-up lab work
- Continue to monitor
#9. Lactic acidosis.
- Again suspect related to underlying cardiogenic shock.
- Responded to initiation of dobutamine and diuresis with improving lactate
DVT prophylaxis, currently on Eliquis
GI prophylaxis with IV pantoprazole.
Updated patient's spouse at bedside.
Critical Care time 42 mins -- The patient is admitted for acute critical illness for the treatment of vital organ failure and/or prevention of further life-threatening conditions. Total care includes time spent in review of history, physical exam,
medications, hemodynamic/ventilator parameters, laboratory data, imaging and discussion with house staff, pharmacy, respiratory therapy, junior copywriter, and nursing.
Patient CODE STATUS DNR
Data:
[facility] 10/2024: -LV ejection fraction is 30-35%, by visual assessment. Septal and basal
inferior hypokinesis/akinesis. Apical dyskinesis.
-Normal right ventricular size and function.
-Moderately dilated left atrium.
-Severe mitral regurgitation.
-Severe tricuspid regurgitation. Estimated pulmonary artery pressure of 50-55
mmHg.
-The IVC is dilated and does not collapse.
[facility] & [facility] 10/2024: 1. Moderately elevated biventricular filling pressures, moderate post-capillary pulmonary hypertension, and low cardiac index.
2. No aortic stenosis
3. Coronary artery disease as described without a flow limiting lesion to explain the patients new cardiomyopathy and ongoing chest pain. 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
4. Given presence of possible atheromatous LAD plaque would treat medically for NSTEMI with 48 hours heparin and DAPT as tolerated for up to 12 months.
Subjective Dataa
Subjective Data
Date of Service:
Date of Service: November 03, 2024
Subjective:
Patient comfortably lying in bed in no acute distress, on mid flow this morning.
Review of Systems
Genitourinary: Other (Overall reports breathing is marginally improved. All 14 systems reviewed and negative except as stated above in the history of present illness.)
Objective Data
Data Reviewed
Vital Signs / I&O / Oxygen:
Vital Signs
Temp Pulse Resp BP Pulse Ox
97.8 F 82 21 97/48 92
11/03/24 08:00 11/03/24 09:45 11/03/24 09:45 11/03/24 09:45 11/03/24 09:45
Intake and Output
11/02/24 11/03/24 11/04/24
06:59 06:59 06:59
Intake Total 2722 / 2801 1755.0 / 1807.0 138.2 / 138.2
Output Total 525 / 525 2200 / 2260 60 / 60
Balance 2197 / 2276 -445.0 / -453.0 78.2 / 78.2
SaO2 92
Nasal Cannula flow liters per 50
minute
Physical Exam
General: Respiratory Distress (Appears more comfortable today)
HEENT: Normocephalic and Anicteric
Cardiovascular: S1-S2, Regular Rhythm, Murmur (n), Rub (n) and Peripheral Edema (Trace pedal edema)
Respiratory: Wheeze (n), Crackles (Improving) and Rhonchi (Bilateral rhonchi)
GI: Soft, Non Distended and Non Tender
Neurology: Awake, Alert, Oriented and No Motor Deficits (Generally weak)
Skin: Good Color
Labs/Micro/Reports
Lab Data
11/03/24 03:11
11/03/24 03:11
Laboratory Results
11/02/24 11/02/24 11/03/24
17:33 22:50 04:08
PT
INR
APTT 75.8 H 58.0 H
pH 7.42
pCO2 27 L
pO2 172 H
HCO3 17.5 L
O2 Delivery Level
11/03/24 11/03/24
05:38 12:00
PT 15.2 H
INR 1.17
APTT 83.6 H Cancelled
pH
pCO2
pO2
HCO3
O2 Delivery Level
Microbiology
10/30/24 09:03 Blood/Venous Blood Culture - Preliminary
No Growth in 4 days- Final report to follow
10/30/24 09:02 Blood/Venous Blood Culture - Preliminary
No Growth in 4 days- Final report to follow
10/30/24 18:11 Nose MRSA Screen - Final
No Methicillin Resistant Staphylococcus aureus isolated.
10/30/24 08:01 Urine Urine Culture - Final
NO GROWTH
10/30/24 20:17 Sputum Respiratory Culture - Final
10/30/24 20:17 Sputum Gram Stain - Final
10/30/24 18:11 Urine Legionella Urinary Antigen - Final
Negative for Legionella pneumophila Serogroup 1 antigen.
A negative result does not rule out the possiblity of
Legionella infection due to other serogroups or species of
Legionella. Clinical correlation is recommended.
10/30/24 18:11 Urine Streptococcus pneumoniae Antigen (M - Final
Negative for Streptococcus pneumoniae antigen.
A negative result does not exclude infection with
Streptococcus pneumoniae. Clinical correlation is
recommended.
--- NOTE | 2024-11-03 13:08 | W.PN.HOSP.TC ---
Today's Communication/Plan
-
iv lasix
wean pressors/inotropes as tolerated
wean o2 as tolerated
Stop plavix, plan for Eliquis and ASA
PT/OT
Assessment / Plan
Assessment / Plan
83-year-old male with past medical history of recent osteomyelitis/discitis on IV ceftriaxone, stage III sacral wound, recently discharged from to [facility]; presented back to the emergency department for
reported acute on chronic left-sided chest pain which began in the morning and continued back pain and 'buttock pain from wound'. EMS reported that patient was on 16 L nasal cannula. Currently on high flow. He denied active shortness of breath
this am. Patient has RUE PICC line from which he was receiving ceftriaxone.
CT PE:
Examination is negative for pulmonary embolism.
Small to moderate bilateral pleural effusions.
Patchy parenchymal opacity mainly within both upper lobes, suspicious for pneumonia. Pulmonary edema would be a differential consideration.
Band-shaped opacity within the inferior lingula, compatible with discoid atelectasis.
Note is made of a slightly impacted fracture involving the superior sternal body. This appears to be acute to subacute.
Calcification of the thoracic aorta with no evidence for thoracic aortic aneurysm.
A/P:
##Acute Hypoxic Respiratory Failure
-2/2 to Acute HFrEF +/- Aspiration Pneumonia
-abx
-lasix
-monitor and wean o2 as tolerated
-goal o2 >92%
#Cardiogenic Shock
#Acute HFreF
-Weaning off phenylephrine, switch to dobutamine and norepinephrine - wean as tolerated
-Cont IV lasix
-Stop fluids
-Monitor with pressors and diuresis
-EF 30-35%
-F/u lactate
-Maintain MAP >65
#Transaminitis
� Most likely secondary to hypoperfusion, shock
� Continue to monitor
#Sepsis
# Suspect aspiration pneumonia
# Leukocytosis -stable
# Recent Strep sanguinis bacteremia with L3/L4 discitis, currently on IV abx (was ceftriaxone) x 8 weeks through 12/10/24.
-can consider YEE to evaluate for infective endocarditis given recent high grade Strep sanguinis bacteremia
-Can consider MR Spine once stable to eval for Osteo
-broaden to cefepime 1mg IV q6h to cover PNA and discitis
#Non Ischemic Chest pain
#Elevated Troponin
-most likely non ischemic myocardial injury in setting of acute state
- possible atheromatous LAD plaque => treating for potential NSTEMI with 48 hours heparin and DAPT as tolerated for up to 12 months.
- STOP IV heparin
-As per Cardiology: Given the AFib and anemia and at age 83 it is best to move to just ASA + Eliquis at this time, can revisit if needed
#Mitral regurgitation, progressive mod/severe => severe
#Anemia, chronic, monitor
#Afib, paroxsymal
-Hep ggt
-rate controlled
-switch to PO amio
# Recent L3/L4 discitis/osteomyelitis with Strep bacteremia
-Complicated by Intractable lower back pain with gait dysfunction due to above
-cefepime - abx for 8 weeks total
-may need MRI once stable
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
Per , flaherty was placed on 10/02/2024 due to urinary retention
Exchanged flaherty this admission
Outpt Uro follow up
#Sacral ulcer, Stage III
-wound care
-Can consider MRI once stable - already on abx
# Distant h/o DVT, completed AC course
hep ggt
Code status: full code
DVT prophylaxis: Hep ggt
Total time spent on today's encounter was 53 minutes which included time spent in counseling the patient/family regarding diagnosis and treatment plan as listed above, goals of care, and symptom management. Case was discussed with nursing staff,
specialists, and care coordinators/case management. All labs and imaging personally reviewed by me. Remainder the time spent in detailed review of previous records, lab data, imaging, and other medical provider documentation.
Anticipated Discharge: > 48 hours
Subjective/Interval History
-
Date of Service: November 03, 2024
no acute events overnight, off bipap - weaning pressors
Objective Data
-
Labs:
Laboratory Results
11/03/24 11/03/24 11/03/24
03:11 04:08 05:38
WBC 12.0 H
Hgb 7.8 L
Hct 23.4 L
Plt Count 314
PT 15.2 H
INR 1.17
APTT 83.6 H
HCO3 17.5 L
Sodium 133 L
Potassium 4.2
Chloride 109 H
Carbon Dioxide 20 L
BUN 53 H
Creatinine 1.1
Glucose 131 H
Calcium 7.5 L
Total Bilirubin 0.7
AST 173 H
ALT 365 H
Alkaline Phosphatase 62
11/03/24
12:00
WBC
Hgb
Hct
Plt Count
PT
INR
APTT Cancelled
HCO3
Sodium
Potassium
Chloride
Carbon Dioxide
BUN
Creatinine
Glucose
Calcium
Total Bilirubin
AST
ALT
Alkaline Phosphatase
Vital Signs:
Vital Signs
Temp Pulse Resp BP Pulse Ox
98.5 F 82 17 91/59 98
11/03/24 12:00 11/03/24 12:00 11/03/24 12:00 11/03/24 12:00 11/03/24 12:28
I&O
11/02/24 11/03/24 11/04/24
06:59 06:59 06:59
Intake Total 2722 / 2801 1755.0 / 1807.0 337.1 / 337.1
Output Total 525 / 525 2200 / 2260 460 / 460
Balance 2197 / 2276 -445.0 / -453.0 -122.9 / -122.9
Review of Systems
-
History Source: Patient
All other systems: Not reviewed unless documented
Data Reviewed
-
Diagnostic Radiology: Report Reviewed by me
CT Scan: Report Reviewed by me
Labs: Labs Reviewed by me
--- NOTE | 2024-11-03 13:14 | PTCARENOTE ---
Pt now off levo, fell soundly asleep sitting up in chair. Woke up for lunch. Pt woke up c/o buttocks pain. Will return to bed once he is finished lunch.
--- NOTE | 2024-11-03 13:30 | PTCARENOTE ---
pt returned to bed. very lethargic. didn't really eat lunch. Placed back on bipap. resting comfortably
--- NOTE | 2024-11-03 15:23 | CM ---
IV/Lasis, IV/AB, wean pressors/inotropes as tolerated, wean o2 as tolerated, Bipap. Discharge POC: Therapy recommendation for SNF. Was at [facility]. referral forwarded.
--- NOTE | 2024-11-03 15:42 | PTCARENOTE ---
No changes. Pt fatigued. Continues to c/o low back/sacral pain. But falls to sleep without medication. Has remained of levo since am. Dobutamine and Amio continue.
--- NOTE | 2024-11-03 20:00 | PTCARENOTE ---
Received patient AAOx3, following commands, reporting 7/10 pain in sacrum and back, requested tylenol, see JUN. NS 80s, BP stable 90s/60s, afebrile. +1 b/l LE edema, weak pedal pulses. On 10 liters midflow, lung sounds coarse and diminished
throughout, saturating 95%. Abdomen soft, round, positive bowel sounds. Chronic flaherty draining yellow urine. Sacral foam CDI. PIVs and PICC patent, WNL. Call [place] within reach, repositioned.
[2024-11-03] MEDS: REMOVE LIDOCAINE PATCH 1 PATCH REMOVE (20:39)
[2024-11-04] VITALS (41 sets, daily range): BP systolic 89–113; BP diastolic 48–72; PULSE 2–82; BMI 20.4
[2024-11-04] MEDS: MAXIPIME 1000 MG IV ×5 (00:23→23:04)
[2024-11-04] MEDS: STERILE WATER FOR INJECTION 10 ML IV ×5 (00:23→23:04)
[2024-11-04] MEDS: NEURONTIN 200 MG PO ×4 (00:23→23:04)
--- NOTE | 2024-11-04 00:23 | PTCARENOTE ---
Patient assessment unchanged from previous, resting comfortably, call [place] within reach.
[2024-11-04] MEDS: MORPHINE SULFATE 1 MG IV (00:37)
[2024-11-04 05:16] LABS: Hematocrit 22.9 % (39.0-52.0); Hemoglobin 7.6 g/dL (13.0-18.0); Mean Corp Hgb Conc. 33.2 g/dL (33.0-37.0); Mean Corpuscular Volume 81.8 fL (80.0-94.0); Nucleated Red Blood Cells % 0.2 % (-); Platelet Count 273 10^3/uL (130-400); Red Cell Dist. Width 17.6 % (11.5-14.5)
--- NOTE | 2024-11-04 05:29 | PTCARENOTE ---
Patient repositioned, warm blankets provided. Labs sent, flaherty care done, patient requested to do CHG bath later in the morning as he reports sleeping poorly. Call [place] within reach.
[2024-11-04 05:50] LABS: ALT (SGPT) 276 U/L (0-50); AST (SGOT) 79 U/L (17-59); Albumin 2.5 g/dl (3.5-5.0); Alkaline Phosphatase 63 U/L (38-126); Blood Urea Nitrogen 51 mg/dl (9-20); Calcium 8.2 mg/dl (8.4-10.2); Carbon Dioxide 19 mmol/L (22-30); Chloride 108 mmol/L (98-107); Estimated Creatinine Clearance 51 ml/min; Glucose 106 mg/dl (70-99); Magnesium 2.3 mg/dl (1.6-2.3); Potassium 3.8 mmol/L (3.5-5.1); Sodium 129 mmol/L (135-145); Total Protein 5.1 g/dl (6.3-8.2); eGFR > 60.00
[2024-11-04] MEDS: LIDOCAINE 4% PATCH 1 PATCH TOPICAL (08:07)
[2024-11-04] MEDS: LASIX 40 MG IV ×2 (08:07→15:27)
[2024-11-04] MEDS: ELIQUIS 5 MG PO ×2 (08:07→20:11)
[2024-11-04] MEDS: LOW STRENGTH ASPIRIN 81 MG PO (08:08)
[2024-11-04] MEDS: PROTONIX IV 40 MG IV (08:08)
[2024-11-04] MEDS: NSS (PRESERVATIVE FREE) 10 ML IV (08:08)
[2024-11-04] MEDS: SANTYL OINTMENT 1 APPLIC TOPICAL (08:09)
[2024-11-04] MEDS: PACERONE 400 MG PO ×2 (08:09→20:11)
[2024-11-04] MEDS: TYLENOL 650 MG PO ×2 (08:09→11:42)
[2024-11-04] MEDS: VISBIOME 1 CAP PO (08:09)
--- NOTE | 2024-11-04 08:34 | W.PN.CD ---
Today's Communication / Plan
-
Add one time dose Zaroxolyn to try and get patient's weight down. Reassess daily for consideration of Zaroxolyn
Continue Lasix 40 IV BID
Continue Amio 400 bid, after 6-12 grams will go down to 200 daily, may choose to stop it in 3-6 months
Continue Eliquis + ASA (balancing risk/benefit I chose ASA over Plavix)
Increase activity
Continue dobutamine (now off Levo)
Later add GDMT for HFrEF, not yet
Goal weight not determined, may not have tremendous volume overload, he may need a PCWP of 18-20, and at cath was 24)
32 min of critical care provided by me in ICU today
Impression / Plan
-
Mr. Jensen is an 83 year old man with past medical history of moderate-severe mitral regurgitation, dyslipidemia, and PAD recently hospitalized for discitis and bacteremia, transferred back to the hospital from rehab due to chest pain on 10/30. Chest
pain had typical and atypical features. CTPE was performed with no PE but pulmonary infiltrates c/f pneumonia vs. CHF. Troponin was elevated and echo showed new regional wall motion abnormalities concerning for stress CM vs. LAD territory ischemia
and progressive MR and TR. Catheterization was performed 10/30 and demonstrated a OYSTER HARVESTER of the RPL and non-obstructive disease in the LAD. Over the weekend chest pain improved and was largely pleuritic, troponin peaked at ~40, and hypoxia improved. He
was treated for pneumonia with antibiotics.
Acute HFrEF with new cardiomyopathy (new LVEF 30-355 by echo 10/30/2024)
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
- not ready to add GDMT, after decongestion with Lasix and on PO Lasix will slowly add GDMT (and likely wait until off Dobutamine)
- Continue Dobutamine 5
- Diuresis => Lasix 40 IV BID add one time Zaroxolyn today 11/05/2024 and reassess daily for decision on Zaroxolyn
Suspected PNA/Sepsis/Shock
- On ATBs
- possible mixed cardiogenic and septic
- Off Levo, off janice for several days
CAD:
- likely OYSTER HARVESTER of RPL and non-obstructive plaque in mid-LAD
- Dr. Thomson suspects that his presentation is a non-ischemic process but CAD could have been contributing
- ASA + Eliquis ([place] assessment of risk/
AFib, paroxysmal
- Was sustained with RVR 11/02/2024, IV AMIO => Sinus at 0005 hrs on 11/03/2024
- Moved to PO AMIO 400 BID likely just 200 mg one time daily at discharge
- Eliquis + ASA
- Might choose to stop Amio in 3-6 months but might chose detention amio
Abnormal troponin, peaked at 42.8 on 10/31/2024
- suspect acute, non-ischemic myocardial injury in setting of acute infectious illness (also anemia, hypoxia)
- but we cannot rule out type II TN. We do not think this is a NSTEMI
Mitral regurgitation, progressive => mod/severe => severe
Anemia, chronic, monitor
Subjective:
Oxygenation has improved. Still on O2 4 l and more at times. CXR perhaps a bit improved (pneumonia and or heart failure). Weight not down yet
Data:
CXR : progressive pulmonary edema with RUL predominance
Chest CT: Examination is negative for pulmonary embolism. Small to moderate bilateral pleural effusions. Patchy parenchymal opacity mainly within both upper lobes, suspicious for pneumonia. Pulmonary edema would be a differential consideration.
Band-shaped opacity within the inferior lingula, compatible with discoid atelectasis. Note is made of a slightly impacted fracture involving the superior sternal body. This appears to be acute to subacute. Calcification of the thoracic aorta with no
evidence for thoracic aortic aneurysm.
Cath 10/30/2024:
1. Moderately elevated biventricular filling pressures, moderate post-capillary pulmonary hypertension, and low cardiac index (RA 16, PA 45/20, PCWP 24)
2. No aortic stenosis
3. CAD without a flow limiting lesion: 30-40% LM, mLAD with focal, eccentric atheromatous plaque, 40% OM, subtotal occlusion RPL
Echo 10/30/2024: LV ejection fraction is 30-35%, Septal and basal inferior hypokinesis/akinesis. Apical dyskinesis. Severe MR/TR. PASP 50-55
Compared to previous echo on 10/14/2024
LVEF fallen godg31-81% with normal regional wall motion. TR increased from mild to severe. PASP has increased from 25 to 30 mmHg). Slight increased in MR mod/severe => severe.
Physical Exam
Vital Signs/Labs
Vital Signs
Temp Pulse Resp BP Pulse Ox
97.5 F 80 14 89/58 98
11/04/24 03:10 11/04/24 07:00 11/04/24 07:00 11/04/24 07:00 11/04/24 07:00
11/03/24 11/04/24 11/05/24
06:59 06:59 06:59
Actual Weight 66.2 kg 66.2 kg
11/04/24 05:07
11/04/24 05:07
PT 15.2 Sec (11.4-14.6) H 11/03/24 05:38
INR 1.17 11/03/24 05:38
APTT Cancelled 11/03/24 12:00
Magnesium 2.3 mg/dl (1.6-2.3) 11/04/24 05:07
LAB Results
11/02/24
10:30
Troponin I 9.970 H*
Physical Exam
Constitutional: Other (up in chair, frail, but comfortable)
Cardiovascular: Rhythm & rate is regular and Systolic murmur present
Respiratory: Rhonchi Present
GI: Soft and Distention absent
Neuro/Psych: Alert
Data Reviewed
-
Date of Service: November 04, 2024
[2024-11-04] MEDS: ZAROXOLYN 5 MG PO (08:59)
[2024-11-04] MEDS: KLOR-CON 40 MEQ PO (08:59)
--- NOTE | 2024-11-04 09:04 | W.PN.ID1 ---
Date of Service
Date of Service: November 04, 2024
Today's Communication
Continue cefepime.
Assessment / Plan
# Recent Strep sanguinis bacteremia with L3/L4 discitis, currently on IV abx (was ceftriaxone) x 8 weeks through 12/10/24.
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
# Cardiogenic shock weaning pressor, dobutamine
# Acute hypoxemic resp failure, improve
# Suspect aspiration pneumonia
# Leukocytosis - resolved
# New onset afib, now in sinus
# Unstageable sacral decubitus, present on admission
- Blood cx's neg to date
- Cardiac cath: no significant CAD to explain trop 69.
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
- Continue cefepime 1g IV q6h (d3) to cover both PNA and discitis
- Aspiration precaution
- Trend vitals
Chief Complaint
-: Other (CHF)
Subjective / Review of Systems
Sitting up in chair. Ate breakfast. Feels better.
Vital Signs / Physical Exam
Vital Signs
Vital Signs
Temp Pulse Resp BP Pulse Ox
97.5 F 80 14 89/58 98
11/04/24 08:05 11/04/24 07:00 11/04/24 07:00 11/04/24 07:00 11/04/24 07:00
Physical Exam
Constitutional: No Acute Distress and Chronically Ill
Cardiovascular: Regular Rate and S1/S2
Pulmonary: Rales
Gastrointestinal: Soft, Non Tender and Non Distended
Extremities: Negative Edema
Neurological: AO x 3
Objective Data
Lab Data
Lab Results
11/04/24 05:07
11/04/24 05:07
PT 15.2 Sec (11.4-14.6) H 11/03/24 05:38
INR 1.17 11/03/24 05:38
APTT Cancelled 11/03/24 12:00
Estimated Creat Clear 51 ml/min 11/04/24 05:07
Lactic Acid 1.8 mmol/L (0.7-2.0) 11/02/24 17:33
Total Bilirubin 0.5 mg/dl (0.2-1.3) 11/04/24 05:07
AST 79 U/L (17-59) H 11/04/24 05:07
ALT 276 U/L (0-50) H 11/04/24 05:07
Alkaline Phosphatase 63 U/L (38-126) 11/04/24 05:07
Most recent labs reviewed.
Micro Results:
10/30/24 09:03 Blood Culture - Preliminary
Blood/Venous No Growth in 4 days- Final report to follow
10/30/24 09:02 Blood Culture - Preliminary
Blood/Venous No Growth in 4 days- Final report to follow
10/30/24 18:11 MRSA Screen - Final
Nose No Methicillin Resistant Staphylococcus aureus isolated.
10/30/24 08:01 Urine Culture - Final
Urine NO GROWTH
10/30/24 20:17 Respiratory Culture - Final
Sputum Gram Stain - Final
10/30/24 18:11 Legionella Urinary Antigen - Final
Urine Negative for Legionella pneumophila Serogroup 1 antigen.
A negative result does not rule out the possiblity of
Legionella infection due to other serogroups or species of
Legionella. Clinical correlation is recommended.
Streptococcus pneumoniae Antigen (M - Final
Negative for Streptococcus pneumoniae antigen.
A negative result does not exclude infection with
Streptococcus pneumoniae. Clinical correlation is
recommended.
10/30/24 11:35 Influenza Types A & B (LAURA) - Final
Nasal Swab Negative for Influenza A & B, NAAT
Negative results must be combined with clinical observations
and patient history.
Nucleic Acid Amplification test (NAAT)performed on the
[employer] NOW platform.
11/04/24 CXR: Bilateral opacification slightly improved on the right, possibly representing pneumonia and small bilateral pleural effusions.
11/02/24 CXR: MARKED PROGRESSION OF WIDESPREAD BILATERAL PARENCHYMAL OPACITIES, most likely differential diagnostic possibilities would be acute pulmonary edema or pneumonia.
10/30/[address] examination is negative for pulmonary embolism. Small to moderate bilateral pleural effusions. Patchy parenchymal opacity mainly within both upper lobes, suspicious for pneumonia. Pulmonary edema would be a differential
consideration.
--- NOTE | 2024-11-04 11:12 | PTCARENOTE ---
Pt back in afib this am. Not symptomatic. Rates less then 120s. Dr River aware. No new orders at this time.
--- NOTE | 2024-11-04 11:25 | W.PN.INTV ---
Today's Communication / Plan
Recommendations
- Continue to wean oxygen as tolerated, target saturation more than 90%
- Continue current dose of IV Lasix, follow-up chest x-ray in a.m.
- PT/OT
Assessment
-
83-year-old male with history of hypertension, hyperlipidemia, recent discitis, back pain, presents with chest pain thought to be hypotensive, with sternal fracture, elevated troponin, status post NSTEMI. Status post catheterization with
biventricular elevated filling pressures, borderline blood pressure, transferred to ICU for further management. Briefly required BiPAP but upon arrival to ICU not on BiPAP
Conditions present prior to admission
History of anemia
Recent streptococcal bacteremia
Lumbar discitis/osteomyelitis, discharge 10/21/24, on ceftriaxone
History of DVT
BPH
Urinary retention with Soler catheter
Interval total hip replacement
Cachexia
DNR
11/04 overview: Patient was on BiPAP overnight, currently on 4 L supplemental oxygen, saturating 95%. MAP noted to be 73 on dobutamine at 5. Off Levophed now. Intermittent paroxysmal A-fib noted. Fluid balance -1.06 L over last 24 hours
Assessment and plan:
#1. Cardiogenic shock, with LVEF 30-35%.
- Elevated filling pressures per cardiac catheterization, pulmonary capillary wedge pressure of 24 with elevated mean pulmonary artery pressure.
- Continue dobutamine at 5, weaned off Levophed, MAP of 73 this morning
- Cardiology service on case
- Liver function test showing improving AST/ALT, lactate level improved
- Lasix 40 mg IV twice a day
#2. Acute heart failure with reduced ejection fraction, severe mitral regurgitation
- Patient was volume overloaded with pulmonary edema on exam. Also concern for underlying severe mitral regurgitation related upper lobe predominant pulmonary edema.
- Started on dobutamine infusion on 11/02, continue pressor support as needed to keep MAP above 65. Lasix 40 mg IV twice daily
- Diuresing well, follow-up chest x-ray improving
#3. Acute hypoxic respiratory failure with worsening Pulmonary Edema
- Responding to dobutamine with Lasix. Follow-up chest x-ray today showing improved aeration, oxygen requirement declining
- Procalcitonin noted to be elevated at 1.42, ceftriaxone switched to cefepime per ID service.
- Off high flow now, currently on nasal cannula at 4 L, continue nightly BiPAP
#3a. Atrial fibrillation with rapid ventricular rate.
- EKG suggestive of A-fib.
- Amiodarone infusion switched to oral amiodarone
- Heparin drip transition to Eliquis per cardiology service
#4. Pulmonary hypertension, Group II
- Right heart cath, 10/2024, mean pulmonary artery pressure 34, PA pressure 44 x 20. Pulmonary capillary wedge pressure of 24. PVR of 2.7. Cardiac index at 1.98 L.
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
- Initiated diuresis with Lasix, added inotropic support with dobutamine. BiPAP nightly. Continue supplemental O2 to keep saturation above 90%
#5. Atypical chest pain with NSTEMI, type II.
- Medically managed, heparin drip transitioned to Eliquis
- Cardiology service on case
#6. History of discitis with bacteremia, currently on ceftriaxone scheduled through 12/10/2024.
- ID service on case, ceftriaxone switched to cefepime to broaden coverage with concern for concomitant pneumonia
#7. Chronic stage III sacral wounds
- Wound care
#8. Elevated AST and ALT.
- Suspect elevated transaminases in the setting of cardiogenic shock, improving on follow-up lab work
- Continue to monitor
#9. Lactic acidosis.
- Again suspect related to underlying cardiogenic shock.
- Responded to initiation of dobutamine and diuresis with improving lactate
DVT prophylaxis, currently on Eliquis
GI prophylaxis with IV pantoprazole.
Updated patient's spouse at bedside.
Critical Care time 36 mins -- The patient is admitted for acute critical illness for the treatment of vital organ failure and/or prevention of further life-threatening conditions. Total care includes time spent in review of history, physical exam,
medications, hemodynamic/ventilator parameters, laboratory data, imaging and discussion with house staff, pharmacy, respiratory therapy, cable braider, and nursing.
Patient CODE STATUS DNR
Data:
[facility] 10/2024: -LV ejection fraction is 30-35%, by visual assessment. Septal and basal
inferior hypokinesis/akinesis. Apical dyskinesis.
-Normal right ventricular size and function.
-Moderately dilated left atrium.
-Severe mitral regurgitation.
-Severe tricuspid regurgitation. Estimated pulmonary artery pressure of 50-55
mmHg.
-The IVC is dilated and does not collapse.
RHC & LHC 10/2024: 1. Moderately elevated biventricular filling pressures, moderate post-capillary pulmonary hypertension, and low cardiac index.
2. No aortic stenosis
3. Coronary artery disease as described without a flow limiting lesion to explain the patients new cardiomyopathy and ongoing chest pain. 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
4. Given presence of possible atheromatous LAD plaque would treat medically for NSTEMI with 48 hours heparin and DAPT as tolerated for up to 12 months.
Subjective Dataa
Subjective Data
Date of Service:
Date of Service: November 04, 2024
Subjective:
Patient comfortably sitting in bed, in no acute distress.
Review of Systems
Genitourinary: Other (All 14 systems reviewed and negative except as stated above in the history of present illness.)
Objective Data
Data Reviewed
Vital Signs / I&O / Oxygen:
Vital Signs
Temp Pulse Resp BP Pulse Ox
97.5 F 104 15 106/72 98
11/04/24 11:24 11/04/24 10:30 11/04/24 10:30 11/04/24 10:00 11/04/24 10:30
Intake and Output
11/03/24 11/04/24 11/05/24
06:59 06:59 06:59
Intake Total 1755.0 / 1807.0 1050.6 / 1060.6 330 / 330
Output Total 2200 / 2260 2034 / 2034 150 / 150
Balance -445.0 / -453.0 -984.4 / -974.4 180 / 180
SaO2 98
Nasal Cannula flow liters per 4
minute
Physical Exam
General: Respiratory Distress (Resolved)
HEENT: Normocephalic and Anicteric
Cardiovascular: S1-S2, Regular Rhythm, Murmur (n), Rub (n) and Peripheral Edema (None)
Respiratory: Wheeze (n), Crackles (Improving) and Rhonchi (Improved)
GI: Soft, Non Distended and Non Tender
Neurology: Awake, Alert, Oriented and No Motor Deficits (Generally weak)
Skin: Good Color
Labs/Micro/Reports
Lab Data
11/04/24 05:07
11/04/24 05:07
Microbiology
10/30/24 09:02 Blood/Venous Blood Culture - Final
No Growth - Final Report
10/30/24 09:03 Blood/Venous Blood Culture - Final
No Growth - Final Report
10/30/24 18:11 Nose MRSA Screen - Final
No Methicillin Resistant Staphylococcus aureus isolated.
[2024-11-04] MEDS: DOBUTREX 500 MG 250 IV (11:42)
--- NOTE | 2024-11-04 12:40 | W.PN.HOSP.TC ---
Today's Communication/Plan
-
wean dobutamine off if able
Metolazone today, monitor daily
Diuretics
Wean o2 as tolerated
Assessment / Plan
Assessment / Plan
83-year-old male with past medical history of recent osteomyelitis/discitis on IV ceftriaxone, stage III sacral wound, recently discharged from to [facility]; presented back to the emergency department for
reported acute on chronic left-sided chest pain which began in the morning and continued back pain and 'buttock pain from wound'. EMS reported that patient was on 16 L nasal cannula. Currently on high flow. He denied active shortness of breath
this am. Patient has RUE PICC line from which he was receiving ceftriaxone.
CT PE:
Examination is negative for pulmonary embolism.
Small to moderate bilateral pleural effusions.
Patchy parenchymal opacity mainly within both upper lobes, suspicious for pneumonia. Pulmonary edema would be a differential consideration.
Band-shaped opacity within the inferior lingula, compatible with discoid atelectasis.
Note is made of a slightly impacted fracture involving the superior sternal body. This appears to be acute to subacute.
Calcification of the thoracic aorta with no evidence for thoracic aortic aneurysm.
A/P:
##Acute Hypoxic Respiratory Failure
-2/2 to Acute HFrEF +/- Aspiration Pneumonia
-abx
-lasix
-monitor and wean o2 as tolerated
-goal o2 >92%
#Cardiogenic Shock
#Acute HFreF
-Weaning off phenylephrine, was switched to dobutamine and norepinephrine - now on dobutamine - turn off if feasbile
-Cont IV lasix
-Add metolazone
-Stop fluids
-Monitor with pressors and diuresis
-EF 30-35%
-Maintain MAP >65
#Transaminitis
� Most likely secondary to hypoperfusion, shock
� Continue to monitor
-improving
#Sepsis
# Suspect aspiration pneumonia
# Leukocytosis -stable
# Recent Strep sanguinis bacteremia with L3/L4 discitis, currently on IV abx (was ceftriaxone) x 8 weeks through 12/10/24.
-can consider YEE to evaluate for infective endocarditis given recent high grade Strep sanguinis bacteremia
-Can consider MR Spine once stable to eval for Osteo
-broaden to cefepime 1mg IV q6h to cover PNA and discitis
#Hyponatremia
-monitor with diuresis
-suspect volume overload
#Non Ischemic Chest pain
#Elevated Troponin
-most likely non ischemic myocardial injury in setting of acute state
- possible atheromatous LAD plaque => treating for potential NSTEMI with 48 hours heparin and DAPT as tolerated for up to 12 months.
- STOP IV heparin
-As per Cardiology: Given the AFib and anemia and at age 83 it is best to move to just ASA + Eliquis at this time, can revisit if needed
#Mitral regurgitation, progressive mod/severe => severe
#Anemia, chronic, monitor
#Afib, paroxsymal
-Hep ggt
-rate controlled
-switch to PO amio
# Recent L3/L4 discitis/osteomyelitis with Strep bacteremia
-Complicated by Intractable lower back pain with gait dysfunction due to above
-cefepime - abx for 8 weeks total
-may need MRI once stable
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
Per , flaherty was placed on 10/02/2024 due to urinary retention
Exchanged flaherty this admission
Outpt Uro follow up
#Sacral ulcer, Stage III
-wound care
-Can consider MRI once stable - already on abx
# Distant h/o DVT, completed AC course
hep ggt
Code status: full code
DVT prophylaxis: Hep ggt
Total time spent on today's encounter was 51 minutes which included time spent in counseling the patient/family regarding diagnosis and treatment plan as listed above, goals of care, and symptom management. Case was discussed with nursing staff,
specialists, and care coordinators/case management. All labs and imaging personally reviewed by me. Remainder the time spent in detailed review of previous records, lab data, imaging, and other medical provider documentation.
Anticipated Discharge: > 48 hours
Subjective/Interval History
-
Date of Service: November 04, 2024
out of bed, in chair on 4L
Objective Data
-
Labs:
Laboratory Results
11/04/24
05:07
WBC 9.0
Hgb 7.6 L
Hct 22.9 L
Plt Count 273
Sodium 129 L
Potassium 3.8
Chloride 108 H
Carbon Dioxide 19 L
BUN 51 H
Creatinine 1.0
Glucose 106 H
Calcium 8.2 L
Total Bilirubin 0.5
AST 79 H
ALT 276 H
Alkaline Phosphatase 63
Vital Signs:
Vital Signs
Temp Pulse Resp BP Pulse Ox
97.5 F 104 15 106/72 98
11/04/24 11:24 11/04/24 10:30 11/04/24 10:30 11/04/24 10:00 11/04/24 10:30
I&O
11/03/24 11/04/24 11/05/24
06:59 06:59 06:59
Intake Total 1755.0 / 1807.0 1050.6 / 1060.6 330 / 330
Output Total 2200 / 2260 2035 / 2034 150 / 150
Balance -445.0 / -453.0 -984.4 / -974.4 180 / 180
Review of Systems
-
History Source: Patient
All other systems: Not reviewed unless documented
Data Reviewed
-
Diagnostic Radiology: Report Reviewed by me
CT Scan: Report Reviewed by me
Labs: Labs Reviewed by me
--- NOTE | 2024-11-04 14:16 | PTCARENOTE ---
Pt returned to bed. C/o 'excrutiating pain' after receiving tylenol and staff checked pt multiple times and he was sleeping in chair. Pain does improve with repositioning. Appetite has improved today and pt diet has been advanced. Otherwise no
changes.
--- NOTE | 2024-11-04 14:16 | CM ---
Lasix/IV, Cefepime/IV, wean O2 as tolerated. Discharge POC: Therapy recommended SNF. Came from [facility] has accepted again pending bed availability. Patient and in agreement.
--- NOTE | 2024-11-04 16:14 | PTCARENOTE ---
Pt woke up after nap confused thinking he had slept all night. Repositioned. Reoriented easily. Diuresing well after addition of zaroxolyn. Otherwise no changes.
[2024-11-04] MEDS: TYLENOL ORAL SOLUTION 650 MG PO ×2 (17:44→23:04)
[2024-11-04] MEDS: REMOVE LIDOCAINE PATCH 1 PATCH REMOVE (20:12)
--- NOTE | 2024-11-04 20:48 | PTCARENOTE ---
Received patient AAOx3, following commands, comfortable in bed. NS with PVCs and first degree heart block in the 80s, BP stable, afebrile. +1 b/l LE edema with weak pedal pulses. On 4 liters nasal cannula saturating 98%, lung sounds coarse and
diminished throughout. Abdomen soft, positive bowel sounds, no BM yet. Soler in place draining yellow urine. Foam on sacrum CDI. PIV and PICC patent, WNL. Call [place] within reach.
--- NOTE | 2024-11-04 23:44 | PTCARENOTE ---
CHG bath done, flaherty care done, repositioned. Warm blankets provided, call [place] within reach.
[2024-11-05] VITALS (33 sets, daily range): BP systolic 84–111; BP diastolic 47–63; PULSE 2–97; O2SAT 94–96; BMI 20.2
[2024-11-05 04:54] LABS: Hematocrit 22.9 % (39.0-52.0); Hemoglobin 7.5 g/dL (13.0-18.0); Mean Corp Hgb Conc. 32.8 g/dL (33.0-37.0); Mean Corpuscular Volume 81.5 fL (80.0-94.0); Nucleated Red Blood Cells % 0.2 % (-); Platelet Count 314 10^3/uL (130-400); Red Cell Dist. Width 17.9 % (11.5-14.5)
[2024-11-05] MEDS: MAXIPIME 1000 MG IV ×4 (05:03→23:59)
[2024-11-05] MEDS: STERILE WATER FOR INJECTION 10 ML IV ×4 (05:03→23:59)
[2024-11-05] MEDS: TYLENOL ORAL SOLUTION 650 MG PO ×4 (05:05→23:59)
--- NOTE | 2024-11-05 05:13 | PTCARENOTE ---
Labs sent, repositioned, patient assessment unchanged from previous. Call [place] within reach.
[2024-11-05 05:15] LABS: ALT (SGPT) 216 U/L (0-50); AST (SGOT) 60 U/L (17-59); Albumin 2.6 g/dl (3.5-5.0); Alkaline Phosphatase 65 U/L (38-126); Blood Urea Nitrogen 43 mg/dl (9-20); Calcium 8.1 mg/dl (8.4-10.2); Carbon Dioxide 22 mmol/L (22-30); Chloride 103 mmol/L (98-107); Estimated Creatinine Clearance 57 ml/min; Glucose 103 mg/dl (70-99); Magnesium 2.1 mg/dl (1.6-2.3); Potassium 3.9 mmol/L (3.5-5.1); Sodium 128 mmol/L (135-145); Total Protein 5.0 g/dl (6.3-8.2); eGFR > 60.00
[2024-11-05] MEDS: ELIQUIS 5 MG PO ×2 (08:23→19:55)
[2024-11-05] MEDS: NEURONTIN 200 MG PO ×3 (08:24→23:59)
[2024-11-05] MEDS: LIDOCAINE 4% PATCH 1 PATCH TOPICAL (08:24)
[2024-11-05] MEDS: NSS (PRESERVATIVE FREE) 10 ML IV (08:24)
[2024-11-05] MEDS: PROTONIX IV 40 MG IV (08:24)
[2024-11-05] MEDS: VISBIOME 1 CAP PO (08:24)
[2024-11-05] MEDS: SANTYL OINTMENT 1 APPLIC TOPICAL (08:25)
[2024-11-05] MEDS: LOW STRENGTH ASPIRIN 81 MG PO (08:25)
[2024-11-05] MEDS: PACERONE 400 MG PO ×2 (08:25→19:55)
--- NOTE | 2024-11-05 08:55 | PTCARENOTE ---
recd pt family bedside, notes ongoing discomfort back and heels. Heels offloaded, positioned as able for back pain. Denies need for morphine for pain at this time; understands availability. Ordering breakfast at this time. Agreeable to get OOB
later this am. assessment as documented. Dobutamine infusing, notes bipap overnight was very uncomfortable, pt removed oxygen cannula as well, presently 93% on room air, occas desats 89-90 but improves with deep breath.
--- NOTE | 2024-11-05 10:58 | W.PN.ID1 ---
Date of Service
Date of Service: November 05, 2024
Today's Communication
Continue cefepime.
Assessment / Plan
# Recent Strep sanguinis bacteremia with L3/L4 discitis, currently on IV abx (was ceftriaxone) x 8 weeks through 12/10/24.
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
# s/p Cardiogenic shock weaning off pressors.
# Acute hypoxemic resp failure, resolved
# Suspect aspiration pneumonia
# Leukocytosis - resolved
# New onset afib, now in sinus
# Unstageable sacral decubitus, present on admission
- Blood cx's neg to date
- Cardiac cath: no significant CAD to explain trop 69.
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
- Continue cefepime 1g IV q6h (d4) to cover both PNA and discitis
- Aspiration precaution
- Trend vitals
Chief Complaint
-: Other (CHF)
Subjective / Review of Systems
Feeling better, now off oxygen
Vital Signs / Physical Exam
Vital Signs
Vital Signs
Temp Pulse Resp BP Pulse Ox
98.6 F 81 17 107/51 93
11/05/24 08:00 11/05/24 08:25 11/05/24 07:00 11/05/24 08:25 11/05/24 08:00
Physical Exam
Constitutional: No Acute Distress
Eyes: No Conjunctival Hemorrhage and Sclera Anicteric
Cardiovascular: Regular Rate and S1/S2
Pulmonary: Rales
Gastrointestinal: Soft, Non Tender and Non Distended
Genito-Urinary: Soler and Clear Urine
Extremities: Negative Edema
Neurological: AO x 3
Objective Data
Lab Data
Lab Results
11/05/24 04:24
11/05/24 04:24
PT 15.2 Sec (11.4-14.6) H 11/03/24 05:38
INR 1.17 11/03/24 05:38
APTT Cancelled 11/03/24 12:00
Estimated Creat Clear 57 ml/min 11/05/24 04:24
Lactic Acid 1.8 mmol/L (0.7-2.0) 11/02/24 17:33
Total Bilirubin 0.6 mg/dl (0.2-1.3) 11/05/24 04:24
AST 60 U/L (17-59) H 11/05/24 04:24
ALT 216 U/L (0-50) H 11/05/24 04:24
Alkaline Phosphatase 65 U/L (38-126) 11/05/24 04:24
Most recent labs reviewed.
Micro Results:
10/30/24 09:02 Blood Culture - Final
Blood/Venous No Growth - Final Report
10/30/24 09:03 Blood Culture - Final
Blood/Venous No Growth - Final Report
10/30/24 18:11 MRSA Screen - Final
Nose No Methicillin Resistant Staphylococcus aureus isolated.
10/30/24 08:01 Urine Culture - Final
Urine NO GROWTH
10/30/24 20:17 Respiratory Culture - Final
Sputum Gram Stain - Final
10/30/24 18:11 Legionella Urinary Antigen - Final
Urine Negative for Legionella pneumophila Serogroup 1 antigen.
A negative result does not rule out the possiblity of
Legionella infection due to other serogroups or species of
Legionella. Clinical correlation is recommended.
Streptococcus pneumoniae Antigen (M - Final
Negative for Streptococcus pneumoniae antigen.
A negative result does not exclude infection with
Streptococcus pneumoniae. Clinical correlation is
recommended.
10/30/24 11:35 Influenza Types A & B (LAURA) - Final
Nasal Swab Negative for Influenza A & B, NAAT
Negative results must be combined with clinical observations
and patient history.
Nucleic Acid Amplification test (NAAT)performed on the
[employer] ID NOW platform.
11/04/24 CXR: Bilateral opacification slightly improved on the right, possibly representing pneumonia and small bilateral pleural effusions.
11/02/24 CXR: MARKED PROGRESSION OF WIDESPREAD BILATERAL PARENCHYMAL OPACITIES, most likely differential diagnostic possibilities would be acute pulmonary edema or pneumonia.
10/30/[address] examination is negative for pulmonary embolism. Small to moderate bilateral pleural effusions. Patchy parenchymal opacity mainly within both upper lobes, suspicious for pneumonia. Pulmonary edema would be a differential
consideration.
--- NOTE | 2024-11-05 10:59 | W.PN.CD ---
Addendum entered and electronically signed by Wang Nair MD 11/05/24 11:03:
Hemoglobin 7.5. Additional treatment of anemia as directed by the primary team
Original Note:
Today's Communication / Plan
-
Recurrent A-fib 11/05/2024 rates reasonably controlled. Will continue to monitor as patient receives more amiodarone
Over 2 L negative after administration of Zaroxolyn yesterday. Would continue with IV Lasix today and continue Zaroxolyn as needed.
Impression / Plan
-
Mr. Jensen is an 83 year old man with past medical history of moderate-severe mitral regurgitation, dyslipidemia, and PAD recently hospitalized for discitis and bacteremia, transferred back to the hospital from rehab due to chest pain on 10/30. Chest
pain had typical and atypical features. CTPE was performed with no PE but pulmonary infiltrates c/f pneumonia vs. CHF. Troponin was elevated and echo showed new regional wall motion abnormalities concerning for stress CM vs. LAD territory ischemia
and progressive MR and TR. Catheterization was performed 10/30 and demonstrated a CRUDE TESTER of the RPL and non-obstructive disease in the LAD. Over the weekend chest pain improved and was largely pleuritic, troponin peaked at ~40, and hypoxia improved. He
was treated for pneumonia with antibiotics.
Acute HFrEF with new cardiomyopathy (new LVEF 30-355 by echo 10/30/2024)
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
- not ready to add GDMT, after decongestion with Lasix and on PO Lasix will slowly add GDMT (and likely wait until off Dobutamine)
- Continue Dobutamine 5
- Diuresis => Lasix 40 IV BID given one-time dose of Zaroxolyn 11/05/2024 will use Zaroxolyn on as needed basis
Suspected PNA/Sepsis/Shock
- On ATBs
- possible mixed cardiogenic and septic
- Off Levo, off janice for several days
CAD:
- likely CRUDE TESTER of RPL and non-obstructive plaque in mid-LAD
- Dr. Thomson suspects that his presentation is a non-ischemic process but CAD could have been contributing
- ASA + Eliquis ([place] assessment of risk/
AFib, paroxysmal
- Was sustained with RVR 11/02/2024, IV AMIO => Sinus at 0005 hrs on 11/03/2024
- Moved to PO AMIO 400 BID likely just 200 mg one time daily at discharge
- Eliquis + ASA
- Might choose to stop Amio in 3-6 months but might chose meterman amio
- Recurrent A-fib 11/05/2024 rates reasonably controlled. Will continue to monitor as patient receives more amiodarone
Abnormal troponin, peaked at 42.8 on 10/31/2024
- suspect acute, non-ischemic myocardial injury in setting of acute infectious illness (also anemia, hypoxia)
- but we cannot rule out type II OR. We do not think this is a NSTEMI
Mitral regurgitation, progressive => mod/severe => severe
Anemia, chronic, monitor
Subjective:
Oxygenation has improved. Still on O2 4 l and more at times. CXR perhaps a bit improved (pneumonia and or heart failure). Weight not down yet
Data:
CXR : progressive pulmonary edema with RUL predominance
Chest CT: Examination is negative for pulmonary embolism. Small to moderate bilateral pleural effusions. Patchy parenchymal opacity mainly within both upper lobes, suspicious for pneumonia. Pulmonary edema would be a differential consideration.
Band-shaped opacity within the inferior lingula, compatible with discoid atelectasis. Note is made of a slightly impacted fracture involving the superior sternal body. This appears to be acute to subacute. Calcification of the thoracic aorta with no
evidence for thoracic aortic aneurysm.
Cath 10/30/2024:
1. Moderately elevated biventricular filling pressures, moderate post-capillary pulmonary hypertension, and low cardiac index (RA 16, PA 45/20, PCWP 24)
2. No aortic stenosis
3. CAD without a flow limiting lesion: 30-40% LM, mLAD with focal, eccentric atheromatous plaque, 40% OM, subtotal occlusion RPL
Echo 10/30/2024: LV ejection fraction is 30-35%, Septal and basal inferior hypokinesis/akinesis. Apical dyskinesis. Severe MR/TR. PASP 50-55
Compared to previous echo on 10/14/2024
LVEF fallen akse75-72% with normal regional wall motion. TR increased from mild to severe. PASP has increased from 25 to 30 mmHg). Slight increased in MR mod/severe => severe.
Physical Exam
Vital Signs/Labs
Vital Signs
Temp Pulse Resp BP Pulse Ox
98.6 F 81 17 107/51 93
11/05/24 08:00 11/05/24 08:25 11/05/24 07:00 11/05/24 08:25 11/05/24 08:00
11/04/24 11/05/24 11/06/24
06:59 06:59 06:59
Actual Weight 66.2 kg 65.8 kg
11/05/24 04:24
11/05/24 04:24
PT 15.2 Sec (11.4-14.6) H 11/03/24 05:38
INR 1.17 11/03/24 05:38
APTT Cancelled 11/03/24 12:00
Magnesium 2.1 mg/dl (1.6-2.3) 11/05/24 04:24
LAB Results
11/02/24
10:30
Troponin I 9.970 H*
Physical Exam
Constitutional: No acute distress
Cardiovascular: Rhythm/rate is irregular
Respiratory: Lungs clear to auscul. and Rhonchi Absent
GI: Soft, Non tender and Normal bowel sounds
Neuro/Psych: Alert, Oriented and AO x 3
Data Reviewed
-
Date of Service: November 05, 2024
Medical Decision Making: Reviewed Test Results
Echo: Report Reviewed by me
X-Ray/CT/US/MRI/NUC/PET: Report Reviewed by me
Medical Tests (PFT, Pathology etc): Report Reviewed by me
Labs: Labs Reviewed by me
[2024-11-05] MEDS: MIRALAX 17 GRAMS PO (11:41)
[2024-11-05] MEDS: LASIX 40 MG IV ×2 (11:42→16:34)
--- NOTE | 2024-11-05 12:03 | PTCARENOTE ---
wound care done. OOB assist 2, pt is very weak, in recliner chair and foam chair cushion. Ordering lunch.
[2024-11-05] MEDS: DOBUTREX 500 MG 250 IV (12:07)
--- NOTE | 2024-11-05 13:21 | W.PN.INTV ---
Today's Communication / Plan
Recommendations
- Continue IV diuresis
- Continue dobutamine infusion
- Anticipate transfer out of ICU on 11/06
Assessment
-
83-year-old male with history of hypertension, hyperlipidemia, recent discitis, back pain, presents with chest pain thought to be hypotensive, with sternal fracture, elevated troponin, status post NSTEMI. Status post catheterization with
biventricular elevated filling pressures, borderline blood pressure, transferred to ICU for further management. Briefly required BiPAP but upon arrival to ICU not on BiPAP
Conditions present prior to admission
History of anemia
Recent streptococcal bacteremia
Lumbar discitis/osteomyelitis, discharge 10/21/24, on ceftriaxone
History of DVT
BPH
Urinary retention with Soler catheter
Interval total hip replacement
Cachexia
DNR
11/05 overview: Patient was on BiPAP overnight, saturating 90% on room air sitting in chair, dobutamine infusing at 5. MAP of 70, not requiring any pressors.. Intermittent paroxysmal A-fib noted. Fluid balance, -3.1 L.
Assessment and plan:
#1. Cardiogenic shock, with LVEF 30-35%.
- Elevated filling pressures per cardiac catheterization, pulmonary capillary wedge pressure of 24 with elevated mean pulmonary artery pressure.
- Continue dobutamine at 5, weaned off Levophed, MAP of 70 this morning
- Cardiology service on case
- Liver function test showing improving AST/ALT, lactate level improved
- Lasix 40 mg IV twice a day. Received 1 dose of metolazone on 11/04
#2. Acute heart failure with reduced ejection fraction, severe mitral regurgitation
- Patient was volume overloaded with pulmonary edema on exam. Also concern for underlying severe mitral regurgitation related upper lobe predominant pulmonary edema.
- Started on dobutamine infusion on 11/02, continue pressor support as needed to keep MAP above 65. Lasix 40 mg IV twice daily
- Diuresing well, follow-up chest x-ray improving
- Oxygen requirement continues to go down, saturating well on room air today.
#3. Acute hypoxic respiratory failure with worsening Pulmonary Edema
- Responding to dobutamine with Lasix. Follow-up chest x-ray today showing improved aeration, oxygen requirement declining
- Procalcitonin noted to be elevated at 1.42, ceftriaxone switched to cefepime per ID service.
- Off high flow now, doing well on room air at rest, discontinue nightly BiPAP and switch to as needed.
#3a. Atrial fibrillation with rapid ventricular rate.
- EKG suggestive of A-fib.
- Amiodarone infusion switched to oral amiodarone
- Heparin drip transition to Eliquis per cardiology service
#4. Pulmonary hypertension, Group II
- Right heart cath, 10/2024, mean pulmonary artery pressure 34, PA pressure 44 x 20. Pulmonary capillary wedge pressure of 24. PVR of 2.7. Cardiac index at 1.98 L.
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
- Initiated diuresis with Lasix, added inotropic support with dobutamine. BiPAP nightly. Continue supplemental O2 to keep saturation above 90%
#5. Atypical chest pain with NSTEMI, type II.
- Medically managed, heparin drip transitioned to Eliquis
- Cardiology service on case
#6. History of discitis with bacteremia, currently on ceftriaxone scheduled through 12/10/2024.
- ID service on case, ceftriaxone switched to cefepime to broaden coverage with concern for concomitant pneumonia
#7. Chronic stage III sacral wounds
- Wound care
#8. Elevated AST and ALT.
- Suspect elevated transaminases in the setting of cardiogenic shock, improving on follow-up lab work
- Continue to monitor
#9. Lactic acidosis.
- Again suspect related to underlying cardiogenic shock.
- Responded to initiation of dobutamine and diuresis with improving lactate
DVT prophylaxis, currently on Eliquis
GI prophylaxis with IV pantoprazole.
Updated patient's spouse at bedside.
Critical Care time 38 mins -- The patient is admitted for acute critical illness for the treatment of vital organ failure and/or prevention of further life-threatening conditions. Total care includes time spent in review of history, physical exam,
medications, hemodynamic/ventilator parameters, laboratory data, imaging and discussion with house staff, pharmacy, respiratory therapy, greige goods inspector, and nursing.
Patient CODE STATUS DNR
Data:
ECHo 10/2024: -LV ejection fraction is 30-35%, by visual assessment. Septal and basal
inferior hypokinesis/akinesis. Apical dyskinesis.
-Normal right ventricular size and function.
-Moderately dilated left atrium.
-Severe mitral regurgitation.
-Severe tricuspid regurgitation. Estimated pulmonary artery pressure of 50-55
mmHg.
-The IVC is dilated and does not collapse.
RHC & LHC 10/2024: 1. Moderately elevated biventricular filling pressures, moderate post-capillary pulmonary hypertension, and low cardiac index.
2. No aortic stenosis
3. Coronary artery disease as described without a flow limiting lesion to explain the patients new cardiomyopathy and ongoing chest pain. 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
4. Given presence of possible atheromatous LAD plaque would treat medically for NSTEMI with 48 hours heparin and DAPT as tolerated for up to 12 months.
Subjective Dataa
Subjective Data
Date of Service:
Date of Service: November 05, 2024
Subjective:
Patient overall feeling much better, comfortably sitting on room air today.
Review of Systems
Genitourinary: Other (All 14 systems reviewed and negative except as stated above in the history of present illness.)
Objective Data
Data Reviewed
Vital Signs / I&O / Oxygen:
Vital Signs
Temp Pulse Resp BP Pulse Ox
97.6 F 103 24 101/61 91
11/05/24 12:00 11/05/24 12:00 11/05/24 12:00 11/05/24 12:00 11/05/24 12:00
Intake and Output
11/04/24 11/05/24 11/06/24
06:59 06:59 06:59
Intake Total 1050.6 / 1060.6 1130 / 1140 400 / 400
Output Total 2034 / 2034 3950 / 3950 800 / 800
Balance -984.4 / -974.4 -2820 / -2810 -400 / -400
SaO2 91
Nasal Cannula flow liters per 3
minute
Physical Exam
General: Respiratory Distress (Resolved)
HEENT: Normocephalic and Anicteric
Cardiovascular: S1-S2, Regular Rhythm, Murmur (n), Rub (n) and Peripheral Edema (None)
Respiratory: Wheeze (n), Crackles (Resolved) and Rhonchi (Improved)
GI: Soft, Non Distended and Non Tender
Neurology: Awake, Alert, Oriented and No Motor Deficits (Generally weak)
Skin: Good Color
Labs/Micro/Reports
Lab Data
11/05/24 04:24
11/05/24 04:24
Microbiology
10/30/24 09:02 Blood/Venous Blood Culture - Final
No Growth - Final Report
10/30/24 09:03 Blood/Venous Blood Culture - Final
No Growth - Final Report
--- NOTE | 2024-11-05 13:35 | W.PN.HOSP.TC ---
Today's Communication/Plan
-
IV Lasix with Metolazone PRN
Goal Net neg 500cc to 1L within 24 hours
Wean dobutamine (turn off) if feasible, maintain MAP >65
PT/OT
Assessment / Plan
Assessment / Plan
83-year-old male with past medical history of recent osteomyelitis/discitis on IV ceftriaxone, stage III sacral wound, recently discharged from to [facility]; presented back to the emergency department for
reported acute on chronic left-sided chest pain which began in the morning and continued back pain and 'buttock pain from wound'. EMS reported that patient was on 16 L nasal cannula. Currently on high flow. He denied active shortness of breath
this am. Patient has RUE PICC line from which he was receiving ceftriaxone.
CT PE:
Examination is negative for pulmonary embolism.
Small to moderate bilateral pleural effusions.
Patchy parenchymal opacity mainly within both upper lobes, suspicious for pneumonia. Pulmonary edema would be a differential consideration.
Band-shaped opacity within the inferior lingula, compatible with discoid atelectasis.
Note is made of a slightly impacted fracture involving the superior sternal body. This appears to be acute to subacute.
Calcification of the thoracic aorta with no evidence for thoracic aortic aneurysm.
A/P:
#Acute Hypoxic Respiratory Failure
-2/2 to Acute HFrEF +/- Aspiration Pneumonia
-abx
-diuretics
-monitor and wean o2 as tolerated
-goal o2 >92%
#Cardiogenic Shock
#Acute HFreF
-Weaning off phenylephrine, was switched to dobutamine and norepinephrine - now on dobutamine - turn off if feasbile
-Cont IV lasix
-Add metolazone prn; goal net neg 500cc to 1L in 24 hours
-Monitor with pressors and diuresis
-EF 30-35%
-Maintain MAP >65
#Transaminitis
� Most likely secondary to hypoperfusion, shock
� Continue to monitor
-improving
#Sepsis
# Suspect aspiration pneumonia
# Leukocytosis -stable
# Recent Strep sanguinis bacteremia with L3/L4 discitis, currently on IV abx (was ceftriaxone) x 8 weeks through 12/10/24.
-can consider YEE to evaluate for infective endocarditis given recent high grade Strep sanguinis bacteremia
-Can consider MR Spine once stable to eval for Osteo
-broaden to cefepime 1mg IV q6h to cover PNA and discitis
#Hyponatremia
-monitor with diuresis
-suspect volume overload
#Non Ischemic Chest pain
#Elevated Troponin
-most likely non ischemic myocardial injury in setting of acute state
- possible atheromatous LAD plaque => treating for potential NSTEMI with 48 hours heparin and DAPT as tolerated for up to 12 months.
- STOP IV heparin
-As per Cardiology: Given the AFib and anemia and at age 83 it is best to move to just ASA + Eliquis at this time, can revisit if needed
#Mitral regurgitation, progressive mod/severe => severe
#Anemia, chronic, monitor
#Afib, paroxsymal
-Hep ggt
-rate controlled
-switch to PO amio
# Recent L3/L4 discitis/osteomyelitis with Strep bacteremia
-Complicated by Intractable lower back pain with gait dysfunction due to above
-cefepime - abx for 8 weeks total
-may need MRI once stable
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
Per , flaherty was placed on 10/02/2024 due to urinary retention
Exchanged flaherty this admission
Outpt Uro follow up
#Sacral ulcer, Stage III
-wound care
-Can consider MRI once stable - already on abx
# Distant h/o DVT, completed AC course
hep ggt
#Iron def Anemia
-consider ferrous sulfate outpatient
-will hold on IV iron due to acute infection
Code status: full code
DVT prophylaxis: Hep ggt
Total time spent on today's encounter was 52 minutes which included time spent in counseling the patient/family regarding diagnosis and treatment plan as listed above, goals of care, and symptom management. Case was discussed with nursing staff,
specialists, and care coordinators/case management. All labs and imaging personally reviewed by me. Remainder the time spent in detailed review of previous records, lab data, imaging, and other medical provider documentation.
Anticipated Discharge: > 48 hours
Subjective/Interval History
-
Date of Service: November 05, 2024
weaned off o2
Objective Data
-
Labs:
Laboratory Results
11/05/24
04:24
WBC 8.9
Hgb 7.5 L
Hct 22.9 L
Plt Count 314
Sodium 128 L
Potassium 3.9
Chloride 103
Carbon Dioxide 22
BUN 43 H
Creatinine 0.9
Glucose 103 H
Calcium 8.1 L
Total Bilirubin 0.6
AST 60 H
ALT 216 H
Alkaline Phosphatase 65
Vital Signs:
Vital Signs
Temp Pulse Resp BP Pulse Ox
97.6 F 103 24 101/61 91
11/05/24 12:00 11/05/24 12:00 11/05/24 12:00 11/05/24 12:00 11/05/24 12:00
I&O
11/04/24 11/05/24 11/06/24
06:59 06:59 06:59
Intake Total 1050.6 / 1060.6 1130 / 1140 400 / 400
Output Total 2034 3950 / 3950 800 / 800
Balance -984.4 / -974.4 -2820 / -2810 -400 / -400
Review of Systems
-
History Source: Patient
All other systems: Not reviewed unless documented
Data Reviewed
-
Diagnostic Radiology: Report Reviewed by me
CT Scan: Report Reviewed by me
Labs: Labs Reviewed by me
--- NOTE | 2024-11-05 15:52 | PTCARENOTE ---
back to bed, settled, ordered pt dinner and is now leaving hospital. pt presently asleep. Soler patent and draining, some NSR noted on monitor by primarily afib since approx 10 am. Tolerating, cardiology aware, no new orders appreciated.
[2024-11-05] MEDS: REMOVE LIDOCAINE PATCH 1 PATCH REMOVE (19:56)
[2024-11-05] MEDS: MORPHINE SULFATE 1 MG IV (20:00)
--- NOTE | 2024-11-05 21:09 | PTCARENOTE ---
Received patient AAOx3, following commands, comfortable in bed. Afib in the 80s, BP stable, afebrile. Trace b/l LE edema with weak pedal pulses. On room air saturating 94%, lung sounds diminished throughout. Abdomen soft, positive bowel sounds, no
BM yet. Soler in place draining yellow urine. Foam on sacrum CDI. PIV and PICC patent, WNL. Call [place] within reach.
[2024-11-06] VITALS (27 sets, daily range): BP systolic 85–116; BP diastolic 48–63; PULSE 75; O2SAT 97; BMI 19.2
--- NOTE | 2024-11-06 00:30 | PTCARENOTE ---
Patient assessment unchanged from previous, call [place] within reach.
[2024-11-06] MEDS: TYLENOL ORAL SOLUTION 650 MG PO ×3 (04:58→18:12)
[2024-11-06] MEDS: MAXIPIME 1000 MG IV ×4 (04:58→23:27)
[2024-11-06] MEDS: STERILE WATER FOR INJECTION 10 ML IV ×4 (04:58→23:27)
--- NOTE | 2024-11-06 05:34 | PTCARENOTE ---
CHG bath done, labs sent, repositioned. Patient had questions about heart failure, educated on s/s, when to call the doctor/go to the hospital, daily weight, sodium intake, and medications patient is on. Call [place] within reach.
[2024-11-06 05:37] LABS: Hematocrit 24.4 % (39.0-52.0); Hemoglobin 7.9 g/dL (13.0-18.0); Mean Corp Hgb Conc. 32.4 g/dL (33.0-37.0); Mean Corpuscular Volume 82.2 fL (80.0-94.0); Platelet Count 359 10^3/uL (130-400); Red Cell Dist. Width 18.8 % (11.5-14.5)
[2024-11-06 05:59] LABS: ALT (SGPT) 170 U/L (0-50); AST (SGOT) 44 U/L (17-59); Albumin 2.7 g/dl (3.5-5.0); Alkaline Phosphatase 57 U/L (38-126); Blood Urea Nitrogen 38 mg/dl (9-20); Calcium 8.8 mg/dl (8.4-10.2); Carbon Dioxide 26 mmol/L (22-30); Chloride 101 mmol/L (98-107); Estimated Creatinine Clearance 54 ml/min; Glucose 99 mg/dl (70-99); Magnesium 2.1 mg/dl (1.6-2.3); Potassium 3.5 mmol/L (3.5-5.1); Sodium 129 mmol/L (135-145); Total Protein 5.1 g/dl (6.3-8.2); eGFR > 60.00
[2024-11-06] MEDS: LOW STRENGTH ASPIRIN 81 MG PO (07:32)
[2024-11-06] MEDS: PACERONE 400 MG PO ×2 (07:32→20:03)
[2024-11-06] MEDS: NEURONTIN 200 MG PO ×3 (07:32→23:27)
[2024-11-06] MEDS: VISBIOME 1 CAP PO (07:32)
[2024-11-06] MEDS: PROTONIX IV 40 MG IV (07:32)
[2024-11-06] MEDS: ELIQUIS 5 MG PO ×2 (07:32→20:02)
[2024-11-06] MEDS: NSS (PRESERVATIVE FREE) 10 ML IV (07:33)
[2024-11-06] MEDS: SANTYL OINTMENT 1 APPLIC TOPICAL (07:33)
[2024-11-06] MEDS: LASIX 40 MG IV ×2 (07:33→16:28)
[2024-11-06] MEDS: LIDOCAINE 4% PATCH TOPICAL (07:56)
--- NOTE | 2024-11-06 08:14 | PTCARENOTE ---
Received pt @ change of shift. Pt. drowsy but awakens to verbal stim; ox3; forgetful @ x's, easily redirected. NIRMALA. ANA bartlett gen weakness. A fib on monitor. SpO2 96% on RA. Hyperactive BS, cachectic; tolerating meals/poor kayley; constipated.
Chronic flaherty in place draining yellow urine. #22 L FA x 2 patent, dressing c/d/i. R DL PICC w dobutamine; - BR on assessment; VAT aware and awaiting to bedside. @ bedside this AM. Pt. instructed on how to report care concerns and call [place]
placed w in reach.
--- NOTE | 2024-11-06 08:58 | W.PN.ID1 ---
Date of Service
Date of Service: November 06, 2024
Today's Communication
Continue cefepime through 11/08, then resume ceftriaxone.
Assessment / Plan
# Recent Strep sanguinis bacteremia with L3/L4 discitis, currently on IV abx (was ceftriaxone) x 8 weeks through 12/10/24.
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
# s/p Cardiogenic shock weaning off pressors.
# Acute hypoxemic resp failure, resolved
# Suspect aspiration pneumonia
# Leukocytosis - resolved
# New onset afib, now in sinus
# Unstageable sacral decubitus, present on admission
- Blood cx's neg to date
- Cardiac cath: no significant CAD to explain trop 69.
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
- Continue cefepime 1g IV q6h (d5 of 7) trough 11/08 to cover both PNA and discitis
- On 11/09, resume ceftriaxone 2g IV q12 through 12/10/24 for discitis.
- Trend CRP and ESR on 11/09.
- Off load sacrum. Continue local wound care.
Chief Complaint
-: Other (CHF)
Subjective / Review of Systems
Poor sleep last night.
Vital Signs / Physical Exam
Vital Signs
Vital Signs
Temp Pulse Resp BP Pulse Ox
97.7 F 82 16 101/57 96
11/06/24 08:01 11/06/24 07:33 11/06/24 06:00 11/06/24 07:33 11/06/24 08:04
Physical Exam
Constitutional: Chronically Ill
Eyes: Sclera Anicteric
Cardiovascular: Regular Rate and S1/S2
Pulmonary: Rales
Gastrointestinal: Soft, Non Tender, Non Distended and Normal Bowel Sounds
Genito-Urinary: Soler and Clear Urine
Extremities: Negative Edema
Neurological: AO x 3
Lines: PICC (RUE intact)
Objective Data
Lab Data
Lab Results
11/06/24 05:03
11/06/24 05:03
PT 15.2 Sec (11.4-14.6) H 11/03/24 05:38
INR 1.17 11/03/24 05:38
APTT Cancelled 11/03/24 12:00
Estimated Creat Clear 54 ml/min 11/06/24 05:03
Lactic Acid 1.8 mmol/L (0.7-2.0) 11/02/24 17:33
Total Bilirubin 0.6 mg/dl (0.2-1.3) 11/06/24 05:03
AST 44 U/L (17-59) 11/06/24 05:03
ALT 170 U/L (0-50) H 11/06/24 05:03
Alkaline Phosphatase 57 U/L (38-126) 11/06/24 05:03
Most recent labs reviewed.
Micro Results:
10/30/24 09:02 Blood Culture - Final
Blood/Venous No Growth - Final Report
10/30/24 09:03 Blood Culture - Final
Blood/Venous No Growth - Final Report
10/30/24 18:11 MRSA Screen - Final
Nose No Methicillin Resistant Staphylococcus aureus isolated.
10/30/24 08:01 Urine Culture - Final
Urine NO GROWTH
10/30/24 20:17 Respiratory Culture - Final
Sputum Gram Stain - Final
10/30/24 18:11 Legionella Urinary Antigen - Final
Urine Negative for Legionella pneumophila Serogroup 1 antigen.
A negative result does not rule out the possiblity of
Legionella infection due to other serogroups or species of
Legionella. Clinical correlation is recommended.
Streptococcus pneumoniae Antigen (M - Final
Negative for Streptococcus pneumoniae antigen.
A negative result does not exclude infection with
Streptococcus pneumoniae. Clinical correlation is
recommended.
10/30/24 11:35 Influenza Types A & B (LAURA) - Final
Nasal Swab Negative for Influenza A & B, NAAT
Negative results must be combined with clinical observations
and patient history.
Nucleic Acid Amplification test (NAAT)performed on the
[employer] platform.
11/04/24 CXR: Bilateral opacification slightly improved on the right, possibly representing pneumonia and small bilateral pleural effusions.
11/02/24 CXR: MARKED PROGRESSION OF WIDESPREAD BILATERAL PARENCHYMAL OPACITIES, most likely differential diagnostic possibilities would be acute pulmonary edema or pneumonia.
10/30/[address] examination is negative for pulmonary embolism. Small to moderate bilateral pleural effusions. Patchy parenchymal opacity mainly within both upper lobes, suspicious for pneumonia. Pulmonary edema would be a differential
consideration.
--- NOTE | 2024-11-06 10:42 | W.PN.INTV ---
Today's Communication / Plan
Recommendations
- Start to wean dobutamine infusion
- Physical therapy and Occupational Therapy consult, increase activity as tolerated
- Once patient is off dobutamine, will transfer out of ICU and bisque ware dipper service will sign off, please call as needed
Assessment
-
83-year-old male with history of hypertension, hyperlipidemia, recent discitis, back pain, presents with chest pain thought to be hypotensive, with sternal fracture, elevated troponin, status post NSTEMI. Status post catheterization with
biventricular elevated filling pressures, borderline blood pressure, transferred to ICU for further management. Briefly required BiPAP but upon arrival to ICU not on BiPAP
Conditions present prior to admission
History of anemia
Recent streptococcal bacteremia
Lumbar discitis/osteomyelitis, discharge 10/21/24, on ceftriaxone
History of DVT
BPH
Urinary retention with Soler catheter
Interval total hip replacement
Cachexia
DNR
11/06 overview: Patient patient currently on room air, did not need any BiPAP yesterday, saturating 96%, dobutamine infusing at 5. MAP of 70, not requiring any pressors.. Intermittent paroxysmal A-fib noted. Fluid balance, -3.3 L.
Assessment and plan:
#1. Cardiogenic shock, with LVEF 30-35%.
- Elevated filling pressures per cardiac catheterization, pulmonary capillary wedge pressure of 24 with elevated mean pulmonary artery pressure.
- Weaned off Levophed, discussed with cardiology service, cut down dobutamine by 50% with eventually goal to discontinue by end of the day
- Cardiology service on case
- Liver function test showing improving AST/ALT, lactate level improved
- Lasix 40 mg IV twice a day. Received 1 dose of metolazone on 11/04
#2. Acute heart failure with reduced ejection fraction, severe mitral regurgitation
- Patient was volume overloaded with pulmonary edema on exam. Also concern for underlying severe mitral regurgitation related upper lobe predominant pulmonary edema.
- Started on dobutamine infusion on 11/02, continue pressor support as needed to keep MAP above 65. Lasix 40 mg IV twice daily
- Diuresing well, follow-up chest x-ray improving
- Oxygen requirement continues to go down, saturating well on room air today.
#3. Acute hypoxic respiratory failure with worsening Pulmonary Edema
- Responding to dobutamine with Lasix. Follow-up chest x-ray today showing improved aeration, oxygen requirement declining
- Procalcitonin noted to be elevated at 1.42, ceftriaxone switched to cefepime per ID service.
- Off supplemental O2/BiPAP now
#3a. Atrial fibrillation with rapid ventricular rate.
- EKG suggestive of A-fib.
- Amiodarone infusion switched to oral amiodarone
- Heparin drip transitioned to Eliquis per cardiology service
#4. Pulmonary hypertension, Group II
- Right heart cath, 10/2024, mean pulmonary artery pressure 34, PA pressure 44 x 20. Pulmonary capillary wedge pressure of 24. PVR of 2.7. Cardiac index at 1.98 L.
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
- Initiated diuresis with Lasix, added inotropic support with dobutamine. BiPAP nightly. Continue supplemental O2 to keep saturation above 90%
#5. Atypical chest pain with NSTEMI, type II.
- Medically managed, heparin drip transitioned to Eliquis
- Cardiology service on case
#6. History of discitis with bacteremia, currently on ceftriaxone scheduled through 12/10/2024.
- ID service on case, ceftriaxone switched to cefepime to broaden coverage with concern for concomitant pneumonia
#7. Chronic stage III sacral wounds
- Wound care
#8. Elevated AST and ALT.
- Suspect elevated transaminases in the setting of cardiogenic shock, improving on follow-up lab work
- Continue to monitor
#9. Lactic acidosis.
- Again suspect related to underlying cardiogenic shock.
- Responded to initiation of dobutamine and diuresis with improving lactate
DVT prophylaxis, currently on Eliquis
GI prophylaxis with IV pantoprazole.
Updated patient's spouse at bedside.
Critical Care time 36 mins -- The patient is admitted for acute critical illness for the treatment of vital organ failure and/or prevention of further life-threatening conditions. Total care includes time spent in review of history, physical exam,
medications, hemodynamic/ventilator parameters, laboratory data, imaging and discussion with house staff, pharmacy, respiratory therapy, applications developer, and nursing.
Patient CODE STATUS DNR
Data:
ECHo 10/2024: -LV ejection fraction is 30-35%, by visual assessment. Septal and basal
inferior hypokinesis/akinesis. Apical dyskinesis.
-Normal right ventricular size and function.
-Moderately dilated left atrium.
-Severe mitral regurgitation.
-Severe tricuspid regurgitation. Estimated pulmonary artery pressure of 50-55
mmHg.
-The IVC is dilated and does not collapse.
RHC & LHC 10/2024: 1. Moderately elevated biventricular filling pressures, moderate post-capillary pulmonary hypertension, and low cardiac index.
2. No aortic stenosis
3. Coronary artery disease as described without a flow limiting lesion to explain the patients new cardiomyopathy and ongoing chest pain. 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
4. Given presence of possible atheromatous LAD plaque would treat medically for NSTEMI with 48 hours heparin and DAPT as tolerated for up to 12 months.
Subjective Dataa
Subjective Data
Date of Service:
Date of Service: November 06, 2024
Subjective:
Patient comfortably sitting in bed in no acute distress, currently on room air.
Review of Systems
Genitourinary: Other (All 14 systems reviewed and negative except as stated above in the history of present illness.)
Objective Data
Data Reviewed
Vital Signs / I&O / Oxygen:
Vital Signs
Temp Pulse Resp BP Pulse Ox
97.7 F 82 16 101/57 96
11/06/24 08:01 11/06/24 07:33 11/06/24 06:00 11/06/24 07:33 11/06/24 08:04
Intake and Output
11/05/24 11/06/24 11/07/24
06:59 06:59 06:59
Intake Total 1130 / 1140 940 / 950
Output Total 3950 / 3950 4825 / 4825
Balance -2820 / -2810 -3885 / -3875
SaO2 96
Nasal Cannula flow liters per 3
minute
Physical Exam
General: Respiratory Distress (Resolved)
HEENT: Normocephalic and Anicteric
Cardiovascular: S1-S2, Regular Rhythm, Murmur (n), Rub (n) and Peripheral Edema (Trace)
Respiratory: Wheeze (n), Crackles (Resolved) and Rhonchi (Improved)
GI: Soft, Non Distended and Non Tender
Neurology: Awake, Alert, Oriented and No Motor Deficits (Generally weak)
Skin: Good Color
Labs/Micro/Reports
Lab Data
11/06/24 05:03
11/06/24 05:03
Microbiology
10/30/24 09:02 Blood/Venous Blood Culture - Final
No Growth - Final Report
10/30/24 09:03 Blood/Venous Blood Culture - Final
No Growth - Final Report
--- NOTE | 2024-11-06 11:02 | W.PN.CD ---
Today's Communication / Plan
-
Patient back in sinus rhythm continue on amiodarone.
Monitor anemia and assess need for PRBC
Wean dobutamine. Currently reduced to 2.5 and then will plan to discontinue later today
Impression / Plan
-
Mr. Jensen is an 83 year old man with past medical history of moderate-severe mitral regurgitation, dyslipidemia, and PAD recently hospitalized for discitis and bacteremia, transferred back to the hospital from rehab due to chest pain on 10/30. Chest
pain had typical and atypical features. CTPE was performed with no PE but pulmonary infiltrates c/f pneumonia vs. CHF. Troponin was elevated and echo showed new regional wall motion abnormalities concerning for stress CM vs. LAD territory ischemia
and progressive MR and TR. Catheterization was performed 10/30 and demonstrated a BULK TANK DRIVER of the RPL and non-obstructive disease in the LAD. Over the weekend chest pain improved and was largely pleuritic, troponin peaked at ~40, and hypoxia improved. He
was treated for pneumonia with antibiotics.
Acute HFrEF with new cardiomyopathy (new LVEF 30-355 by echo 10/30/2024)
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
- not ready to add GDMT, after decongestion with Lasix and on PO Lasix will slowly add GDMT (and likely wait until off Dobutamine)
- on Dobutamine 5. Will reduce to 2.5 and then tonight will wean off
- Diuresis => Lasix 40 IV BID given one-time dose of Zaroxolyn 11/05/2024 will use Zaroxolyn on as needed basis
Suspected PNA/Sepsis/Shock
-- possible mixed cardiogenic and septic
- Improved. Previously on pressors levo and janice but has been off for days
- Dobutamine being weaned off
- On ATBs
CAD:
- likely BULK TANK DRIVER of RPL and non-obstructive plaque in mid-LAD
- Dr. Thomson suspects that his presentation is a non-ischemic process but CAD could have been contributing
- ASA + Eliquis ([place] assessment of risk/
AFib, paroxysmal
- Was sustained with RVR 11/02/2024, IV AMIO => Sinus at 0005 hrs on 11/03/2024
- Moved to PO AMIO 400 BID likely just 200 mg one time daily at discharge
- Eliquis + ASA
- Might choose to stop Amio in 3-6 months but might chose [facility] amio
- Recurrent A-fib 11/05/2024 rates reasonably controlled. Will continue to monitor as patient receives more amiodarone
Abnormal troponin, peaked at 42.8 on 10/31/2024
- suspect acute, non-ischemic myocardial injury in setting of acute infectious illness (also anemia, hypoxia)
- but we cannot rule out type II [place]. We do not think this is a NSTEMI
Mitral regurgitation, progressive => mod/severe => severe
Anemia, chronic, monitor
Subjective:
Oxygenation has improved. Still on O2 4 l and more at times. CXR perhaps a bit improved (pneumonia and or heart failure). Weight not down yet
Data:
CXR : progressive pulmonary edema with RUL predominance
Chest CT: Examination is negative for pulmonary embolism. Small to moderate bilateral pleural effusions. Patchy parenchymal opacity mainly within both upper lobes, suspicious for pneumonia. Pulmonary edema would be a differential consideration.
Band-shaped opacity within the inferior lingula, compatible with discoid atelectasis. Note is made of a slightly impacted fracture involving the superior sternal body. This appears to be acute to subacute. Calcification of the thoracic aorta with no
evidence for thoracic aortic aneurysm.
Cath 10/30/2024:
1. Moderately elevated biventricular filling pressures, moderate post-capillary pulmonary hypertension, and low cardiac index (RA 16, PA 45/20, PCWP 24)
2. No aortic stenosis
3. CAD without a flow limiting lesion: 30-40% LM, mLAD with focal, eccentric atheromatous plaque, 40% OM, subtotal occlusion RPL
Echo 10/30/2024: LV ejection fraction is 30-35%, Septal and basal inferior hypokinesis/akinesis. Apical dyskinesis. Severe MR/TR. PASP 50-55
Compared to previous echo on 10/14/2024
LVEF fallen tduw20-47% with normal regional wall motion. TR increased from mild to severe. PASP has increased from 25 to 30 mmHg). Slight increased in MR mod/severe => severe.
Physical Exam
Vital Signs/Labs
Vital Signs
Temp Pulse Resp BP Pulse Ox
97.7 F 82 16 101/57 96
11/06/24 08:01 11/06/24 07:33 11/06/24 06:00 11/06/24 07:33 11/06/24 08:04
11/05/24 11/06/24 11/07/24
06:59 06:59 06:59
Actual Weight 65.8 kg 62.3 kg
11/06/24 05:03
11/06/24 05:03
PT 15.2 Sec (11.4-14.6) H 11/03/24 05:38
INR 1.17 11/03/24 05:38
APTT Cancelled 11/03/24 12:00
Magnesium 2.1 mg/dl (1.6-2.3) 11/06/24 05:03
Physical Exam
Constitutional: No acute distress
Cardiovascular: Rhythm & rate is regular
Respiratory: Wheeze Absent and Rhonchi Absent
GI: Soft, Non tender and Normal bowel sounds
Neuro/Psych: Alert and Oriented
Data Reviewed
-
Date of Service: November 06, 2024
Medical Decision Making: Reviewed Test Results
X-Ray/CT/US/MRI/NUC/PET: Report Reviewed by me
Medical Tests (PFT, Pathology etc): Report Reviewed by me
Labs: Labs Reviewed by me
[2024-11-06] MEDS: CATHFLO/ACTIVASE 2 MG INTRACATH (11:35)
[2024-11-06] MEDS: KCL 20 MEQ PO (12:02)
--- NOTE | 2024-11-06 12:14 | PTCARENOTE ---
Addendum entered by Candi Solis RN 11/06/24 13:06:
Cath cynthia completed by VAT RN and reported brisk blood return from both lumens of R DL PICC. Dobutamine gtt remains infusing via R DL PICC per orders- see flow sheet.
Original Note:
pt. converted to SR; dobutamine rate decreased by cards per order- see flow sheet. Pt. assisted OOB to chair x2 w RW to stand/pivot; gen weakness. Tolerating chair position 2H+, remains in chair. Tolerating meals, appetite adequate. Cath cynthia of
R DL in progress by [facility]. Call [place] remains w in reach.
--- NOTE | 2024-11-06 13:26 | VATNOTE ---
Both lumens of picc line flush but have negative blood return. CFathflo avtivase 2mg instilled into red lumen of picc at 1140. brisk blood return obtained from both lumens at 1240. 5mls of blood and cathflo withdrawn and discarded. each lumen
flushed with 10 mls nss. primary care rn made aware.
--- NOTE | 2024-11-06 14:04 | W.PN.HOSP.TC ---
Today's Communication/Plan
-
weaning dobutamine, hopefully can be weaned off tomorrow
iv diuretics
abx
pt/ot
Assessment / Plan
Assessment / Plan
83-year-old male with past medical history of recent osteomyelitis/discitis on IV ceftriaxone, stage III sacral wound, recently discharged from to [facility]; presented back to the emergency department for
reported acute on chronic left-sided chest pain which began in the morning and continued back pain and 'buttock pain from wound'. EMS reported that patient was on 16 L nasal cannula. Currently on high flow. He denied active shortness of breath
this am. Patient has RUE PICC line from which he was receiving ceftriaxone.
CT PE:
Examination is negative for pulmonary embolism.
Small to moderate bilateral pleural effusions.
Patchy parenchymal opacity mainly within both upper lobes, suspicious for pneumonia. Pulmonary edema would be a differential consideration.
Band-shaped opacity within the inferior lingula, compatible with discoid atelectasis.
Note is made of a slightly impacted fracture involving the superior sternal body. This appears to be acute to subacute.
Calcification of the thoracic aorta with no evidence for thoracic aortic aneurysm.
A/P:
#Acute Hypoxic Respiratory Failure
-2/2 to Acute HFrEF +/- Aspiration Pneumonia
-abx
-diuretics
-monitor and wean o2 as tolerated
-goal o2 >92%
#Cardiogenic Shock
#Acute HFreF
-Weaning off phenylephrine, was switched to dobutamine and norepinephrine - now on dobutamine - turn off if feasible
-Cont IV lasix
-Add metolazone prn; goal net neg 500cc to 1L in 24 hours
-Monitor with pressors and diuresis
-EF 30-35%
-Maintain MAP >65
#Transaminitis
� Most likely secondary to hypoperfusion, shock
� Continue to monitor
-improving
#Sepsis
# Suspect aspiration pneumonia
# Leukocytosis -stable
# Recent Strep sanguinis bacteremia with L3/L4 discitis, currently on IV abx (was ceftriaxone) x 8 weeks through 12/10/24.
-can consider YEE to evaluate for infective endocarditis given recent high grade Strep sanguinis bacteremia
-Can consider MR Spine once stable to eval for Osteo
-broaden to cefepime 1mg IV q6h to cover PNA and discitis - Continue cefepime through 11/08, then resume ceftriaxone
#Hyponatremia
-monitor with diuresis
-suspect volume overload
#Non Ischemic Chest pain
#Elevated Troponin
-most likely non ischemic myocardial injury in setting of acute state
- possible atheromatous LAD plaque => treating for potential NSTEMI with 48 hours heparin and DAPT as tolerated for up to 12 months.
- STOP IV heparin
-As per Cardiology: Given the AFib and anemia and at age 83 it is best to move to just ASA + Eliquis at this time, can revisit if needed
#Mitral regurgitation, progressive mod/severe => severe
#Anemia, chronic, monitor
#Afib, paroxsymal
-Eliquis
-rate controlled
-switch to PO amio
# Recent L3/L4 discitis/osteomyelitis with Strep bacteremia
-Complicated by Intractable lower back pain with gait dysfunction due to above
-cefepime - abx for 8 weeks total
-may need MRI once stable
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
Per , flaherty was placed on 10/02/2024 due to urinary retention
Exchanged flaherty this admission
Outpt Uro follow up
#Sacral ulcer, Stage III
-wound care
-Can consider MRI once stable - already on abx
# Distant h/o DVT, completed AC course
hep ggt
#Iron def Anemia
-consider ferrous sulfate outpatient
-will hold on IV iron due to acute infection
Code status: full code
DVT prophylaxis: Hep ggt
Total time spent on today's encounter was 51 minutes which included time spent in counseling the patient/family regarding diagnosis and treatment plan as listed above, goals of care, and symptom management. Case was discussed with nursing staff,
specialists, and care coordinators/case management. All labs and imaging personally reviewed by me. Remainder the time spent in detailed review of previous records, lab data, imaging, and other medical provider documentation.
Anticipated Discharge: > 48 hours
Subjective/Interval History
-
Date of Service: November 06, 2024
doing well, sitting in chair, on RA
Objective Data
-
Labs:
Laboratory Results
11/06/24
05:03
WBC 8.7
Hgb 7.9 L
Hct 24.4 L
Plt Count 359
Sodium 129 L
Potassium 3.5
Chloride 101
Carbon Dioxide 26
BUN 38 H
Creatinine 0.9
Glucose 99
Calcium 8.8
Total Bilirubin 0.6
AST 44
ALT 170 H
Alkaline Phosphatase 57
Vital Signs:
Vital Signs
Temp Pulse Resp BP Pulse Ox
97.7 F 75 24 99/52 95
11/06/24 08:01 11/06/24 13:00 11/06/24 13:00 11/06/24 13:00 11/06/24 13:00
I&O
11/05/24 11/06/24 11/07/24
06:59 06:59 06:59
Intake Total 1130 / 1140 940 / 950 45 / 45
Output Total 3950 / 3950 4825 / 4825 1250 / 1250
Balance -2820 / -2810 -3885 / -3875 -1205 / -1205
Review of Systems
-
History Source: Patient
All other systems: Not reviewed unless documented
Physical Exam
-
General: Well Developed, Well Nourished, No Apparent Distress and Comfortable
HEENT: Nose Appears Normal and Ears Appear Normal
Cardiac: Regular Rhythm and S1/S2
GI: Soft, Nontender and Nondistended
Musculoskeletal: No Clubbing and No Cyanosis
Skin: Warm and Dry
Neuro: Awake, Alert and Oriented
Psych: Calm
Data Reviewed
-
Diagnostic Radiology: Report Reviewed by me
CT Scan: Report Reviewed by me
Labs: Labs Reviewed by me
--- NOTE | 2024-11-06 14:52 | CM ---
IV/Cefepime, IV/Rocephin, IV/Lasix, wean Dobutamine, monitor anemia, HGB-7.9 this am. Discharge POC: Therapy rec for SNF. Patient resident of [facility]. They have accepted for SNF pending bed availability.
--- NOTE | 2024-11-06 16:00 | PTCARENOTE ---
Dobutamine gtt of @ 1600 per cards/orders- see flow sheet. Pt. assisted x 2 w RW to stand/pivot back to bed. C/O severe pain in sacrum/back- admin prn- see JUN. Wound care completed per orders. Call [place] placed w in reach.
[2024-11-06] MEDS: MORPHINE SULFATE 1 MG IV ×2 (16:29→23:26)
--- NOTE | 2024-11-06 19:30 | PTCARENOTE ---
Patient received lying in bed, awake and alert, wearing bilateral hearing aides and watching TV. He is without apparent signs of distress or discomfort but c/o sacral/coccyx wound discomfort 11/29. He was recently medicated with Tylenol but declines
offer of Morphine sulfate IV at this time. BBS clear but diminished at the bases. Sats 93% on RA. S1S2 regular with murmur. Dual lument PICC on the right, flushes sluggishly. Positive pulses x 4 extremities, pedal edema trace. Soler catheter patent
draining clear yellow urine. Abdomen soft and NT. SR with 1st degree AVB and BBB on CM. See certified personal finance counselor charted on worklist flowsheet. Bed in low and locked position, bed alarm on, call [place] within reach.
[2024-11-06] MEDS: PROTONIX 40 MG PO (20:02)
[2024-11-06] MEDS: REMOVE LIDOCAINE PATCH REMOVE (20:04)
[2024-11-06] MEDS: TYLENOL ORAL SOLUTION PO (23:29)
--- NOTE | 2024-11-06 23:30 | PTCARENOTE ---
Continues to have wound pain at sacrum/coccyx 11/29. Prn Morphine given IV, see MAR. Coccyx wound dressing remains dry. Partial cares, flaherty care. Teeth brushed, face washed. Readied for bed, room darkened, night light on. Call [place] within reach.
Left FA SL x2 flushes easily.
[2024-11-07] VITALS (24 sets, daily range): BP systolic 88–106; BP diastolic 43–59; BMI 18.6
[2024-11-07] MEDS: STERILE WATER FOR INJECTION 10 ML IV ×3 (06:24→18:32)
[2024-11-07] MEDS: MAXIPIME 1000 MG IV ×3 (06:24→18:32)
[2024-11-07] MEDS: TYLENOL PO ×2 (06:27→06:32)
[2024-11-07 06:48] LABS: Hematocrit 26.1 % (39.0-52.0); Hemoglobin 8.5 g/dL (13.0-18.0); Mean Corp Hgb Conc. 32.6 g/dL (33.0-37.0); Mean Corpuscular Volume 81.6 fL (80.0-94.0); Platelet Count 428 10^3/uL (130-400); Red Cell Dist. Width 18.8 % (11.5-14.5)
[2024-11-07 06:57] LABS: ALT (SGPT) 136 U/L (0-50); AST (SGOT) 36 U/L (17-59); Albumin 2.8 g/dl (3.5-5.0); Alkaline Phosphatase 60 U/L (38-126); Blood Urea Nitrogen 37 mg/dl (9-20); Calcium 8.9 mg/dl (8.4-10.2); Carbon Dioxide 29 mmol/L (22-30); Chloride 97 mmol/L (98-107); Estimated Creatinine Clearance 59 ml/min; Glucose 97 mg/dl (70-99); Magnesium 2.1 mg/dl (1.6-2.3); Potassium 3.2 mmol/L (3.5-5.1); Sodium 130 mmol/L (135-145); Total Protein 5.3 g/dl (6.3-8.2); eGFR > 60.00
--- NOTE | 2024-11-07 07:04 | W.PN.CD ---
Today's Communication / Plan
-
Patient currently comfortable. In sinus rhythm.
Continue amiodarone as dosed
Dobutamine was weaned off 11/06/2024.
Weight down to 60 kg. Will discontinue IV Lasix and transition to oral
Systolic pressures in the 90s but asymptomatic. Continue to monitor blood pressures closely and particularly monitor when he gets out of bed today.
Impression / Plan
-
Mr. Jensen is an 83 year old man with past medical history of moderate-severe mitral regurgitation, dyslipidemia, and PAD recently hospitalized for discitis and bacteremia, transferred back to the hospital from rehab due to chest pain on 10/30. Chest
pain had typical and atypical features. CTPE was performed with no PE but pulmonary infiltrates c/f pneumonia vs. CHF. Troponin was elevated and echo showed new regional wall motion abnormalities concerning for stress CM vs. LAD territory ischemia
and progressive MR and TR. Catheterization was performed 10/30 and demonstrated a INTAKE COORDINATOR of the RPL and non-obstructive disease in the LAD. Over the weekend chest pain improved and was largely pleuritic, troponin peaked at ~40, and hypoxia improved. He
was treated for pneumonia with antibiotics.
Acute HFrEF with new cardiomyopathy (new LVEF 30-35% by echo 10/30/2024)
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
- not ready to add GDMT, after decongestion with Lasix and on PO Lasix will slowly add GDMT (and likely wait until off Dobutamine)
- on Dobutamine this admit weaned off 11/06/24
- Diuresis => Lasix 40 IV BID given one-time dose of Zaroxolyn 11/05/2024 will use Zaroxolyn on as needed basis
-Tansition to oral diuretic
Suspected PNA/Sepsis/Shock
-- possible mixed cardiogenic and septic
- Improved. Previously on pressors levo and janice but has been off for days
- Dobutamine being weaned off
- On ATBs
CAD:
- likely INTAKE COORDINATOR of RPL and non-obstructive plaque in mid-LAD
- Dr. Thomson suspects that his presentation is a non-ischemic process but CAD could have been contributing
- ASA + Eliquis ([place] assessment of risk/
AFib, paroxysmal
- Was sustained with RVR 11/02/2024, IV AMIO => Sinus at 0005 hrs on 11/03/2024
- Moved to PO AMIO 400 BID likely just 200 mg one time daily at discharge
- Eliquis + ASA
- Might choose to stop Amio in 3-6 months but might chose care home amio
- Recurrent A-fib 11/05/2024 rates reasonably controlled. Will continue to monitor as patient receives more amiodarone
Abnormal troponin, peaked at 42.8 on 10/31/2024
- suspect acute, non-ischemic myocardial injury in setting of acute infectious illness (also anemia, hypoxia)
- but we cannot rule out type II [place]. We do not think this is a NSTEMI
Mitral regurgitation, progressive => mod/severe => severe
Anemia, chronic, monitor
Subjective:
Oxygenation has improved. Still on O2 4 l and more at times. CXR perhaps a bit improved (pneumonia and or heart failure). Weight not down yet
Data:
CXR : progressive pulmonary edema with RUL predominance
Chest CT: Examination is negative for pulmonary embolism. Small to moderate bilateral pleural effusions. Patchy parenchymal opacity mainly within both upper lobes, suspicious for pneumonia. Pulmonary edema would be a differential consideration.
Band-shaped opacity within the inferior lingula, compatible with discoid atelectasis. Note is made of a slightly impacted fracture involving the superior sternal body. This appears to be acute to subacute. Calcification of the thoracic aorta with no
evidence for thoracic aortic aneurysm.
Cath 10/30/2024:
1. Moderately elevated biventricular filling pressures, moderate post-capillary pulmonary hypertension, and low cardiac index (RA 16, PA 45/20, PCWP 24)
2. No aortic stenosis
3. CAD without a flow limiting lesion: 30-40% LM, mLAD with focal, eccentric atheromatous plaque, 40% OM, subtotal occlusion RPL
Echo 10/30/2024: LV ejection fraction is 30-35%, Septal and basal inferior hypokinesis/akinesis. Apical dyskinesis. Severe MR/TR. PASP 50-55
Compared to previous echo on 10/14/2024
LVEF fallen hlvy32-85% with normal regional wall motion. TR increased from mild to severe. PASP has increased from 25 to 30 mmHg). Slight increased in MR mod/severe => severe.
Physical Exam
Vital Signs/Labs
Vital Signs
Temp Pulse Resp BP Pulse Ox
97.9 F 59 19 95/48 93
11/06/24 23:33 11/07/24 04:00 11/07/24 04:00 11/07/24 04:00 11/07/24 04:00
11/06/24 11/07/24 11/08/24
06:59 06:59 06:59
Actual Weight 62.3 kg 60.6 kg
11/07/24 06:35
11/07/24 06:35
PT 15.2 Sec (11.4-14.6) H 11/03/24 05:38
INR 1.17 11/03/24 05:38
APTT Cancelled 11/03/24 12:00
Magnesium 2.1 mg/dl (1.6-2.3) 11/07/24 06:35
Physical Exam
Constitutional: No acute distress
Cardiovascular: Rhythm & rate is regular
Respiratory: Wheeze Absent and Rhonchi Absent
GI: Soft
Neuro/Psych: Alert
Data Reviewed
-
Date of Service: November 07, 2024
Medical Decision Making: Reviewed Test Results
X-Ray/CT/US/MRI/NUC/PET: Report Reviewed by me
Medical Tests (PFT, Pathology etc): Report Reviewed by me
Labs: Labs Reviewed by me
--- NOTE | 2024-11-07 07:32 | PTCARENOTE ---
Report given verbally to oncoming Jak soto RN. Questions answered.
--- NOTE | 2024-11-07 08:01 | W.PN.ID1 ---
Date of Service
Date of Service: November 07, 2024
Today's Communication
Continue abx.
Assessment / Plan
# Recent Strep sanguinis bacteremia with L3/L4 discitis, currently on IV abx (was ceftriaxone) x 8 weeks through 12/10/24.
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
# s/p Cardiogenic shock weaning off pressors.
# Acute hypoxemic resp failure, resolved
# Suspect aspiration pneumonia
# Leukocytosis - resolved
# New onset afib, now in sinus
# Unstageable sacral decubitus, present on admission
- Blood cx's neg to date
- Cardiac cath: no significant CAD to explain trop 69.
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
- Continue cefepime 1g IV q6h (d5 of 7) trough 11/08 to cover both PNA and discitis
- On 11/09, resume ceftriaxone 2g IV q12 through 12/10/24 for discitis.
- Trend CRP and ESR; ordered for 11/09.
- Off load sacrum. Continue local wound care.
- Trend WBC and temps.
Chief Complaint
-: Other (CHF)
Subjective / Review of Systems
Review of Systems: No Fever and No Chills
Vital Signs / Physical Exam
Vital Signs
Vital Signs
Temp Pulse Resp BP Pulse Ox
97.9 F 69 18 100/54 90
11/06/24 23:33 11/07/24 07:00 11/07/24 07:00 11/07/24 07:00 11/07/24 07:00
Physical Exam
Constitutional: Chronically Ill
Eyes: Sclera Anicteric
Cardiovascular: Regular Rate and S1/S2
Pulmonary: Rales
Gastrointestinal: Soft, Non Tender, Non Distended and Normal Bowel Sounds
Genito-Urinary: Soler and Clear Urine
Extremities: Negative Edema
Neurological: AO x 3
Lines: PICC (RUE intact)
Objective Data
Lab Data
Lab Results
11/07/24 06:35
11/07/24 06:35
PT 15.2 Sec (11.4-14.6) H 11/03/24 05:38
INR 1.17 11/03/24 05:38
APTT Cancelled 11/03/24 12:00
Estimated Creat Clear 59 ml/min 11/07/24 06:35
Lactic Acid 1.8 mmol/L (0.7-2.0) 11/02/24 17:33
Total Bilirubin 0.7 mg/dl (0.2-1.3) 11/07/24 06:35
AST 36 U/L (17-59) 11/07/24 06:35
ALT 136 U/L (0-50) H 11/07/24 06:35
Alkaline Phosphatase 60 U/L (38-126) 11/07/24 06:35
Most recent labs reviewed.
Micro Results:
10/30/24 09:02 Blood Culture - Final
Blood/Venous No Growth - Final Report
10/30/24 09:03 Blood Culture - Final
Blood/Venous No Growth - Final Report
10/30/24 18:11 MRSA Screen - Final
Nose No Methicillin Resistant Staphylococcus aureus isolated.
10/30/24 08:01 Urine Culture - Final
Urine NO GROWTH
10/30/24 20:17 Respiratory Culture - Final
Sputum Gram Stain - Final
10/30/24 18:11 Legionella Urinary Antigen - Final
Urine Negative for Legionella pneumophila Serogroup 1 antigen.
A negative result does not rule out the possiblity of
Legionella infection due to other serogroups or species of
Legionella. Clinical correlation is recommended.
Streptococcus pneumoniae Antigen (M - Final
Negative for Streptococcus pneumoniae antigen.
A negative result does not exclude infection with
Streptococcus pneumoniae. Clinical correlation is
recommended.
10/30/24 11:35 Influenza Types A & B ([facility]URA) - Final
Nasal Swab Negative for Influenza A & B, NAAT
Negative results must be combined with clinical observations
and patient history.
Nucleic Acid Amplification test (NAAT)performed on the
[employer] platform.
Imaging:
11/04/24 CXR: Bilateral opacification slightly improved on the right, possibly representing pneumonia and small bilateral pleural effusions.
11/02/24 CXR: MARKED PROGRESSION OF WIDESPREAD BILATERAL PARENCHYMAL OPACITIES, most likely differential diagnostic possibilities would be acute pulmonary edema or pneumonia.
10/30/[address] examination is negative for pulmonary embolism. Small to moderate bilateral pleural effusions. Patchy parenchymal opacity mainly within both upper lobes, suspicious for pneumonia. Pulmonary edema would be a differential
consideration.
[2024-11-07] MEDS: LOW STRENGTH ASPIRIN 81 MG PO (08:51)
[2024-11-07] MEDS: NEURONTIN 200 MG PO ×2 (08:51→16:32)
[2024-11-07] MEDS: ELIQUIS 5 MG PO ×2 (08:51→20:30)
[2024-11-07] MEDS: VISBIOME 1 CAP PO (08:51)
[2024-11-07] MEDS: PROTONIX 40 MG PO ×2 (08:51→20:29)
[2024-11-07] MEDS: PACERONE 400 MG PO ×2 (08:51→20:29)
[2024-11-07] MEDS: LIDOCAINE 4% PATCH TOPICAL (08:53)
[2024-11-07] MEDS: SANTYL OINTMENT 1 APPLIC TOPICAL (08:54)
[2024-11-07] MEDS: KCL ELIXIR 40 MEQ PO (10:10)
--- NOTE | 2024-11-07 11:10 | CM ---
Patient seen at bedside in ICU with present. Per no concerns plan remains same for SNF when medically appropriate. CM will continue to follow for discharge planning needs as needed.
Plan; SNF when medically appropriate
[2024-11-07] MEDS: MIRALAX 17 GRAMS PO (11:30)
[2024-11-07] MEDS: TYLENOL 650 MG PO ×2 (12:37→18:32)
[2024-11-07] MEDS: ULTRAM 50 MG PO (12:37)
--- NOTE | 2024-11-07 13:53 | W.PN.HOSP.TC ---
Today's Communication/Plan
-
switch to PO lasix
PT/OT
Amio/Eliquis
Cefepime until end of 11/08 - then switch to Ceftriaxone
BM regimen
Assessment / Plan
Assessment / Plan
83-year-old male with past medical history of recent osteomyelitis/discitis on IV ceftriaxone, stage III sacral wound, recently discharged from to [facility]; presented back to the emergency department for
reported acute on chronic left-sided chest pain which began in the morning and continued back pain and 'buttock pain from wound'. EMS reported that patient was on 16 L nasal cannula. Currently on high flow. He denied active shortness of breath
this am. Patient has RUE PICC line from which he was receiving ceftriaxone.
CT PE:
Examination is negative for pulmonary embolism.
Small to moderate bilateral pleural effusions.
Patchy parenchymal opacity mainly within both upper lobes, suspicious for pneumonia. Pulmonary edema would be a differential consideration.
Band-shaped opacity within the inferior lingula, compatible with discoid atelectasis.
Note is made of a slightly impacted fracture involving the superior sternal body. This appears to be acute to subacute.
Calcification of the thoracic aorta with no evidence for thoracic aortic aneurysm.
A/P:
#Acute Hypoxic Respiratory Failure, resolved
-2/2 to Acute HFrEF +/- Aspiration Pneumonia
-abx
-diuretics - switched to PO
-monitor and wean o2 as tolerated
-goal o2 >92%
#Cardiogenic Shock
#Acute HFreF
-Weaning off phenylephrine, was switched to dobutamine and norepinephrine - dobutamine turned off 01/07 - tolerating well
-IV lasix - switched to PO
-Add metolazone prn; goal net neg 500cc to 1L in 24 hours
-Monitor with pressors and diuresis
-EF 30-35%
-Maintain MAP >65
#Transaminitis
� Most likely secondary to hypoperfusion, shock
� Continue to monitor
-improving
#Sepsis
# Suspect aspiration pneumonia
# Leukocytosis -stable
# Recent Strep sanguinis bacteremia with L3/L4 discitis, currently on IV abx (was ceftriaxone) x 8 weeks through 12/10/24.
-can consider YEE to evaluate for infective endocarditis given recent high grade Strep sanguinis bacteremia
-Can consider MR Spine once stable to eval for Osteo
-broaden to cefepime 1mg IV q6h to cover PNA and discitis - Continue cefepime through 11/08, then resume ceftriaxone
-On 11/09, resume ceftriaxone 2g IV q12 through 12/10/24 for discitis.
#Hyponatremia
-monitor with diuresis
-suspect volume overload
#Non Ischemic Chest pain
#Elevated Troponin
-most likely non ischemic myocardial injury in setting of acute state
- possible atheromatous LAD plaque => treating for potential NSTEMI with 48 hours heparin and DAPT as tolerated for up to 12 months.
- STOP IV heparin
-As per Cardiology: Given the AFib and anemia and at age 83 it is best to move to just ASA + Eliquis at this time, can revisit if needed
#Mitral regurgitation, progressive mod/severe => severe
#Anemia, chronic, monitor
#Afib, paroxsymal
-Eliquis
-rate controlled
-switch to PO amio
# Recent L3/L4 discitis/osteomyelitis with Strep bacteremia
-Complicated by Intractable lower back pain with gait dysfunction due to above
-cefepime - abx for 8 weeks total
-may need MRI once stable
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
Per , flaherty was placed on 10/02/2024 due to urinary retention
Exchanged flaherty this admission
Outpt Uro follow up
#Sacral ulcer, Stage III
-wound care
-Can consider MRI once stable - already on abx
# Distant h/o DVT, completed AC course
hep ggt
#Iron def Anemia
-consider ferrous sulfate outpatient
-will hold on IV iron due to acute infection
#Hypokalemia
-monitor and replete
Code status: full code
DVT prophylaxis: Eliquis
Anticipated Discharge: > 48 hours
Subjective/Interval History
-
Date of Service: November 07, 2024
off dobutamine since 11/06
Objective Data
-
Labs:
Laboratory Results
11/07/24
06:35
WBC 11.2 H
Hgb 8.5 L
Hct 26.1 L
Plt Count 428 H
Sodium 130 L
Potassium 3.2 L
Chloride 97 L
Carbon Dioxide 29
BUN 37 H
Creatinine 0.8
Glucose 97
Calcium 8.9
Total Bilirubin 0.7
AST 36
ALT 136 H
Alkaline Phosphatase 60
Vital Signs:
Vital Signs
Temp Pulse Resp BP Pulse Ox
97.1 F 64 20 90/51 92
11/07/24 11:32 11/07/24 12:00 11/07/24 12:00 11/07/24 12:00 11/07/24 13:20
I&O
11/06/24 11/07/24 11/08/24
06:59 06:59 06:59
Intake Total 940 / 950 190 / 190
Output Total 4825 / 4825 3400 / 3400
Balance -3885 / -3875 -3210 / -3210
Review of Systems
-
History Source: Patient
All other systems: Not reviewed unless documented
Physical Exam
-
General: Well Developed, Well Nourished, No Apparent Distress and Comfortable
HEENT: Nose Appears Normal and Ears Appear Normal
Cardiac: Regular Rhythm and S1/S2
GI: Soft, Nontender and Nondistended
Musculoskeletal: No Clubbing and No Cyanosis
Skin: Warm and Dry
Neuro: Awake, Alert and Oriented
Psych: Calm
Data Reviewed
-
Diagnostic Radiology: Report Reviewed by me
CT Scan: Report Reviewed by me
Labs: Labs Reviewed by me
--- NOTE | 2024-11-07 15:27 | PTCARENOTE ---
Dr Nair notified of patients low BP's regarding 1400 dose of lasix. Orders entered to hold Lasix and restart tomorrow.
[2024-11-07] MEDS: ULTRAM 25 MG PO (20:30)
[2024-11-07] MEDS: REMOVE LIDOCAINE PATCH 1 PATCH REMOVE (21:26)
--- NOTE | 2024-11-07 21:30 | PTCARENOTE ---
Rec'd pt resting in bed pleasant and cooperative. Pt initially confused to time thinking it was morning. PEREZ helping turn in bed. Tramadol added to pain medicine regimen, since pt took Tramadol prehospital. Morphine IV if needed for pain relief.
Afebrile. NSR on monitor. BP 90-100/50s. Pulses weak, no edema. IV accesses flushed/patent. Room air, 95%. Clear, diminished, some GLOVER. Tolerating regular diet, meds whole in applesauce. Concerned with BM, miralax given on previous shift. Chronic
flaherty to gravity draining clear dark yellow urine. Skin as documented. Will monitor.
[2024-11-08] VITALS (14 sets, daily range): BP systolic 92–104; BP diastolic 51–60; BMI 18.7
[2024-11-08] MEDS: MAXIPIME 1000 MG IV ×5 (00:02→23:02)
[2024-11-08] MEDS: NEURONTIN 200 MG PO ×4 (00:02→23:02)
[2024-11-08] MEDS: STERILE WATER FOR INJECTION 10 ML IV ×5 (00:02→23:02)
[2024-11-08] MEDS: MORPHINE SULFATE 1 MG IV ×4 (00:04→23:01)
[2024-11-08] MEDS: TYLENOL PO ×5 (00:32→23:03)
[2024-11-08 05:53] LABS: Hematocrit 27.2 % (39.0-52.0); Hemoglobin 8.6 g/dL (13.0-18.0); Mean Corp Hgb Conc. 31.6 g/dL (33.0-37.0); Mean Corpuscular Volume 83.7 fL (80.0-94.0); Platelet Count 410 10^3/uL (130-400); Red Cell Dist. Width 19.5 % (11.5-14.5)
[2024-11-08 06:11] LABS: ALT (SGPT) 102 U/L (0-50); AST (SGOT) 29 U/L (17-59); Albumin 2.7 g/dl (3.5-5.0); Alkaline Phosphatase 59 U/L (38-126); Blood Urea Nitrogen 36 mg/dl (9-20); Calcium 8.6 mg/dl (8.4-10.2); Carbon Dioxide 28 mmol/L (22-30); Chloride 100 mmol/L (98-107); Estimated Creatinine Clearance 59 ml/min; Glucose 101 mg/dl (70-99); Magnesium 2.1 mg/dl (1.6-2.3); Potassium 3.8 mmol/L (3.5-5.1); Sodium 130 mmol/L (135-145); Total Protein 5.1 g/dl (6.3-8.2); eGFR > 60.00
--- NOTE | 2024-11-08 06:47 | W.PN.CD ---
Today's Communication / Plan
-
Remains in sinus. Continue amiodarone 400 mg twice daily but will be on 200 mg daily at discharge
Transitioned to oral diuretics
GDMT limited by BP
Patient's weight was 66 kg on day of right heart cath on 10/30/2024 and then diuresed down to weight of 60.6 kg. BP relatively low. Systolic blood pressures in the 90s patient's mouth is dry, limited oral intake and respiratory status is stable.
HFpEF may be easier to control now the patient is maintaining sinus rhythm more consistently. Would hold diuretic today monitor weights and consider using oral diuretic tomorrow or waiting until weights are trending upward
Impression / Plan
-
Mr. Jensen is an 83 year old man with past medical history of moderate-severe mitral regurgitation, dyslipidemia, and PAD recently hospitalized for discitis and bacteremia, transferred back to the hospital from rehab due to chest pain on 10/30. Chest
pain had typical and atypical features. CTPE was performed with no PE but pulmonary infiltrates c/f pneumonia vs. CHF. Troponin was elevated and echo showed new regional wall motion abnormalities concerning for stress CM vs. LAD territory ischemia
and progressive MR and TR. Catheterization was performed 10/30 and demonstrated a TERMINAL GAUGER of the RPL and non-obstructive disease in the LAD. Over the weekend chest pain improved and was largely pleuritic, troponin peaked at ~40, and hypoxia improved. He
was treated for pneumonia with antibiotics.
Acute HFrEF with new cardiomyopathy (new LVEF 30-35% by echo 10/30/2024)
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
- GDMT limited by BP
- on Dobutamine this admit weaned off 11/06/24
- Diuresis => Lasix 40 IV BID given one-time dose of Zaroxolyn 11/05/2024 will use Zaroxolyn on as needed basis
- IV diuretics were stopped on 11/07/2024. Transition to oral diuretic
- Patient's weight was 66 kg on day of right heart cath on 10/30/2024 and then diuresed down to weight of 60.6 kg. BP relatively low diuretic held on 11/07/2024
- Monitor weights on oral diuretic
Suspected PNA/Sepsis/Shock
-- possible mixed cardiogenic and septic
- Improved. Previously on pressors levo and janice but has been off for days
- Dobutamine weaned off
- On ATBs
CAD:
- likely TERMINAL GAUGER of RPL and non-obstructive plaque in mid-LAD
- Dr. Thomson suspects that his presentation is a non-ischemic process but CAD could have been contributing
- ASA + Eliquis (Bernard assessment of risk/
AFib, paroxysmal
- Was sustained with RVR 11/02/2024, IV AMIO => Sinus at 0005 hrs on 11/03/2024
- Moved to PO AMIO 400 BID likely just 200 mg one time daily at discharge
- Eliquis + ASA
- Might choose to stop Amio in 3-6 months but might chose half-way amio
- Recurrent A-fib 11/05/2024 rates reasonably controlled. Will continue to monitor as patient receives more amiodarone
Abnormal troponin, peaked at 42.8 on 10/31/2024
- suspect acute, non-ischemic myocardial injury in setting of acute infectious illness (also anemia, hypoxia)
- but we cannot rule out type II [place]. We do not think this is a NSTEMI
Mitral regurgitation, progressive => mod/severe => severe
Anemia, chronic, monitor
Subjective:
Oxygenation has improved. Still on O2 4 l and more at times. CXR perhaps a bit improved (pneumonia and or heart failure). Weight not down yet
Data:
CXR : progressive pulmonary edema with RUL predominance
Chest CT: Examination is negative for pulmonary embolism. Small to moderate bilateral pleural effusions. Patchy parenchymal opacity mainly within both upper lobes, suspicious for pneumonia. Pulmonary edema would be a differential consideration.
Band-shaped opacity within the inferior lingula, compatible with discoid atelectasis. Note is made of a slightly impacted fracture involving the superior sternal body. This appears to be acute to subacute. Calcification of the thoracic aorta with no
evidence for thoracic aortic aneurysm.
Cath 10/30/2024:
1. Moderately elevated biventricular filling pressures, moderate post-capillary pulmonary hypertension, and low cardiac index (RA 16, PA 45/20, PCWP 24)
2. No aortic stenosis
3. CAD without a flow limiting lesion: 30-40% LM, mLAD with focal, eccentric atheromatous plaque, 40% OM, subtotal occlusion RPL
Echo 10/30/2024: LV ejection fraction is 30-35%, Septal and basal inferior hypokinesis/akinesis. Apical dyskinesis. Severe MR/TR. PASP 50-55
Compared to previous echo on 10/14/2024
LVEF fallen qnef04-19% with normal regional wall motion. TR increased from mild to severe. PASP has increased from 25 to 30 mmHg). Slight increased in MR mod/severe => severe.
Physical Exam
Vital Signs/Labs
Vital Signs
Temp Pulse Resp BP Pulse Ox
97.6 F 60 15 92/54 94
11/08/24 03:00 11/08/24 06:00 11/08/24 06:00 11/08/24 06:00 11/08/24 06:00
11/06/24 11/07/24 11/08/24
06:59 06:59 06:59
Actual Weight 62.3 kg 60.6 kg
11/08/24 05:24
11/08/24 05:24
PT 15.2 Sec (11.4-14.6) H 11/03/24 05:38
INR 1.17 11/03/24 05:38
APTT Cancelled 11/03/24 12:00
Magnesium 2.1 mg/dl (1.6-2.3) 11/08/24 05:24
Physical Exam
Constitutional: No acute distress
Cardiovascular: Rhythm & rate is regular
Respiratory: Wheeze Absent and Rhonchi Absent
GI: Soft and Normal bowel sounds
Neuro/Psych: Alert and Oriented
Data Reviewed
-
Date of Service: November 08, 2024
Medical Decision Making: Reviewed Test Results
Echo: Report Reviewed by me
Medical Tests (PFT, Pathology etc): Report Reviewed by me
Labs: Labs Reviewed by me
--- NOTE | 2024-11-08 08:01 | W.PN.ID1 ---
Date of Service
Date of Service: November 08, 2024
Today's Communication
Continue antibiotics. See below�
Assessment / Plan
# Recent Strep sanguinis bacteremia with L3/L4 discitis, currently on IV abx (was ceftriaxone) x 8 weeks through 12/10/24.
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
# s/p Cardiogenic shock; off pressors.
# Acute hypoxemic resp failure, resolved
# Suspect aspiration pneumonia
# Leukocytosis - resolved
# New onset afib, now in sinus
# Unstageable sacral decubitus, present on admission
- Blood cx's neg to date
- Cardiac cath: no significant CAD to explain trop 69.
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
- Continue cefepime 1g IV q6h (d#7 of 7) to cover both PNA and discitis
- On 11/09, resume ceftriaxone 2g IV q12 through 12/10/24 for discitis.
- Trend CRP and ESR; ordered for 11/09.
- Off load sacrum. Continue local wound care.
- Trend WBC and temps.
Chief Complaint
-: Other (L3-4 discitis)
Subjective / Review of Systems
Patient seen and examined. Reports no fevers or chills. Ongoing low back pain (controlled)
Review of Systems: No Fever and No Chills
Vital Signs / Physical Exam
Vital Signs
Vital Signs
Temp Pulse Resp BP Pulse Ox
97.9 F 60 15 92/54 94
11/08/24 07:11 11/08/24 06:00 11/08/24 06:00 11/08/24 06:00 11/08/24 06:00
Physical Exam
Constitutional: Chronically Ill
Eyes: Sclera Anicteric
Cardiovascular: Regular Rate and S1/S2
Gastrointestinal: Soft, Non Tender, Non Distended and Normal Bowel Sounds
Genito-Urinary: Soler and Clear Urine
Extremities: Negative Edema
Neurological: AO x 3
Lines: PICC (RUE intact)
Objective Data
Lab Data
Lab Results
11/08/24 05:24
11/08/24 05:24
PT 15.2 Sec (11.4-14.6) H 11/03/24 05:38
INR 1.17 11/03/24 05:38
APTT Cancelled 11/03/24 12:00
Estimated Creat Clear 59 ml/min 11/08/24 05:24
Lactic Acid 1.8 mmol/L (0.7-2.0) 11/02/24 17:33
Total Bilirubin 0.7 mg/dl (0.2-1.3) 11/08/24 05:24
AST 29 U/L (17-59) 11/08/24 05:24
ALT 102 U/L (0-50) H 11/08/24 05:24
Alkaline Phosphatase 59 U/L (38-126) 11/08/24 05:24
Most recent labs reviewed.
Micro Results:
10/30/24 09:02 Blood Culture - Final
Blood/Venous No Growth - Final Report
10/30/24 09:03 Blood Culture - Final
Blood/Venous No Growth - Final Report
10/30/24 18:11 MRSA Screen - Final
Nose No Methicillin Resistant Staphylococcus aureus isolated.
10/30/24 08:01 Urine Culture - Final
Urine NO GROWTH
10/30/24 20:17 Respiratory Culture - Final
Sputum Gram Stain - Final
10/30/24 18:11 Legionella Urinary Antigen - Final
Urine Negative for Legionella pneumophila Serogroup 1 antigen.
A negative result does not rule out the possiblity of
Legionella infection due to other serogroups or species of
Legionella. Clinical correlation is recommended.
Streptococcus pneumoniae Antigen (M - Final
Negative for Streptococcus pneumoniae antigen.
A negative result does not exclude infection with
Streptococcus pneumoniae. Clinical correlation is
recommended.
10/30/24 11:35 Influenza Types A & B (LAURA) - Final
Nasal Swab Negative for Influenza A & B, NAAT
Negative results must be combined with clinical observations
and patient history.
Nucleic Acid Amplification test (NAAT)performed on the
[employer] platform.
Imaging:
11/04/24 CXR: Bilateral opacification slightly improved on the right, possibly representing pneumonia and small bilateral pleural effusions.
11/02/24 CXR: MARKED PROGRESSION OF WIDESPREAD BILATERAL PARENCHYMAL OPACITIES, most likely differential diagnostic possibilities would be acute pulmonary edema or pneumonia.
10/30/[address] examination is negative for pulmonary embolism. Small to moderate bilateral pleural effusions. Patchy parenchymal opacity mainly within both upper lobes, suspicious for pneumonia. Pulmonary edema would be a differential
consideration.
[2024-11-08] MEDS: LIDOCAINE 4% PATCH TOPICAL (08:42)
[2024-11-08] MEDS: MIRALAX 17 GRAMS PO (08:43)
[2024-11-08] MEDS: LOW STRENGTH ASPIRIN 81 MG PO (08:43)
[2024-11-08] MEDS: PROTONIX 40 MG PO ×2 (08:43→21:15)
[2024-11-08] MEDS: VISBIOME 1 CAP PO (08:43)
[2024-11-08] MEDS: ULTRAM 50 MG PO (08:44)
[2024-11-08] MEDS: PACERONE 400 MG PO ×2 (08:44→21:13)
[2024-11-08] MEDS: SANTYL OINTMENT 1 APPLIC TOPICAL (08:44)
[2024-11-08] MEDS: ELIQUIS 5 MG PO ×2 (08:44→21:15)
--- NOTE | 2024-11-08 14:16 | W.PN.HOSP.TC ---
Today's Communication/Plan
-
holding PO lasix today
PT/OT
Amio/Eliquis
Cefepime until end of 11/08 - then switch to Ceftriaxone
BM regimen
Assessment / Plan
Assessment / Plan
83-year-old male with past medical history of recent osteomyelitis/discitis on IV ceftriaxone, stage III sacral wound, recently discharged from to [facility]; presented back to the emergency department for
reported acute on chronic left-sided chest pain which began in the morning and continued back pain and 'buttock pain from wound'. EMS reported that patient was on 16 L nasal cannula. Currently on high flow. He denied active shortness of breath
this am. Patient has RUE PICC line from which he was receiving ceftriaxone.
CT PE:
Examination is negative for pulmonary embolism.
Small to moderate bilateral pleural effusions.
Patchy parenchymal opacity mainly within both upper lobes, suspicious for pneumonia. Pulmonary edema would be a differential consideration.
Band-shaped opacity within the inferior lingula, compatible with discoid atelectasis.
Note is made of a slightly impacted fracture involving the superior sternal body. This appears to be acute to subacute.
Calcification of the thoracic aorta with no evidence for thoracic aortic aneurysm.
A/P:
#Acute Hypoxic Respiratory Failure, resolved
-2/2 to Acute HFrEF +/- Aspiration Pneumonia
-abx
-diuretics - switched to PO, holding today
-monitor and wean o2 as tolerated
-goal o2 >92%
#Cardiogenic Shock
#Acute HFreF
-Weaning off phenylephrine, was switched to dobutamine and norepinephrine - dobutamine turned off 01/07 - tolerating well
-IV lasix - switched to PO, holding today
-Add metolazone prn; goal net neg 500cc to 1L in 24 hours
-Monitor with pressors and diuresis
-EF 30-35%
-Maintain MAP >65
#Transaminitis
� Most likely secondary to hypoperfusion, shock
� Continue to monitor
-improving
#Sepsis
# Suspect aspiration pneumonia
# Leukocytosis -stable
# Recent Strep sanguinis bacteremia with L3/L4 discitis, currently on IV abx (was ceftriaxone) x 8 weeks through 12/10/24.
-can consider YEE to evaluate for infective endocarditis given recent high grade Strep sanguinis bacteremia
-Can consider MR Spine once stable to eval for Osteo
-broaden to cefepime 1mg IV q6h to cover PNA and discitis - Continue cefepime through 11/08, then resume ceftriaxone
-On 11/09, resume ceftriaxone 2g IV q12 through 12/10/24 for discitis.
#Hyponatremia
-monitor with diuresis
-suspect volume overload
#Non Ischemic Chest pain
#Elevated Troponin
-most likely non ischemic myocardial injury in setting of acute state
- possible atheromatous LAD plaque => treating for potential NSTEMI with 48 hours heparin and DAPT as tolerated for up to 12 months.
- STOP IV heparin
-As per Cardiology: Given the AFib and anemia and at age 83 it is best to move to just ASA + Eliquis at this time, can revisit if needed
#Mitral regurgitation, progressive mod/severe => severe
#Anemia, chronic, monitor
#Afib, paroxsymal
-Eliquis
-rate controlled
-switch to PO amio
# Recent L3/L4 discitis/osteomyelitis with Strep bacteremia
-Complicated by Intractable lower back pain with gait dysfunction due to above
-cefepime - abx for 8 weeks total
-may need MRI once stable
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
Per , flaherty was placed on 10/02/2024 due to urinary retention
Exchanged flaherty this admission
Outpt Uro follow up
#Sacral ulcer, Stage III
-wound care
-Can consider MRI once stable - already on abx
# Distant h/o DVT, completed AC course
Eliquis
#Iron def Anemia
-consider ferrous sulfate outpatient
-will hold on IV iron due to acute infection
#Hypokalemia
-monitor and replete
Code status: full code
DVT prophylaxis: Eliquis
Anticipated Discharge: 24 - 48 hours
Subjective/Interval History
-
Date of Service: November 08, 2024
No acute events overnight
Objective Data
-
Labs:
Laboratory Results
11/08/24
05:24
WBC 9.9
Hgb 8.6 L
Hct 27.2 L
Plt Count 410 H
Sodium 130 L
Potassium 3.8
Chloride 100
Carbon Dioxide 28
BUN 36 H
Creatinine 0.8
Glucose 101 H
Calcium 8.6
Total Bilirubin 0.7
AST 29
ALT 102 H
Alkaline Phosphatase 59
Vital Signs:
Vital Signs
Temp Pulse Resp BP Pulse Ox
97 F 64 19 94/53 95
11/08/24 11:18 11/08/24 11:00 11/08/24 11:00 11/08/24 10:00 11/08/24 11:00
I&O
11/07/24 11/08/24 11/09/24
06:59 06:59 06:59
Intake Total 190 / 190 260 / 260 150 / 150
Output Total 3400 / 3400 900 / 900 275 / 275
Balance -3210 / -3210 -640 / -640 -125 / -125
Review of Systems
-
History Source: Patient
All other systems: Not reviewed unless documented
Physical Exam
-
General: Well Developed, Well Nourished, No Apparent Distress and Comfortable
HEENT: Nose Appears Normal and Ears Appear Normal
Cardiac: Regular Rhythm and S1/S2
GI: Soft, Nontender and Nondistended
Musculoskeletal: No Clubbing and No Cyanosis
Skin: Warm and Dry
Neuro: Awake, Alert and Oriented
Psych: Calm
Data Reviewed
-
Diagnostic Radiology: Report Reviewed by me
CT Scan: Report Reviewed by me
Labs: Labs Reviewed by me
[2024-11-08] MEDS: ULTRAM 25 MG PO (15:40)
--- NOTE | 2024-11-08 19:30 | PTCARENOTE ---
Assumed care. Patient received lying in bed. He appears to be sleeping comfortably. He is without apparent signs of distress or discomfort. He rouses easily to name called, alert and oriented. Bilateral hearing aides in place. He c/o lower back pain
and sacral wound pain but he was recently medicated with Morphine--he declines need for pain medication at this time. See rrts charted on worklist flowsheet. He is SR with 1st degree AVB and BBB on CM, QT appears prolonged on pulled monitor
strip. Denies CP or SOB. Bilateral bases diminished, BUL with fine scattered crackles. No cough, congestion or wheezing. Positive pulses, no edema. Soler catheter patent draining cloudy yellow urine. Bed in low and locked position, call [place] within
reach. Turned every 2 hours.
[2024-11-08] MEDS: REMOVE LIDOCAINE PATCH REMOVE (21:15)
[2024-11-09] VITALS (12 sets, daily range): BP systolic 88–108; BP diastolic 37–60; PULSE 63; O2SAT 96; BMI 18.3
--- NOTE | 2024-11-09 01:30 | PTCARENOTE ---
QT/QTc measurements/alarm turned on on monitor car operator. Manually measuring QT is 0.56, QTc on CM alarm is 0.62. LATONIA Rodriguez notified. EKG for the am requested. Patient is on Amiodarone. Will pass on to next shift and cardiology in the morning. No
ectopy noted. Patient is asymptomatic. BP stable, MAP 65.
--- NOTE | 2024-11-09 01:52 | W.PN.UPDATE ---
Update Note
Progress Note Update
Reported by the nursing staff, Qtc Prolongation noted on tele. Asymptomatic. Patient currently on amiodarone.
Ekg ordered, Will d/c Sisi, Patient currently followed by cardioogy and will be updated.
--- NOTE | 2024-11-09 02:30 | PTCARENOTE ---
QT 0.48, QTc 0.50. SR with 1st degree AVB and BBB, HR low 60s.
--- NOTE | 2024-11-09 05:30 | PTCARENOTE ---
Am labs drawn, weight done, EKG performed, repositioned.
[2024-11-09] MEDS: MAXIPIME 1000 MG IV (05:55)
[2024-11-09] MEDS: STERILE WATER FOR INJECTION 10 ML IV (05:56)
[2024-11-09] MEDS: TYLENOL PO (05:56)
[2024-11-09 06:29] LABS: Hematocrit 28.3 % (39.0-52.0); Hemoglobin 9.0 g/dL (13.0-18.0); Mean Corp Hgb Conc. 31.8 g/dL (33.0-37.0); Mean Corpuscular Volume 83.5 fL (80.0-94.0); Platelet Count 423 10^3/uL (130-400); Red Cell Dist. Width 19.3 % (11.5-14.5)
[2024-11-09 06:48] LABS: ALT (SGPT) 82 U/L (0-50); AST (SGOT) 22 U/L (17-59); Albumin 2.9 g/dl (3.5-5.0); Alkaline Phosphatase 57 U/L (38-126); Blood Urea Nitrogen 36 mg/dl (9-20); Calcium 9.2 mg/dl (8.4-10.2); Carbon Dioxide 30 mmol/L (22-30); Chloride 103 mmol/L (98-107); Estimated Creatinine Clearance 66 ml/min; Glucose 107 mg/dl (70-99); Magnesium 2.2 mg/dl (1.6-2.3); Potassium 4.1 mmol/L (3.5-5.1); Sodium 132 mmol/L (135-145); Total Protein 5.3 g/dl (6.3-8.2); eGFR > 60.00
[2024-11-09 06:52] LABS: C-Reactive Protein 19.90 mg/L (0.0-10.00)
--- NOTE | 2024-11-09 07:24 | PTCARENOTE ---
Report given verbally to Jose Antonio emerson RN. Questions answered.
[2024-11-09] MEDS: NEURONTIN 200 MG PO ×3 (08:30→23:05)
[2024-11-09] MEDS: ELIQUIS 5 MG PO ×2 (08:30→20:04)
[2024-11-09] MEDS: PROTONIX 40 MG PO ×2 (08:30→20:04)
[2024-11-09] MEDS: MIRALAX 17 GRAMS PO (08:30)
[2024-11-09] MEDS: VISBIOME 1 CAP PO (08:30)
[2024-11-09] MEDS: SANTYL OINTMENT 1 APPLIC TOPICAL (08:31)
[2024-11-09] MEDS: LIDOCAINE 4% PATCH TOPICAL (08:31)
[2024-11-09] MEDS: ULTRAM 50 MG PO (08:31)
[2024-11-09] MEDS: LOW STRENGTH ASPIRIN 81 MG PO (08:31)
[2024-11-09] MEDS: PACERONE 400 MG PO (09:02)
--- NOTE | 2024-11-09 09:35 | W.PN.ID1 ---
Date of Service
Date of Service: November 09, 2024
Today's Communication
Continue ceftriaxone 2g IV q24 through 12/10/24 for discitis.
Assessment / Plan
# Recent Strep sanguinis bacteremia with L3/L4 discitis, currently on IV abx (was ceftriaxone) x 8 weeks through 12/10/24.
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
# s/p Cardiogenic shock; off pressors.
# Acute hypoxemic resp failure, resolved
# Suspect aspiration pneumonia
# Leukocytosis - resolved
# New onset afib, now in sinus
# Unstageable sacral decubitus, present on admission
- Blood cx's neg to date
- Cardiac cath: no significant CAD to explain trop 69.
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
-Completed 7day course of cefepime for PNA.
- Continue ceftriaxone 2g IV q24 through 12/10/24 for discitis.
- CRP trending down
- Off load sacrum. Continue local wound care.
Chief Complaint
-: Other (L3-4 discitis)
Subjective / Review of Systems
c/o sacral decubitus pain.
Vital Signs / Physical Exam
Vital Signs
Vital Signs
Temp Pulse Resp BP Pulse Ox
97.7 F 67 21 97/52 96
11/09/24 08:02 11/09/24 09:00 11/09/24 09:00 11/09/24 08:00 11/09/24 09:00
Physical Exam
Constitutional: Chronically Ill
Cardiovascular: Regular Rate and S1/S2
Pulmonary: Coarse
Gastrointestinal: Soft, Non Tender, Non Distended and Normal Bowel Sounds
Genito-Urinary: Soler and Clear Urine
Extremities: Negative Edema
Neurological: AO x 3
Lines: PICC
Objective Data
Lab Data
Lab Results
11/09/24 06:06
11/09/24 06:06
ESR 69 mm/hour (0-20) H 11/09/24 06:06
PT 15.2 Sec (11.4-14.6) H 11/03/24 05:38
INR 1.17 11/03/24 05:38
APTT Cancelled 11/03/24 12:00
Estimated Creat Clear 66 ml/min 11/09/24 06:06
Lactic Acid 1.8 mmol/L (0.7-2.0) 11/02/24 17:33
Total Bilirubin 0.7 mg/dl (0.2-1.3) 11/09/24 06:06
AST 22 U/L (17-59) 11/09/24 06:06
ALT 82 U/L (0-50) H 11/09/24 06:06
Alkaline Phosphatase 57 U/L (38-126) 11/09/24 06:06
C-Reactive Protein 19.90 mg/L (0.0-10.00) H 11/09/24 06:06
Most recent labs reviewed.
Micro Results:
10/30/24 09:02 Blood Culture - Final
Blood/Venous No Growth - Final Report
10/30/24 09:03 Blood Culture - Final
Blood/Venous No Growth - Final Report
10/30/24 18:11 MRSA Screen - Final
Nose No Methicillin Resistant Staphylococcus aureus isolated.
10/30/24 08:01 Urine Culture - Final
Urine NO GROWTH
10/30/24 20:17 Respiratory Culture - Final
Sputum Gram Stain - Final
10/30/24 18:11 Legionella Urinary Antigen - Final
Urine Negative for Legionella pneumophila Serogroup 1 antigen.
A negative result does not rule out the possiblity of
Legionella infection due to other serogroups or species of
Legionella. Clinical correlation is recommended.
Streptococcus pneumoniae Antigen (M - Final
Negative for Streptococcus pneumoniae antigen.
A negative result does not exclude infection with
Streptococcus pneumoniae. Clinical correlation is
recommended.
10/30/24 11:35 Influenza Types A & B (LAURA) - Final
Nasal Swab Negative for Influenza A & B, NAAT
Negative results must be combined with clinical observations
and patient history.
Nucleic Acid Amplification test (NAAT)performed on the
[employer] platform.
Imaging:
11/04/24 CXR: Bilateral opacification slightly improved on the right, possibly representing pneumonia and small bilateral pleural effusions.
11/02/24 CXR: MARKED PROGRESSION OF WIDESPREAD BILATERAL PARENCHYMAL OPACITIES, most likely differential diagnostic possibilities would be acute pulmonary edema or pneumonia.
10/30/[address] examination is negative for pulmonary embolism. Small to moderate bilateral pleural effusions. Patchy parenchymal opacity mainly within both upper lobes, suspicious for pneumonia. Pulmonary edema would be a differential
consideration.
--- NOTE | 2024-11-09 09:44 | W.PN.CD ---
Today's Communication / Plan
-
No Lasix today
Add GDMT soon
Increase activitiy
Decrease Amio to 200 one time daily
Impression / Plan
-
Mr. Jensen is an 83 year old man with past medical history of moderate-severe mitral regurgitation, dyslipidemia, and PAD recently hospitalized for discitis and bacteremia, transferred back to the hospital from rehab due to chest pain on 10/30. Chest
pain had typical and atypical features. CTPE was performed with no PE but pulmonary infiltrates c/f pneumonia vs. CHF. Troponin was elevated and echo showed new regional wall motion abnormalities concerning for stress CM vs. LAD territory ischemia
and progressive MR and TR. Catheterization was performed 10/30 and demonstrated a GAME PRODUCER of the RPL and non-obstructive disease in the LAD. Over the weekend chest pain improved and was largely pleuritic, troponin peaked at ~40, and hypoxia improved. He
was treated for pneumonia with antibiotics.
HFrEF with new cardiomyopathy (new LVEF 30-35% by echo 10/30/2024)
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
- Off dobutamine
- Goal weight may be close to 60 kg
- No Lasix today
- Add GDMT over time as tolerated
ID
-Suspected PNA
-Recent Strep sanguinis bacteremia with L3/L4 discitis
-ATBs per ID
CAD:
- likely GAME PRODUCER of RPL and non-obstructive plaque in mid-LAD
- Dr. Thomson suspects that his presentation is a non-ischemic process but CAD could have been contributing
- ASA + Eliquis chosen
AFib, paroxysmal
- Mostly sinus now
- Amio =-> will decrease to 200 mg daily, has had a good load for AFib
- Eliquis + ASA
- Might choose to stop Amio in 3-6 months but might chose group home amio
Abnormal troponin, peaked at 42.8 on 10/31/2024
- suspect acute, non-ischemic myocardial injury in setting of acute infectious illness (also anemia, hypoxia)
- but we cannot rule out type II [place]. We do not think this is a NSTEMI
Mitral regurgitation, progressive => mod/severe => severe
Anemia, chronic, monitor
- Soler in place
Subjective:
Off O2
Data:
CXR : progressive pulmonary edema with RUL predominance
Chest CT: Examination is negative for pulmonary embolism. Small to moderate bilateral pleural effusions. Patchy parenchymal opacity mainly within both upper lobes, suspicious for pneumonia. Pulmonary edema would be a differential consideration.
Band-shaped opacity within the inferior lingula, compatible with discoid atelectasis. Note is made of a slightly impacted fracture involving the superior sternal body. This appears to be acute to subacute. Calcification of the thoracic aorta with no
evidence for thoracic aortic aneurysm.
Cath 10/30/2024:
1. Moderately elevated biventricular filling pressures, moderate post-capillary pulmonary hypertension, and low cardiac index (RA 16, PA 45/20, PCWP 24)
2. No aortic stenosis
3. CAD without a flow limiting lesion: 30-40% LM, mLAD with focal, eccentric atheromatous plaque, 40% OM, subtotal occlusion RPL
Echo 10/30/2024: LV ejection fraction is 30-35%, Septal and basal inferior hypokinesis/akinesis. Apical dyskinesis. Severe MR/TR. PASP 50-55
Compared to previous echo on 10/14/2024
LVEF fallen [id number]% with normal regional wall motion. TR increased from mild to severe. PASP has increased from 25 to 30 mmHg). Slight increased in MR mod/severe => severe.
Physical Exam
Vital Signs/Labs
Vital Signs
Temp Pulse Resp BP Pulse Ox
97.7 F 67 21 97/52 96
11/09/24 08:02 11/09/24 09:00 11/09/24 09:00 11/09/24 08:00 11/09/24 09:00
11/08/24 11/09/24 11/10/24
06:59 06:59 06:59
Actual Weight 59.4 kg
11/09/24 06:06
11/09/24 06:06
PT 15.2 Sec (11.4-14.6) H 11/03/24 05:38
INR 1.17 11/03/24 05:38
APTT Cancelled 11/03/24 12:00
Magnesium 2.2 mg/dl (1.6-2.3) 11/09/24 06:06
Physical Exam
Constitutional: No acute distress
EENT: Anicteric
Cardiovascular: Rhythm & rate is regular and Pedal edema is absent
Respiratory: Respiratory effort normal and Lungs clear to auscul.
GI: Soft and Distention absent
Neuro/Psych: Alert
Data Reviewed
-
Date of Service: November 09, 2024
--- NOTE | 2024-11-09 09:46 | PTCARENOTE ---
Assumed care. Patient received lying in bed. at bedside. He is stating sacral pain, Scheduled Ultram given. Alert and oriented. Bilateral hearing aides in place. See inspector air carrier charted on worklist flowsheet. He is SR with 1st degree AVB.
QT appears prolonged, [employer] notified and olayed to give Pacerone. Denies CP or SOB. Bilateral bases diminished. No cough, congestion or wheezing. Positive pulses, no edema. Soler catheter patent draining yellow urine. Bed in low and locked
position, call [place] within reach. Tolerated breakfast. 2 person assisted OOB to chair with walker. Placed on large foam cushion and doughnut cushion. Continues to complain of sacral pain but refusing more pain meds.
[2024-11-09] MEDS: MORPHINE SULFATE 1 MG IV ×2 (11:24→20:05)
[2024-11-09] MEDS: ROCEPHIN 2000 MG IV (11:26)
[2024-11-09] MEDS: STERILE WATER FOR INJECTION 20 ML IV (11:26)
--- NOTE | 2024-11-09 11:33 | PTCARENOTE ---
Unable to find a comfortable position for pt Up in chair. PT worked with pt-see note. Pt returned to bed, side lying, dressing changed. Exudate present, wound cleaned with saline, santyl applied to wound bed, covered with petrolium gauze and
adhesive foam applied. Morphine IV given.
--- NOTE | 2024-11-09 15:01 | W.PN.HOSP.TC ---
Today's Communication/Plan
-
transfer tele
monitor renal function
continue rocephin
pain meds adjusted
Assessment / Plan
Assessment / Plan
83-year-old male with past medical history of recent osteomyelitis/discitis on IV ceftriaxone, stage III sacral wound, recently discharged from to [facility]; presented back to the emergency department for
reported acute on chronic left-sided chest pain which began in the morning and continued back pain and 'buttock pain from wound'. EMS reported that patient was on 16 L nasal cannula. Currently on high flow. He denied active shortness of breath
this am. Patient has RUE PICC line from which he was receiving ceftriaxone.
CT PE:
Examination is negative for pulmonary embolism.
Small to moderate bilateral pleural effusions.
Patchy parenchymal opacity mainly within both upper lobes, suspicious for pneumonia. Pulmonary edema would be a differential consideration.
Band-shaped opacity within the inferior lingula, compatible with discoid atelectasis.
Note is made of a slightly impacted fracture involving the superior sternal body. This appears to be acute to subacute.
Calcification of the thoracic aorta with no evidence for thoracic aortic aneurysm.
#Acute Hypoxic Respiratory Failure, resolved
-2/2 to Acute HFrEF +/- Aspiration Pneumonia
#Cardiogenic Shock
#Acute HFreF
- TTE showing EF 30-35%
- Patient was on dobutamine/Levophed, has been weaned off
-Patient was getting IV Lasix, cardio considering to switch to oral Lasix. none today.
#Transaminitis
Most likely secondary to hypoperfusion, shock
- improving
# Sepsis
# Suspect aspiration pneumonia
# Recent Strep sanguinis bacteremia with L3/L4 discitis
- Patient finished course of cefepime now has been transitioned to Rocephin for discitis with last dose on 12/10/24
- ID following and help appreciated
#Hyponatremia
-monitor with diuresis
-suspect volume overload
#Elevated Troponin
-most likely non ischemic myocardial injury in setting of acute state
-Patient was on heparin drip
-Patient has COSMETICS SUPERVISOR of RPL and nonobstructive plaque in mid LAD
-Patient to be maintained on aspirin and Eliquis at this point
#Mitral regurgitation, progressive mod/severe => severe
#Anemia, chronic, monitor
#Paroxysmal Afib
-maintain on eliquis
-rate controlled
-switch to PO amio
# Recent L3/L4 discitis/osteomyelitis with Strep bacteremia
-Complicated by Intractable lower back pain with gait dysfunction due to above
-may need MRI once stable
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
-Per , flaherty was placed on 10/02/2024 due to urinary retention
-flaherty exchanged this admission
#Sacral ulcer, Stage III
-wound care
-Can consider MRI once stable - already on abx
# Distant h/o DVT, completed AC course
#Iron def Anemia
-consider ferrous sulfate outpatient
-will hold on IV iron due to acute infection
#Hypokalemia
-monitor and replete
Code status: full code
DVT prophylaxis: Eliquis
Total time spent : 55 mins
Anticipated Discharge: 24 - 48 hours
Subjective/Interval History
-
Date of Service: November 09, 2024
Patient sitting in chair complaining of lower back pain/sacral wound pain
Denies of having any ongoing shortness of breath
Remains afebrile
No reported acute events overnight
Objective Data
-
Labs:
Laboratory Results
11/09/24
06:06
WBC 9.2
Hgb 9.0 L
Hct 28.3 L
Plt Count 423 H
Sodium 132 L
Potassium 4.1
Chloride 103
Carbon Dioxide 30
BUN 36 H
Creatinine 0.7
Glucose 107 H
Calcium 9.2
Total Bilirubin 0.7
AST 22
ALT 82 H
Alkaline Phosphatase 57
Vital Signs:
Vital Signs
Temp Pulse Resp BP Pulse Ox
97.6 F 72 14 101/50 89
11/09/24 11:30 11/09/24 14:00 11/09/24 14:00 11/09/24 13:23 11/09/24 14:00
I&O
11/08/24 11/09/24 11/10/24
06:59 06:59 06:59
Intake Total 260 / 260 380 / 380 400 / 400
Output Total 900 / 900 975 / 975 175 / 175
Balance -640 / -640 -595 / -595 225 / 225
Review of Systems
-
Respiratory: Reports No Symptoms
Cardiac: Reports No Symptoms
Abdomen/GI: Reports No Symptoms
Physical Exam
-
General: Cachectic
HEENT: Nose Appears Normal and Ears Appear Normal; Negative Oxygen
Cardiac: Regular Rhythm and S1/S2
GI: Soft, Nontender and Nondistended
Neuro: Awake, Alert and Oriented
Psych: Calm
[2024-11-09] MEDS: TYLENOL 1000 MG PO ×2 (15:06→23:05)
[2024-11-09] MEDS: ROXICODONE 5 MG PO (15:06)
[2024-11-09] MEDS: DULCOLAX 10 MG PO (15:07)
--- NOTE | 2024-11-09 15:16 | CM ---
Addendum entered by Samantha Razo 11/09/24 15:18:
Patient for IV/AB after discharge, End Date is 12/11/24. Script in chart.
Original Note:
Patient transferred to Room # 414.
--- NOTE | 2024-11-09 15:16 | PTCARENOTE ---
Report called to M/S floor. Pt assisted to new bed with multiple support devices on bed to protect wound. Pt medicated with Roxicodone, scheduled meds and bisacodyl. Pt escorted to 4W on monitor.
[2024-11-09] MEDS: REMOVE LIDOCAINE PATCH REMOVE (20:04)
--- NOTE | 2024-11-10 02:22 | DOWNTIME ---
There was a [employer] Client Assistant Sales Center Manager Downtime on 11/10/2024 from 0100 to 11/10/2024 at 0220. Downtime documentation of patient's care, including medication administrations, has been reconciled in the electronic record per guidelines. Refer to the
patient's paper chart under the miscellaneous tab to see printed paper medication records and downtime forms.
[2024-11-10 03:34] VITALS: BP 107/51
[2024-11-10] MEDS: MORPHINE SULFATE 1 MG IV (05:53)
[2024-11-10 05:57] LABS: Hematocrit 28.1 % (39.0-52.0); Hemoglobin 8.8 g/dL (13.0-18.0); Mean Corp Hgb Conc. 31.3 g/dL (33.0-37.0); Mean Corpuscular Volume 84.4 fL (80.0-94.0); Platelet Count 385 10^3/uL (130-400); Red Cell Dist. Width 19.5 % (11.5-14.5)
[2024-11-10 06:00] VITALS: BMI 18.6
[2024-11-10] MEDS: SANTYL OINTMENT 1 APPLIC TOPICAL (06:07)
[2024-11-10 06:09] LABS: ALT (SGPT) 60 U/L (0-50); AST (SGOT) 20 U/L (17-59); Albumin 2.7 g/dl (3.5-5.0); Alkaline Phosphatase 59 U/L (38-126); Blood Urea Nitrogen 34 mg/dl (9-20); Calcium 9.1 mg/dl (8.4-10.2); Carbon Dioxide 29 mmol/L (22-30); Chloride 103 mmol/L (98-107); Estimated Creatinine Clearance 58 ml/min; Glucose 94 mg/dl (70-99); Magnesium 2.1 mg/dl (1.6-2.3); Potassium 4.0 mmol/L (3.5-5.1); Sodium 134 mmol/L (135-145); Total Protein 5.1 g/dl (6.3-8.2); eGFR > 60.00
[2024-11-10 07:00] VITALS: BP 100/55
[2024-11-10] MEDS: LIDOCAINE 4% PATCH TOPICAL ×2 (09:33→09:38)
[2024-11-10] MEDS: PROTONIX 40 MG PO ×2 (09:34→21:45)
[2024-11-10] MEDS: NEURONTIN 200 MG PO ×3 (09:34→23:23)
[2024-11-10] MEDS: TYLENOL PO ×4 (09:34→23:23)
[2024-11-10] MEDS: LOW STRENGTH ASPIRIN 81 MG PO (09:35)
[2024-11-10] MEDS: PACERONE 200 MG PO (09:35)
[2024-11-10] MEDS: ELIQUIS 5 MG PO ×2 (09:35→21:45)
[2024-11-10] MEDS: VISBIOME 1 CAP PO (09:35)
--- NOTE | 2024-11-10 09:44 | W.PN.CD ---
Today's Communication / Plan
-
start:
- Lasix 20 mg daily
- Farxiga 10 mg daily
- Toprol XL 12.5 mg daily
Add statin now
As outpatient anticipate adding MRA (Aldactone) and a RAAS-I (BERT-I, ARB, or ARNI) and then slowly getting meds to goal doses
Continue Amio for 3-6 months then consider stopping
Continue Eliquis 5 bid (if weight goes less than or equal to 60 kg then go to 2.5 BID)
Follow LVEF/MR overtime to see if intervention appropriate to consider
Impression / Plan
-
Mr. Jensen is an 83 year old man with past medical history of moderate-severe mitral regurgitation, dyslipidemia, and PAD recently hospitalized for discitis and bacteremia, transferred back to the hospital from rehab due to chest pain on 10/30. Chest
pain had typical and atypical features. CTPE was performed with no PE but pulmonary infiltrates c/f pneumonia vs. CHF. Troponin was elevated and echo showed new regional wall motion abnormalities concerning for stress CM vs. LAD territory ischemia
and progressive MR and TR. Catheterization was performed 10/30 and demonstrated a TRANSPORTATION ENGINEERING TECHNICIAN of the RPL and non-obstructive disease in the LAD. Over the weekend chest pain improved and was largely pleuritic, troponin peaked at ~40, and hypoxia improved. He
was treated for pneumonia with antibiotics.
HFrEF with new cardiomyopathy (new LVEF 30-35% by echo 10/30/2024)
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
- Off dobutamine
- Goal weight may be close to 60-61 kg
- Add Lasix and some GDMT now and others later
ID
-Suspected PNA
-Recent Strep sanguinis bacteremia with L3/L4 discitis
-ATBs per ID
CAD:
- likely TRANSPORTATION ENGINEERING TECHNICIAN of RPL and non-obstructive plaque in mid-LAD
- Dr. Thomson suspects that his presentation is a non-ischemic process but CAD could have been contributing
- ASA + Eliquis chosen
AFib, paroxysmal
- Mostly sinus now
- Amio =-> will decrease to 200 mg daily, has had a good load for AFib
- Eliquis + ASA. (if weight goes less than or equal to 60 kg then go to Eliquis 2.5 BID)
- Might choose to stop Amio in 3-6 months but might chose supervisor intermediates amio
Abnormal troponin, peaked at 42.8 on 10/31/2024
- suspect acute, non-ischemic myocardial injury in setting of acute infectious illness (also anemia, hypoxia)
- but we cannot rule out type II [place]. We do not think this is a NSTEMI
Mitral regurgitation, progressive => mod/severe => severe
Anemia, chronic, monitor
- Soler in place
Subjective:
Off O2
Data:
CXR : progressive pulmonary edema with RUL predominance
Chest CT: Examination is negative for pulmonary embolism. Small to moderate bilateral pleural effusions. Patchy parenchymal opacity mainly within both upper lobes, suspicious for pneumonia. Pulmonary edema would be a differential consideration.
Band-shaped opacity within the inferior lingula, compatible with discoid atelectasis. Note is made of a slightly impacted fracture involving the superior sternal body. This appears to be acute to subacute. Calcification of the thoracic aorta with no
evidence for thoracic aortic aneurysm.
Cath 10/30/2024:
1. Moderately elevated biventricular filling pressures, moderate post-capillary pulmonary hypertension, and low cardiac index (RA 16, PA 45/20, PCWP 24)
2. No aortic stenosis
3. CAD without a flow limiting lesion: 30-40% LM, mLAD with focal, eccentric atheromatous plaque, 40% OM, subtotal occlusion RPL
Echo 10/30/2024: LV ejection fraction is 30-35%, Septal and basal inferior hypokinesis/akinesis. Apical dyskinesis. Severe MR/TR. PASP 50-55
Compared to previous echo on 10/14/2024
LVEF fallen [id number]% with normal regional wall motion. TR increased from mild to severe. PASP has increased from 25 to 30 mmHg). Slight increased in MR mod/severe => severe.
Physical Exam
Vital Signs/Labs
Vital Signs
Temp Pulse Resp BP Pulse Ox
97.6 F 62 16 100/55 93
11/10/24 07:00 11/10/24 09:35 11/10/24 07:00 11/10/24 09:35 11/10/24 07:00
11/09/24 11/10/24 11/11/24
06:59 06:59 06:59
Actual Weight 59.4 kg 60.526 kg
11/10/24 05:24
11/10/24 05:24
PT 15.2 Sec (11.4-14.6) H 11/03/24 05:38
INR 1.17 11/03/24 05:38
APTT Cancelled 11/03/24 12:00
Magnesium 2.1 mg/dl (1.6-2.3) 11/10/24 05:24
Physical Exam
Constitutional: No acute distress
EENT: Anicteric
Cardiovascular: Rhythm & rate is regular and Pedal edema is absent
Respiratory: Respiratory effort normal and Lungs clear to auscul.
GI: Soft and Distention absent
Neuro/Psych: Alert
Data Reviewed
-
Date of Service: November 10, 2024
[2024-11-10] MEDS: ROXICODONE 10 MG PO (09:46)
[2024-11-10] MEDS: STERILE WATER FOR INJECTION IV (11:31)
[2024-11-10 11:40] VITALS: BP 97/50
--- NOTE | 2024-11-10 12:44 | W.PN.ID1 ---
Date of Service
Date of Service: November 10, 2024
Today's Communication
Continue ceftriaxone 2g IV q24 through 12/10/24 for discitis.
Assessment / Plan
# Recent Strep sanguinis bacteremia with L3/L4 discitis, currently on IV abx (was ceftriaxone) x 8 weeks through 12/10/24.
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
# s/p Cardiogenic shock; off pressors.
# Acute hypoxemic resp failure, resolved
# s/p aspiration pneumonia
# Leukocytosis - resolved
# New onset afib, now in sinus
# Unstageable sacral decubitus, present on admission
- Blood cx's neg to date
- Cardiac cath: no significant CAD to explain trop 69.
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
-Completed 7day course of cefepime for PNA.
- Continue ceftriaxone 2g IV q24 through 12/10/24 for discitis.
Infusion sheet submitted to airport location manager on 11/09.
- CRP trending down
- Off load sacrum. Continue local wound care.
Chief Complaint
-: Other (L3-4 discitis)
Subjective / Review of Systems
c/o sacral pain
Vital Signs / Physical Exam
Vital Signs
Vital Signs
Temp Pulse Resp BP Pulse Ox
98.5 F 70 16 97/50 95
11/10/24 11:40 11/10/24 11:40 11/10/24 11:40 11/10/24 11:40 11/10/24 11:40
Physical Exam
Constitutional: Chronically Ill
Cardiovascular: Regular Rate and S1/S2
Pulmonary: Coarse
Gastrointestinal: Soft, Non Tender, Non Distended and Normal Bowel Sounds
Genito-Urinary: Soler and Clear Urine
Extremities: Negative Edema
Neurological: AO x 3
Lines: PICC
Objective Data
Lab Data
Lab Results
11/10/24 05:24
11/10/24 05:24
ESR 69 mm/hour (0-20) H 11/09/24 06:06
PT 15.2 Sec (11.4-14.6) H 11/03/24 05:38
INR 1.17 11/03/24 05:38
APTT Cancelled 11/03/24 12:00
Estimated Creat Clear 58 ml/min 11/10/24 05:24
Lactic Acid 1.8 mmol/L (0.7-2.0) 11/02/24 17:33
Total Bilirubin 0.6 mg/dl (0.2-1.3) 11/10/24 05:24
AST 20 U/L (17-59) 11/10/24 05:24
ALT 60 U/L (0-50) H 11/10/24 05:24
Alkaline Phosphatase 59 U/L (38-126) 11/10/24 05:24
C-Reactive Protein 19.90 mg/L (0.0-10.00) H 11/09/24 06:06
Most recent labs reviewed.
Micro Results:
10/30/24 09:02 Blood Culture - Final
Blood/Venous No Growth - Final Report
10/30/24 09:03 Blood Culture - Final
Blood/Venous No Growth - Final Report
10/30/24 18:11 MRSA Screen - Final
Nose No Methicillin Resistant Staphylococcus aureus isolated.
10/30/24 08:01 Urine Culture - Final
Urine NO GROWTH
10/30/24 20:17 Respiratory Culture - Final
Sputum Gram Stain - Final
10/30/24 18:11 Legionella Urinary Antigen - Final
Urine Negative for Legionella pneumophila Serogroup 1 antigen.
A negative result does not rule out the possiblity of
Legionella infection due to other serogroups or species of
Legionella. Clinical correlation is recommended.
Streptococcus pneumoniae Antigen (M - Final
Negative for Streptococcus pneumoniae antigen.
A negative result does not exclude infection with
Streptococcus pneumoniae. Clinical correlation is
recommended.
10/30/24 11:35 Influenza Types A & B (LAURA) - Final
Nasal Swab Negative for Influenza A & B, NAAT
Negative results must be combined with clinical observations
and patient history.
Nucleic Acid Amplification test (NAAT)performed on the
[employer] platform.
Imaging:
11/04/24 CXR: Bilateral opacification slightly improved on the right, possibly representing pneumonia and small bilateral pleural effusions.
11/02/24 CXR: MARKED PROGRESSION OF WIDESPREAD BILATERAL PARENCHYMAL OPACITIES, most likely differential diagnostic possibilities would be acute pulmonary edema or pneumonia.
10/30/[address] examination is negative for pulmonary embolism. Small to moderate bilateral pleural effusions. Patchy parenchymal opacity mainly within both upper lobes, suspicious for pneumonia. Pulmonary edema would be a differential
consideration.
[2024-11-10] MEDS: ROCEPHIN 2000 MG IV (13:46)
[2024-11-10] MEDS: STERILE WATER FOR INJECTION 20 ML IV (13:47)
[2024-11-10] MEDS: MILK OF MAGNESIA 30 ML PO (13:49)
[2024-11-10] MEDS: ROXICODONE 15 MG PO ×2 (14:07→21:46)
[2024-11-10 15:00] VITALS: BP 107/53
--- NOTE | 2024-11-10 15:38 | CM ---
Chart reviewed. Plan is for patient to d/c to [facility] w/ continuous IV abx
Spoke w/ [facility], originally had a bed today but a discharge got cancelled and will touch base w/ CM tomorrow
Updated hospitalist
Will need insurance auth
Plan: [facility]
CM will follow up w/ [facility] tomorrow regarding bed availability
--- NOTE | 2024-11-10 15:42 | W.PN.HOSP.TC ---
Today's Communication/Plan
-
d/c planning for rehab
Assessment / Plan
Assessment / Plan
83-year-old male with past medical history of recent osteomyelitis/discitis on IV ceftriaxone, stage III sacral wound, recently discharged from to [facility]; presented back to the emergency department for
reported acute on chronic left-sided chest pain which began in the morning and continued back pain and 'buttock pain from wound'. EMS reported that patient was on 16 L nasal cannula. Currently on high flow. He denied active shortness of breath
this am. Patient has RUE PICC line from which he was receiving ceftriaxone.
CT PE:
Examination is negative for pulmonary embolism.
Small to moderate bilateral pleural effusions.
Patchy parenchymal opacity mainly within both upper lobes, suspicious for pneumonia. Pulmonary edema would be a differential consideration.
Band-shaped opacity within the inferior lingula, compatible with discoid atelectasis.
Note is made of a slightly impacted fracture involving the superior sternal body. This appears to be acute to subacute.
Calcification of the thoracic aorta with no evidence for thoracic aortic aneurysm.
#Acute Hypoxic Respiratory Failure, resolved
-2/2 to Acute HFrEF +/- Aspiration Pneumonia
#Cardiogenic Shock
#Acute HFreF
- TTE showing EF 30-35%
- Patient was on dobutamine/Levophed, has been weaned off
- IV lasix changed to oral lasix 20mg/d
- Farxiga 10mg/d and toprol xl 12.5mg/d started as part of GDMT
#Transaminitis
- Most likely secondary to hypoperfusion, shock
- improving
# Sepsis
# Suspect aspiration pneumonia
# Recent Strep sanguinis bacteremia with L3/L4 discitis
- Patient finished course of cefepime now has been transitioned to Rocephin for discitis with last dose on 12/10/24
- ID following and help appreciated
#Hyponatremia - Improved
-suspect volume overload related
#Elevated Troponin
-most likely non ischemic myocardial injury in setting of acute state
-Patient was on heparin drip
-Patient has MECHANICAL DEVELOPER PROVER of RPL and nonobstructive plaque in mid LAD
-Patient to be maintained on aspirin and Eliquis at this point
#Mitral regurgitation, progressive mod/severe => severe
#Anemia, chronic, monitor
#Paroxysmal Afib
-maintain on Eliquis
-rate controlled
-switch to PO amiodarone
# Recent L3/L4 discitis/osteomyelitis with Strep bacteremia
-Complicated by Intractable lower back pain with gait dysfunction due to above
-may need MRI once stable
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
-Per , flaherty was placed on 10/02/2024 due to urinary retention
-flaherty exchanged this admission
#Sacral ulcer, Stage III
-wound care
-Can consider MRI once stable - already on abx
# Distant h/o DVT, completed AC course
#Iron def Anemia
-consider ferrous sulfate outpatient
-will hold on IV iron due to acute infection
#Hypokalemia
-monitor and replete
Code status: full code
DVT prophylaxis: Eliquis
Anticipated Discharge: Within 24 hours
Subjective/Interval History
-
Date of Service: November 10, 2024
continues to have pain
no BM in last 3 days
Objective Data
-
Labs:
Laboratory Results
11/10/24
05:24
WBC 7.7
Hgb 8.8 L
Hct 28.1 L
Plt Count 385
Sodium 134 L
Potassium 4.0
Chloride 103
Carbon Dioxide 29
BUN 34 H
Creatinine 0.8
Glucose 94
Calcium 9.1
Total Bilirubin 0.6
AST 20
ALT 60 H
Alkaline Phosphatase 59
Vital Signs:
Vital Signs
Temp Pulse Resp BP Pulse Ox
97.2 F 63 20 107/53 96
11/10/24 15:00 11/10/24 15:00 11/10/24 15:00 11/10/24 15:00 11/10/24 15:00
I&O
11/09/24 11/10/24 11/11/24
06:59 06:59 06:59
Intake Total 380 / 380 760 / 760
Output Total 975 / 975 775 / 775
Balance -595 / -595 -15 / -15
Review of Systems
-
Respiratory: Reports No Symptoms
Cardiac: Reports No Symptoms
Abdomen/GI: Reports No Symptoms
Physical Exam
-
General: Cachectic
HEENT: Nose Appears Normal and Ears Appear Normal; Negative Oxygen
Cardiac: Regular Rhythm and S1/S2
GI: Soft, Nontender and Nondistended
Neuro: Awake, Alert and Oriented
Psych: Calm
[2024-11-10] MEDS: LIPITOR 20 MG PO (16:12)
[2024-11-10] MEDS: REMOVE LIDOCAINE PATCH REMOVE (21:45)
[2024-11-10 23:11] VITALS: BP 103/53
--- NOTE | 2024-11-11 | PTCARENOTE ---
pt flaherty was bloody -- was yellow. informed MATERIALS DEVELOPMENT ENGINEER Clarissa - labs sent and eliquis placed on hold.
--- NOTE | 2024-11-11 00:21 | W.PN.UPDATE ---
Update Note
Progress Note Update
Reported by the nursing staff that flaherty bag with bloody urine, no clots. Patient currently on Eliquis will hold and urology consult was placed. Recheck hgb level is 9 will monitor h&h q 6hrs.
[2024-11-11 00:40] LABS: Hematocrit 28.2 % (39.0-52.0); Hemoglobin 9.0 g/dL (13.0-18.0)
[2024-11-11] MEDS: DULCOLAX 10 MG PO (05:32)
[2024-11-11] MEDS: SANTYL OINTMENT 1 APPLIC TOPICAL (05:33)
[2024-11-11 06:00] VITALS: BMI 18.5
[2024-11-11 06:24] LABS: Hematocrit 28.9 % (39.0-52.0); Hemoglobin 9.1 g/dL (13.0-18.0); Mean Corp Hgb Conc. 31.5 g/dL (33.0-37.0); Mean Corpuscular Volume 84.3 fL (80.0-94.0); Platelet Count 374 10^3/uL (130-400); Red Cell Dist. Width 19.5 % (11.5-14.5)
[2024-11-11 06:47] LABS: Blood Urea Nitrogen 31 mg/dl (9-20); Calcium 9.3 mg/dl (8.4-10.2); Carbon Dioxide 29 mmol/L (22-30); Chloride 104 mmol/L (98-107); Estimated Creatinine Clearance 67 ml/min; Glucose 94 mg/dl (70-99); Magnesium 2.3 mg/dl (1.6-2.3); Potassium 4.1 mmol/L (3.5-5.1); Sodium 135 mmol/L (135-145); eGFR > 60.00
[2024-11-11 07:00] VITALS: BP 107/55
--- NOTE | 2024-11-11 09:23 | W.PN.UPDATE ---
Update Note
Progress Note Update
New gross hematuria noted in catheter tubing - catheter-dependent >30 days since prior admission.
Elisrinivas held.
CT Urogram requested.
D/w Dr. Gomez
Will follow
[2024-11-11] MEDS: NEURONTIN 200 MG PO ×3 (09:29→23:04)
[2024-11-11] MEDS: TOPROL XL 12.5 MG PO (09:29)
[2024-11-11] MEDS: VISBIOME 1 CAP PO (09:30)
[2024-11-11] MEDS: LOW STRENGTH ASPIRIN 81 MG PO (09:30)
[2024-11-11] MEDS: LASIX 20 MG PO (09:30)
[2024-11-11] MEDS: LIDOCAINE 4% PATCH TOPICAL (09:30)
[2024-11-11] MEDS: PACERONE 200 MG PO (09:30)
[2024-11-11] MEDS: FARXIGA 10 MG PO (09:30)
[2024-11-11] MEDS: PROTONIX 40 MG PO ×2 (09:30→21:00)
[2024-11-11] MEDS: TYLENOL PO ×2 (09:31→15:26)
[2024-11-11] MEDS: ROXICODONE 15 MG PO (09:35)
--- NOTE | 2024-11-11 09:53 | W.PN.CD ---
Addendum entered and electronically signed by Jitendra River MD 11/11/24 10:26:
Note Eliquis placed on hold for hematuria.
When Eliquis resumed please use 2.5 BID.
Original Note:
Today's Communication / Plan
-
Cardiology will sign off
We will place f/u in chart with Dr. Jin
Call with questions
Impression / Plan
-
Mr. Jensen is an 83 year old man with past medical history of moderate-severe mitral regurgitation, dyslipidemia, and PAD recently hospitalized for discitis and bacteremia, transferred back to the hospital from rehab due to chest pain on 10/30. Chest
pain had typical and atypical features. CTPE was performed with no PE but pulmonary infiltrates c/f pneumonia vs. CHF. Troponin was elevated and echo showed new regional wall motion abnormalities concerning for stress CM vs. LAD territory ischemia
and progressive MR and TR. Catheterization was performed 10/30 and demonstrated a BROADCAST TRANSMITTER OPERATOR of the RPL and non-obstructive disease in the LAD. Over the weekend chest pain improved and was largely pleuritic, troponin peaked at ~40, and hypoxia improved. He
was treated for pneumonia with antibiotics.
HFrEF with new cardiomyopathy (new LVEF 30-35% by echo 10/30/2024)
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
- Off dobutamine
- Goal weight may be close to 60-61 kg
- Now on lasix 20 daily, metoprolol ER 12.5 daily, and Farxiga 10 mg daily
- As outpatient Dr. Jin will add RAAS-I and MRA and advance to goal doses as able
ID
-Suspected PNA
-Recent Strep sanguinis bacteremia with L3/L4 discitis
-ATBs per ID
CAD:
- likely BROADCAST TRANSMITTER OPERATOR of RPL and non-obstructive plaque in mid-LAD
- Dr. Thomson suspects that his presentation is a non-ischemic process but CAD could have been contributing
- ASA + Eliquis chosen
- Now on atorvastatin 20 mg daily
AFib, paroxysmal
- Mostly sinus now
- Amio =-> will decrease to 200 mg daily, has had a good load for AFib
- Eliquis + ASA. Eliquis decreased to 2.5 BID as weight is now 60 kg and age is 83
- Might choose to stop Amio in 3-6 months but might chose fpc amio
Abnormal troponin, peaked at 42.8 on 10/31/2024
- suspect acute, non-ischemic myocardial injury in setting of acute infectious illness (also anemia, hypoxia)
- but we cannot rule out type II MO. We do not think this is a NSTEMI
Mitral regurgitation, progressive => mod/severe => severe
Anemia, chronic, monitor
- Soler in place
Subjective:
Off O2
Data:
CXR : progressive pulmonary edema with RUL predominance
Chest CT: Examination is negative for pulmonary embolism. Small to moderate bilateral pleural effusions. Patchy parenchymal opacity mainly within both upper lobes, suspicious for pneumonia. Pulmonary edema would be a differential consideration.
Band-shaped opacity within the inferior lingula, compatible with discoid atelectasis. Note is made of a slightly impacted fracture involving the superior sternal body. This appears to be acute to subacute. Calcification of the thoracic aorta with no
evidence for thoracic aortic aneurysm.
Cath 10/30/2024:
1. Moderately elevated biventricular filling pressures, moderate post-capillary pulmonary hypertension, and low cardiac index (RA 16, PA 45/20, PCWP 24)
2. No aortic stenosis
3. CAD without a flow limiting lesion: 30-40% LM, mLAD with focal, eccentric atheromatous plaque, 40% OM, subtotal occlusion RPL
Echo 10/30/2024: LV ejection fraction is 30-35%, Septal and basal inferior hypokinesis/akinesis. Apical dyskinesis. Severe MR/TR. PASP 50-55
Compared to previous echo on 10/14/2024
LVEF fallen zopv33-66% with normal regional wall motion. TR increased from mild to severe. PASP has increased from 25 to 30 mmHg). Slight increased in MR mod/severe => severe.
Physical Exam
Vital Signs/Labs
Vital Signs
Temp Pulse Resp BP Pulse Ox
98.0 F 63 16 107/55 97
11/11/24 07:00 11/11/24 09:29 11/11/24 07:00 11/11/24 09:29 11/11/24 07:00
11/10/24 11/11/24 11/12/24
06:59 06:59 06:59
Actual Weight 60.526 kg 60.044 kg
11/11/24 05:45
PT 15.2 Sec (11.4-14.6) H 11/03/24 05:38
INR 1.17 11/03/24 05:38
APTT Cancelled 11/03/24 12:00
Magnesium 2.3 mg/dl (1.6-2.3) 11/11/24 05:45
Physical Exam
Constitutional: No acute distress
EENT: Anicteric
Cardiovascular: Rhythm & rate is regular and Pedal edema is absent
Respiratory: Respiratory effort normal and Lungs clear to auscul.
GI: Soft
Neuro/Psych: Alert
Data Reviewed
-
Date of Service: November 11, 2024
[2024-11-11 12:18] LABS: Hematocrit 29.6 % (39.0-52.0); Hemoglobin 9.1 g/dL (13.0-18.0)
--- NOTE | 2024-11-11 12:49 | CM ---
Addendum entered by Mario Gilmore 11/11/24 16:14:
Spoke w/ spouse additional referrals sent to [facility], [facility], [facility] and [facility]
Original Note:
CM spoke w/ [facility] regarding bed availability today, confirmed there are no beds today or the rest of the week
Spoke w/ patient and spouse bedside to inform of this and the need to explore other facilities. Spouse was initially resistant to exploring another facility as patient is comfortable and familiar w/ [facility]. CM explained to spouse that since patient
is medically stable as of yesterday, she will need to explore another facility. Spouse agreeable stating she was provided a list of rehabs previously but acceptable to a new SNF list.
Spouse shared she doesn't think patient is stable for d/c as he hasn't had a BM
CM will place additional referrals once spouse provides options from list
Will need insurance auth
Updated hospitalist
Plan: SNF, pending accepting facility
--- NOTE | 2024-11-11 13:20 | WOUNDNOTE ---
[facility] RN note: Patient seen around 1130. Patient's sacral dressing changed during coremaker floor, changed dressing. Protective foam changed on heels. Heels blanchable red. Waffle air overlay applied and a patient turned with help from publication manager Linda.
Heels off bed with pillows. [place] texted Dr. Ki Gomez re: sacral ulcer has yellow/feliciano eschar. Could be down to the bone under the eschar. Defer to hospitalist if general surgeon eval and/or study to r/o osteomyelitis indicated. Hospitalist
responded he will discuss with ID and surgery. Spoke with JANKI Martin re: commend air mattress at [facility]. stated he had an air mattress at [facility].
[2024-11-11] MEDS: ROCEPHIN 2000 MG IV (13:45)
[2024-11-11] MEDS: STERILE WATER FOR INJECTION 20 ML IV (13:45)
--- NOTE | 2024-11-11 14:32 | W.PN.HOSP.TC ---
Today's Communication/Plan
-
See note
Earliest discharge tomorrow
Assessment / Plan
Assessment / Plan
83-year-old male with past medical history of recent osteomyelitis/discitis on IV ceftriaxone, stage III sacral wound, recently discharged from to [facility]; presented back to the emergency department for
reported acute on chronic left-sided chest pain which began in the morning and continued back pain and 'buttock pain from wound'. EMS reported that patient was on 16 L nasal cannula. Currently on high flow. He denied active shortness of breath
this am. Patient has RUE PICC line from which he was receiving ceftriaxone.
CT PE:
Examination is negative for pulmonary embolism.
Small to moderate bilateral pleural effusions.
Patchy parenchymal opacity mainly within both upper lobes, suspicious for pneumonia. Pulmonary edema would be a differential consideration.
Band-shaped opacity within the inferior lingula, compatible with discoid atelectasis.
Note is made of a slightly impacted fracture involving the superior sternal body. This appears to be acute to subacute.
Calcification of the thoracic aorta with no evidence for thoracic aortic aneurysm.
#Acute Hypoxic Respiratory Failure, resolved
-2/2 to Acute HFrEF +/- Aspiration Pneumonia
#Cardiogenic Shock
#Acute HFreF
- TTE showing EF 30-35%
- Patient was on dobutamine/Levophed, has been weaned off
- IV lasix changed to oral lasix 20mg/d
- Farxiga 10mg/d and toprol xl 12.5mg/d started as part of GDMT
#Hematuria
- Developed overnight
- Eliquis on hold
- Discussed with urology and CT urogram ordered
- Urine has cleared spontaneously, continue monitor
#Transaminitis
- Most likely secondary to hypoperfusion, shock
- improving
# Sepsis
# Suspect aspiration pneumonia
# Recent Strep sanguinis bacteremia with L3/L4 discitis
- Patient finished course of cefepime now has been transitioned to Rocephin for discitis with last dose on 12/10/24
- ID following and help appreciated
#Hyponatremia - Improved
-suspect volume overload related
#Elevated Troponin
-most likely non ischemic myocardial injury in setting of acute state
-Patient was on heparin drip
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
-Patient to be maintained on aspirin and Eliquis at this point
#Mitral regurgitation, progressive mod/severe => severe
#Anemia, chronic, monitor
#Paroxysmal Afib
-maintain on Eliquis
-rate controlled
-switch to PO amiodarone
# Recent L3/L4 discitis/osteomyelitis with Strep bacteremia
-Complicated by Intractable lower back pain with gait dysfunction due to above
-may need MRI once stable
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
-Per , flaherty was placed on 10/02/2024 due to urinary retention
-flaherty exchanged this admission
#Sacral ulcer, Stage III
-wound care
-Can consider MRI once stable - already on abx
# Distant h/o DVT, completed AC course
#Iron def Anemia
-consider ferrous sulfate outpatient
-will hold on IV iron due to acute infection
#Hypokalemia
-monitor and replete
# Constipation
- Failed to have bowel movement with oral laxatives
- Requested nurse to provide Dulcolax suppository
Code status: full code
DVT prophylaxis: Eliquis
Anticipated Discharge: Within 24 hours
Subjective/Interval History
-
Date of Service: November 11, 2024
Developed hematuria overnight which has resolved spontaneously
Continues to have back pain
No bowel movement overnight
Objective Data
-
Labs:
Laboratory Results
11/11/24 11/11/24 11/11/24
05:45 12:05 18:00
WBC 8.5
Hgb 9.1 L 9.1 L Pending
Hct 28.9 L 29.6 L Pending
Plt Count 374
Sodium 135
Potassium 4.1
Chloride 104
Carbon Dioxide 29
BUN 31 H
Creatinine 0.7
Glucose 94
Calcium 9.3
Vital Signs:
Vital Signs
Temp Pulse Resp BP Pulse Ox
98.0 F 63 16 107/55 97
11/11/24 07:00 11/11/24 09:29 11/11/24 07:00 11/11/24 09:29 11/11/24 07:00
I&O
11/10/24 11/11/24 11/12/24
06:59 06:59 06:59
Intake Total 760 / 760 600 / 600
Output Total 775 / 775 850 / 850
Balance -15 / -15 -250 / -250
Review of Systems
-
Respiratory: Reports No Symptoms
Cardiac: Reports No Symptoms
Abdomen/GI: Reports No Symptoms
Genitourinary: Reports Dark Urine
Physical Exam
-
General: Cachectic
HEENT: Nose Appears Normal and Ears Appear Normal; Negative Oxygen
Cardiac: Regular Rhythm and S1/S2
GI: Soft, Nontender and Nondistended
Genito-urinary: Flaherty
Neuro: Awake, Alert and Oriented
Psych: Calm
[2024-11-11] MEDS: DUPHALAC/CHRONULAC 20 GRAMS PO ×2 (15:18→21:00)
--- NOTE | 2024-11-11 15:44 | CONS.URO ---
Addendum entered and electronically signed by Brant Mtz MD 11/11/24 17:25:
- outpatient cystoscopy
- CT Urogram completed, final read pending
Original Note:
Medical History
History of Present Illness
83M w/ new onset hematuria in Soler catheter tubing noted overnight by RN.
Eliquis held since this AM (h/o DVT).
Soler catheter present >4 weeks since 09/2024 after prior admission for osteomyelitis/discitis on IV antibiotic therapy.
Discharged to [facility] but readmitted for acute on chronic chest pain and button pain (h/o stage III sacral wound).
Urine in catheter tubing clear yellow w/o clots at time of examination mid-day today.
Soler catheter well-positioned.
Denies prior urologic history - denies h/o urinary retention or UTIs.
Notes normal voiding prior to recent hospitalization in 09/2024 - catheter placed after patient noted to have elevated PVRs while sedentary in bed.
Past Medical History
Past Medical History: Other (osteomyelitis/discitis, DVT, intractable lower back pain w/ acute gait dysfunction)
Social History
Tobacco: Non-smoker
Alcohol: Occasional
Drug: None
Personal:
Living: With Family
Employment: Retired
Family History
Family History: Reviewed & Not Pertinent
Allergies/Home Medications
Allergies
Allergy/AdvReac Type Severity Reaction Status Date / Time
Penicillins Allergy Headache Verified 11/03/24 23:11
Home Medications
�Medication �Instructions �Recorded �Confirmed �Type
cholecalciferol (vitamin D3) 125 125 mcg PO QPM Supplement 10/12/24 10/30/24 History
mcg (5,000 unit) tablet
cholecalciferol (vitamin D3) 125 250 mcg PO DAILY Supplement 10/12/24 10/30/24 History
mcg (5,000 unit) tablet
docusate sodium 50 mg capsule 100 mg PO BID Constipation 10/12/24 10/30/24 History
gabapentin 100 mg capsule 200 mg PO Q8H Neurological 10/12/24 10/30/24 History
Condition
magnesium glycinate 100 mg (as 200 mg PO BID Supplement 10/12/24 10/30/24 History
glycinate) tablet
ceftriaxone 2 gram solution for 2,000 mg IV Q24H #0 ea 10/20/24 10/30/24 Rx
injection
Lactobac no.2-Bifidobac no.1-S. 1 cap PO DAILY Supplement 10/30/24 10/30/24 History
thermo 112.5 billion cell capsule
(Visbiome)
acetaminophen 325 mg tablet 650 mg PO Q6HPRN PRN mild pain 10/30/24 10/30/24 History
(Tylenol)
acetaminophen 500 mg tablet 500 mg PO Q8H Pain 10/30/24 10/30/24 History
(Tylenol Extra Strength)
ascorbic acid (vitamin C) 1,000 mg 1,000 mg PO DAILY Supplement 10/30/24 10/30/24 History
tablet (Vitamin C)
bisacodyl 10 mg rectal suppository 10 mg DC DAILYPRN PRN if no bm by 10/30/24 10/30/24 History
(Dulcolax (bisacodyl)) 3rd day
ferrous sulfate 324 mg (65 mg 324 mg PO Q48H Supplement 10/30/24 10/30/24 History
iron) tablet,delayed release
magnesium hydroxide 400 mg/5 mL 2,400 mg PO HSPRN PRN if no bm by 10/30/24 10/30/24 History
oral suspension (Milk of Magnesia) 2nd
melatonin 3 mg tablet 3 mg PO HS Sleep 10/30/24 10/30/24 History
pantoprazole 40 mg tablet,delayed 40 mg PO BID GERD 10/30/24 10/30/24 History
release (Protonix)
polyethylene glycol 3350 17 gram 17 g PO DAILYPRN PRN constipation 10/30/24 10/30/24 History
oral powder packet (Miralax)
sodium phosphates 19 gram-7 118 ml DC DAILYPRN PRN if no bm by 10/30/24 10/30/24 History
gram/118 mL enema (Fleet Enema) 4th day
tramadol 25 mg tablet 25 mg PO Q8HPRN PRN moderate pains 10/30/24 10/30/24 History
tramadol 50 mg tablet 50 mg PO DAILY Pain 10/30/24 10/30/24 History
Review of Systems
-
History Source: Patient
A 12 point Review of Systems was completed except as noted: Yes
Physical Exam
Vital Signs
Vital Signs
Temp Pulse Resp BP Pulse Ox
98.0 F 63 16 107/55 97
11/11/24 07:00 11/11/24 09:29 11/11/24 07:00 11/11/24 09:29 11/11/24 07:00
Lab / Testing Results
Laboratory Results
11/11/24 05:45
Physical Exam
General: Pain and Other (ill-appearing)
HEENT: Normocephalic and Anicteric
Respiratory: Non Labored Respirations
Cardiac: Regular Rhythm
Breast: N/A
GI: Soft, Non Tender and Non Distended
Rectal: Deferred by Provider
Genito-urinary: Clear Urine and Soler Catheter
Musculoskeletal: No Edema
Skin: Warm and Dry
Neuro: AO x 3, No Motor Deficits and Nonfocal/Grossly Intact
Hematologic/Lymphatic: No Lymphadenopathy
Psych: Calm and Intact Judgement
Assessment / Plan
-
Hematuria - new in last 24 hrs, now resolved
Urinary retention (since 09/2024 due to medical deconditioning, lower back pain, non-ambulatory status)
- Soler catheter draining clear yellow urine, no malpositioning noted
- CT Urogram advised (ordered by Hospitalist)
- Pending dispo to rehab and ambulatory status - outpatient voiding trial (per spouse, patient still not ambulatory or able to sit up w/o pain)
D/w patient and spouse.
D/w Hospitalist.
Data Reviewed
-
Total Time Spent with Patient (in minutes): 45
Lab Data: Labs Reviewed and Discussed with Physician
Old Records: Reviewed
[2024-11-11 16:25] VITALS: BP 115/50
[2024-11-11] MEDS: LIPITOR 20 MG PO (16:56)
[2024-11-11] MEDS: REMOVE LIDOCAINE PATCH REMOVE (21:00)
[2024-11-11 21:36] LABS: Hematocrit 32.7 % (39.0-52.0); Hemoglobin 10.3 g/dL (13.0-18.0)
[2024-11-11] MEDS: TYLENOL 1000 MG PO (23:04)
[2024-11-11 23:40] VITALS: BP 142/76
[2024-11-12] VITALS (7 sets, daily range): BP systolic 98–142; BP diastolic 42–76; PULSE 61–65; O2SAT 93–94; BMI 19.0
[2024-11-12] MEDS: ROXICODONE 10 MG PO (05:39)
[2024-11-12] MEDS: DULCOLAX 10 MG RECTAL (10:37)
[2024-11-12 10:41] LABS: Hematocrit 31.4 % (39.0-52.0); Hemoglobin 9.5 g/dL (13.0-18.0); Mean Corp Hgb Conc. 30.3 g/dL (33.0-37.0); Mean Corpuscular Volume 86.5 fL (80.0-94.0); Platelet Count 343 10^3/uL (130-400); Red Cell Dist. Width 19.9 % (11.5-14.5)
[2024-11-12] MEDS: PROTONIX 40 MG PO ×2 (10:42→20:11)
[2024-11-12] MEDS: TOPROL XL PO (10:42)
[2024-11-12] MEDS: VISBIOME 1 CAP PO (10:43)
[2024-11-12] MEDS: LASIX 20 MG PO (10:43)
[2024-11-12] MEDS: DUPHALAC/CHRONULAC 20 GRAMS PO (10:43)
[2024-11-12] MEDS: NEURONTIN 200 MG PO ×3 (10:43→23:38)
[2024-11-12] MEDS: FARXIGA 10 MG PO (10:44)
[2024-11-12] MEDS: LIDOCAINE 4% PATCH TOPICAL (10:44)
[2024-11-12] MEDS: PACERONE 200 MG PO (10:44)
[2024-11-12] MEDS: LOW STRENGTH ASPIRIN 81 MG PO (10:44)
[2024-11-12] MEDS: TYLENOL PO ×2 (10:45→17:33)
--- NOTE | 2024-11-12 10:51 | CM ---
Per hospitalist, patient not ready for d/c at this time. Patient is constipated.
SNF referrals reviewed- [facility] has no beds at this time. [facility], [facility] and [facility] still awaiting determination
CM to follow up on referrals and bed availability
Will need insurance auth
Plan: SNF when medically stable
[2024-11-12 11:23] LABS: Blood Urea Nitrogen 23 mg/dl (9-20); Calcium 8.9 mg/dl (8.4-10.2); Carbon Dioxide 29 mmol/L (22-30); Chloride 102 mmol/L (98-107); Estimated Creatinine Clearance 60 ml/min; Glucose 110 mg/dl (70-99); Potassium 4.0 mmol/L (3.5-5.1); Sodium 135 mmol/L (135-145); eGFR > 60.00
--- NOTE | 2024-11-12 13:47 | W.PN.HOSP.TC ---
Today's Communication/Plan
-
laxatives/enema for constipation
continue on abx
Assessment / Plan
Assessment / Plan
83-year-old male with past medical history of recent osteomyelitis/discitis on IV ceftriaxone, stage III sacral wound, recently discharged from to [facility]; presented back to the emergency department for
reported acute on chronic left-sided chest pain which began in the morning and continued back pain and 'buttock pain from wound'. EMS reported that patient was on 16 L nasal cannula. Currently on high flow. He denied active shortness of breath
this am. Patient has RUE PICC line from which he was receiving ceftriaxone.
CT PE:
Examination is negative for pulmonary embolism.
Small to moderate bilateral pleural effusions.
Patchy parenchymal opacity mainly within both upper lobes, suspicious for pneumonia. Pulmonary edema would be a differential consideration.
Band-shaped opacity within the inferior lingula, compatible with discoid atelectasis.
Note is made of a slightly impacted fracture involving the superior sternal body. This appears to be acute to subacute.
Calcification of the thoracic aorta with no evidence for thoracic aortic aneurysm.
#Acute Hypoxic Respiratory Failure, resolved
-2/2 to Acute HFrEF +/- Aspiration Pneumonia
#Cardiogenic Shock
#Acute HFrEF
- TTE showing EF 30-35%
- Patient was on dobutamine/Levophed, has been weaned off
- IV Lasix changed to oral Lasix 20mg/d
- Farxiga 10mg/d and Toprol xl 12.5mg/d started as part of GDMT
#Hematuria
- Developed overnight
- CT urogram did not show any new issues.
- Eliquis to be resumed back from evening.
- Urine has cleared spontaneously, continue monitor
#b/l pleural effusion
- on CT chest, asymptomatic.
#Transaminitis
- Most likely secondary to hypoperfusion, shock
- improving
# Sepsis
# Suspect aspiration pneumonia
# Recent Strep sanguinis bacteremia with L3/L4 discitis
- Patient finished course of cefepime now has been transitioned to Rocephin for discitis with last dose on 12/10/24
- ID following and help appreciated
#Hyponatremia - Improved
-suspect volume overload related
#Elevated Troponin
-most likely non ischemic myocardial injury in setting of acute state
-Patient was on heparin drip
-Patient has HOOD MAKER of RPL and nonobstructive plaque in mid LAD
-Patient to be maintained on aspirin and Eliquis at this point
#Mitral regurgitation, progressive mod/severe => severe
#Anemia, chronic, monitor
#Paroxysmal Afib
-maintain on Eliquis
-rate controlled
-switch to PO amiodarone
# Recent L3/L4 discitis/osteomyelitis with Strep bacteremia
-Complicated by Intractable lower back pain with gait dysfunction due to above
-may need MRI once stable
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
-Per , flaherty was placed on 10/02/2024 due to urinary retention
-flaherty exchanged this admission
#Sacral ulcer, Stage III
-wound care
-Can consider MRI once stable - already on abx
# Distant h/o DVT, completed AC course
#Iron def Anemia
-consider ferrous sulfate outpatient
-will hold on IV iron due to acute infection
#Hypokalemia
-monitor and replete
# Constipation
- Failed to have bowel movement with oral laxatives
- Requested nurse to provide Dulcolax suppository
Code status: full code
DVT prophylaxis: Eliquis
Anticipated Discharge: 24 - 48 hours
Subjective/Interval History
-
Date of Service: November 12, 2024
Remains constipated
no shortness breath/cough
Objective Data
-
Labs:
Laboratory Results
11/12/24
09:41
WBC 7.6
Hgb 9.5 L
Hct 31.4 L
Plt Count 343
Sodium 135
Potassium 4.0
Chloride 102
Carbon Dioxide 29
BUN 23 H
Creatinine 0.8
Glucose 110 H
Calcium 8.9
Vital Signs:
Vital Signs
Temp Pulse Resp BP Pulse Ox
98.0 F 73 18 104/54 97
11/12/24 11:00 11/12/24 11:00 11/12/24 11:00 11/12/24 11:00 11/12/24 11:00
I&O
11/11/24 11/12/24 11/13/24
06:59 06:59 06:59
Intake Total 600 / 600 360 / 360
Output Total 850 / 850 1000 / 1000
Balance -250 / -250 -640 / -640
Review of Systems
-
Respiratory: Reports No Symptoms
Cardiac: Reports No Symptoms
Abdomen/GI: Reports No Symptoms
Physical Exam
-
General: Cachectic
HEENT: Nose Appears Normal and Ears Appear Normal; Negative Oxygen
Cardiac: Regular Rhythm and S1/S2
GI: Soft, Nontender and Nondistended
Genito-urinary: Flaherty
Neuro: Awake, Alert and Oriented
Psych: Calm
[2024-11-12] MEDS: STERILE WATER FOR INJECTION 20 ML IV (14:01)
[2024-11-12] MEDS: ROCEPHIN 2000 MG IV (14:01)
--- NOTE | 2024-11-12 15:03 | W.PN.ID1 ---
Date of Service
Date of Service: November 12, 2024
Today's Communication
Continue ceftriaxone.
Assessment / Plan
# Recent Strep sanguinis bacteremia with L3/L4 discitis, currently on IV abx (was ceftriaxone) x 8 weeks through 12/10/24.
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
# s/p Cardiogenic shock; off pressors.
# Acute hypoxemic resp failure, resolved
# s/p aspiration pneumonia
# Leukocytosis - resolved
# New onset afib, now in sinus
# Unstageable sacral decubitus, present on admission
- Blood cx's neg to date
- Cardiac cath: no significant CAD to explain trop 69.
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
-Completed 7day course of cefepime for PNA.
- Continue ceftriaxone 2g IV q24 through 12/10/24 for discitis.
Infusion sheet submitted to child welfare caseworker on 11/09.
- CRP trending down
- Off load sacrum. Continue local wound care.
Chief Complaint
-: Other (L3-4 discitis)
Subjective / Review of Systems
c/o hard stools.
Vital Signs / Physical Exam
Vital Signs
Vital Signs
Temp Pulse Resp BP Pulse Ox
98.0 F 73 18 104/54 97
11/12/24 11:00 11/12/24 11:00 11/12/24 11:00 11/12/24 11:00 11/12/24 11:00
Physical Exam
Constitutional: Chronically Ill
Cardiovascular: Regular Rate and S1/S2
Pulmonary: Coarse
Gastrointestinal: Soft, Non Tender, Non Distended and Normal Bowel Sounds
Genito-Urinary: Soler and Clear Urine; Negative Hematuria
Extremities: Negative Edema
Neurological: AO x 3
Lines: PICC
Objective Data
Lab Data
Lab Results
11/12/24 09:41
11/12/24 09:41
ESR 69 mm/hour (0-20) H 11/09/24 06:06
PT 15.2 Sec (11.4-14.6) H 11/03/24 05:38
INR 1.17 11/03/24 05:38
APTT Cancelled 11/03/24 12:00
Estimated Creat Clear 60 ml/min 11/12/24 09:41
Lactic Acid 1.8 mmol/L (0.7-2.0) 11/02/24 17:33
Total Bilirubin 0.6 mg/dl (0.2-1.3) 11/10/24 05:24
AST 20 U/L (17-59) 11/10/24 05:24
ALT 60 U/L (0-50) H 11/10/24 05:24
Alkaline Phosphatase 59 U/L (38-126) 11/10/24 05:24
C-Reactive Protein 19.90 mg/L (0.0-10.00) H 11/09/24 06:06
Most recent labs reviewed.
Micro Results:
10/30/24 09:02 Blood Culture - Final
Blood/Venous No Growth - Final Report
10/30/24 09:03 Blood Culture - Final
Blood/Venous No Growth - Final Report
10/30/24 18:11 MRSA Screen - Final
Nose No Methicillin Resistant Staphylococcus aureus isolated.
10/30/24 08:01 Urine Culture - Final
Urine NO GROWTH
10/30/24 20:17 Respiratory Culture - Final
Sputum Gram Stain - Final
10/30/24 18:11 Legionella Urinary Antigen - Final
Urine Negative for Legionella pneumophila Serogroup 1 antigen.
A negative result does not rule out the possiblity of
Legionella infection due to other serogroups or species of
Legionella. Clinical correlation is recommended.
Streptococcus pneumoniae Antigen (M - Final
Negative for Streptococcus pneumoniae antigen.
A negative result does not exclude infection with
Streptococcus pneumoniae. Clinical correlation is
recommended.
10/30/24 11:35 Influenza Types A & B (LAURA) - Final
Nasal Swab Negative for Influenza A & B, NAAT
Negative results must be combined with clinical observations
and patient history.
Nucleic Acid Amplification test (NAAT)performed on the
[employer] platform.
Imaging:
11/04/24 CXR: Bilateral opacification slightly improved on the right, possibly representing pneumonia and small bilateral pleural effusions.
11/02/24 CXR: MARKED PROGRESSION OF WIDESPREAD BILATERAL PARENCHYMAL OPACITIES, most likely differential diagnostic possibilities would be acute pulmonary edema or pneumonia.
10/30/[address] examination is negative for pulmonary embolism. Small to moderate bilateral pleural effusions. Patchy parenchymal opacity mainly within both upper lobes, suspicious for pneumonia. Pulmonary edema would be a differential
consideration.
[2024-11-12] MEDS: SANTYL OINTMENT 1 APPLIC TOPICAL (17:32)
[2024-11-12] MEDS: DUPHALAC/CHRONULAC 30 GRAMS PO (17:32)
[2024-11-12] MEDS: LIPITOR 20 MG PO (17:33)
[2024-11-12] MEDS: ELIQUIS 2.5 MG PO (20:11)
[2024-11-12] MEDS: REMOVE LIDOCAINE PATCH REMOVE (20:31)
[2024-11-12] MEDS: TYLENOL 1000 MG PO (23:39)
[2024-11-13] MEDS: DUPHALAC/CHRONULAC PO ×3 (03:02→16:03)
[2024-11-13 06:00] VITALS: BMI 18.8
[2024-11-13 07:57] VITALS: BP 103/45
[2024-11-13] MEDS: LASIX 20 MG PO (08:21)
[2024-11-13] MEDS: LOW STRENGTH ASPIRIN 81 MG PO (08:21)
[2024-11-13] MEDS: VISBIOME 1 CAP PO (08:21)
[2024-11-13] MEDS: PACERONE 200 MG PO (08:21)
[2024-11-13] MEDS: NEURONTIN 200 MG PO ×3 (08:22→23:08)
[2024-11-13] MEDS: LIDOCAINE 4% PATCH TOPICAL (08:22)
[2024-11-13] MEDS: FARXIGA 10 MG PO (08:22)
[2024-11-13] MEDS: TOPROL XL 12.5 MG PO (08:22)
[2024-11-13] MEDS: PROTONIX 40 MG PO ×2 (08:22→19:58)
[2024-11-13] MEDS: TYLENOL PO ×2 (08:23→23:16)
[2024-11-13] MEDS: ELIQUIS 2.5 MG PO ×2 (08:23→19:58)
[2024-11-13] MEDS: SANTYL OINTMENT 1 APPLIC TOPICAL (08:23)
--- NOTE | 2024-11-13 11:26 | W.PN.HOSP.TC ---
Today's Communication/Plan
-
discharge planning for snf rehab
Assessment / Plan
Assessment / Plan
83-year-old male with past medical history of recent osteomyelitis/discitis on IV ceftriaxone, stage III sacral wound, recently discharged from to [facility]; presented back to the emergency department for
reported acute on chronic left-sided chest pain which began in the morning and continued back pain and 'buttock pain from wound'. EMS reported that patient was on 16 L nasal cannula. Currently on high flow. He denied active shortness of breath
this am. Patient has RUE PICC line from which he was receiving ceftriaxone.
CT PE:
Examination is negative for pulmonary embolism.
Small to moderate bilateral pleural effusions.
Patchy parenchymal opacity mainly within both upper lobes, suspicious for pneumonia. Pulmonary edema would be a differential consideration.
Band-shaped opacity within the inferior lingula, compatible with discoid atelectasis.
Note is made of a slightly impacted fracture involving the superior sternal body. This appears to be acute to subacute.
Calcification of the thoracic aorta with no evidence for thoracic aortic aneurysm.
#Acute Hypoxic Respiratory Failure, resolved
-2/2 to Acute HFrEF +/- Aspiration Pneumonia
#Cardiogenic Shock
#Acute HFrEF
- TTE showing EF 30-35%
- Patient was on dobutamine/Levophed, has been weaned off
- IV Lasix changed to oral Lasix 20mg/d
- Farxiga 10mg/d and Toprol xl 12.5mg/d started as part of GDMT
#Hematuria
- Developed overnight
- CT urogram did not show any new issues.
- Eliquis to be resumed back from evening.
- Urine has cleared spontaneously, continue monitor
#b/l pleural effusion
- on CT chest, asymptomatic. defer thoracentesis at this time, will contact [facility] if clinically warranted
#Transaminitis
- Most likely secondary to hypoperfusion, shock
- improving
# Sepsis
# Suspect aspiration pneumonia
# Recent Strep sanguinis bacteremia with L3/L4 discitis
- Patient finished course of cefepime now has been transitioned to Rocephin for discitis with last dose on 12/10/24
- ID following and help appreciated
#Hyponatremia - Improved
-suspect volume overload related
#Elevated Troponin
-most likely non ischemic myocardial injury in setting of acute state
-Patient was on heparin drip
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
-Patient to be maintained on aspirin and Eliquis at this point
#Mitral regurgitation, progressive mod/severe => severe
#Anemia, chronic, monitor
#Paroxysmal Afib
-maintain on Eliquis
-rate controlled
-switch to PO amiodarone
# Recent L3/L4 discitis/osteomyelitis with Strep bacteremia
-Complicated by Intractable lower back pain with gait dysfunction due to above
-may need MRI once stable
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
-Per , flaherty was placed on 10/02/2024 due to urinary retention
-flaherty exchanged this admission
#Sacral ulcer, Stage III
-wound care
-Can consider MRI once stable - already on abx
# Distant h/o DVT, completed AC course
#Iron def Anemia
-consider ferrous sulfate outpatient
-will hold on IV iron due to acute infection
#Hypokalemia
-monitor and replete
# Constipation
- resolved with high doses of laxatives.
Code status: full code
DVT prophylaxis: Eliquis
Anticipated Discharge: Today
Subjective/Interval History
-
Date of Service: November 13, 2024
seen and examined
had BM with laxatives
denies of having shortness breath/cough/fever
Objective Data
-
Vital Signs:
Vital Signs
Temp Pulse Resp BP Pulse Ox
97.6 F 60 18 103/44 96
11/13/24 07:57 11/13/24 07:57 11/13/24 07:57 11/13/24 08:21 11/13/24 07:57
I&O
11/12/24 11/13/24 11/14/24
06:59 06:59 06:59
Intake Total 360 / 360
Output Total 1000 / 1000 600 / 600
Balance -640 / -640 -600 / -600
Review of Systems
-
Respiratory: Reports Cough; Denies Trouble Breathing
Cardiac: Reports No Symptoms
Abdomen/GI: Reports No Symptoms
Physical Exam
-
General: Cachectic
HEENT: Nose Appears Normal and Ears Appear Normal; Negative Oxygen
Cardiac: Regular Rhythm and S1/S2
GI: Soft and Nontender
Genito-urinary: Flaherty
Neuro: Awake, Alert and Oriented
Psych: Calm
[2024-11-13] MEDS: STERILE WATER FOR INJECTION 20 ML IV (12:16)
[2024-11-13] MEDS: ROCEPHIN 2000 MG IV (12:17)
--- NOTE | 2024-11-13 12:32 | CM ---
Addendum entered by Alison Domingo 11/13/24 17:30:
Once auth receivd.....
[facility] rehab
report# [phone]
fax# [phone]
Addendum entered by Alison Domingo 11/13/24 16:50:
[employer] authorization pended for review- pended reference #[id number]
Clinicals faxed to [phone]
Addendum entered by Alison Domingo 11/13/24 16:29:
Patient accepted at [facility] for tomorrow, will initiate auth.
in agreement.
Patient will require ambulance transport.
Plan: [facility] once auth received
Addendum entered by Alison Manzoonald 11/13/24 14:37:
Spoke with spouse/SO- she is out looking at facilities.
spouse will call back with facility of choice, needs [employer] auth.
MD updated.
Will need ambulance transport.
Plan: skilled rehab once bed secured and auth obtained.
Addendum entered by Alison Domingo 11/13/24 12:38:
IMM provided.
Original Note:
Spoke with spouse multiple times today.
Spouse going to visit [facility] after leaving here today.
Per [facility] they do have a bed available if family agrees, [place] has also accepted.
Will need insurance authorization once family decides.
CM explained to we really need her to get back to us nathan with decision so auth can be intitiated prior to the weekend.
Plan: skilled rehab once facility accepts and auth obtained.
--- NOTE | 2024-11-13 12:33 | W.PN.ID1 ---
Date of Service
Date of Service: November 13, 2024
Today's Communication
continue ceftriaxone.
Assessment / Plan
# Recent Strep sanguinis bacteremia with L3/L4 discitis, currently on IV abx (was ceftriaxone) x 8 weeks through 12/10/24.
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
# s/p Cardiogenic shock; off pressors.
# Acute hypoxemic resp failure, resolved
# s/p aspiration pneumonia
# Leukocytosis - resolved
# New onset afib, now in sinus
# Unstageable sacral decubitus, present on admission
- Blood cx's neg to date
- Cardiac cath: no significant CAD to explain trop 69.
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
-Completed 7day course of cefepime for PNA.
- Continue ceftriaxone 2g IV q24 through 12/10/24 for discitis.
Infusion sheet submitted to shelter case manager on 11/09.
- CRP trending down
- Off load sacrum. Continue local wound care.
Chief Complaint
-: Other (L3-4 discitis)
Subjective / Review of Systems
at bedside.
Deciding on SNF rehab places.
Vital Signs / Physical Exam
Vital Signs
Vital Signs
Temp Pulse Resp BP Pulse Ox
97.6 F 60 18 103/44 96
11/13/24 07:57 11/13/24 07:57 11/13/24 07:57 11/13/24 08:21 11/13/24 07:57
Physical Exam
Constitutional: Chronically Ill
Cardiovascular: Regular Rate and S1/S2
Pulmonary: Coarse
Gastrointestinal: Soft, Non Tender, Non Distended and Normal Bowel Sounds
Genito-Urinary: Soler and Clear Urine; Negative Hematuria
Extremities: Negative Edema
Neurological: AO x 3
Lines: PICC
Objective Data
Lab Data
Lab Results
11/12/24 09:41
11/12/24 09:41
ESR 69 mm/hour (0-20) H 11/09/24 06:06
PT 15.2 Sec (11.4-14.6) H 11/03/24 05:38
INR 1.17 11/03/24 05:38
APTT Cancelled 11/03/24 12:00
Estimated Creat Clear 60 ml/min 11/12/24 09:41
Lactic Acid 1.8 mmol/L (0.7-2.0) 11/02/24 17:33
Total Bilirubin 0.6 mg/dl (0.2-1.3) 11/10/24 05:24
AST 20 U/L (17-59) 11/10/24 05:24
ALT 60 U/L (0-50) H 11/10/24 05:24
Alkaline Phosphatase 59 U/L (38-126) 11/10/24 05:24
C-Reactive Protein 19.90 mg/L (0.0-10.00) H 11/09/24 06:06
Most recent labs reviewed.
Micro Results:
10/30/24 09:02 Blood Culture - Final
Blood/Venous No Growth - Final Report
10/30/24 09:03 Blood Culture - Final
Blood/Venous No Growth - Final Report
10/30/24 18:11 MRSA Screen - Final
Nose No Methicillin Resistant Staphylococcus aureus isolated.
10/30/24 08:01 Urine Culture - Final
Urine NO GROWTH
10/30/24 20:17 Respiratory Culture - Final
Sputum Gram Stain - Final
10/30/24 18:11 Legionella Urinary Antigen - Final
Urine Negative for Legionella pneumophila Serogroup 1 antigen.
A negative result does not rule out the possiblity of
Legionella infection due to other serogroups or species of
Legionella. Clinical correlation is recommended.
Streptococcus pneumoniae Antigen (M - Final
Negative for Streptococcus pneumoniae antigen.
A negative result does not exclude infection with
Streptococcus pneumoniae. Clinical correlation is
recommended.
10/30/24 11:35 Influenza Types A & B (LAURA) - Final
Nasal Swab Negative for Influenza A & B, NAAT
Negative results must be combined with clinical observations
and patient history.
Nucleic Acid Amplification test (NAAT)performed on the
[employer] platform.
Imaging:
11/04/24 CXR: Bilateral opacification slightly improved on the right, possibly representing pneumonia and small bilateral pleural effusions.
11/02/24 CXR: MARKED PROGRESSION OF WIDESPREAD BILATERAL PARENCHYMAL OPACITIES, most likely differential diagnostic possibilities would be acute pulmonary edema or pneumonia.
10/30/[address] examination is negative for pulmonary embolism. Small to moderate bilateral pleural effusions. Patchy parenchymal opacity mainly within both upper lobes, suspicious for pneumonia. Pulmonary edema would be a differential
consideration.
[2024-11-13 15:49] VITALS: BP 105/51
[2024-11-13] MEDS: LIPITOR 20 MG PO (16:06)
[2024-11-13] MEDS: TYLENOL 1000 MG PO (16:06)
[2024-11-13] MEDS: ROXICODONE 10 MG PO (19:57)
[2024-11-13] MEDS: REMOVE LIDOCAINE PATCH REMOVE (19:58)
[2024-11-13 23:48] VITALS: BP 108/62
[2024-11-14] MEDS: DUPHALAC/CHRONULAC PO ×2 (01:51→07:31)
[2024-11-14 03:50] LABS: Hematocrit 27.0 % (39.0-52.0); Hemoglobin 8.7 g/dL (13.0-18.0); Mean Corp Hgb Conc. 32.2 g/dL (33.0-37.0); Mean Corpuscular Volume 83.9 fL (80.0-94.0); Platelet Count 298 10^3/uL (130-400); Red Cell Dist. Width 19.5 % (11.5-14.5)
[2024-11-14 04:13] LABS: Blood Urea Nitrogen 22 mg/dl (9-20); Calcium 8.5 mg/dl (8.4-10.2); Carbon Dioxide 30 mmol/L (22-30); Chloride 101 mmol/L (98-107); Estimated Creatinine Clearance 68 ml/min; Glucose 88 mg/dl (70-99); Potassium 3.9 mmol/L (3.5-5.1); Sodium 133 mmol/L (135-145); eGFR > 60.00
[2024-11-14 06:00] VITALS: BMI 18.5
[2024-11-14] MEDS: FARXIGA 10 MG PO (07:27)
[2024-11-14] MEDS: VISBIOME 1 CAP PO (07:27)
[2024-11-14] MEDS: TOPROL XL 12.5 MG PO (07:28)
[2024-11-14] MEDS: LOW STRENGTH ASPIRIN 81 MG PO (07:28)
[2024-11-14] MEDS: NEURONTIN 200 MG PO ×3 (07:28→23:15)
[2024-11-14] MEDS: PROTONIX 40 MG PO ×2 (07:28→19:17)
[2024-11-14] MEDS: LASIX 20 MG PO (07:28)
[2024-11-14] MEDS: LIDOCAINE 4% PATCH TOPICAL (07:28)
[2024-11-14] MEDS: PACERONE 200 MG PO (07:28)
[2024-11-14] MEDS: ELIQUIS 2.5 MG PO ×2 (07:29→19:16)
[2024-11-14] MEDS: SANTYL OINTMENT 1 APPLIC TOPICAL (07:30)
[2024-11-14] MEDS: TYLENOL PO ×3 (07:31→23:13)
[2024-11-14 07:55] VITALS: BP 94/46
--- NOTE | 2024-11-14 10:33 | W.PN.HOSP.TC ---
Today's Communication/Plan
-
medically clear
discharge planning for snf
Assessment / Plan
Assessment / Plan
83-year-old male with past medical history of recent osteomyelitis/discitis on IV ceftriaxone, stage III sacral wound, recently discharged from to [facility] nursing [facility]; presented back to the emergency department for
reported acute on chronic left-sided chest pain which began in the morning and continued back pain and 'buttock pain from wound'. EMS reported that patient was on 16 L nasal cannula. Currently on high flow. He denied active shortness of breath
this am. Patient has RUE PICC line from which he was receiving ceftriaxone.
CT PE:
Examination is negative for pulmonary embolism.
Small to moderate bilateral pleural effusions.
Patchy parenchymal opacity mainly within both upper lobes, suspicious for pneumonia. Pulmonary edema would be a differential consideration.
Band-shaped opacity within the inferior lingula, compatible with discoid atelectasis.
Note is made of a slightly impacted fracture involving the superior sternal body. This appears to be acute to subacute.
Calcification of the thoracic aorta with no evidence for thoracic aortic aneurysm.
#Acute Hypoxic Respiratory Failure, resolved
-2/2 to Acute HFrEF +/- Aspiration Pneumonia
#Cardiogenic Shock
#Acute HFrEF
- TTE showing EF 30-35%
- Patient was on dobutamine/Levophed, has been weaned off
- IV Lasix changed to oral Lasix 20mg/d
- Farxiga 10mg/d and Toprol xl 12.5mg/d started as part of GDMT
#Hematuria -resolved
- Developed on sat
- CT urogram did not show any new issues.
- Eliquis held and resumed.
- Urine has cleared spontaneously, continue monitor
#b/l pleural effusion
- on CT chest, asymptomatic. defer thoracentesis at this time, will contact [facility] if clinically warranted
#Transaminitis
- Most likely secondary to hypoperfusion, shock
- improving
# Sepsis
# Suspect aspiration pneumonia
# Recent Strep sanguinis bacteremia with L3/L4 discitis
- Patient finished course of cefepime now has been transitioned to Rocephin for discitis with last dose on 12/10/24
- ID following and help appreciated
#Hyponatremia - Improved
-suspect volume overload related
#Elevated Troponin
-most likely non ischemic myocardial injury in setting of acute state
-Patient was on heparin drip
-Patient has MULTIMEDIA JOURNALIST of RPL and nonobstructive plaque in mid LAD
-Patient to be maintained on aspirin and Eliquis at this point
#Mitral regurgitation, progressive mod/severe => severe
#Anemia, chronic, monitor
#Paroxysmal Afib
-maintain on Eliquis
-rate controlled
-switch to PO amiodarone
# Recent L3/L4 discitis/osteomyelitis with Strep bacteremia
-Complicated by Intractable lower back pain with gait dysfunction due to above
-controlled with increased oral pain medication
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
-Per , flaherty was placed on 10/02/2024 due to urinary retention
-flaherty exchanged this admission
#Sacral ulcer, Stage III
-wound care
-Can consider MRI once stable - already on abx
# Distant h/o DVT, completed AC course
#Iron def Anemia
-consider ferrous sulfate outpatient
-will hold on IV iron due to acute infection
#Hypokalemia
-monitor and replete
# Constipation
- resolved with high doses of laxatives.
Code status: full code
DVT prophylaxis: Eliquis
Anticipated Discharge: Today
Subjective/Interval History
-
Date of Service: November 14, 2024
clinically feeling better today
abdomen is improved
no nausea/vomiting/fever
Objective Data
-
Labs:
Laboratory Results
11/14/24
03:36
WBC 10.7
Hgb 8.7 L
Hct 27.0 L
Plt Count 298
Sodium 133 L
Potassium 3.9
Chloride 101
Carbon Dioxide 30
BUN 22 H
Creatinine 0.7
Glucose 88
Calcium 8.5
Vital Signs:
Vital Signs
Temp Pulse Resp BP Pulse Ox
97.8 F 63 16 94/46 94
11/14/24 07:55 11/14/24 07:55 11/14/24 07:55 11/14/24 07:55 11/14/24 07:55
I&O
11/13/24 11/14/24 11/15/24
06:59 06:59 06:59
Intake Total 720 / 720
Output Total 600 / 600 1150 / 1150
Balance -600 / -600 -430 / -430
Review of Systems
-
Respiratory: Reports No Symptoms
Cardiac: Reports No Symptoms
Abdomen/GI: Reports No Symptoms
Physical Exam
-
General: Cachectic
HEENT: Nose Appears Normal and Ears Appear Normal; Negative Oxygen
Cardiac: Regular Rhythm and S1/S2
GI: Soft and Nontender
Genito-urinary: Flaherty
Neuro: Awake, Alert and Oriented
Psych: Calm
[2024-11-14] MEDS: STERILE WATER FOR INJECTION 20 ML IV (11:04)
[2024-11-14] MEDS: ROCEPHIN 2000 MG IV (11:04)
[2024-11-14] MEDS: LIPITOR 20 MG PO (15:13)
[2024-11-14 15:33] VITALS: BP 95/45
[2024-11-14] MEDS: REMOVE LIDOCAINE PATCH REMOVE (19:17)
[2024-11-14 23:00] VITALS: BP 95/48
--- NOTE | 2024-11-15 04:42 | W.PN.UPDATE ---
Update Note
Progress Note Update
Pt reported to have blood tinged urine and small clots in flaherty bag that started abouth mcc through the night per RN. Hematest positive. Eliquis placed on hold. ASA placed on hold. Patient NPO. Ordered CBC and BMP.
[2024-11-15 04:44] VITALS: BMI 18.7
--- NOTE | 2024-11-15 05:00 | PTCARENOTE ---
This RN was informed by PCT that pt was having new blood tinged urine in flaherty bag. This RN went into pt room to assess and saw blood tinged urine with a few small blood clots. While assessing urine, this RN noticed pts BM has red coloring and this
RN decided to heme test stool. Heme test showed a positive result - see BM documentation. MIHAI Harmon notified. New ordered received. Will continue with current plan of care.
[2024-11-15 07:00] LABS: Hematocrit 29.0 % (39.0-52.0); Hemoglobin 9.3 g/dL (13.0-18.0); Mean Corp Hgb Conc. 32.1 g/dL (33.0-37.0); Mean Corpuscular Volume 83.6 fL (80.0-94.0); Platelet Count 288 10^3/uL (130-400); Red Cell Dist. Width 19.3 % (11.5-14.5)
[2024-11-15 07:21] LABS: Blood Urea Nitrogen 24 mg/dl (9-20); Calcium 8.5 mg/dl (8.4-10.2); Carbon Dioxide 29 mmol/L (22-30); Chloride 101 mmol/L (98-107); Estimated Creatinine Clearance 67 ml/min; Glucose 97 mg/dl (70-99); Potassium 3.8 mmol/L (3.5-5.1); Sodium 134 mmol/L (135-145); eGFR > 60.00
[2024-11-15 08:07] VITALS: BP 99/52
[2024-11-15] MEDS: PROTONIX 40 MG PO ×2 (08:17→19:24)
[2024-11-15] MEDS: VISBIOME 1 CAP PO (08:18)
[2024-11-15] MEDS: LASIX 20 MG PO (08:18)
[2024-11-15] MEDS: TOPROL XL 12.5 MG PO (08:18)
[2024-11-15] MEDS: NEURONTIN 200 MG PO ×3 (08:18→23:28)
[2024-11-15] MEDS: PACERONE 200 MG PO (08:18)
[2024-11-15] MEDS: SANTYL OINTMENT 1 APPLIC TOPICAL (08:19)
[2024-11-15] MEDS: FARXIGA 10 MG PO (08:20)
[2024-11-15] MEDS: LIDOCAINE 4% PATCH TOPICAL (08:20)
[2024-11-15] MEDS: TYLENOL PO ×2 (08:21→14:59)
[2024-11-15] MEDS: ROCEPHIN 2000 MG IV (12:04)
[2024-11-15] MEDS: STERILE WATER FOR INJECTION 20 ML IV (12:05)
--- NOTE | 2024-11-15 13:12 | W.PN.HOSP.TC ---
Today's Communication/Plan
-
try suppository. Resume eliquis once blood in urine is resolved.
Assessment / Plan
Assessment / Plan
83-year-old male with past medical history of recent osteomyelitis/discitis on IV ceftriaxone, stage III sacral wound, recently discharged from to [facility]; presented back to the emergency department for
reported acute on chronic left-sided chest pain which began in the morning and continued back pain and 'buttock pain from wound'. EMS reported that patient was on 16 L nasal cannula. Currently on high flow. He denied active shortness of breath
this am. Patient has RUE PICC line from which he was receiving ceftriaxone.
CT PE:
Examination is negative for pulmonary embolism.
Small to moderate bilateral pleural effusions.
Patchy parenchymal opacity mainly within both upper lobes, suspicious for pneumonia. Pulmonary edema would be a differential consideration.
Band-shaped opacity within the inferior lingula, compatible with discoid atelectasis.
Note is made of a slightly impacted fracture involving the superior sternal body. This appears to be acute to subacute.
Calcification of the thoracic aorta with no evidence for thoracic aortic aneurysm.
1. Acute Hypoxic Respiratory Failure, resolved
-2/2 to Acute HFrEF +/- Aspiration Pneumonia
2. Cardiogenic Shock - complicated by Acute HFrEF
- TTE showing EF 30-35%
- Patient was on dobutamine/Levophed, has been weaned off
- IV Lasix changed to oral Lasix 20mg/d
- Farxiga 10mg/d and Toprol xl 12.5mg/d started as part of GDMT
3. Hematuria -had resolved, came back last night
- CT urogram did not show any new issues.
- Eliquis held and then resumed, and held again
- Urine had cleared spontaneously, continue monitor
If no further blood tomorrow, resume eliquis
4. b/l pleural effusion
- on CT chest, asymptomatic.
defer thoracentesis at this time, will contact [facility] if clinically warranted
5. Transaminitis
- Most likely secondary to hypoperfusion, shock
- improving
6. Sepsis
Suspect aspiration pneumonia
Recent Strep sanguinis bacteremia with L3/L4 discitis
- Patient finished course of cefepime now has been transitioned to Rocephin for discitis with last dose on 12/10/24
- ID following and help appreciated
7. Hyponatremia - Improved
-suspect volume overload related
8. Elevated Troponin
-most likely non ischemic myocardial injury in setting of acute state
-Patient was on heparin drip
-Patient has TRUCK LOADER of RPL and nonobstructive plaque in mid LAD
-Patient to be maintained on aspirin and Eliquis at this point
9. Mitral regurgitation, progressive mod/severe => severe
10. Anemia, chronic, monitor
11. Paroxysmal Afib
-maintain on Eliquis (once no longer bleeding on bladder)
-rate controlled
-switch to PO amiodarone
12. Recent L3/L4 discitis/osteomyelitis with Strep bacteremia
-Complicated by Intractable lower back pain with gait dysfunction due to above
-controlled with increased oral pain medication
13. 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
-Per , flaherty was placed on 10/02/2024 due to urinary retention
-flaherty exchanged this admission
14. Sacral ulcer, Stage III
-wound care
-Can consider MRI once stable - already on abx
15. Distant h/o DVT, completed AC course
16. Iron def Anemia
17. consider ferrous sulfate outpatient
-will hold on IV iron due to acute infection
18. Hypokalemia
-monitor and replete as needed
19. Constipation - continues
- resolved initially with high doses of laxatives.
- try suppository today
Code status: full code
DVT prophylaxis: Eliquis (temporarily held)
Anticipated Discharge: 24 - 48 hours
Subjective/Interval History
-
Date of Service: November 15, 2024
Complains of constipation
Objective Data
-
Labs:
Laboratory Results
11/15/24
06:10
WBC 8.2
Hgb 9.3 L
Hct 29.0 L
Plt Count 288
Sodium 134 L
Potassium 3.8
Chloride 101
Carbon Dioxide 29
BUN 24 H
Creatinine 0.7
Glucose 97
Calcium 8.5
Vital Signs:
Vital Signs
Temp Pulse Resp BP Pulse Ox
97.4 F 59 12 99/52 97
11/15/24 08:07 11/15/24 08:07 11/15/24 08:07 11/15/24 08:07 11/15/24 08:07
I&O
11/14/24 11/15/24 11/16/24
06:59 06:59 06:59
Intake Total 720 / 720 980 / 980
Output Total 1150 / 1150 1250 / 1250
Balance -430 / -430 -270 / -270
Review of Systems
-
History Source: Patient
All other systems: Reviewed and negative
Abdomen/GI: Reports Constipated
Physical Exam
-
General: Well Developed, Well Nourished, No Apparent Distress, Appears in Distress, Pain ('hard stool in my rectum') and Conversant
HEENT: Normocephalic, Atraumatic, Moist Mucous Membranes, Nose Appears Normal and Ears Appear Normal
Respiratory: Clear to Auscultation and Decreased Breath Sounds
Cardiac: S1/S2
GI: Soft, Nontender and Nondistended
Musculoskeletal: No Clubbing and No Cyanosis
Skin: Warm and Dry
Neuro: Awake and Alert
Psych: Calm
Data Reviewed
-
Labs: Labs Reviewed by me
[2024-11-15 16:02] VITALS: BP 100/49
[2024-11-15] MEDS: LIPITOR 20 MG PO (16:48)
[2024-11-15] MEDS: REMOVE LIDOCAINE PATCH REMOVE (19:24)
[2024-11-15 23:06] VITALS: BP 106/51
[2024-11-16] MEDS: TYLENOL PO ×4 (00:17→23:03)
[2024-11-16] MEDS: SANTYL OINTMENT 1 APPLIC TOPICAL (05:32)
[2024-11-16 06:32] VITALS: BMI 18.4
[2024-11-16 07:39] VITALS: BP 94/51
[2024-11-16 07:57] LABS: Hematocrit 29.7 % (39.0-52.0); Hemoglobin 9.6 g/dL (13.0-18.0); Mean Corp Hgb Conc. 32.3 g/dL (33.0-37.0); Mean Corpuscular Volume 83.2 fL (80.0-94.0); Platelet Count 278 10^3/uL (130-400); Red Cell Dist. Width 19.4 % (11.5-14.5)
[2024-11-16 08:09] LABS: Blood Urea Nitrogen 26 mg/dl (9-20); Calcium 8.8 mg/dl (8.4-10.2); Carbon Dioxide 29 mmol/L (22-30); Chloride 102 mmol/L (98-107); Estimated Creatinine Clearance 66 ml/min; Glucose 94 mg/dl (70-99); Magnesium 2.0 mg/dl (1.6-2.3); Potassium 3.9 mmol/L (3.5-5.1); Sodium 134 mmol/L (135-145); eGFR > 60.00
[2024-11-16 08:12] LABS: C-Reactive Protein 35.00 mg/L (0.0-10.00)
[2024-11-16] MEDS: PROTONIX 40 MG PO ×2 (08:23→19:42)
[2024-11-16] MEDS: FARXIGA 10 MG PO (08:23)
[2024-11-16] MEDS: NEURONTIN 200 MG PO ×3 (08:23→23:03)
[2024-11-16] MEDS: TOPROL XL 12.5 MG PO (08:23)
[2024-11-16] MEDS: VISBIOME 1 CAP PO (08:23)
[2024-11-16] MEDS: LASIX 20 MG PO (08:23)
[2024-11-16] MEDS: LIDOCAINE 4% PATCH TOPICAL (08:24)
[2024-11-16] MEDS: PACERONE 200 MG PO (08:24)
--- NOTE | 2024-11-16 11:47 | CM ---
Chart reviewed. [facility] at d/c
[employer] auth still pending at this time
Updated hospitalist
[facility] rehab
Report: [phone]

Plan: [facility] once auth is received
[2024-11-16] MEDS: MIRALAX 17 GRAMS PO (12:27)
[2024-11-16] MEDS: ELIQUIS 2.5 MG PO ×2 (12:27→19:42)
[2024-11-16] MEDS: ROCEPHIN 2000 MG IV (12:27)
[2024-11-16] MEDS: STERILE WATER FOR INJECTION 20 ML IV (12:28)
--- NOTE | 2024-11-16 12:59 | W.PN.HOSP.TC ---
Today's Communication/Plan
-
Resume ASA, Eliquis
Monitor for hematuria, hgb
Assessment / Plan
Assessment / Plan
83-year-old male with past medical history of recent osteomyelitis/discitis on IV ceftriaxone, stage III sacral wound, recently discharged from to [facility]; presented back to the emergency department for
reported acute on chronic left-sided chest pain which began in the morning and continued back pain and 'buttock pain from wound'. EMS reported that patient was on 16 L nasal cannula. Currently on high flow. He denied active shortness of breath
this am. Patient has RUE PICC line from which he was receiving ceftriaxone.
CT PE:
Examination is negative for pulmonary embolism.
Small to moderate bilateral pleural effusions.
Patchy parenchymal opacity mainly within both upper lobes, suspicious for pneumonia. Pulmonary edema would be a differential consideration.
Band-shaped opacity within the inferior lingula, compatible with discoid atelectasis.
Note is made of a slightly impacted fracture involving the superior sternal body. This appears to be acute to subacute.
Calcification of the thoracic aorta with no evidence for thoracic aortic aneurysm.
#Acute Hypoxic Respiratory Failure, resolved
-2/2 to Acute HFrEF +/- Aspiration Pneumonia
#Cardiogenic Shock
#CAcute HFrEF
- TTE showing EF 30-35%
- Patient was on dobutamine/Levophed, has been weaned off
- IV Lasix changed to oral Lasix 20mg/d
- Farxiga 10mg/d and Toprol xl 12.5mg/d started as part of GDMT
#Hematuria - resolved
- CT urogram did not show any new issues
-Resume ASA, Eliquis
-Spoke to Urology, NTD at this time
#b/l pleural effusion along with atelectasis
on CT chest, asymptomatic.
Diuresis as above
PT/OT
#Transaminitis
- Most likely secondary to hypoperfusion, shock
- improving
# Sepsis
Suspect aspiration pneumonia
Recent Strep sanguinis bacteremia with L3/L4 discitis
- Patient finished course of cefepime now has been transitioned to Rocephin for discitis with last dose on 12/10/24
- ID following and help appreciated
# Hyponatremia - Improved
- mild
-suspect volume overload related
#Elevated Troponin
-most likely non ischemic myocardial injury in setting of acute state
-Patient was on heparin drip
-Patient has COAL DELIVERER of RPL and nonobstructive plaque in mid LAD
-Patient to be maintained on aspirin and Eliquis at this point
#Mitral regurgitation, progressive mod/severe => severe
#Anemia, chronic, monitor
#Paroxysmal Afib
-maintain on Eliquis
-rate controlled
-switch to PO amiodarone
#Recent L3/L4 discitis/osteomyelitis with Strep bacteremia
-Complicated by Intractable lower back pain with gait dysfunction due to above
-controlled with increased oral pain medication
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
-Per , flaherty was placed on 10/02/2024 due to urinary retention
-flaherty exchanged this admission
#Sacral ulcer, Stage III
-wound care
-Can consider MRI once stable - already on abx
# Distant h/o DVT, completed AC course
# Iron def Anemia
# consider ferrous sulfate outpatient
-will hold on IV iron due to acute infection
# Hypokalemia
-monitor and replete as needed
# Constipation - improves
-bm regimen
Code status: full code
DVT prophylaxis: Eliquis
Anticipated Discharge: 24 - 48 hours
Subjective/Interval History
-
Date of Service: November 16, 2024
constipation improved, hematuria resolved
Objective Data
-
Labs:
Laboratory Results
11/16/24
07:35
WBC 7.9
Hgb 9.6 L
Hct 29.7 L
Plt Count 278
Sodium 134 L
Potassium 3.9
Chloride 102
Carbon Dioxide 29
BUN 26 H
Creatinine 0.7
Glucose 94
Calcium 8.8
Vital Signs:
Vital Signs
Temp Pulse Resp BP Pulse Ox
97.7 F 60 16 94/51 95
11/16/24 07:39 11/16/24 07:39 11/16/24 07:39 11/16/24 07:39 11/16/24 07:39
I&O
11/15/24 11/16/24 11/17/24
06:59 06:59 06:59
Intake Total 980 / 980 1080 / 1080
Output Total 1250 / 1250 1775 / 1775
Balance -270 / -270 -695 / -695
Review of Systems
-
History Source: Patient
All other systems: Reviewed and negative
Physical Exam
-
General: Well Developed, Well Nourished, No Apparent Distress and Conversant
HEENT: Normocephalic, Atraumatic, Moist Mucous Membranes, Nose Appears Normal and Ears Appear Normal
Respiratory: Clear to Auscultation and Decreased Breath Sounds
Cardiac: S1/S2
GI: Soft, Nontender and Nondistended
Musculoskeletal: No Clubbing and No Cyanosis
Skin: Warm and Dry
Neuro: Awake and Alert
Psych: Calm
Data Reviewed
-
Diagnostic Radiology: Report Reviewed by me
CT Scan: Report Reviewed by me
Labs: Labs Reviewed by me
[2024-11-16] MEDS: LOW STRENGTH ASPIRIN 81 MG PO (14:12)
[2024-11-16 15:02] VITALS: BP 102/49; BP 105/54
[2024-11-16 15:05] VITALS: BP 103/54
[2024-11-16 15:25] VITALS: BP 105/54
[2024-11-16] MEDS: LIPITOR 20 MG PO (17:10)
[2024-11-16] MEDS: REMOVE LIDOCAINE PATCH REMOVE (19:41)
[2024-11-16] MEDS: COLACE 100 MG PO (19:42)
[2024-11-16 23:48] VITALS: BP 98/47
[2024-11-17 05:27] LABS: Hematocrit 28.5 % (39.0-52.0); Hemoglobin 8.9 g/dL (13.0-18.0); Mean Corp Hgb Conc. 31.2 g/dL (33.0-37.0); Mean Corpuscular Volume 84.3 fL (80.0-94.0); Platelet Count 252 10^3/uL (130-400); Red Cell Dist. Width 19.2 % (11.5-14.5)
[2024-11-17 05:49] LABS: Blood Urea Nitrogen 22 mg/dl (9-20); Calcium 8.3 mg/dl (8.4-10.2); Carbon Dioxide 29 mmol/L (22-30); Chloride 103 mmol/L (98-107); Estimated Creatinine Clearance 77 ml/min; Glucose 89 mg/dl (70-99); Potassium 3.7 mmol/L (3.5-5.1); Sodium 136 mmol/L (135-145); eGFR > 60.00
[2024-11-17 08:38] VITALS: BP 99/49
[2024-11-17] MEDS: FARXIGA 10 MG PO (08:46)
[2024-11-17] MEDS: LASIX 20 MG PO (08:47)
[2024-11-17] MEDS: COLACE 100 MG PO (08:47)
[2024-11-17] MEDS: VISBIOME 1 CAP PO (08:47)
[2024-11-17] MEDS: PROTONIX 40 MG PO (08:47)
[2024-11-17] MEDS: ELIQUIS 2.5 MG PO (08:51)
[2024-11-17] MEDS: LOW STRENGTH ASPIRIN 81 MG PO (08:51)
[2024-11-17] MEDS: LIDOCAINE 4% PATCH TOPICAL (08:51)
[2024-11-17] MEDS: PACERONE 200 MG PO (08:51)
[2024-11-17] MEDS: NEURONTIN 200 MG PO ×2 (08:51→17:13)
[2024-11-17] MEDS: TOPROL XL 12.5 MG PO (08:51)
[2024-11-17] MEDS: SANTYL OINTMENT 1 APPLIC TOPICAL (08:52)
[2024-11-17] MEDS: TYLENOL PO ×2 (08:52→17:13)
--- NOTE | 2024-11-17 10:26 | W.PN.ID1 ---
Date of Service
Date of Service: November 17, 2024
Today's Communication
Continue ceftriaxone 2g IV q24 through 12/10/24 for discitis.
Assessment / Plan
# Recent Strep sanguinis bacteremia with L3/L4 discitis, currently on IV abx (was ceftriaxone) x 8 weeks through 12/10/24.
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
# s/p Cardiogenic shock; off pressors.
# Acute hypoxemic resp failure, resolved
# s/p aspiration pneumonia
# Leukocytosis - resolved
# New onset afib, now in sinus
# Unstageable sacral decubitus, present on admission
- Blood cx's neg to date
- Cardiac cath: no significant CAD to explain trop 69.
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
-Completed 7day course of cefepime for PNA.
- Continue ceftriaxone 2g IV q24 through 12/10/24 for discitis.
Infusion sheet submitted to manager case management on 11/09.
- Off load sacrum. Continue local wound care.
Chief Complaint
-: Other (L3-4 discitis)
Subjective / Review of Systems
more comfortable, less wound pain
Vital Signs / Physical Exam
Vital Signs
Vital Signs
Temp Pulse Resp BP Pulse Ox
97.5 F 56 14 99/49 95
11/17/24 08:38 11/17/24 08:38 11/17/24 08:38 11/17/24 08:38 11/17/24 08:38
Physical Exam
Constitutional: No Acute Distress and Chronically Ill
Cardiovascular: Regular Rate and S1/S2
Pulmonary: Clear
Gastrointestinal: Soft, Non Tender, Non Distended and Normal Bowel Sounds
Genito-Urinary: Soler and Clear Urine
Extremities: Negative Edema
Neurological: AO x 3
Lines: PICC (RUE)
Objective Data
Lab Data
Lab Results
11/17/24 04:57
11/17/24 04:57
ESR 69 mm/hour (0-20) H 11/09/24 06:06
PT 15.2 Sec (11.4-14.6) H 11/03/24 05:38
INR 1.17 11/03/24 05:38
APTT Cancelled 11/03/24 12:00
Estimated Creat Clear 77 ml/min 11/17/24 04:57
Lactic Acid 1.8 mmol/L (0.7-2.0) 11/02/24 17:33
Total Bilirubin 0.6 mg/dl (0.2-1.3) 11/10/24 05:24
AST 20 U/L (17-59) 11/10/24 05:24
ALT 60 U/L (0-50) H 11/10/24 05:24
Alkaline Phosphatase 59 U/L (38-126) 11/10/24 05:24
C-Reactive Protein 35.00 mg/L (0.0-10.00) H 11/16/24 07:35
Most recent labs reviewed.
Micro Results:
10/30/24 09:02 Blood Culture - Final
Blood/Venous No Growth - Final Report
10/30/24 09:03 Blood Culture - Final
Blood/Venous No Growth - Final Report
10/30/24 18:11 MRSA Screen - Final
Nose No Methicillin Resistant Staphylococcus aureus isolated.
10/30/24 08:01 Urine Culture - Final
Urine NO GROWTH
10/30/24 20:17 Respiratory Culture - Final
Sputum Gram Stain - Final
10/30/24 18:11 Legionella Urinary Antigen - Final
Urine Negative for Legionella pneumophila Serogroup 1 antigen.
A negative result does not rule out the possiblity of
Legionella infection due to other serogroups or species of
Legionella. Clinical correlation is recommended.
Streptococcus pneumoniae Antigen (M - Final
Negative for Streptococcus pneumoniae antigen.
A negative result does not exclude infection with
Streptococcus pneumoniae. Clinical correlation is
recommended.
10/30/24 11:35 Influenza Types A & B (LAURA) - Final
Nasal Swab Negative for Influenza A & B, NAAT
Negative results must be combined with clinical observations
and patient history.
Nucleic Acid Amplification test (NAAT)performed on the
[employer] platform.
Imaging:
11/04/24 CXR: Bilateral opacification slightly improved on the right, possibly representing pneumonia and small bilateral pleural effusions.
11/02/24 CXR: MARKED PROGRESSION OF WIDESPREAD BILATERAL PARENCHYMAL OPACITIES, most likely differential diagnostic possibilities would be acute pulmonary edema or pneumonia.
10/30/[address] examination is negative for pulmonary embolism. Small to moderate bilateral pleural effusions. Patchy parenchymal opacity mainly within both upper lobes, suspicious for pneumonia. Pulmonary edema would be a differential
consideration.
--- NOTE | 2024-11-17 10:55 | WOUNDNOTE ---
WON RN NOTE: Followed up today with assist of PCT. Patient turns self with minimal assist, on an air overlay. Palm check done with adequate inflation. Patient reports he still is having pain in back where confirmed discitis/osteomyelitis of L3-L4.
Nurse aware can switch bed to [facility] air bed if unable to maintain turning schedule. Sacral wound remains unstageable, center feliciano unable to see base of wound, slightly boggy. Edges are becoming filter cleaner, however proximal edge with new dark maroon
spot. Notified Dr. Jacques and recommended surgical consult again. Patient states his appetite has improved, at bedside confirmed he is eating allot more protein. Heel foams changed, heels blanchable pink. Pillow under calves to offload heels.
Patient repositioned to R semi side lying position. Recommend continue Santyl dressing to sacrum and offloading. Will follow as needed.
--- NOTE | 2024-11-17 11:34 | CM ---
Addendum entered by Jimena Suresh RN 11/17/24 16:22:
Spoke with and pt in room . Both agree with dc to [facility] today via ambulance .IMM reviewed signed on chart.
Original Note:
George auth obtained through [employer] auth # [id number] from 11/13/24 to 11/19/24. Spoke with George Griffin she said she could not extend dates at this time.
Spoke with Elva at [facility] notified of auth number. She can accept today.IV antibiotic information, PT and ID note faxed to [facility] /Elva.
Medical nec form completed.
[facility] rehab
Report: [phone]

Plan: [facility]
--- NOTE | 2024-11-17 12:09 | W.PN.HOSP.TC ---
Addendum entered and electronically signed by Fran Jacques MD 11/17/24 17:17:
NTD from surgical standpoint; wound care
[id number]
Original Note:
Today's Communication/Plan
-
Surgery consulted for unstageable sacral pressure injury
Continue IV antibiotics
MRI of the lumbar spine as directed by infectious disease outpatient
Continue diuretics, SGLT2i inhibitor, beta-nito
Continue aspirin, Eliquis, amiodarone, beta-nito
Follow-up ID, cardiology, PCP, urology outpatient
Follow-up surgery outpatient if needed
Assessment / Plan
Assessment / Plan
83-year-old male with past medical history of recent osteomyelitis/discitis on IV ceftriaxone, stage III sacral wound, recently discharged from to [facility]; presented back to the emergency department for
reported acute on chronic left-sided chest pain which began in the morning and continued back pain and 'buttock pain from wound'. EMS reported that patient was on 16 L nasal cannula. Currently on high flow. He denied active shortness of breath
this am. Patient has RUE PICC line from which he was receiving ceftriaxone.
CT PE:
Examination is negative for pulmonary embolism.
Small to moderate bilateral pleural effusions.
Patchy parenchymal opacity mainly within both upper lobes, suspicious for pneumonia. Pulmonary edema would be a differential consideration.
Band-shaped opacity within the inferior lingula, compatible with discoid atelectasis.
Note is made of a slightly impacted fracture involving the superior sternal body. This appears to be acute to subacute.
Calcification of the thoracic aorta with no evidence for thoracic aortic aneurysm.
#Acute Hypoxic Respiratory Failure, resolved
-2/2 to Acute HFrEF +/- Aspiration Pneumonia
#Cardiogenic Shock
#CAcute HFrEF
- TTE showing EF 30-35%
- Patient was on dobutamine/Levophed, has been weaned off
- IV Lasix changed to oral Lasix 20mg/d
- Farxiga 10mg/d and Toprol xl 12.5mg/d started as part of GDMT
#Hematuria - resolved
- CT urogram did not show any new issues
-Resume ASA, Eliquis, tolerating well
-Spoke to Urology, NTD at this time-
�follow-up urology outpatient
#b/l pleural effusion along with atelectasis
on CT chest, asymptomatic.
Diuresis as above
PT/OT
#Transaminitis
- Most likely secondary to hypoperfusion, shock
- improving
# Sepsis
Suspect aspiration pneumonia
Recent Strep sanguinis bacteremia with L3/L4 discitis
- Patient finished course of cefepime now has been transitioned to Rocephin for discitis with last dose on 12/10/24
- ID following and help appreciated
# Hyponatremia - Improved
- mild
-suspect volume overload related
#Elevated Troponin
-most likely non ischemic myocardial injury in setting of acute state
-Patient was on heparin drip
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
-Patient to be maintained on aspirin and Eliquis at this point
#Mitral regurgitation, progressive mod/severe => severe
#Anemia, chronic, monitor
#Paroxysmal Afib
-maintain on Eliquis
-rate controlled, beta-nito
-switch to PO amiodarone
#Recent L3/L4 discitis/osteomyelitis with Strep bacteremia
-Complicated by Intractable lower back pain with gait dysfunction due to above
-controlled with increased oral pain medication
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
-Per , flaherty was placed on 10/02/2024 due to urinary retention
-flaherty exchanged this admission
#Sacral ulcer, Stage III�now unstageable
-wound care
-Can consider MRI once stable - already on abx
� Surgery consulted for evaluation prior to discharge
# Distant h/o DVT, completed AC course
# Iron def Anemia
# consider ferrous sulfate outpatient
-will hold on IV iron due to acute infection
# Hypokalemia
-monitor and replete as needed
# Constipation - improves
-bm regimen
Code status: full code
DVT prophylaxis: Eliquis
More than 30 minutes spent in discharge including
Final examination of the patient
Summarizing hospital stay
Instructions for continuing care to all relevant caregivers
Preparation of discharge records, prescriptions, and referral forms
Total time spent (in minutes): 36
Anticipated Discharge: Today
Subjective/Interval History
-
Date of Service: November 17, 2024
No acute events overnight, no hematuria on aspirin, Eliquis
Objective Data
-
Labs:
Laboratory Results
11/17/24
04:57
WBC 6.6
Hgb 8.9 L
Hct 28.5 L
Plt Count 252
Sodium 136
Potassium 3.7
Chloride 103
Carbon Dioxide 29
BUN 22 H
Creatinine 0.6 L
Glucose 89
Calcium 8.3 L
Vital Signs:
Vital Signs
Temp Pulse Resp BP Pulse Ox
97.5 F 56 14 99/49 95
11/17/24 08:38 11/17/24 08:38 11/17/24 08:38 11/17/24 08:38 11/17/24 08:38
I&O
11/16/24 11/17/24 11/18/24
06:59 06:59 06:59
Intake Total 1080 / 1080 480 / 480
Output Total 1775 / 1775 800 / 800
Balance -695 / -695 -320 / -320
Review of Systems
-
History Source: Patient
All other systems: Reviewed and negative
Physical Exam
-
General: Well Developed, Well Nourished, No Apparent Distress and Conversant
HEENT: Normocephalic, Atraumatic, Moist Mucous Membranes, Nose Appears Normal and Ears Appear Normal
Respiratory: Clear to Auscultation and Decreased Breath Sounds
Cardiac: S1/S2
GI: Soft, Nontender and Nondistended
Genito-urinary: Other (Flaherty in place, draining yellow urine)
Musculoskeletal: No Clubbing and No Cyanosis
Skin: Warm and Dry
Neuro: Awake and Alert
Psych: Calm
Data Reviewed
-
Diagnostic Radiology: Report Reviewed by me
CT Scan: Report Reviewed by me
Labs: Labs Reviewed by me
--- NOTE | 2024-11-17 12:14 | W.DS.TRANS ---
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
-
Discharge Instructions:
Discharge Diagnosis/Procedures Hypoxic reps failure, Systolic HF exacerbation,
Aspiration pneumonia, L3-L4 discitis, Hematuria,
pleural effusion, Hyponatremia, indwelling
flaherty
Diet 2 Gram Sodium,Restrict fluids to 48 oz
Activity As tolerated
Driving Restrictions No driving
Bathing Restrictions OK to Shower
Blood Work cbc and cmp in 1 week with pcp
Others Tests Sacral ulcer, Stage III - Can consider MRI
outpatient; already on antibiotics
Instructions:
Stand-Alone Forms: DC Instructions- Cath/EP Lab
Changes to Home Medications: Yes
Discharge Medications:
DC Medications w/original date entered in [employer]
cholecalciferol (vitamin D3) 125 mcg (5,000 unit) tablet 125 mcg PO QPM Supplement 10/12/24
cholecalciferol (vitamin D3) 125 mcg (5,000 unit) tablet 250 mcg PO DAILY Supplement 10/12/24
docusate sodium 50 mg capsule 100 mg PO BID Constipation 10/12/24
gabapentin 100 mg capsule 200 mg PO Q8H Neurological Condition 10/12/24
Lactobac no.2-Bifidobac no.1-S. thermo 112.5 billion cell capsule (Visbiome) 1 cap PO DAILY Supplement 10/30/24
acetaminophen 325 mg tablet (Tylenol) 650 mg PO Q6HPRN PRN mild pain 10/30/24
acetaminophen 500 mg tablet (Tylenol Extra Strength) 500 mg PO Q8H Pain 10/30/24
ascorbic acid (vitamin C) 1,000 mg tablet (Vitamin C) 1,000 mg PO DAILY Supplement 10/30/24
bisacodyl 10 mg rectal suppository (Dulcolax (bisacodyl)) 10 mg OH DAILYPRN PRN if no bm by 3rd day 10/30/24
ferrous sulfate 324 mg (65 mg iron) tablet,delayed release 324 mg PO Q48H Supplement 10/30/24
melatonin 3 mg tablet 3 mg PO HS Sleep 10/30/24
pantoprazole 40 mg tablet,delayed release (Protonix) 40 mg PO BID GERD 10/30/24
polyethylene glycol 3350 17 gram oral powder packet (Miralax) 17 g PO DAILYPRN PRN constipation 10/30/24
sodium phosphates 19 gram-7 gram/118 mL enema (Fleet Enema) 118 ml OH DAILYPRN PRN if no bm by 4th day 10/30/24
amiodarone 200 mg tablet (Pacerone) 200 mg PO DAILY #30 tabs 11/14/24
apixaban 2.5 mg tablet (Eliquis) 2.5 mg PO BID #60 tabs 11/14/24
aspirin 81 mg chewable tablet 81 mg PO DAILY #30 tabs 11/14/24
atorvastatin 20 mg tablet 20 mg PO QPM #30 tabs 11/14/24
ceftriaxone 2 gram solution for injection 2,000 mg IV Q24H #25 ea 11/14/24
dapagliflozin propanediol 10 mg tablet 10 mg PO DAILY #30 tabs 11/14/24
furosemide 20 mg tablet 20 mg PO DAILY #30 tabs 11/14/24
lidocaine 4 % topical patch 1 patch topical DAILY #5 ea 11/14/24
metoprolol succinate 25 mg tablet,extended release 24 hr 12.5 mg (1/2 x 25 mg) PO DAILY #30 tabs 11/14/24
Home Medication Changes
amiodarone 200 mg tablet (Pacerone) 200 mg PO DAILY #30 tabs 11/14/24
apixaban 2.5 mg tablet (Eliquis) 2.5 mg PO BID #60 tabs 11/14/24
aspirin 81 mg chewable tablet 81 mg PO DAILY #30 tabs 11/14/24
atorvastatin 20 mg tablet 20 mg PO QPM #30 tabs 11/14/24
ceftriaxone 2 gram solution for injection 2,000 mg IV Q24H #25 ea 11/14/24
dapagliflozin propanediol 10 mg tablet 10 mg PO DAILY #30 tabs 11/14/24
furosemide 20 mg tablet 20 mg PO DAILY #30 tabs 11/14/24
lidocaine 4 % topical patch 1 patch topical DAILY #5 ea 11/14/24
metoprolol succinate 25 mg tablet,extended release 24 hr 12.5 mg (1/2 x 25 mg) PO DAILY #30 tabs 11/14/24
Pending Results: No
[2024-11-17] MEDS: ROCEPHIN 2000 MG IV (12:57)
[2024-11-17] MEDS: STERILE WATER FOR INJECTION 20 ML IV (12:57)
--- NOTE | 2024-11-17 14:23 | W.PN.SURGUPD ---
Surgical Update
Surgical Update
Patient seen and examined.
Longstanding wound which has been present for months. Discomfort, no drainage. No fevers or chills. Exam reveals a stage II pressure ulcer immediately overlying the bone. No evidence of gangrenous or purulent changes. No significant erythema or
induration. No bogginess or fluid palpated at the base of the wound. Debridement would likely result in exposure of the bone - no need for surgical debridement at this time. Recommend continued medical management and diligent offloading with
pressure. Follow-up in the wound care center. All questions answered.
[2024-11-17 15:58] VITALS: BP 100/52
[2024-11-17] MEDS: LIPITOR 20 MG PO (17:13)
[2024-11-17 19:40] VITALS: BP 103/49
== END 2024-11-17 20:36 | DRG 286 ==
LOC: 4 WEST ACU 12:38
PROVIDERS: Hospitalist; Internal Medicine; Nurse Practitioner Adult Health; Nurse Practitioner Family; Nurse Practitioner Primary Care; Physician Assistant Medical; Student in an Organized Health Care Education/Training Program; ADMITTING PHYSICIAN Internal Medicine; ATTENDING PHYSICIAN Internal Medicine; CONSULT PHYSICIAN Internal Medicine; CONSULT PHYSICIAN Internal Medicine Critical Care Medicine; CONSULT PHYSICIAN Internal Medicine Infectious Disease; CONSULT PHYSICIAN Surgery; EMERGENCY PHYSICIAN Emergency Medicine; FAMILY PHYSICIAN Family Medicine
PROC: B2111ZZ Fluoroscopy of Multiple Coronary Arteries using Low Osmolar Contrast (ICD-10-PCS; 2024-10-30)
PROC: 5A09357 Assistance with Respiratory Ventilation, Less than 24 Consecutive Hours, Continuous Positive Airway Pressure (ICD-10-PCS; 2024-10-30)
PROC: 4A023N8 Measurement of Cardiac Sampling and Pressure, Bilateral, Percutaneous Approach (ICD-10-PCS; 2024-10-30)
DX: I11.0 Hypertensive heart disease with heart failure (principal); A40.9 Streptococcal sepsis, unspecified; I50.23 Acute on chronic systolic (congestive) heart failure; L89.153 Pressure ulcer of sacral region, stage 3; J69.0 Pneumonitis due to inhalation of food and vomit; J96.01 Acute respiratory failure with hypoxia; R57.0 Cardiogenic shock; S22.22XA Fracture of body of sternum, initial encounter for closed fracture; E87.1 Hypo-osmolality and hyponatremia; R64 Cachexia; J98.11 Atelectasis; I5A Non-ischemic myocardial injury (non-traumatic); I42.8 Other cardiomyopathies; R74.01 Elevation of levels of liver transaminase levels; M46.46 Discitis, unspecified, lumbar region; R31.0 Gross hematuria; D50.9 Iron deficiency anemia, unspecified; I08.0 Rheumatic disorders of both mitral and aortic valves; Z11.52 Encounter for screening for COVID-19; X58.XXXA Exposure to other specified factors, initial encounter; E87.6 Hypokalemia; K59.00 Constipation, unspecified; R33.8 Other retention of urine; N40.1 Benign prostatic hyperplasia with lower urinary tract symptoms; I27.20 Pulmonary hypertension, unspecified; Z66 Do not resuscitate; I48.0 Paroxysmal atrial fibrillation; I25.10 Atherosclerotic heart disease of native coronary artery without angina pectoris; D63.8 Anemia in other chronic diseases classified elsewhere; I73.9 Peripheral vascular disease, unspecified; K21.9 Gastro-esophageal reflux disease without esophagitis; E78.00 Pure hypercholesterolemia, unspecified; I25.5 Ischemic cardiomyopathy; Z86.718 Personal history of other venous thrombosis and embolism; Z87.891 Personal history of nicotine dependence; Z79.01 Long term (current) use of anticoagulants
CPT/HCPCS: 71045; 71046; 71275; 74178; 80048; 80053; 80076; 81003; 81015; 82805; 83605; 83735; 84100; 84145; 84484; 85014; 85018; 85025; 85027; 85610; 85652; 85730; 86140; 87040; 87070; 87086; 87205; 87449; 87502; 87811; 87899; 92526; 92610; 93005; 93308; 93321; 93325; 93460; 94660; 96361; 96365; 96375; 97110; 97116; 97163; 97167; 97530; 97535; 99285; C1769; C1894; J2997; Q9967

== ENCOUNTER → 2025-01-04 12:36 | Outpatient (REF) | payer OTHER, SELFPAY | LOC: WOUND 12:36 | PROVIDERS: ATTENDING PHYSICIAN Surgery; FAMILY PHYSICIAN Internal Medicine Geriatric Medicine | DX: L89.154 Pressure ulcer of sacral region, stage 4 (principal); I73.9 Peripheral vascular disease, unspecified; I49.3 Ventricular premature depolarization; I34.0 Nonrheumatic mitral (valve) insufficiency; I87.2 Venous insufficiency (chronic) (peripheral); Z79.01 Long term (current) use of anticoagulants | CPT/HCPCS: 99204 ==

== ENCOUNTER → 2025-01-12 11:13 | Outpatient (REF) | payer OTHER, SELFPAY | LOC: WOUND 11:13 | PROVIDERS: ATTENDING PHYSICIAN Surgery; FAMILY PHYSICIAN Internal Medicine Geriatric Medicine | DX: L89.154 Pressure ulcer of sacral region, stage 4 (principal); I73.9 Peripheral vascular disease, unspecified; I49.3 Ventricular premature depolarization; I34.0 Nonrheumatic mitral (valve) insufficiency; I87.2 Venous insufficiency (chronic) (peripheral); Z79.01 Long term (current) use of anticoagulants | CPT/HCPCS: 99213 ==

== ENCOUNTER → 2025-01-19 12:43 | Outpatient (REF) | payer OTHER, SELFPAY | LOC: WOUND 12:43 | PROVIDERS: ATTENDING PHYSICIAN Surgery; FAMILY PHYSICIAN Internal Medicine Geriatric Medicine | DX: L89.154 Pressure ulcer of sacral region, stage 4 (principal); Z79.01 Long term (current) use of anticoagulants; I73.9 Peripheral vascular disease, unspecified; I49.3 Ventricular premature depolarization; I34.0 Nonrheumatic mitral (valve) insufficiency; I87.2 Venous insufficiency (chronic) (peripheral) | CPT/HCPCS: 99213 ==

== ENCOUNTER → 2025-02-02 12:26 | Outpatient (REF) | payer OTHER, SELFPAY | LOC: WOUND 12:26 | PROVIDERS: ATTENDING PHYSICIAN Surgery; FAMILY PHYSICIAN Internal Medicine Geriatric Medicine | DX: L89.154 Pressure ulcer of sacral region, stage 4 (principal); I73.9 Peripheral vascular disease, unspecified; I49.3 Ventricular premature depolarization; I34.0 Nonrheumatic mitral (valve) insufficiency; I87.2 Venous insufficiency (chronic) (peripheral); Z79.01 Long term (current) use of anticoagulants | CPT/HCPCS: 99213 ==

== ENCOUNTER → 2025-02-16 12:41 | Outpatient (REF) | payer OTHER, SELFPAY | LOC: WOUND 12:41 | PROVIDERS: ATTENDING PHYSICIAN Surgery; FAMILY PHYSICIAN Internal Medicine Geriatric Medicine | DX: L89.154 Pressure ulcer of sacral region, stage 4 (principal); I73.9 Peripheral vascular disease, unspecified; I49.3 Ventricular premature depolarization; I34.0 Nonrheumatic mitral (valve) insufficiency; I87.2 Venous insufficiency (chronic) (peripheral); Z79.01 Long term (current) use of anticoagulants | CPT/HCPCS: 99213 ==

== ENCOUNTER 2025-03-05 13:58 | Outpatient (REF) | payer OTHER, SELFPAY | END 2025-03-05 23:59 | disposition home or self-care (01) | LOC: WOUND 13:58 | PROVIDERS: ATTENDING PHYSICIAN Surgery; FAMILY PHYSICIAN Internal Medicine Geriatric Medicine | DX: L89.154 Pressure ulcer of sacral region, stage 4 (principal); I73.9 Peripheral vascular disease, unspecified; I49.3 Ventricular premature depolarization; I34.0 Nonrheumatic mitral (valve) insufficiency; I87.2 Venous insufficiency (chronic) (peripheral); Z79.01 Long term (current) use of anticoagulants | CPT/HCPCS: 99213 ==

== ENCOUNTER → 2025-03-15 10:47 | Outpatient (REF) | payer OTHER, SELFPAY | LOC: MRI 3T 10:47 | PROVIDERS: ATTENDING PHYSICIAN Surgery; FAMILY PHYSICIAN Internal Medicine Geriatric Medicine | DX: L89.154 Pressure ulcer of sacral region, stage 4 (principal) | CPT/HCPCS: 72197; A9575 ==

== ENCOUNTER 2025-03-23 13:53 | Outpatient (REF) | payer OTHER, SELFPAY | END 2025-03-23 23:59 | disposition home or self-care (01) | LOC: WOUND 13:53 | PROVIDERS: ATTENDING PHYSICIAN Registered Nurse; FAMILY PHYSICIAN Internal Medicine Geriatric Medicine | DX: L89.154 Pressure ulcer of sacral region, stage 4 (principal); Z79.01 Long term (current) use of anticoagulants; I73.9 Peripheral vascular disease, unspecified; I49.3 Ventricular premature depolarization; I34.0 Nonrheumatic mitral (valve) insufficiency; I87.2 Venous insufficiency (chronic) (peripheral) | CPT/HCPCS: 99213 ==

== ENCOUNTER 2025-03-30 13:29 | Outpatient (REF) | payer OTHER, SELFPAY | END 2025-03-30 23:59 | disposition home or self-care (01) | LOC: WOUND 13:29 | PROVIDERS: ATTENDING PHYSICIAN Registered Nurse; FAMILY PHYSICIAN Internal Medicine Geriatric Medicine | DX: L89.154 Pressure ulcer of sacral region, stage 4 (principal); I73.9 Peripheral vascular disease, unspecified; I49.3 Ventricular premature depolarization; I34.0 Nonrheumatic mitral (valve) insufficiency; I87.2 Venous insufficiency (chronic) (peripheral); Z79.01 Long term (current) use of anticoagulants | CPT/HCPCS: 99213 ==

== ENCOUNTER → 2025-04-01 13:42 | Outpatient (REF) | payer OTHER, SELFPAY | LOC: CLAB 13:42 | PROVIDERS: ATTENDING PHYSICIAN Internal Medicine Infectious Disease | DX: M86.18 Other acute osteomyelitis, other site (principal) | CPT/HCPCS: 87070; 87147; 87205 ==

== ENCOUNTER 2025-04-06 13:57 | Outpatient (REF) | payer OTHER, SELFPAY | END 2025-04-06 23:59 | disposition home or self-care (01) | LOC: WOUND 13:57 | PROVIDERS: ATTENDING PHYSICIAN Registered Nurse; FAMILY PHYSICIAN Internal Medicine Geriatric Medicine | DX: L89.154 Pressure ulcer of sacral region, stage 4 (principal); I73.9 Peripheral vascular disease, unspecified; I49.3 Ventricular premature depolarization; I34.0 Nonrheumatic mitral (valve) insufficiency; I87.2 Venous insufficiency (chronic) (peripheral); Z79.01 Long term (current) use of anticoagulants | CPT/HCPCS: 99213 ==

== ENCOUNTER → 2025-04-08 12:38 | Outpatient (REF) | payer OTHER, SELFPAY ==
[2025-04-08 13:11] VITALS: BP 124/63; BP_SYST 73
== END ==
LOC: RADI 12:38
PROVIDERS: ATTENDING PHYSICIAN Internal Medicine Infectious Disease
DX: M46.28 Osteomyelitis of vertebra, sacral and sacrococcygeal region (principal)
CPT/HCPCS: 36573; C1751

== ENCOUNTER 2025-04-20 13:51 | Outpatient (REF) | payer OTHER, SELFPAY | END 2025-04-20 23:59 | disposition home or self-care (01) | LOC: WOUND 13:51 | PROVIDERS: ATTENDING PHYSICIAN Registered Nurse; FAMILY PHYSICIAN Internal Medicine Geriatric Medicine | DX: L89.154 Pressure ulcer of sacral region, stage 4 (principal); I73.9 Peripheral vascular disease, unspecified; I49.3 Ventricular premature depolarization; I34.0 Nonrheumatic mitral (valve) insufficiency; I87.2 Venous insufficiency (chronic) (peripheral); Z79.01 Long term (current) use of anticoagulants | CPT/HCPCS: 99213 ==